=== PATIENT | male | born 1955 | race Caucasian/White ===

== ENCOUNTER → 2016-04-25 | Outpatient (CLI) | payer OTHER ==
--- NOTE | 2016-04-25 17:19 | DX ---
Right Knee, Seven Views Total, at 4 p.m. Clinical History: 61-year-old male who has had prior knee arthroplasty revisions, and his knee "buckl ed" earlier today and he has persistent pain. The patient is on chronic pain medication and chronic s uppressive antibiotics (with a history of cellulitis). Rule out acute abnormality. ICD-10 Diagnostic Codes: L03.119 and M25.569. Comparison Study: Right knee, dated August 27, 2015. Findings: There is stable positioning of the distal femoral and the proximal tibial arthroplasty comp onents, and there is no new periprosthetic lucency. There is a stable appearance to the remodeled pat angel, and numerous well-corticated ossific densities along the posterior, medial, and lateral aspects of the knee are similar in distribution to the 2016 exam. There is soft tissue swelling, and fluid i n the suprapatellar bursa cannot be excluded. There is no patellofemoral joint malalignment. There ar e vascular clips projected over the posteromedial upper calf. Ancillary imaging of the knee with MR evaluation will be limited because of magnetic susceptibility a rtifact associated with the arthroplasty, and a bone scan (even if radiotracer-avid) may not differen tiate between an acute versus chronic inflammatory process. Alternatively, conservative management an d short-term repeat radiographic follow-up in 7-14 days could be considered. Findings were discussed with Dr. Jacky Aguirre at 5:00 p.m. on April 25, 2016. Impression: 1. Status post right knee arthroplasty, with stable positioning of the components, compared to August. 2. Diffuse soft tissue swelling. 3. No convincing intervening evidence of hardware loosening, or acute osseous abnormality. 4. Osseous debris versus heterotopic ossification(s), very similar in distribution to the previous ex am. If there is progression of the patient's symptoms, supplementary imaging with MRI or s bone scan will be technically limited. Short-term repeat radiographic follow up is an alternative.
== END ==
LOC: FIMAGING 15:56
PROVIDERS: ATTEND Internal Medicine Infectious Disease
DX: M25.561 Pain in right knee (principal); Z96.651 Presence of right artificial knee joint; L03.119 Cellulitis of unspecified part of limb

== ENCOUNTER 2016-11-09 20:19 | Inpatient (IN) | payer OTHER ==
[2016-11-09] MEDS ORDERED: ACETAMINOPHEN 500 MG TAB PO ONE (21:11)
[2016-11-09] MEDS ORDERED: NS 500 ML IV ONE (21:18)
[2016-11-09 21:29] LABS: % IMMATURE GRANULYOCYTES 0.6 % (0.0-1.1); ABSOLUTE IMMATURE GRANULOCYTES 0.09 10^3/uL (0.00-0.10); ABSOLUTE NRBC COUNT 0.02 10^3/uL (0-0.01); ADD DIFF? NO; ADD MORPH? YES; ADD SCAN? NO; ANION GAP 11 mEq/L (8-16); ATYPICAL LYMPHOCYTE FLAG 0 (0-99); CALCIUM 9.8 mg/dL (8.5-10.4); CARBON DIOXIDE 28 mEq/l (22-31); CHLORIDE 94 mEq/L (97-110); CREATININE 1.3 mg/dL (0.7-1.3); FRAGMENT RBC FLAG 60 (0-99); GLOMERULAR FILTRATION RATE 56; GLUCOSE 84 mg/dL (70-100); HEMATOCRIT 46.6 % (40.0-51.0); HEMOGLOBIN 13.4 g/dL (13.7-17.5); LEFT SHIFT FLG 0 (0-99); LIPEMIA HEMOLYSIS FLAG 70 (0-99); NRBC-AUTO% 0.1 % (0.0-0.2); PLATELET CLUMPS FLAG 10 (0-99); PLATELET COUNT 275 10^3/uL (150-400); POTASSIUM 3.9 mEq/L (3.5-5.2); SODIUM 133 mEq/L (134-144)
[2016-11-09 21:30] LABS: MEAN CELL HEMOGLOBIN CONCENTR. 28.8 g/dL (32.4-36.7); MEAN CELL VOLUME 69.6 fL (81.5-99.8); RED CELL DISTRIBUTION WIDTH 22.5 % (11.5-15.2)
--- NOTE | 2016-11-09 21:38 | EDPHY ---
H & P Time Seen by Provider: 11/09/16 21:27 HPI/ROS: Chief complaint. Fever, fall HPI. 61-year-old male presents emergency department with fever. He had a cortisone shot in his back yesterday and then was weak and then fell landing on his bottom. Complains of tailbone pain. Did not strike his head or lose consciousness. No neck pain. He has had abdominal pain in the mid abdomen since 3:00 p.m. no vomiting or diarrhea. He has no symptoms for his fever including sore throat or runny nose or congestion. Denies cough, chest pain, shortness of breath, denies urinary symptoms. However he does have a history of cellulitis. ROS Constitutional. Fever and chills with weakness Eyes. no problems with vision ENT. no sore throat, no nasal drainage Cardiovascular. no chest pain Respiratory. no shortness of breath, no cough Abdominal. Mid abdominal pain without vomiting or diarrhea . no problems urinating MS. no calf pain/swelling, no neck/back pain, no joint pain Skin. Redness to both lower extremities Lymph. no swollen glands Neuro. Difficulty walking secondary to weakness Past Medical/Surgical History: Past medical history significant for bilateral knee problems, back surgery, cellulitis both legs, hypertension Smoking Status: Never smoked Physical Exam: General Appearance: Alert well-developed male moderate distress vital signs show temp 38.0degrees. Heart rate 112. Initial blood pressure 96/86 Eyes: Pupils equal and round no pallor or injection. ENT, Mouth: Mucous membranes are moist. Respiratory: There are no retractions, lungs are clear to auscultation. Cardiovascular: Regular rate and rhythm. Gastrointestinal: Abdomen is soft with mid abdominal tenderness. No masses. Normal bowel sounds Neurological: Awake and alert, sensory and motor exams grossly normal. Skin: Bilateral lower leg erythema suggestive of cellulitis Musculoskeletal: Neck is supple nontender. Extremities symmetrical, full range of motion. Psychiatric: Patient is oriented X 3, there is no agitation. Constitutional: Initial Vital Signs Temperature (C) 38.0 C 11/09/16 20:29 Heart Rate 112 H 11/09/16 20:29 Respiratory Rate 20 11/09/16 20:29 Blood Pressure 96/86 H 11/09/16 20:29 O2 Sat (%) 92 11/09/16 20:29 O2 Delivery Mode Nasal Cannula O2 (L/minute) 2 Allergies/Adverse Reactions: amoxicillin [Amoxicillin] Allergy (Mild, Verified 11/09/16 20:32) NAUSEA codeine [Codeine] Allergy (Mild, Verified 11/09/16 20:32) NAUSEA hydromorphone HCl [From Dilaudid] Allergy (Mild, Verified 11/09/16 20:32) NAUSEA/DOESN'T WORK clavulanic acid [Clavulanic Acid] Allergy (Unknown, Verified 11/09/16 20:32) Home Medications: Medication Instructions Recorded Gabapentin [Gabapentin 800 mg] 800 mg PO QID 01/27/14 Lisinopril [Zestril 20 mg (*)] 20 mg PO HS 01/27/14 Pantoprazole Sodium 40 mg PO DAILY 01/27/14 Sennosides/Docusate Sodium 1 tab PO DAILY PRN 01/27/14 [Senokot-S] Simethicone [Gas Relief] 125 mg PO DAILY PRN 01/27/14 Tadalafil [Cialis] 5 mg PO DAILY 01/27/14 Tamsulosin HCl [Flomax 0.4 MG (*)] 0.4 mg PO DAILY 01/27/14 Testosterone Cypionate 200 mg IM Q7D 01/27/14 oxyCODONE CR [Oxycontin] 80 mg PO TID 01/27/14 Lisinopril [Zestril 40 mg (*)] 40 mg PO DAILY 08/26/15 oxyCODONE IR [Oxycodone Ir (*)] 30 - 60 mg PO Q4 PRN #60 tab 09/05/15 Levothyroxine Sodium 100 mcg PO DAILY 11/09/16 [Levothyroxine Sodium] PARoxetine HCL [Paxil 20mg (*)] 20 mg PO BID 11/09/16 buPROPion XL [Wellbutrin Xl] 150 mg PO HS 11/09/16 buPROPion XL [Wellbutrin Xl] 300 mg PO DAILY 11/09/16 Medical Decision Making - Diagnostics EKG Interpretation: EKG interpreted by me shows sinus tachycardia. Normal interval and axis. QRS is normal there is no significant ST elevation or depression. No arrhythmia. The rate is 111 Imaging Results: Imaging Impressions Chest X-Ray 11/09/16 21:39 Impression: Mild hypoventilatory features. Abdomen CT 11/09/16 22:14 Impression: There is no identified source for an intra-abdominal infection, nor is there an acute pelvic osseous abnormality. Please see the above discussion. Findings were discussed with JAROD JADE MD at 23:32, on 11/09/2016. He indicated that the patient may have a left leg cellulitis, and there is some mild subcutaneous edema associated with the left groin and proximal left thigh and left buttock with a 2.6 cm left groin lymph node. Chest x-ray interpreted by me shows no evidence for pneumonia CT abdomen with IV contrast shows no obvious intra-abdominal infection Procedures: IV normal saline. Sepsis workup. Initial lactate is elevated. Patient is getting IV fluids at 30 male per kg. Repeat lactate is ordered ED Course/Re-evaluation: Patient has elevated lactate. He remains hypotensive after his 30 milliliter/ kilogram fluid bolus. He is begun on vancomycin. Central line is it is placed in the internal jugular. Levophed is begun for hypotension. I consulted and discussed the case with Dr. Oleary, hospitalist, who agrees to the admission. We will place the patient in the ICU Differential Diagnosis: Sepsis as I considered urinary tract infection, pneumonia. As the patient had abdominal pain I considered intra-abdominal infection. Likely this is cellulitis. Critical Care Time: Critical care time exclusive procedures 45 minutes - Data Points Laboratory Results: Laboratory Results 11/09/16 20:42 11/09/16 20:42 11/09/16 11/09/16 11/09/16 23:40 20:43 20:42 WBC RBC Hgb Hct MCV MCH MCHC RDW Plt Count MPV Neut % (Auto) Lymph % (Auto) Carroll % (Auto) Eos % (Auto) Baso % (Auto) Nucleat RBC Rel Count Absolute Neuts (auto) Absolute Lymphs (auto) Absolute Monos (auto) Absolute Eos (auto) Absolute Basos (auto) Absolute Nucleated RBC Immature Gran % Immature Gran # Platelet Estimate Microcytic Cells Oval Macrocytes Smear Review By [facility] Lactic Acid 1.7 mmol/L D mmol/L 2.2 mmol/L H mmol/L (0.7-2.1) (0.7-2.1) Sodium 133 mEq/L L mEq/L (134-144) Potassium 3.9 mEq/L mEq/L (3.5-5.2) Chloride 94 mEq/L L mEq/L (97-110) Carbon Dioxide 28 mEq/l mEq/l (22-31) Anion Gap 11 mEq/L mEq/L (8-16) BUN 23 mg/dL mg/dL (7-23) Creatinine 1.3 mg/dL mg/dL (0.7-1.3) Estimated GFR 56 Glucose 84 mg/dL mg/dL (70-100) Calcium 9.8 mg/dL mg/dL (8.5-10.4) 11/09/16 20:42 WBC 16.10 10^3/uL H 10^3/uL (3.80-9.50) RBC 6.70 10^6/uL H 10^6/uL (4.40-6.38) Hgb 13.4 g/dL L g/dL (13.7-17.5) Hct 46.6 % % (40.0-51.0) MCV 69.6 fL L fL (81.5-99.8) MCH 20.0 pg L pg (27.9-34.1) MCHC 28.8 g/dL L g/dL (32.4-36.7) RDW 22.5 % H % (11.5-15.2) Plt Count 275 10^3/uL 10^3/uL (150-400) MPV Not Reported Neut % (Auto) 85.3 % H % (39.3-74.2) Lymph % (Auto) 3.5 % L % (15.0-45.0) Carroll % (Auto) 10.3 % % (4.5-13.0) Eos % (Auto) 0.1 % L % (0.6-7.6) Baso % (Auto) 0.2 % L % (0.3-1.7) Nucleat RBC Rel Count 0.1 % % (0.0-0.2) Absolute Neuts (auto) 13.74 10^3/uL H 10^3/uL (1.70-6.50) Absolute Lymphs (auto) 0.56 10^3/uL L 10^3/uL (1.00-3.00) Absolute Monos (auto) 1.66 10^3/uL H 10^3/uL (0.30-0.80) Absolute Eos (auto) 0.01 10^3/uL L 10^3/uL (0.03-0.40) Absolute Basos (auto) 0.04 10^3/uL 10^3/uL (0.02-0.10) Absolute Nucleated RBC 0.02 10^3/uL H 10^3/uL (0-0.01) Immature Gran % 0.6 % % (0.0-1.1) Immature Gran # 0.09 10^3/uL 10^3/uL (0.00-0.10) Platelet Estimate ADEQUATE (ADEQ) Microcytic Cells 2+ H Oval Macrocytes 1+ H Smear Review By Pending [facility] Lactic Acid Sodium Potassium Chloride Carbon Dioxide Anion Gap BUN Creatinine Estimated GFR Glucose Calcium Medications Given: Discontinued Medications Acetaminophen (Tylenol) 1,000 mg PO EDNOW ONE Stop: 11/09/16 21:12 Last Admin: 11/09/16 21:16 Dose: 1,000 mg Sodium Chloride (Ns) 500 mls @ 1,000 mls/hr IV ONCE ONE PRN Reason: Protocol Stop: 11/09/16 21:47 Last Admin: 11/09/16 21:20 Dose: 500 mls Sodium Chloride (Ns) 2,700 mls @ 5,400 mls/hr 30 ml/kg infuse over 30 min ( 2700 ml) IV EDNOW ONE PRN Reason: Protocol Stop: 11/09/16 23:08 Last Admin: 11/09/16 22:47 Dose: 2,700 mls Departure - Departure Disposition: [facility] Inpatient Acute Clinical Impression: Severe sepsis Cellulitis of leg Qualifiers: Laterality: unspecified laterality Qualified Code(s): L03.119 - Cellulitis of unspecified part of limb Condition: Fair Referrals: Johnathan Amanda MD [Primary Care Provider] - As per Instructions
[2016-11-09 21:48] LABS: MACROCYTES 1+; MICROCYTES 2+; PLATELET ESTIMATE ADEQUATE (ADEQ)
--- NOTE | 2016-11-09 22:12 | CPEKG ---
Heart Rate: 111 RR Interval: 541 P-R Interval: 140 QRSD Interval: 92 QT Interval: 328 QTC Interval: 446 P [place]: 52 QRS [place]: 23 T Wave [place]: 4 EKG Severity - OTHERWISE NORMAL ECG - EKG Impression: SINUS TACHYCARDIA Electronically Signed By: Travon Palafox 09-Nov-2016 23:37:53
[2016-11-09] MEDS ORDERED: IOPAMIDOL (ISOVUE-300) 100 ML BTL ONE (22:18)
[2016-11-09] MEDS ORDERED: NS 2,700 ML IV ONE (22:39)
[2016-11-09] MEDS ORDERED: VANCOMYCIN HCL/NORMAL SALINE 250 ML IV ONE (23:33)
[2016-11-09] MEDS ORDERED: NOREPINEPHRINE/NS 500 ML IV ONE (23:50)
[2016-11-10 00:43] LABS: COLOR YELLOW; LEUKOCYTE ESTERASE,URINE NEGATIVE (NEGATIVE); NITRITE,URINE NEGATIVE (NEGATIVE)
[2016-11-10] MEDS ORDERED: NOREPINEPHRINE/NS 500 ML IV SCH (01:30)
[2016-11-10] MEDS ORDERED: D50W 25 GM/50 ML SYR IVP PRN (01:32)
[2016-11-10] MEDS ORDERED: ACETAMINOPHEN 325 MG TAB PO PRN (01:33)
[2016-11-10] MEDS ORDERED: ONDANSETRON 4 MG/2 ML VIAL IVP PRN (01:33)
[2016-11-10] MEDS: NS 1,000 ML IV SCH ×2 (01:51→19:48)
--- NOTE | 2016-11-10 03:00 | GHP ---
[f rep st] HISTORY AND PHYSICAL DATE OF ADMISSION: 11/09/2016 CHIEF COMPLAINT: Fever. HISTORY: The patient is a 61-year-old male, who developed a very high fever tonight. His just noticed he was very warm, but did not take his temperature and just brought him to the emergency room. He did have a cortisone shot to his lumbar spine yesterday and after the lumbar injection, he became weak and fell onto his tailbone. He did not hit his head. He does complain of severe back pain, he says all the way from his neck to his tailbone , but he says that is chronic and did not get better or worse with the injection. He also complains of chronic lower extremity weakness that has also not recently worsened. His did notice new urine incontinence x2 just prior to arrival. He also complained of a stomachache. He was briefly confused , but that has resolved. The patient complains of worsening pain in his left leg and worsening erythema x1 day. His did notice his legs have changed. They are now hot. The patient is adamant that his legs are infected and they are the source of the infection. PAST MEDICAL HISTORY: 1. 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 2. Chronic back pain with continuous narcotic dependency. 3. Obstructive sleep apnea, CPAP intolerant. 4. Obesity, BMI 36. 5. Hypertension. 6. Diabetes. PAST SURGICAL HISTORY: 1. Total knee arthroplasty x4 on the left, x2 on the right. 2. Hernia repair. MEDICATIONS: Please see computer record for full detailed list. ALLERGIES: To amoxicillin and Dilaudid. SOCIAL HISTORY: No smoking. No alcohol. He lives with his . He is a [employer] and does not accept blood products. REVIEW OF SYSTEMS: Complete review of systems obtained. Review of systems is negative for any constitutional, HEENT, GI, pulmonary, vascular, , hematology , skin, muscular, endocrine, psychiatric, except for positives as in HPI. FAMILY HISTORY: Both his mother and father lived into their 90s. PHYSICAL EXAMINATION: GENERAL: Well-developed, well-nourished male, in no acute distress. Temperature is 38, blood pressure 72/42, saturating 92% on room air, pulse is 110, respirations 22. EYES: Normal conjunctivae. Pupils react to light. ENT: Normal ears and nose. Hearing intact. Normal lips and teeth. Oropharynx is dry. NECK: Trachea midline. No thyromegaly. CHEST: Normal effort. Lungs are clear to auscultation bilaterally. CARDIOVASCULAR: Regular rhythm. No murmur. Lower extremity edema, right greater than left with some chronic venous stasis changes. Some slight erythema superimposed on these chronic venous stasis changes without involvement of the knee joints. ABDOMEN: Soft, nontender. No hepatosplenomegaly. Skin exam as above. MUSCULOSKELETAL: No cyanosis or clubbing. Strength is 5/5 upper and lower extremities, specifically lower extremity. Neuro examination is intact. Normal strength to bilateral lower extremities with normal sensation including ruling out of saddle anesthesia. NEUROLOGIC: Cranial nerves intact. Otherwise , as above. PSYCHIATRIC: Alert and oriented x3. Normal mood and affect. Normal judgment and insight. Normal memory. LABORATORY DATA: White count 16.1, hematocrit 46.6, platelets 275. Sodium 133 , potassium 3.9, chloride 94, bicarb 28, BUN 23, creatinine 1.3, glucose 84. Lactate initially 2.2, now down to 1.7. MCV is 69. EKG reviewed by me. My personal interpretation is sinus tachycardia. No ST or T-wave changes. Chest x-ray is negative. CT scan of the abdomen and pelvis is negative. Urinalysis is negative. ASSESSMENT AND PLAN: 1. Septic shock. He is on a norepinephrine drip. A central line placed by Dr. Palafox in the emergency room. We will order NICOM and monitor CVP to get a good sense of his volume status. He did receive appropriate sepsis bolus in the ER. We will now run his normal saline at 150 cc an hour. Source of sepsis is unclear. Potentially, a lower extremity cellulitis, and we will place him on IV vancomycin. Overall; however, his legs do not look that bad and he does complain of severe back pain, and with his epidural steroid injection yesterday new urine incontinence, I do think we need to do an MRI of his lumbar spine to rule out epidural abscess. He is neurologically fully intact, which is reassuring, and I will order neuro checks. I recommended that we do the MRI stat tonight; however, the patient adamantly refuses because he states his pain is too uncontrolled and he needs IV morphine prior to MRI. He is agreeable to doing it first thing in the morning. He is adamant that he thinks his legs are infected and his legs are the source of the sepsis, and it is not his back, and I could not convince him that this MRI need was more urgent this evening. 2. Chronic back pain with continuous narcotic dependency. He is on very high doses of OxyContin and oxycodone which will be continued. 3. Obesity. BMI 36 with untreated obstructive sleep apnea. Respiratory status is stable at this time. CODE STATUS: Full. ADMISSION STATUS: We will admit to inpatient. He is medically complex. Anticipate greater than 2 midnights. Critical care time spent is 1 hour. DVT PROPHYLAXIS: He should be on subcu Lovenox, but we will make sure epidural abscess is ruled out prior to initiating. /[id number]/MODL MTDD
[2016-11-10 03:23] LABS: ADD DIFF? YES; ADD SCAN? NO; ATYPICAL LYMPHOCYTE FLAG 0 (0-99); FRAGMENT RBC FLAG 40 (0-99); HEMATOCRIT 42.9 % (40.0-51.0); LEFT SHIFT FLG 20 (0-99); LIPEMIA HEMOLYSIS FLAG 70 (0-99); MEAN CELL HEMOGLOBIN 19.7 pg (27.9-34.1); MEAN CELL VOLUME 70.6 fL (81.5-99.8); MEAN PLATELET VOLUME 9.6 fL (8.7-11.7); PLATELET CLUMPS FLAG 30 (0-99); PLATELET COUNT 251 10^3/uL (150-400); RED BLOOD CELL COUNT 6.08 10^6/uL (4.40-6.38)
[2016-11-10 03:30] LABS: ADD MORPH? NO; INR 1.29 (0.83-1.16); PROTIME(PATIENT) 16.1 SEC (12.0-15.0); RED CELL DISTRIBUTION WIDTH 22.3 % (11.5-15.2)
[2016-11-10 03:31] LABS: APTT 32.1 SEC (23.0-38.0)
[2016-11-10 03:32] LABS: ALANINE AMINOTRANSFERASE 37 IU/L (21-72); ALBUMIN 2.9 g/dL (3.5-5.0); ALKALINE PHOSPHATASE 50 IU/L (38-126); ANION GAP 8 mEq/L (8-16); ASPARTATE AMINOTRANSFERASE 28 IU/L (17-59); BILIRUBIN,TOTAL 0.8 mg/dL (0.1-1.4); BILIRUBIN-CONJUGATED 0.2 mg/dL (0.0-0.5); BILIRUBIN-UNCONJUGATED 0.6 mg/dL (0.0-1.1); CALCIUM 8.4 mg/dL (8.5-10.4); CARBON DIOXIDE 27 mEq/l (22-31); CHLORIDE 99 mEq/L (97-110); CREATININE 1.3 mg/dL (0.7-1.3); GLOMERULAR FILTRATION RATE 56; GLUCOSE 93 mg/dL (70-100); POTASSIUM 4.6 mEq/L (3.5-5.2); SODIUM 134 mEq/L (134-144); TOTAL PROTEIN 5.3 g/dL (6.3-8.2)
[2016-11-10 03:41] LABS: % SATURATION 4 % (20-55); TOTAL IRON BINDING CAPACITY 318 ug/dL (260-490)
[2016-11-10 03:49] LABS: ANION GAP 7 mEq/L (8-16); BILIRUBIN,TOTAL 0.7 mg/dL (0.1-1.4); CALCIUM 8.3 mg/dL (8.5-10.4); CARBON DIOXIDE 28 mEq/l (22-31); CHLORIDE 100 mEq/L (97-110); CREATININE 1.3 mg/dL (0.7-1.3); GLOMERULAR FILTRATION RATE 56; GLUCOSE 91 mg/dL (70-100); POTASSIUM 4.4 mEq/L (3.5-5.2); SODIUM 135 mEq/L (134-144)
[2016-11-10 04:01] LABS: TROPONIN I 0.076 ng/mL (0.000-0.034)
[2016-11-10 04:04] LABS: MICROCYTES 2+
[2016-11-10 04:05] LABS: HYPOCHROMIA 2+; MACROCYTES 1+; POLYCHROMASIA 1+
[2016-11-10 04:06] LABS: PLATELET ESTIMATE ADEQUATE (ADEQ)
[2016-11-10 04:07] LABS: FERRITIN - BCH 21.5 ng/mL (17.9-464.0); LARGE PLATELETS PRESENT
[2016-11-10] MEDS: GABAPENTIN 400 MG CAP PO SCH ×4 (05:26→21:49)
[2016-11-10] MEDS ORDERED: NON-FORMULARY NEW DRUG (Gabapentin [Gabapentin 800 Mg] 800 MG) PO SCH (06:00)
[2016-11-10] MEDS: cefTRIAXone 2 GM in D5W 50 ML IV SCH ×2 (08:10→21:37)
[2016-11-10] MEDS: INSULIN REGULAR HUMAN 100 UNIT/ML SC SCH ×4 (08:27→21:47)
[2016-11-10] MEDS ORDERED: ENOXAPARIN 40 MG/0.4 ML SYR SC SCH ×2 (09:00→17:00)
[2016-11-10] MEDS: TAMSULOSIN HCL 0.4 MG CAP PO SCH (09:03)
[2016-11-10] MEDS: PANTOPRAZOLE SODIUM 40 MG TAB PO SCH (09:03)
[2016-11-10] MEDS: LEVOTHYROXINE 100 MCG TAB PO SCH (09:03)
[2016-11-10] MEDS: PARoxetine HCL 20 MG TAB PO SCH ×2 (09:03→21:38)
[2016-11-10] MEDS: oxyCODONE CR 80 MG TAB PO SCH ×3 (09:03→21:38)
[2016-11-10] MEDS: buPROPion XL 150 MG TAB PO SCH ×2 (09:04→21:38)
[2016-11-10] MEDS ORDERED: VANCOMYCIN HCL/NORMAL SALINE 250 ML IV SCH (12:00)
--- NOTE | 2016-11-10 12:07 | GCON ---
[f rep st] CONSULTATION CRITICAL CARE CONSULTATION DATE OF CONSULTATION: 11/10/2016 HISTORY OF PRESENT ILLNESS: This patient is a 61-year-old male with a longstanding history of chron ic back pain and multiple back surgeries, who developed a high fever and tripped or developed weakne ss (it is not very clear) and landed on his tail bone. Because of his ongoing fever, he was brought to the emergency department and, according to his , was incontinent of urine. According to the patient, he has had difficulty with urge incontinence before and felt this was a manifestation of t he same problem. He also reported a mechanical fall and not weakness. In any case, he was found to be hypotensive in the emergency department and febrile at 38 and did not respond to IV fluids in th e emergency department. Was started on the sepsis protocol. He required Levophed overnight, but th at was off by morning, and was complaining primarily of severe back pain, was mostly interested in h aving breakfast. In any case, his blood cultures did grow, eventually, gram-positive cocci in chain s, REVIEW OF SYSTEMS: He did have a steroid injection the day before his symptoms developed but has mclaughlin d chronic ongoing pain. He has had a history of chronic cellulitis as well and is followed by Dr. Pablo forrest in the infectious disease clinic but has not required antibiotics for that in at least a year. He has had issues of hypotension in the past, but it sounds like this was related to anemia. PAST MEDICAL HISTORY: Includes: 1. Cellulitis, as described above, at least related to a total knee arthroplasty in the past. 2. Chronic back pain with ongoing narcotic dependency. 3. Obstructive sleep apnea, which is currently untreated. 4. Obesity with a BMI of 36. 5. Hypertension. 6. Diabetes. 7. Depression. 8. Hypothyroidism. PAST SURGICAL HISTORY: Includes: 1. Total knee arthroplasty x4 on the left, two on the right. 2. Hernia repair. 3. Multiple back surgeries in the past. ALLERGIES: Include amoxicillin and Dilaudid with mild reactions. SOCIAL HISTORY: He is a nonsmoker. No alcohol or IV drug use. He is a Mu-[employer] and does not take blood products. FAMILY HISTORY: Unremarkable at this time. MEDICATIONS: Include Tylenol, Wellbutrin, Neurontin, insulin, Synthroid, morphine, Zofran, Protonix , Paxil, Flomax, vancomycin. PHYSICAL EXAMINATION: VITAL SIGNS: He had a T-max of 38. He is currently afebrile. Blood pressur e now 148/92, off pressors. Heart rate of 95, respirations 19, oxygen saturation 93% on room air. GENERAL: He is an obese male who has very pressured speech and is easily distracted but appears to be alert and oriented x3 and in no respiratory distress. HEENT: Pupils equally round, reactive to light. Nonicteric and noninjected. Mucous membranes are moist without erythema or exudate. NECK: Supple, without adenopathy or jugular vein distention. Breath sounds are clear to auscultation perla aterally without wheezes, rubs, or rales. HEART: Regular rate and rhythm without murmurs, rubs, or gallops. ABDOMEN: Soft, nontender, nondistended without hepatosplenomegaly. EXTREMITIES: Venous stasis changes bilaterally, a little bit worse on the right than the left. There is probably 1+ ed lianna as well. There is erythema on the left leg, which is notably warmer than the right leg. NEUROL OGICAL: Nonfocal, including cranial nerves, deep tendon reflexes. His strength is 5/5 in both his lower extremities as well as his upper extremities. There are no paresthesias noted. OBJECTIVE DATA: Includes blood cultures, as reported above. His white count was 16 on arrival. It is 28 this morning. Hematocrit was 46. It is 43. Platelets 251. Basic metabolic panel was unrem arkable. His iron level was very low at 12 and his iron saturation 4 with a ferritin of only 21. L FTs were normal, save for an albumin of 2.9 but lipase 27. Urinalysis was negative. Chest x-ray was negative. ASSESSMENT AND PLAN: 1. Septic shock due to bacteremia. The source is not exactly clear at this time. It may be the ce llulitis, although this seems a bit of an extreme response for the cellulitis that we see. There co uld easily be an epidural abscess, and an MRI is pending. We added ceftriaxone today and are holdin g his Lovenox in case there is a surgical intervention that is required. In the meantime, we will c ny to follow the protocol, use pressors to keep his MAP above 65, which has already been achiev ed, and follow his cultures expectantly. 2. Chronic back pain. The narcotics could cloud the blood pressure picture, but I certainly do not want him to be having significant pain, so we will try to find a balance on that piece of it. 3. Sleep apnea. This is probably contributing to his lower extremity venous stasis changes and pot ential recurring cellulitis, if, in fact, that is the case today. He is not interested in pursuing this at this time. We can proceed with oxygen alone. 4. Diabetes. We will try to keep his blood sugar under control, targeting somewhere between 120 an d 180. A total of 35 minutes of critical care time was required for this patient. /[id number]/MODL
--- NOTE | 2016-11-10 13:11 | PCMIDPN ---
Assessment/Plan: Assessment: Sepsis-patient with underlying multiple chronic diseases and a chronic infection of his right prosthetic knee. That knee is now fused with a samantha. He had multiple infections with Staphylococcus epidermidis and lactobacillus in that region. He was on Keflex chronic suppression but then switched to minocycline. He stop taking minocycline the in March but restarted again in May together with Keflex. Unclear if he was still taking chronic antibiotic suppression at this point. Blood cultures are showing Streptococcus. Ceftriaxone should cover well. Plan: 1. Continue empiric ceftriaxone. 2. Follow clinical course. 3. Follow identification of blood stream isolate. Plan to recheck blood cultures in 2 days. 11/10/16 13:03 11/10/16 13:15 Subjective: Patient is resting in his hospital bed. is at bedside. Patient's said that he became more lethargic and confused the day prior to admission. He is better currently. Objective: Ceftriaxone # 1 Vancomycin # 1 Vital Signs Temp Pulse Resp BP Pulse Ox 37.3 C 95 28 H 136/83 H 90 L 11/10/16 08:00 11/10/16 11:00 11/10/16 11:00 11/10/16 11:00 11/10/16 11:00 Laboratory Results 11/10/16 03:15 11/10/16 03:15 11/09/16 11/10/16 11/11/16 05:59 05:59 05:59 Intake Total 3657 Output Total 1350 Balance 2307 - Physical Exam General Appearance: WD/WN, alert, no apparent distress, toxic (Mildly appearing) Respiratory: lungs clear, normal breath sounds, No respiratory distress, No crackles Cardiac/Chest: regular rate, rhythm, No tachycardia Extremities: non-tender, normal inspection Skin: normal color, warm/dry, No rash Neuro/Psych: alert, normal mood/affect, oriented x 3 ICD10 Worksheet Patient Problems: Problems Problem Status Onset Cellulitis of leg Acute Severe sepsis Acute Acute renal failure Acute Umbilical hernia, incarcerated Acute
--- NOTE | 2016-11-10 13:37 | HOSPPROG ---
Hospitalist Progress Note Assessment/Plan: # acute septic shock- 2/2 Strep bacteremia -status post fluid resuscitation patient weaned off pressor support this morning Chest x-ray (personally reviewed and interpreted) no acute infiltrates- oxygen saturations 93% on room air - continue maintenance IVF while p.o. diminished - continue empiric ceftriaxone - follow sensitivities on blood cultures - repeat surveillance cultures in 24 hours # acute Streptococcus bacteremia- source unclear - and DC vancomycin - continue IV ceftriaxone - MRI lumbar spine ordered # chronic pain with continuous opioid dependency- patient on high doses OxyContin/oxycodone at home - continue home dosing - monitor closely # iron deficiency anemia- MCV has been in the 70s or below for many years - start IV iron supplementation once safe from infection standpoint - patient needs colonoscopy # hypovolemic hyponatremia- resolved with IV fluids overnight - follow BMP daily # prophylaxis Lovenox # diet regular # disposition greater than 2 midnights patient is presenting with septic shock requiring diagnostic workup and close monitoring I have discussed the case with Dr. Greenberg we will continue IV ceftriaxone in the setting of strep bacteremia Subjective: Pain is terrible Objective: Vital Signs Temp Pulse Resp BP Pulse Ox 37.3 C 95 28 H 136/83 H 90 L 11/10/16 08:00 11/10/16 11:00 11/10/16 11:00 11/10/16 11:00 11/10/16 11:00 Laboratory Results 11/10/16 03:15 11/10/16 03:15 11/09/16 11/10/16 11/11/16 05:59 05:59 05:59 Intake Total 3657 Output Total 1350 Balance 2307 PT 16.1 SEC (12.0-15.0) H 11/10/16 03:15 INR 1.29 (0.83-1.16) H 11/10/16 03:15 - Physical Exam Constitutional: obese Eyes: anicteric sclera Ears, Nose, Mouth, Throat: dry mucous membranes Cardiovascular: regular rate and rhythym Respiratory: no respiratory distress, no rales or rhonchi Gastrointestinal: normoactive bowel sounds, soft, non-tender abdomen Genitourinary: no bladder fullness Skin: warm, normal color Musculoskeletal: No asymmetric calves Neurologic: AAOx3 Psychiatric: interacting appropriately, not anxious Lymph, Heme, Immunologic: no cervical LAD ICD10 Worksheet Patient Problems: Problems Problem Status Onset Cellulitis of leg Acute Severe sepsis Acute Acute renal failure Acute Umbilical hernia, incarcerated Acute
[2016-11-10] MEDS ORDERED: GADOBUTROL 10 ML VIAL IVP ONE (14:55)
[2016-11-11 05:28] LABS: HEMATOCRIT 42.6 % (40.0-51.0); HEMOGLOBIN 11.8 g/dL (13.7-17.5); MEAN CELL HEMOGLOBIN 19.6 pg (27.9-34.1); MEAN CELL VOLUME 70.8 fL (81.5-99.8); RED BLOOD CELL COUNT 6.02 10^6/uL (4.40-6.38)
[2016-11-11 05:29] LABS: MEAN CELL HEMOGLOBIN CONCENTR. 27.7 g/dL (32.4-36.7); RED CELL DISTRIBUTION WIDTH 22.4 % (11.5-15.2)
[2016-11-11 05:52] LABS: ANION GAP 5 mEq/L (8-16); CALCIUM 8.6 mg/dL (8.5-10.4); CARBON DIOXIDE 29 mEq/l (22-31); CHLORIDE 97 mEq/L (97-110); GLOMERULAR FILTRATION RATE > 60; GLUCOSE 87 mg/dL (70-100); SODIUM 131 mEq/L (134-144)
[2016-11-11] MEDS: oxyCODONE CR 80 MG TAB PO SCH ×3 (07:15→20:35)
[2016-11-11] MEDS: GABAPENTIN 400 MG CAP PO SCH ×4 (07:15→20:28)
[2016-11-11] MEDS: INSULIN REGULAR HUMAN 100 UNIT/ML SC SCH ×4 (07:43→23:31)
[2016-11-11] MEDS: PARoxetine HCL 20 MG TAB PO SCH ×2 (08:13→20:27)
[2016-11-11] MEDS: buPROPion XL 150 MG TAB PO SCH ×2 (08:13→20:27)
[2016-11-11] MEDS: PANTOPRAZOLE SODIUM 40 MG TAB PO SCH (08:13)
[2016-11-11] MEDS: TAMSULOSIN HCL 0.4 MG CAP PO SCH (08:13)
[2016-11-11] MEDS: LEVOTHYROXINE 100 MCG TAB PO SCH (08:14)
[2016-11-11] MEDS: cefTRIAXone 2 GM in D5W 50 ML IV SCH ×3 (09:36→20:27)
--- NOTE | 2016-11-11 11:15 | PCMIDPN ---
Assessment/Plan: Assessment/Plan: * Streptococcal bacteremia: Organism identification pending with PCR identification noting that organism is not group A/B/pneumococcus. Reviewed with microbiology and appears isolate is alpha hemolytic. Has erythema over left lower extremity suggestive of cellulitis although alpha hemolytic streptococci would be less common cause of skin and soft tissue infection. Will obtain transthoracic echocardiogram to assess for endocarditis. Continue ceftriaxone. Repeat blood cultures to document clearing of bacteremia. 11/11/16 11:12 Subjective: Patient complains of left lower extremity redness and tenderness. Patient concerned infection related to recent steroid injection. Objective: Vital Signs Temp Pulse Resp BP Pulse Ox 37.3 C 103 H 12 122/68 H 100 11/11/16 08:00 11/11/16 10:00 11/11/16 10:00 11/11/16 10:00 11/11/16 10:00 Laboratory Results 11/11/16 05:15 11/11/16 05:15 11/10/16 11/11/16 11/12/16 05:59 05:59 05:59 Intake Total 3657 3626 600 Output Total 1350 3850 980 Balance 8273 -224 -149 Ceftriaxone # 2 Blood cultures 2/2 sets with Streptococcus, not group A/B/pneumococcus MRI of spine without evidence of diskitis or osteomyelitis CT abdomen pelvis without focal abnormality - Physical Exam General Appearance: alert, no apparent distress EENT: other (edentulous), No conjunctival petechiae Respiratory: lungs clear, No respiratory distress Cardiac/Chest: regular rate, rhythm, No systolic murmur Extremities: inflammation (Left lower extremity with erythema, warmth and tenderness over [place]), other (Right knee nontender without warmth or erythema) Abdomen: non-tender, No distended Skin: No embolic lesions ICD10 Worksheet Patient Problems: Problems Problem Status Onset Cellulitis of leg Acute Severe sepsis Acute Acute renal failure Acute Umbilical hernia, incarcerated Acute
--- NOTE | 2016-11-11 13:47 | ECHO ---
[id number] + + [address] : : [place] [address] : : [phone] + + Adult Echocardiographic Report + ----+ :Name: ALEXIS JIM MStudy Date: 11/11/2016 12:15 PM : : Hospital Admission Number: [id number] Location: 253: :: 1955 Gender: Male Height: 62 in : :Age: 61 yrs Race: WH Weight: 214 lb : :Reason For Study: Strep bacteremia/eval for vegetations : : BSA: 2.0 meters2 : + ----+ MMode/2D Measurements \T\ Calculations IVSd: 1.0 cm LVIDd: 5.0 cm FS: 29.1 % Ao root diam: LVPWd: 1.0 cm LVIDs: 3.5 cm EDV(Teich): 3.0 cm 116.9 ml LA dimension: ESV(Teich): 4.8 cm 51.8 ml EF(Teich): 55.7 % LVLd ap4: 9.3 cm SV(MOD-sp4): EDV(MOD-sp4): 45.0 ml 79.0 ml LVLs ap4: 7.6 cm ESV(MOD-sp4): 34.0 ml EF(MOD-sp4): 57.0 % Normal Measurement Values: + + :LVIDd (3.5-5.7cm) IVSd (0.6-1.1cm) LVPWd (0.6-1.1cm) Aortic Root (2.0-3.7cm)Left Atrium (1.5-4.0cm): :LV Vol(d) (76-115ml) LV Vol(s) (29-48ml) Ejec Fraction (50-65%)PV Dilip (0.6- 1.2m/s) TV Dilip (0.4-1.0m/s) : :MV E Dilip (0.8-1.0m/s)MV A Dilip (0.3-1.0m/s)LVOT Dilip (0.7-1.2m/s) Asc Ao Dilip ( 0.9-1.8m/s) : + + Doppler Measurements \T\ Calculations MV E max dilip: 70.1 cm/sec Ao mean P.6 mmHg MV A max dilip: 67.6 cm/sec Ao V2 mean: 76.2 cm/sec MV E/A: 1.0 Ao V2 VTI: 18.5 cm Left Ventricle The left ventricle is normal in size. There is normal left ventricular wall thickness. Left ventricular systolic function is normal. Ejection Fraction = 50-55%. Septal motion is consistent with conduction abnormality. Right Ventricle The right ventricle is normal in size and function. Atria The left atrium is mildly dilated. Right atrial size is normal. Mitral Valve The mitral valve is normal in structure and function. There is no evidence of mitral valve prolapse. There is no mitral valve stenosis. There is mild mitral regurgitation. Tricuspid Valve Normal tricuspid valve. There is trace tricuspid regurgitation. Aortic Valve The aortic valve is not well seen but appears trileaflet. There is no aortic stenosis. There is no aortic insufficiency. Pulmonic Valve The pulmonic valve is not well visualized. There is no pulmonic valvular regurgitation. Great Vessels The aortic root is normal size. Pericardium/Pleural There is no pericardial effusion. Conclusion A complete two-dimensional transthoracic echocardiogram was performed (2D, M-mode, Doppler and color flow Doppler). There is no evidence of a mass or vegetation. This does not rule out endocarditis. 1. The left ventricle is normal in size. Septal motion is consistent with conduction abnormality. The Ejection Fraction = 50-55%. 2. The left atrium is mildly dilated. 3. The mitral valve is normal in structure and function. There is mild mitral regurgitation. 4. The aortic valve is not well seen but appears trileaflet. There is no aortic stenosis. There is no aortic insufficiency. 5. No vegetations identified with in the confines of transthoracic echocardiography. Consider PATRICK if clinically indicated. 6. No old studies for comparison. Final Reading Physician: Joseph Huffman MD electronically signed on 11/11/2016 01:45 PM Ordering Physician: Sonia Patel Performed By: Dominga Maurer, [facility]
--- NOTE | 2016-11-11 14:06 | HOSPPROG ---
Hospitalist Progress Note Assessment/Plan: # acute septic shock- 2/2 Strep bacteremia -status post fluid resuscitation patient weaned off pressor support this morning Lumbar MRI (personally reviewed and interpreted) no epidural abscess- oxygen saturations 96% on 1L - can dc IVF PO adequate - continue empiric ceftriaxone - follow sensitivities on blood cultures - repeat surveillance cultures in 24 hours - dc pressors # acute Streptococcus bacteremia- source unclear- strep speciation pending - TTE today - continue IV ceftriaxone # chronic pain with continuous opioid dependency- patient on high doses OxyContin/oxycodone at home - continue home dosing - monitor closely # iron deficiency anemia- MCV has been in the 70s or below for many years - start IV iron supplementation once safe from infection standpoint - patient needs colonoscopy # hypovolemic hyponatremia- resolved with IV fluids overnight - follow BMP daily # TYRONE - CPAP # Diabetes - BS 80-130 - cont SSI # prophylaxis Lovenox # diet regular # disposition greater than 2 midnights patient is presenting with septic shock requiring diagnostic workup and close monitoring I have discussed the case with Dr. Guzman - patient stable enough for med/surg transfer Subjective: pain better controlled back on home meds Objective: Vital Signs Temp Pulse Resp BP Pulse Ox 36.4 C 87 12 139/88 H 96 11/11/16 11:56 11/11/16 11:56 11/11/16 11:56 11/11/16 11:56 11/11/16 11:56 Laboratory Results 11/11/16 05:15 11/11/16 05:15 11/10/16 11/11/16 11/12/16 05:59 05:59 05:59 Intake Total 3657 3626 600 Output Total 1350 3850 980 Balance 2307 -224 -380 PT 16.1 SEC (12.0-15.0) H 11/10/16 03:15 INR 1.29 (0.83-1.16) H 11/10/16 03:15 - Physical Exam Constitutional: obese Eyes: anicteric sclera Ears, Nose, Mouth, Throat: moist mucous membranes Cardiovascular: regular rate and rhythym Respiratory: no respiratory distress Gastrointestinal: normoactive bowel sounds Genitourinary: no bladder fullness Skin: warm, normal color Musculoskeletal: No asymmetric calves Neurologic: AAOx3 Psychiatric: interacting appropriately, No agitated Lymph, Heme, Immunologic: no cervical LAD ICD10 Worksheet Patient Problems: Problems Problem Status Onset Cellulitis of leg Acute Severe sepsis Acute Acute renal failure Acute Umbilical hernia, incarcerated Acute
[2016-11-11] MEDS: ENOXAPARIN 40 MG/0.4 ML SYR SC SCH (15:24)
[2016-11-11] MEDS ORDERED: ALBUTEROL 3 ML DEYVIAL IH PRN (16:08)
[2016-11-12 04:51] LABS: HEMATOCRIT 44.6 % (40.0-51.0); HEMOGLOBIN 12.4 g/dL (13.7-17.5); MEAN CELL HEMOGLOBIN 19.8 pg (27.9-34.1); MEAN CELL VOLUME 71.1 fL (81.5-99.8); RED BLOOD CELL COUNT 6.27 10^6/uL (4.40-6.38)
[2016-11-12 04:53] LABS: MEAN CELL HEMOGLOBIN CONCENTR. 27.8 g/dL (32.4-36.7); RED CELL DISTRIBUTION WIDTH 22.2 % (11.5-15.2)
[2016-11-12 05:10] LABS: ANION GAP 8 mEq/L (8-16); CALCIUM 9.1 mg/dL (8.5-10.4); CARBON DIOXIDE 30 mEq/l (22-31); CHLORIDE 94 mEq/L (97-110); CREATININE 1.1 mg/dL (0.7-1.3); GLOMERULAR FILTRATION RATE > 60; GLUCOSE 79 mg/dL (70-100); POTASSIUM 4.3 mEq/L (3.5-5.2); SODIUM 132 mEq/L (134-144)
[2016-11-12] MEDS: GABAPENTIN 400 MG CAP PO SCH ×4 (05:57→20:58)
[2016-11-12] MEDS: oxyCODONE CR 80 MG TAB PO SCH ×3 (05:58→21:31)
[2016-11-12] MEDS: TAMSULOSIN HCL 0.4 MG CAP PO SCH (08:47)
[2016-11-12] MEDS: PANTOPRAZOLE SODIUM 40 MG TAB PO SCH (08:47)
[2016-11-12] MEDS: LEVOTHYROXINE 100 MCG TAB PO SCH (08:48)
[2016-11-12] MEDS: ENOXAPARIN 40 MG/0.4 ML SYR SC SCH (08:48)
[2016-11-12] MEDS: PARoxetine HCL 20 MG TAB PO SCH ×2 (08:48→20:58)
[2016-11-12] MEDS: buPROPion XL 150 MG TAB PO SCH ×2 (08:48→20:58)
[2016-11-12] MEDS: INSULIN REGULAR HUMAN 100 UNIT/ML SC SCH ×4 (09:11→20:59)
--- NOTE | 2016-11-12 14:11 | HOSPPROG ---
Hospitalist Progress Note Assessment/Plan: # acute septic shock- 2/2 Strep bacteremia -status post fluid resuscitation patient weaned off pressors - VS now stable Lumbar MRI - no epidural abscess- CXR (personally reviewed and interpreted) oxygen saturations 96% on 1L - continue ceftriaxone - surveillance cultures pending # acute Streptococcus bacteremia- source unclear- strep speciation pending TTE (reviewed) no vegetations noted - continue IV ceftriaxone - will discuss PICC line and length of tx with ID # chronic pain with continuous opioid dependency- patient on high doses OxyContin/oxycodone at home- appears somnolent on my exam today - continue home dosing- unless if oversedated will hold doses - monitor closely # iron deficiency anemia- MCV has been in the 70s or below for many years - start IV iron supplementation once safe from infection standpoint - patient needs colonoscopy # hypovolemic hyponatremia- resolved with IV fluids overnight - follow BMP daily # TYRONE - CPAP # Diabetes - BS [id number] - cont SSI # prophylaxis Lovenox # diet regular # disposition greater than 2 midnights patient is presenting with septic shock requiring diagnostic workup and close monitoring I have discussed the case with RN - whe is concerned regarding his lethargy - agreed to hold ongoing narcotics if remains somnolent or confused Subjective: leg discomfort Objective: Vital Signs Temp Pulse Resp BP Pulse Ox 36.9 C 97 20 148/88 H 92 11/12/16 11:33 11/12/16 11:33 11/12/16 11:33 11/12/16 11:33 11/12/16 11:33 Laboratory Results 11/12/16 04:30 11/12/16 04:30 11/11/16 11/12/16 11/13/16 05:59 05:59 05:59 Intake Total 3626 1720 Output Total 3850 1480 525 Balance -224 240 -525 PT 16.1 SEC (12.0-15.0) H 11/10/16 03:15 INR 1.29 (0.83-1.16) H 11/10/16 03:15 - Physical Exam Constitutional: obese Eyes: anicteric sclera Ears, Nose, Mouth, Throat: moist mucous membranes Cardiovascular: regular rate and rhythym, edema Respiratory: no respiratory distress, no rales or rhonchi Gastrointestinal: normoactive bowel sounds Genitourinary: no bladder fullness Skin: warm Musculoskeletal: No asymmetric calves Neurologic: AAOx3 Psychiatric: other (somnolent) Lymph, Heme, Immunologic: no cervical LAD ICD10 Worksheet Patient Problems: Problems Problem Status Onset Cellulitis of leg Acute Severe sepsis Acute Acute renal failure Acute Umbilical hernia, incarcerated Acute
--- NOTE | 2016-11-12 16:32 | PCMIDPN ---
Assessment/Plan: Assessment/Plan: * Streptococcus salivarius bacteremia: Clinically improved with antibiotic therapy. No clear source for bacteremia although steroid injections have been associated with bacteremia from oropharyngeal streptococcal species including salivarius. Transthoracic echocardiogram without findings of endocarditis and no specific exam findings to suggest this is present. Favor waiting repeat blood cultures prior to proceeding with PATRICK. If cultures are positive, then will need PATRICK to further assess for endocarditis. Given complaint of left lower extremity weakness, will consider repeat MRI if this does not improve to ensure no development of epidural abscess (initial MRI did not show this entity) . Continue ceftriaxone to which isolate is susceptible. Follow up repeat blood cultures as available. PICC line feasible tomorrow if blood cultures remain negative. * Lower extremity erythema, left greater than right: Suspect more likely related to venous insufficiency than cellulitis. Streptococcus salivarius bacteremia would be atypical to arise from skin and soft tissue infection. Time spent, greater than 35 minutes, of which greater than half was spent in education/counseling/coordination of care related to clinical findings, Streptococcus bacteremia, antibiotic therapy, and discussion of ongoing plan of care. 11/12/16 16:31 11/12/16 16:38 11/12/16 16:50 11/12/16 16:50 Subjective: Patient complains of feeling weak in his lower extremities. Describes this as being present previously when he had bacteremia. He is concerned current antibiotics are not working. No urinary retention. Objective: Vital Signs Temp Pulse Resp BP Pulse Ox 36.8 C 89 18 122/87 H 93 11/12/16 15:49 11/12/16 15:49 11/12/16 15:49 11/12/16 15:49 11/12/16 15:49 Laboratory Results 11/12/16 04:30 11/12/16 04:30 11/11/16 11/12/16 11/13/16 05:59 05:59 05:59 Intake Total 3626 1720 Output Total 3850 1480 525 Balance -224 240 -525 Ceftriaxone # 3 Blood cultures 11/11/2016 pending Blood cultures 11/09/2016 2/2 sets Streptococcus salivarius - Physical Exam General Appearance: alert, no apparent distress EENT: No conjunctival petechiae Respiratory: lungs clear, No respiratory distress Cardiac/Chest: regular rate, rhythm, No systolic murmur Extremities: inflammation (Bilateral lower extremities with erythema below knee , left greater than right; mild warmth and tenderness present) Abdomen: non-tender, No distended Back: spine tenderness (Mild at base of lumbar region) Skin: No embolic lesions ICD10 Worksheet Patient Problems: Problems Problem Status Onset Cellulitis of leg Acute Severe sepsis Acute Acute renal failure Acute Umbilical hernia, incarcerated Acute
[2016-11-12] MEDS: cefTRIAXone 2 GM in D5W 50 ML IV SCH (20:57)
[2016-11-13] MEDS: oxyCODONE CR 80 MG TAB PO SCH ×3 (05:22→21:52)
[2016-11-13] MEDS: GABAPENTIN 400 MG CAP PO SCH ×4 (05:22→20:17)
[2016-11-13 05:54] LABS: HEMATOCRIT 42.9 % (40.0-51.0); MEAN CELL HEMOGLOBIN 19.7 pg (27.9-34.1); MEAN CELL VOLUME 70.3 fL (81.5-99.8); RED BLOOD CELL COUNT 6.1 10^6/uL (4.40-6.38)
[2016-11-13 05:58] LABS: RED CELL DISTRIBUTION WIDTH 22.1 % (11.5-15.2)
[2016-11-13 06:11] LABS: ANION GAP 9 mEq/L (8-16); CALCIUM 8.9 mg/dL (8.5-10.4); CARBON DIOXIDE 31 mEq/l (22-31); CHLORIDE 96 mEq/L (97-110); GLOMERULAR FILTRATION RATE > 60; GLUCOSE 72 mg/dL (70-100); POTASSIUM 4.2 mEq/L (3.5-5.2); SODIUM 136 mEq/L (134-144)
[2016-11-13] MEDS: INSULIN REGULAR HUMAN 100 UNIT/ML SC SCH ×4 (08:06→20:23)
[2016-11-13] MEDS: buPROPion XL 150 MG TAB PO SCH ×2 (09:46→20:17)
[2016-11-13] MEDS: PANTOPRAZOLE SODIUM 40 MG TAB PO SCH (09:46)
[2016-11-13] MEDS: PARoxetine HCL 20 MG TAB PO SCH ×2 (09:46→20:17)
[2016-11-13] MEDS: TAMSULOSIN HCL 0.4 MG CAP PO SCH (09:47)
[2016-11-13] MEDS: ENOXAPARIN 40 MG/0.4 ML SYR SC SCH (09:47)
[2016-11-13] MEDS: LEVOTHYROXINE 100 MCG TAB PO SCH (09:47)
--- NOTE | 2016-11-13 10:32 | HOSPPROG ---
Hospitalist Progress Note Assessment/Plan: # acute septic shock- 2/2 Strep bacteremia -status post fluid resuscitation patient weaned off pressors - VS now stable Lumbar MRI - no epidural abscess- - continue ceftriaxone - surveillance cultures pending # acute Streptococcus saliverus bacteremia- probably due to injection TTE (reviewed) no vegetations noted - continue IV ceftriaxone - PICC line today # lower extremity weakness * Legs do not look particularly cellulitic. White blood cell count and fever of improved. * I'm wondering if it is actually more swelling than average that may be hampering immobility * Will add Lasix * Additional antibiotics decision per ID # chronic pain with continuous opioid dependency- patient on high doses OxyContin/oxycodone at home- appears somnolent on my exam today - continue home dosing- unless if oversedated will hold doses - monitor closely # iron deficiency anemia- MCV has been in the 70s or below for many years - start IV iron supplementation once safe from infection standpoint - patient needs colonoscopy # hypovolemic hyponatremia- resolved with IV fluids overnight - follow BMP daily # TYRONE - CPAP # Diabetes - BS [phone] - cont SSI # prophylaxis Lovenox # diet regular # disposition greater than 2 midnights patient is presenting with septic shock requiring diagnostic workup and close monitoring Subjective: Feels like he may have cellulitis in his legs. They feel weak and pressure-like. however he says that swelling is about the same as it has been in the past. Objective: Vital Signs Temp Pulse Resp BP Pulse Ox 37.0 C 96 18 145/95 H 92 11/13/16 07:21 11/13/16 07:21 11/13/16 07:21 11/13/16 07:21 11/13/16 07:21 Microbiology 11/11/16 16:20 Blood Panel (PCR) - Final Blood Staph Coagulase Negative Laboratory Results 11/13/16 05:30 11/13/16 05:30 11/12/16 11/13/16 11/14/16 05:59 05:59 05:59 Intake Total 1720 650 Output Total 1480 1400 Balance 240 -750 PT 16.1 SEC (12.0-15.0) H 11/10/16 03:15 INR 1.29 (0.83-1.16) H 11/10/16 03:[address] Stone - Physical Exam Constitutional: no apparent distress, appears nourished, not in pain Eyes: anicteric sclera, EOMI Ears, Nose, Mouth, Throat: moist mucous membranes, hearing normal Cardiovascular: regular rate and rhythym Respiratory: no respiratory distress, no rales or rhonchi, clear to auscultation Gastrointestinal: normoactive bowel sounds, soft, non-tender abdomen, no palpable masses Musculoskeletal: other (Left greater than right edema with chronic venous stasis changes. Edema especially in the left looks significant and could be hampering mobility of knee) Neurologic: AAOx3 Psychiatric: interacting appropriately, not anxious, not encephalopathic, thought process linear ICD10 Worksheet Patient Problems: Problems Problem Status Onset Cellulitis of leg Acute Severe sepsis Acute Acute renal failure Acute Umbilical hernia, incarcerated Acute
[2016-11-13] MEDS: FUROSEMIDE 40 MG/4 ML VIAL IVP SCH ×3 (12:44→16:00)
[2016-11-13] MEDS ORDERED: ALTEPLASE 2 MG VIAL IVP PRN (13:39)
--- NOTE | 2016-11-13 16:41 | PCMIDPN ---
Assessment/Plan: Assessment/Plan: * Streptococcus salivarius bacteremia: Continued clinical improvement with antibiotic therapy. Repeat blood cultures show clearing of bacteremia. No define source for bacteremia although steroid injections have been associated with bacteremia from oropharyngeal streptococcal species including salivarius. Given clearance of bacteremia, suspect endocarditis will be of low likelihood. Plan 2 weeks of ceftriaxone post blood culture clearance. Will place PICC line today. * Positive blood culture for coagulase-negative Staphylococcus: 1/4 bottles of repeat blood cultures positive for coagulase-negative Staphylococcus which represents skin contamination. No specific therapy targeting this organism necessary. * Lower extremity erythema/edema: Likely related to venous insufficiency. Clinically improved with decreased erythema today. Discussed with patient consideration for ultrasound after hospital discharge to assess for venous reflux. Time spent, greater than 35 minutes, of which greater than half was spent in education/counseling/coordination of care related to clinical findings, Streptococcus bacteremia, antibiotic therapy, venous insufficiency and discussion of ongoing plan of care. 11/13/16 16:31 Subjective: Patient complains of lower extremities feeling stiff and difficult to move at knee. Worse when sitting up. Objective: Vital Signs Temp Pulse Resp BP Pulse Ox 37.2 C 96 18 129/94 H 92 11/13/16 15:47 11/13/16 15:47 11/13/16 15:47 11/13/16 15:47 11/13/16 15:47 Microbiology 11/11/16 16:20 Blood Panel (PCR) - Final Blood Staph Coagulase Negative Laboratory Results 11/13/16 05:30 11/13/16 05:30 11/12/16 11/13/16 11/14/16 05:59 05:59 05:59 Intake Total 1720 650 Output Total 1480 1400 Balance 240 -750 Ceftriaxone # 4 Blood cultures 11/11/2016 1/4 bottles with coagulase-negative Staphylococcus Blood cultures 11/09/2016 2/2 sets Streptococcus salivarius - Physical Exam General Appearance: alert, no apparent distress EENT: No scleral icterus, No conjunctival petechiae Respiratory: lungs clear, No respiratory distress Cardiac/Chest: regular rate, rhythm, No systolic murmur Extremities: inflammation (Venous insufficiency changes over both lower extremities) Abdomen: non-tender, No distended Back: other (Nontender over lower spine) Skin: No embolic lesions ICD10 Worksheet Patient Problems: Problems Problem Status Onset Cellulitis of leg Acute Severe sepsis Acute Acute renal failure Acute Umbilical hernia, incarcerated Acute
[2016-11-13] MEDS: LISINOPRIL 40 MG TAB PO SCH (17:20)
[2016-11-13] MEDS: cefTRIAXone 2 GM in D5W 50 ML IV SCH (20:16)
[2016-11-14] MEDS: oxyCODONE CR 80 MG TAB PO SCH ×3 (05:57→21:33)
[2016-11-14] MEDS: GABAPENTIN 400 MG CAP PO SCH ×4 (05:57→20:40)
[2016-11-14] MEDS: ENOXAPARIN 40 MG/0.4 ML SYR SC SCH (08:14)
[2016-11-14] MEDS: PARoxetine HCL 20 MG TAB PO SCH ×2 (08:14→20:41)
[2016-11-14] MEDS: TAMSULOSIN HCL 0.4 MG CAP PO SCH (08:14)
[2016-11-14] MEDS: buPROPion XL 150 MG TAB PO SCH ×2 (08:14→20:39)
[2016-11-14] MEDS: LISINOPRIL 40 MG TAB PO SCH (08:14)
[2016-11-14] MEDS: LEVOTHYROXINE 100 MCG TAB PO SCH (08:14)
[2016-11-14] MEDS: PANTOPRAZOLE SODIUM 40 MG TAB PO SCH (08:14)
[2016-11-14] MEDS: INSULIN REGULAR HUMAN 100 UNIT/ML SC SCH ×2 (08:15→10:39)
[2016-11-14] MEDS: FUROSEMIDE 40 MG/4 ML VIAL IVP SCH ×2 (10:39→15:25)
[2016-11-14 10:53] LABS: % IMMATURE GRANULYOCYTES 0.8 % (0.0-1.1); ABSOLUTE IMMATURE GRANULOCYTES 0.07 10^3/uL (0.00-0.10); ADD DIFF? NO; ADD MORPH? YES; ADD SCAN? NO; ATYPICAL LYMPHOCYTE FLAG 10 (0-99); FRAGMENT RBC FLAG 60 (0-99); HEMATOCRIT 46.4 % (40.0-51.0); HEMOGLOBIN 13.1 g/dL (13.7-17.5); LEFT SHIFT FLG 0 (0-99); LIPEMIA HEMOLYSIS FLAG 70 (0-99); MEAN CELL HEMOGLOBIN 19.7 pg (27.9-34.1); PLATELET CLUMPS FLAG 50 (0-99); PLATELET COUNT 252 10^3/uL (150-400)
[2016-11-14 10:55] LABS: MEAN CELL HEMOGLOBIN CONCENTR. 28.2 g/dL (32.4-36.7); MEAN CELL VOLUME 69.8 fL (81.5-99.8); RED CELL DISTRIBUTION WIDTH 22.4 % (11.5-15.2)
[2016-11-14 10:56] LABS: RED BLOOD CELL COUNT 8.53 10^6/uL (4.40-6.38)
[2016-11-14 11:21] LABS: ANION GAP 12 mEq/L (8-16); CALCIUM 9.4 mg/dL (8.5-10.4); CARBON DIOXIDE 30 mEq/l (22-31); CHLORIDE 91 mEq/L (97-110); GLOMERULAR FILTRATION RATE > 60; GLUCOSE 116 mg/dL (70-100); POTASSIUM 4.2 mEq/L (3.5-5.2); SODIUM 133 mEq/L (134-144)
[2016-11-14 11:31] LABS: LARGE PLATELETS PRESENT; PLATELET ESTIMATE ADEQUATE (ADEQ)
--- NOTE | 2016-11-14 11:31 | HOSPPROG ---
Hospitalist Progress Note Assessment/Plan: # acute septic shock- 2/2 Strep bacteremia -status post fluid resuscitation patient weaned off pressors - VS now stable Lumbar MRI - no epidural abscess- - continue ceftriaxone - surveillance cultures pending # acute Streptococcus saliverus bacteremia- probably due to injection TTE (reviewed) no vegetations noted - continue IV ceftriaxone # lower extremity weakness * Legs do not look particularly cellulitic. White blood cell count and fever of improved. * improving with Lasix. will cont diuresis if he allows # chronic pain with continuous opioid dependency- patient on high doses OxyContin/oxycodone at home- appears somnolent on my exam today - continue home dosing- unless if oversedated will hold doses - monitor closely # iron deficiency anemia- MCV has been in the 70s or below for many years - start IV iron supplementation once safe from infection standpoint - patient needs colonoscopy # hypovolemic hyponatremia- resolved with IV fluids overnight - follow BMP daily # TYRONE - CPAP # Diabetes - BS [phone] - cont SSI # prophylaxis Lovenox # diet regular # disposition greater than 2 midnights patient is presenting with septic shock requiring diagnostic workup and close monitoring Subjective: legs feel better Objective: Vital Signs Temp Pulse Resp BP Pulse Ox 36.8 C 87 16 110/76 85 L 11/14/16 07:35 11/14/16 07:35 11/14/16 07:35 11/14/16 07:35 11/14/16 07:35 Microbiology 11/11/16 16:20 Blood Panel (PCR) - Final Blood Staph Coagulase Negative Laboratory Results 11/14/16 10:30 11/14/16 10:30 11/13/16 11/14/16 11/15/16 05:59 05:59 05:59 Intake Total 650 375 250 Output Total 1400 1000 Balance -750 -625 250 PT 16.1 SEC (12.0-15.0) H 11/10/16 03:15 INR 1.29 (0.83-1.16) H 11/10/16 03:15 d/w ID - Physical Exam Constitutional: no apparent distress, appears nourished, not in pain Eyes: anicteric sclera, EOMI Ears, Nose, Mouth, Throat: moist mucous membranes, hearing normal Cardiovascular: regular rate and rhythym, edema (less tight edema) Respiratory: no respiratory distress Gastrointestinal: normoactive bowel sounds, soft, non-tender abdomen, no palpable masses Skin: warm Neurologic: AAOx3 Psychiatric: interacting appropriately, not anxious, not encephalopathic, thought process linear ICD10 Worksheet Patient Problems: Problems Problem Status Onset Cellulitis of leg Acute Severe sepsis Acute Acute renal failure Acute Umbilical hernia, incarcerated Acute
[2016-11-14 11:32] LABS: POLYCHROMASIA 1+
[2016-11-14 11:33] LABS: MICROCYTES 2+
[2016-11-14 11:34] LABS: ELLIPTOCYTES 1+; HYPOCHROMIA 2+
--- NOTE | 2016-11-14 15:37 | PCMIDPN ---
Assessment/Plan: Assessment: Sepsis-secondary to Streptococcus salivarius. Unknown source but may be related to steroid injections. Patient is complaining of left leg pain. Venous studies earlier in the stay reveal no clot bilaterally. I suspect the pain is due to soft tissue distension from septic affects. I think that is why he relates that he gets improvement from Lasix. Plan: 1. Continue empiric ceftriaxone. Suspected 2 week course from blood culture clearance. 2. Follow clinical course. Subjective: Patient is resting in his hospital bed. He complains of pain in his left leg. This is always been present but it has been worse over the last 4-5 days. He has no ongoing fevers or chills. Overall he feels more alert and improved. Objective: Ceftriaxone #5 Vital Signs Temp Pulse Resp BP Pulse Ox 37.4 C 92 20 126/80 H 92 11/14/16 12:00 11/14/16 12:00 11/14/16 12:00 11/14/16 12:00 11/14/16 12:00 Microbiology 11/11/16 16:20 Blood Panel (PCR) - Final Blood Staph Coagulase Negative Laboratory Results 11/14/16 10:30 11/14/16 10:30 11/13/16 11/14/16 11/15/16 05:59 05:59 05:59 Intake Total 650 375 250 Output Total 1400 1000 450 Balance -750 625 -200 - Physical Exam General Appearance: WD/WN, alert, no apparent distress, obese, non-toxic Respiratory: lungs clear, normal breath sounds, No respiratory distress Cardiac/Chest: regular rate, rhythm, No tachycardia Extremities: erythema, other (No warmth bilaterally), No non-tender, No normal inspection, No inflammation Skin: normal color, warm/dry, No rash Neuro/Psych: alert, normal mood/affect, oriented x 3 ICD10 Worksheet Patient Problems: Problems Problem Status Onset Cellulitis of leg Acute Severe sepsis Acute Acute renal failure Acute Umbilical hernia, incarcerated Acute
[2016-11-14] MEDS: cefTRIAXone 2 GM in D5W 50 ML IV SCH (20:38)
[2016-11-15] MEDS: GABAPENTIN 400 MG CAP PO SCH ×4 (05:32→20:23)
[2016-11-15] MEDS: oxyCODONE CR 80 MG TAB PO SCH ×3 (05:32→21:30)
[2016-11-15] MEDS: FUROSEMIDE 40 MG/4 ML VIAL IVP SCH ×2 (08:59→15:29)
[2016-11-15] MEDS: ENOXAPARIN 40 MG/0.4 ML SYR SC SCH (09:16)
[2016-11-15] MEDS: buPROPion XL 150 MG TAB PO SCH ×2 (09:18→20:24)
[2016-11-15] MEDS: PARoxetine HCL 20 MG TAB PO SCH ×2 (09:18→20:24)
[2016-11-15] MEDS: TAMSULOSIN HCL 0.4 MG CAP PO SCH (09:18)
[2016-11-15] MEDS: LEVOTHYROXINE 100 MCG TAB PO SCH (09:18)
[2016-11-15] MEDS: LISINOPRIL 40 MG TAB PO SCH (09:18)
[2016-11-15] MEDS: PANTOPRAZOLE SODIUM 40 MG TAB PO SCH (09:18)
[2016-11-15] MEDS ORDERED: MAGNESIUM HYDROXIDE 30 ML UDCUP PO PRN (09:24)
[2016-11-15] MEDS ORDERED: POLYETHYLENE GLYCOL 3350 17 GM PKT PO PRN (09:24)
[2016-11-15] MEDS ORDERED: BISACODYL 10 MG SUPP PR PRN (09:24)
[2016-11-15] MEDS ORDERED: LACTULOSE 20 GM/30 ML UDCUP PO PRN (09:24)
--- NOTE | 2016-11-15 10:37 | HOSPPROG ---
Hospitalist Progress Note Assessment/Plan: # acute septic shock- 2/2 Strep bacteremia -status post fluid resuscitation patient weaned off pressors - VS now stable Lumbar MRI - no epidural abscess- - continue ceftriaxone for 2 weeks will come to infusion center # acute Streptococcus saliverus bacteremia- probably due to injection TTE (reviewed) no vegetations noted - continue IV ceftriaxone # lower extremity weakness * Legs do not look particularly cellulitic. White blood cell count and fever of improved. * improving with Lasix. will cont diuresis if he allows # left knee pain * s/p TKA x 2 * will get US and xray to evaluate * ortho is Olena Tang # chronic pain with continuous opioid dependency- patient on high doses OxyContin/oxycodone at home- appears somnolent on my exam today - continue home dosing- unless if oversedated will hold doses - monitor closely # iron deficiency anemia- MCV has been in the 70s or below for many years - start IV iron supplementation once safe from infection standpoint - patient needs colonoscopy # hypovolemic hyponatremia- resolved with IV fluids overnight - follow BMP daily # TYRONE - CPAP # Diabetes - BS [phone] - cont SSI # prophylaxis Lovenox # diet regular # disposition greater than 2 midnights patient is presenting with septic shock requiring diagnostic workup and close monitoring Subjective: left knee still hurts, feels something is wrong with replacement Objective: Vital Signs Temp Pulse Resp BP Pulse Ox 36.7 C 85 20 120/65 96 11/15/16 07:12 11/15/16 07:12 11/15/16 07:12 11/15/16 09:18 11/15/16 07:12 Microbiology 11/11/16 16:20 Blood Panel (PCR) - Final Blood Staph Coagulase Negative Laboratory Results 11/14/16 10:30 11/14/16 10:30 11/14/16 11/15/16 11/16/16 05:59 05:59 05:59 Intake Total 375 750 Output Total 1000 1100 Balance -625 -350 PT 16.1 SEC (12.0-15.0) H 11/10/16 03:15 INR 1.29 (0.83-1.16) H 11/10/16 03:15 - Physical Exam Constitutional: no apparent distress, appears nourished, not in pain Eyes: anicteric sclera, EOMI Ears, Nose, Mouth, Throat: moist mucous membranes Cardiovascular: regular rate and rhythym Respiratory: no respiratory distress Musculoskeletal: other (improved swelling bilaterally, left knee reduced ROM) Neurologic: AAOx3 Psychiatric: interacting appropriately, not anxious, not encephalopathic, thought process linear ICD10 Worksheet Patient Problems: Problems Problem Status Onset Cellulitis of leg Acute Severe sepsis Acute Acute renal failure Acute Umbilical hernia, incarcerated Acute
[2016-11-15] MEDS: SENNOSIDES/DOCUSATE SODIUM TAB PO SCH ×3 (13:27→20:27)
--- NOTE | 2016-11-15 16:53 | PCMIDPN ---
Assessment/Plan: Assessment: Sepsis-secondary to Streptococcus salivarius. Unknown source but may be related to steroid injections. Patient is complaining of left leg pain. Venous studies earlier in the stay reveal no clot bilaterally. I suspect the pain is due to soft tissue distension from septic affects. I think that is why he relates that he gets improvement from Lasix. Repeat ultrasound showed some complex seroma tests appearing fluid collections around the left knee prosthesis. These did not appear to be infected. Plan: 1. Continue empiric ceftriaxone. Suspected 2 week course from blood culture clearance. 2. Follow clinical course. 3. Consider tapping the fluid if symptoms in his left leg do not improve. 11/15/16 16:53 Subjective: Patient is resting in his hospital room. He still states that his left leg is painful. He denies any fevers or chills. Appears to be tolerating the ceftriaxone without issue. Objective: Ceftriaxone # 6 Vital Signs Temp Pulse Resp BP Pulse Ox 36.9 C 96 20 121/76 H 87 L 11/15/16 15:17 11/15/16 15:17 11/15/16 15:17 11/15/16 15:17 11/15/16 15:17 Microbiology 11/11/16 16:20 Blood Panel (PCR) - Final Blood Staph Coagulase Negative Laboratory Results 11/14/16 10:30 11/14/16 10:30 11/14/16 11/15/16 11/16/16 05:59 05:59 05:59 Intake Total 375 750 Output Total 1000 1100 Balance -625 -350 - Physical Exam General Appearance: WD/WN, alert, no apparent distress, non-toxic Respiratory: lungs clear, normal breath sounds, No respiratory distress Cardiac/Chest: regular rate, rhythm, No tachycardia Skin: normal color, warm/dry, No rash Neuro/Psych: alert, normal mood/affect, oriented x 3 ICD10 Worksheet Patient Problems: Problems Problem Status Onset Cellulitis of leg Acute Severe sepsis Acute Acute renal failure Acute Umbilical hernia, incarcerated Acute
[2016-11-15] MEDS: cefTRIAXone 2 GM in D5W 50 ML IV SCH (20:25)
[2016-11-16] MEDS: GABAPENTIN 400 MG CAP PO SCH ×4 (06:27→20:36)
[2016-11-16] MEDS: oxyCODONE CR 80 MG TAB PO SCH ×3 (06:28→20:37)
[2016-11-16] MEDS: LEVOTHYROXINE 100 MCG TAB PO SCH (06:28)
--- NOTE | 2016-11-16 08:54 | PCMIDPN ---
Assessment/Plan: 1. Strep salivarius bacteremia: ? associated with steroid injection. Continue ceftriaxone, stop date November 24. Patient cleared his bacteremia expeditiously, obviating the need for transesophageal echocardiogram. TTE was normal. 2. Left knee pain: Ultrasound shows fluid collections, but the patient reports that the pain is improving, and his knee is not particularly warm, and not red, arguing against a septic prosthetic joint. Suspect the fluid is more inflammatory in nature. The patient does not recall recent trauma, per se. Further imaging with an MRI or CT would not be helpful in the setting of significant artifact associated with the prosthesis. The patient would like to see Orthopedic surgery to get their opinion. At this point in time I do not feel that we need to aspirate these collections presently given clinical improvement. Would prefer to "watch and wait" , use anti-inflammatories, etc 1st. I have placed a call to Orthopedics. 3. Severe intertriginous candidiasis, inguinal area, scrotum and phallus: Will start fluconazole, 200 mg p.o. today, and then 100 mg daily thereafter. 4. Disposition: The pain is better. Will continue to have physical therapy work with him. The patient needs to be more mobile before he is able to go home. 5. Bilateral lower extremity venous insufficiency: Agree this is not cellulitis. No improvement on antibiotics. Over 45 minutes was spent with this patient today, over half in counseling and education, reviewing films, etc. Subjective: Patient continues to have left knee discomfort. Denies shaking chills. After talking with the patient extensively, he states that this knee pain started in the hospital. He does feel that it is slowly improving. Denies diarrhea. Concerned about the rash on his face. Objective: Vital Signs Ceftriaxone 2 g IV daily day 7., stop date November 24 T-max 37.3degrees Temp Pulse Resp BP Pulse Ox 36.7 C 77 20 99/60 L 92 11/16/16 03:50 11/16/16 03:50 11/16/16 03:50 11/16/16 03:50 11/16/16 03:50 Microbiology 11/11/16 16:20 Blood Panel (PCR) - Final Blood Staph Coagulase Negative Laboratory Results 11/14/16 10:30 11/14/16 10:30 08/25/17 08/26/17 08/27/17 05:59 05:59 05:59 Intake Total 750 480 Output Total 1100 400 Balance -350 80 Blood cultures 1/4 bottles coagulase-negative Staph Previous blood cultures with strep salivarius - Physical Exam General Appearance: alert, no apparent distress EENT: pharynx normal, No thrush Respiratory: lungs clear Cardiac/Chest: regular rate, rhythm, No systolic murmur Extremities: other (Left knee the same size as the right knee. Palpable discomfort along the medial side of the knee, where he has a fluid collection. No significant warmth or erythema. Scar is intact. Patient has erythema of the lower extremities on both sides, likely secondary to venous insufficiency.) Skin: other (Significant intertriginous candidiasis of the scrotum and inguinal area and phallus. Patient also has what appears to be seborrheic dermatitis on his bilateral cheeks and nasal bridge.) ICD10 Worksheet Patient Problems: Problems Problem Status Onset Cellulitis of leg Acute Severe sepsis Acute Acute renal failure Acute Umbilical hernia, incarcerated Acute
[2016-11-16] MEDS ORDERED: FLUCONAZOLE 100 MG TAB PO ONE (09:00)
[2016-11-16] MEDS: PARoxetine HCL 20 MG TAB PO SCH ×2 (10:10→20:37)
[2016-11-16] MEDS: TAMSULOSIN HCL 0.4 MG CAP PO SCH (10:10)
[2016-11-16] MEDS: SENNOSIDES/DOCUSATE SODIUM TAB PO SCH ×2 (10:11→20:37)
[2016-11-16] MEDS: LISINOPRIL 40 MG TAB PO SCH ×2 (10:11→12:42)
[2016-11-16] MEDS: buPROPion XL 150 MG TAB PO SCH ×2 (10:11→20:35)
[2016-11-16] MEDS: FUROSEMIDE 40 MG/4 ML VIAL IVP SCH ×2 (10:12→15:30)
[2016-11-16] MEDS: PANTOPRAZOLE SODIUM 40 MG TAB PO SCH (10:12)
[2016-11-16] MEDS: ENOXAPARIN 40 MG/0.4 ML SYR SC SCH (10:12)
--- NOTE | 2016-11-16 10:19 | HOSPPROG ---
Hospitalist Progress Note Assessment/Plan: DIAGNOSES: # acute septic shock- 2/2 Strep salliveras bacteremia -status post fluid resuscitation patient weaned off pressors - VS now stable -nothing on Echo -continue ceftriaxone for 2 weeks # left leg pain -his knee continues to look good with no effusion, redness or heat or knee tenderness -the pain is medial and is distal to the knee area, nothing visible or palpable, ? cause # Chronic bilateral leg edema and stasis dermatitis # chronic pain with continuous opioid dependency- patient on high doses OxyContin/oxycodone at home -currently doing well on his chronic medications # iron deficiency anemia- MCV has been in the 70s or below for many years, and iron levels typically low however RBC count varies between low and high - ? If there might also be a hemoglobinopathy or an iron malabsorption issue with other absorption issues - start IV iron supplementation - will review with hematology; patient needs colonoscopy if not done in recent years, and we should consider possible malabsorption evaluation # TYRONE - CPAP # Diabetes -blood sugars in good range on no medication at this time # prophylaxis Lovenox # diet regular # disposition: At this point his left leg pain is preventing him from being able to toe ambulate adequately for discharge to home. Dr. Tang will be seeing the patient today and await his evaluation of the leg pain to determine plans regarding discharge for continued treatment here I reviewed the patient's case in detail today with Dr. Elza Devries SUBJECTIVE: Continues complain of ongoing severe medial left leg pain, today he points for me to an area distal to the knee and the proximal calf approaching the upper tibia OBJECTIVE Vitals reviewed: Stable without fever Exam: alert oriented skin warm dry color ok resps not labored lungs clear BSs heart regular abd soft nondistended nontender, bowel sounds present limbs still with remarkable pitting edema from the upper calf down to the feet bilaterally with some marked stasis dermatitis but no cellulitis or skin ulcers ; I can find no visible or palpable abnormality at the area of the medial left leg where he points to indicate the location of his pain iv site ok Objective: Vital Signs Temp Pulse Resp BP Pulse Ox 36.5 C 74 16 108/71 98 11/16/16 08:00 11/16/16 08:00 11/16/16 08:00 11/16/16 08:00 11/16/16 08:00 Microbiology 11/11/16 16:20 Blood Panel (PCR) - Final Blood Staph Coagulase Negative Laboratory Results 11/14/16 10:30 11/14/16 10:30 11/15/16 11/16/16 11/17/16 06:59 06:59 06:59 Intake Total 750 480 Output Total 1100 400 Balance -350 80 PT 16.1 SEC (12.0-15.0) H 11/10/16 03:15 INR 1.29 (0.83-1.16) H 11/10/16 03:15 - Time Spent With Patient Time Spent with Patient: greater than 35 minutes Time Spent with Patient: Greater than 35 minutes spent on this patients care, greater than 50% of time spent counseling, educating, and coordinating care regarding the above mentioned plan. ICD10 Worksheet Patient Problems: Problems Problem Status Onset Umbilical hernia, incarcerated Acute Cellulitis of leg Acute Acute renal failure Acute Severe sepsis Acute
--- NOTE | 2016-11-16 15:06 | GDS ---
[f rep st] DISCHARGE SUMMARY CURRENT COMPLAINT: Left knee pain. 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 He has been admitted to the hosp [facility] for approximately a week after having an adverse reaction to an epidural shot, giving him some sepsis. He has been unable to effectively bear weight on the left lower extremity secondary to some pain he has felt in the medial portion of his knee. He has been noted to have some swelling in luci t area, which appears to be just below the level of the joint line. I was asked see the patient for further evaluation. PHYSICAL EXAMINATION: The patient has well-healed incision on the anterior portion of his knee. He has limited range of motion, with 0-85 degrees of flexion across the knee. He does have prominence of the area just superior to the pes anserinus attachment at the proximal medial tibia, and he is t ramona directly over this area. There is no fluctuance noted, and no loculations noted. It is not w arm, and there is no redness or erythema in the area. Of note, he is tender to the opposite pes ans erinus, but to a lesser extent, and the hamstring tendons in this area are much more supple than the y are on the left side. He does have pain to resisted knee flexion, which is better when the excurs ion is shortened to the pes anserinus, compared to the lateral side, and he has pain to passive stre tch through the pes anserinus with external rotation of the tibia when doing so. IMAGING: X-ray exam reveals well placed hardware with some possibly minor lysis noted around the ar ea, but otherwise good position. ASSESSMENT AND PLAN: Patient is status post left-sided pes anserinus tendinopathy, due to the amoun t of swelling in his legs. Prescribed foot pumps in order to try and decrease the amount of venosta sis in the legs, and thereby allow more blood flow into the legs, and hopefully be able to decrease irritation and inflammation. Secondary to his long use of anti-inflammatories, he has had issues wi th kidney function, and therefore anti-inflammatories would be contraindicated at this time. Delano vasquez, I might do a steroid injection, but since he has had a bad reaction to the steroid injection a week ago, that may not be the best idea at this time. We will continue to follow him while he is h ere in the hospital. /[id number]/MODL
[2016-11-16] MEDS: cefTRIAXone 2 GM in D5W 50 ML IV SCH (20:34)
[2016-11-17] MEDS: GABAPENTIN 400 MG CAP PO SCH ×4 (06:21→22:18)
[2016-11-17] MEDS: LEVOTHYROXINE 100 MCG TAB PO SCH (06:21)
[2016-11-17] MEDS: oxyCODONE CR 80 MG TAB PO SCH ×3 (06:21→22:17)
--- NOTE | 2016-11-17 09:27 | PCMIDPN ---
Assessment/Plan: 1. Strep salivarius bacteremia: ? associated with steroid injection. Continue ceftriaxone, stop date November 24. Patient cleared his bacteremia expeditiously, obviating the need for transesophageal echocardiogram. TTE was normal. 2. Left knee pain: Dr. Tang assistance greatly appreciated! Knee pain felt 2/2 pes anserinus tendinopathy. Pt feels he is getting stronger every day. PT to work with him today. Patient feels that he will likely be able to go home on Friday if he continues to work with physical therapy and get stronger with increased mobility. 3. Severe intertriginous candidiasis, inguinal area, scrotum and phallus: Continue fluconazole 100 mg daily. Will also start topical Lotrimin. He states he has an allergy to nystatin. 4. Disposition: The pain is better. Will continue to have physical therapy work with him. The patient needs to be more mobile before he is able to go home. 5. Bilateral lower extremity venous insufficiency: Agree this is not cellulitis. No improvement on antibiotics. 6. Seborrheic dermatitis face and scalp: Will try Selsun Blue. The patient states he has an allergy to Nizoral. 11/17/16 09:23 Subjective: Very loquacious this morning. Eating his breakfast. Feels that he is getting stronger. Continues to have point tenderness at pes insertion site. No fevers or shaking chills. No nausea vomiting or diarrhea. Objective: Ceftriaxone 2 g IV daily stop date November 24 Fluconazole 100 mg daily T-max 37.6degrees Vital Signs Temp Pulse Resp BP Pulse Ox 36.6 C 73 16 123/77 H 96 11/17/16 07:14 11/17/16 07:14 11/17/16 07:14 11/17/16 07:14 11/17/16 07:14 Microbiology 11/11/16 17:00 Blood Culture - Final Blood 11/11/16 16:20 Blood Culture - Final Blood Staphylococcus Epidermidis Staphylococcus Epidermidis#2 Blood Panel (PCR) - Final Staph Coagulase Negative Laboratory Results 11/14/16 10:30 11/14/16 10:30 11/16/16 11/17/16 11/18/16 05:59 05:59 05:59 Intake Total 480 1280 Output Total 400 650 350 Balance 80 630 -350 No new microbiology - Physical Exam General Appearance: alert, no apparent distress EENT: pharynx normal Respiratory: lungs clear Extremities: other (Venous stasis changes bilateral lower extremities. Both knees with chronic arthritis. Neither of his knees are warm, red or tender with the exception of his left knee point tenderness along the pes anserinus insertion site) Skin: other (Severe intertriginous candidiasis phallus and inguinal region. Severe seborrheic dermatitis of scalp and face.) ICD10 Worksheet Patient Problems: Problems Problem Status Onset Cellulitis of leg Acute Severe sepsis Acute Acute renal failure Acute Umbilical hernia, incarcerated Acute
[2016-11-17] MEDS: PARoxetine HCL 20 MG TAB PO SCH ×2 (10:49→22:18)
[2016-11-17] MEDS: TAMSULOSIN HCL 0.4 MG CAP PO SCH (10:49)
[2016-11-17] MEDS: LISINOPRIL 40 MG TAB PO SCH (10:49)
[2016-11-17] MEDS: FLUCONAZOLE 100 MG TAB PO SCH (10:51)
[2016-11-17] MEDS: PANTOPRAZOLE SODIUM 40 MG TAB PO SCH (10:52)
[2016-11-17] MEDS: buPROPion XL 150 MG TAB PO SCH ×2 (10:52→22:18)
[2016-11-17] MEDS: SENNOSIDES/DOCUSATE SODIUM TAB PO SCH ×2 (10:52→22:17)
[2016-11-17] MEDS: ENOXAPARIN 40 MG/0.4 ML SYR SC SCH (10:53)
[2016-11-17] MEDS: CLOTRIMAZOLE 1% 15 GM CRTUBE TP SCH (10:58)
[2016-11-17] MEDS: FUROSEMIDE 40 MG/4 ML VIAL IVP SCH ×2 (10:59→18:00)
--- NOTE | 2016-11-17 11:08 | HOSPPROG ---
Hospitalist Progress Note Assessment/Plan: DIAGNOSES: # acute septic shock- 2/2 Strep salliveras bacteremia -status post fluid resuscitation patient weaned off pressors - VS now stable -nothing on Echo -continue ceftriaxone for 2 weeks # left leg pain, pes anserinus tendinopathy -his knee continues to look good with no effusion, redness or heat or knee tenderness -PT, heat # iron deficiency anemia- MCV has been in the 70s or below for many years, and iron levels typically low however RBC count varies between low and high - ? If there might also be a hemoglobinopathy or an iron malabsorption issue with other absorption issues - start IV iron supplementation - will review with Gastroenterology; patient needs colonoscopy if not done in recent years, and we should consider possible malabsorption evaluation if this has not been done # intertriginous fungal dermatitis of the genitalia, and seborrheic dermatitis of the scalp and face - on Diflucan for the former, coal tar shampoo for the latter # Chronic bilateral leg edema and stasis dermatitis - per patient is at his baseline; he is emphatic that compression stockings, Trav wraps, and diuretics have not in the past ever resulted in improvement in the edema beyond its present state # chronic pain with continuous opioid dependency- patient on high doses OxyContin/oxycodone at home -currently doing well on his chronic medications # TYRONE - CPAP # Diabetes -blood sugars in good range on no medication at this time # DVT prophylaxis Lovenox # disposition: At this point his left leg pain is preventing him from being able to toe ambulate adequately for discharge to home, but hopefully can discharge in the next 1-2 days I reviewed the patient's case in detail today with Dr. Elza Devries SUBJECTIVE: Continues complain of ongoing severe medial left leg painStill making ambulation quite difficult for him Otherwise feels well No fever symptoms OBJECTIVE Vitals reviewed: Stable without fever Exam: alert oriented skin warm dry color ok; Little change so far in his intertriginous fungal dermatitis or his seborrhea resps not labored lungs clear BSs heart regular abd soft nondistended nontender, bowel sounds present limbs still with remarkable pitting edema from the upper calf down to the feet bilaterally with some marked stasis dermatitis but no cellulitis or skin ulcers ; I can find no visible or palpable abnormality at the area of the medial left leg where he points to indicate the location of his pain iv site ok Objective: Vital Signs Temp Pulse Resp BP Pulse Ox 36.6 C 73 16 118/70 96 11/17/16 07:14 11/17/16 07:14 11/17/16 07:14 11/17/16 10:49 11/17/16 07:14 Microbiology 11/11/16 17:00 Blood Culture - Final Blood 11/11/16 16:20 Blood Culture - Final Blood Staphylococcus Epidermidis Staphylococcus Epidermidis#2 Blood Panel (PCR) - Final Staph Coagulase Negative Laboratory Results 11/14/16 10:30 11/14/16 10:30 11/16/16 11/17/16 11/18/16 06:59 06:59 06:59 Intake Total 480 1280 Output Total 400 1000 Balance 80 280 PT 16.1 SEC (12.0-15.0) H 11/10/16 03:15 INR 1.29 (0.83-1.16) H 11/10/16 03:15 ICD10 Worksheet Patient Problems: Problems Problem Status Onset Cellulitis of leg Acute Severe sepsis Acute Acute renal failure Acute Umbilical hernia, incarcerated Acute
[2016-11-17 11:47] LABS: % IMMATURE GRANULYOCYTES 0.8 % (0.0-1.1); ABSOLUTE IMMATURE GRANULOCYTES 0.06 10^3/uL (0.00-0.10); ADD DIFF? NO; ADD MORPH? YES; ADD SCAN? NO; ATYPICAL LYMPHOCYTE FLAG 10 (0-99); FRAGMENT RBC FLAG 60 (0-99); HEMATOCRIT 46.2 % (40.0-51.0); HEMOGLOBIN 12.9 g/dL (13.7-17.5); LEFT SHIFT FLG 0 (0-99); LIPEMIA HEMOLYSIS FLAG 70 (0-99); MEAN CELL HEMOGLOBIN 19.7 pg (27.9-34.1); MEAN CELL VOLUME 70.5 fL (81.5-99.8); PLATELET CLUMPS FLAG 30 (0-99); PLATELET COUNT 267 10^3/uL (150-400); RED BLOOD CELL COUNT 6.55 10^6/uL (4.40-6.38)
[2016-11-17 11:57] LABS: MEAN CELL HEMOGLOBIN CONCENTR. 27.9 g/dL (32.4-36.7); RED CELL DISTRIBUTION WIDTH 22.2 % (11.5-15.2)
[2016-11-17 12:10] LABS: ALANINE AMINOTRANSFERASE 72 IU/L (21-72); ALBUMIN 3.9 g/dL (3.5-5.0); ALKALINE PHOSPHATASE 83 IU/L (38-126); ANION GAP 12 mEq/L (8-16); ASPARTATE AMINOTRANSFERASE 65 IU/L (17-59); BILIRUBIN,TOTAL 0.6 mg/dL (0.1-1.4); CALCIUM 9.1 mg/dL (8.5-10.4); CARBON DIOXIDE 31 mEq/l (22-31); CHLORIDE 89 mEq/L (97-110); CREATININE 1.4 mg/dL (0.7-1.3); GLOMERULAR FILTRATION RATE 52; GLUCOSE 102 mg/dL (70-100); POTASSIUM 5.5 mEq/L (3.5-5.2); SODIUM 132 mEq/L (134-144); TOTAL PROTEIN 6.7 g/dL (6.3-8.2)
[2016-11-17 13:03] LABS: HYPOCHROMIA 1+; MACROCYTES 1+; MICROCYTES 2+; PLATELET ESTIMATE ADEQUATE (ADEQ); POLYCHROMASIA 1+
[2016-11-17 13:04] LABS: LARGE PLATELETS PRESENT
[2016-11-17] MEDS: COAL TAR TP SCH (14:22)
[2016-11-17] MEDS: cefTRIAXone 2 GM in D5W 50 ML IV SCH (19:44)
[2016-11-18] MEDS: CLOTRIMAZOLE 1% 15 GM CRTUBE TP SCH ×3 (00:16→19:56)
[2016-11-18] MEDS: GABAPENTIN 400 MG CAP PO SCH ×4 (05:09→21:06)
[2016-11-18] MEDS: oxyCODONE CR 80 MG TAB PO SCH ×3 (05:10→21:07)
[2016-11-18] MEDS: LEVOTHYROXINE 100 MCG TAB PO SCH (05:10)
[2016-11-18] MEDS: PANTOPRAZOLE SODIUM 40 MG TAB PO SCH (09:26)
[2016-11-18] MEDS: TAMSULOSIN HCL 0.4 MG CAP PO SCH (09:26)
[2016-11-18] MEDS: buPROPion XL 150 MG TAB PO SCH ×2 (09:27→21:08)
[2016-11-18] MEDS: PARoxetine HCL 20 MG TAB PO SCH ×2 (09:27→21:08)
[2016-11-18] MEDS: FLUCONAZOLE 100 MG TAB PO SCH (09:28)
[2016-11-18] MEDS: LISINOPRIL 40 MG TAB PO SCH (09:29)
[2016-11-18] MEDS: SENNOSIDES/DOCUSATE SODIUM TAB PO SCH ×2 (09:32→21:07)
[2016-11-18] MEDS: ENOXAPARIN 40 MG/0.4 ML SYR SC SCH (09:36)
[2016-11-18] MEDS: FUROSEMIDE 40 MG/4 ML VIAL IVP SCH ×2 (09:53→17:51)
[2016-11-18] MEDS: COAL TAR TP SCH (12:35)
--- NOTE | 2016-11-18 13:29 | SOAPPROG ---
JONI Progress Note Assessment/Plan: Assessment: Plan: Pes bursitis - will monitor, no tx necessary, if continues can follow up in office 11/18/16 13:28 Subjective: Reports small improvement in the knee pain since yesterday Objective: Vital Signs Temp Pulse Resp BP Pulse Ox 37.1 C 97 22 H 92/74 L 92 11/18/16 11:11 11/18/16 11:11 11/18/16 11:11 11/18/16 11:11 11/18/16 11:11 Laboratory Results 11/17/16 11:30 11/17/16 11:30 11/17/16 11/18/16 11/19/16 05:59 05:59 05:59 Intake Total 1280 1150 Output Total 650 1150 Balance 630 0 PT 16.1 SEC (12.0-15.0) H 11/10/16 03:15 INR 1.29 (0.83-1.16) H 11/10/16 03:15 Skin intact, mild swelling around the pes bursa, moderately tender, knee ROM full, no effusion, calf NT - Time Spent With Patient Time Spent With Patient: 15 - Pending Discharge Pending Discharge Within 24 Hours: No Pending Discharge Within 48 Hours: No ICD10 Worksheet Patient Problems: Problems Problem Status Onset Cellulitis of leg Acute Severe sepsis Acute Acute renal failure Acute Umbilical hernia, incarcerated Acute
--- NOTE | 2016-11-18 14:45 | PCMIDPN ---
Assessment/Plan: Assessment: Sepsis-secondary to Streptococcus salivarius. Unknown source but may be related to steroid injections. Patient is complaining of left leg pain but it is much reduced. [place] to be tendonitis by Orthopedics. Plan: 1. Continue empiric ceftriaxone. Suspected 2 week course from blood culture clearance. 2. Follow clinical course. 11/15/16 16:53 11/18/16 18:19 Subjective: Patient is sitting up in his hospital room. No new issues or complaints. States that the left knee and lower leg pain is improving. Tolerating IV ceftriaxone. No rash. No itching. Objective: Ceftriaxone # 9 Vital Signs Temp Pulse Resp BP Pulse Ox 37.1 C 97 22 H 92/74 L 92 11/18/16 11:11 11/18/16 11:11 11/18/16 11:11 11/18/16 11:11 11/18/16 11:11 Laboratory Results 11/17/16 11:30 11/17/16 11:30 11/17/16 11/18/16 11/19/16 05:59 05:59 05:59 Intake Total 1280 1150 Output Total 650 1150 Balance 630 0 - Physical Exam General Appearance: WD/WN, alert, no apparent distress, non-toxic Respiratory: lungs clear, normal breath sounds, wheezing, No respiratory distress Cardiac/Chest: regular rate, rhythm, No tachycardia Extremities: non-tender, No normal inspection, No inflammation, No erythema Skin: normal color, warm/dry, No rash Neuro/Psych: alert, normal mood/affect, oriented x 3 ICD10 Worksheet Patient Problems: Problems Problem Status Onset Cellulitis of leg Acute Severe sepsis Acute Acute renal failure Acute Umbilical hernia, incarcerated Acute
--- NOTE | 2016-11-18 17:49 | HOSPPROG ---
Hospitalist Progress Note Assessment/Plan: DIAGNOSES: # acute septic shock (resolved)- 2/2 Strep salliveras bacteremia - -likely due to steroid injection (epidural) -nothing on Echo -continue ceftriaxone for 2 weeks # left leg pain, pes anserinus tendinopathy (is getting better but still interfering with walking) -his knee continues to look good with no effusion, redness or heat or knee tenderness -PT, heat # iron deficiency anemia- MCV has been in the 70s or below for many years, and iron levels typically low however RBC count varies between low and high ( currently high despite low iron) - ? 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 due to anticoagulation -recheck in am # intertriginous fungal dermatitis of the genitalia, and seborrheic dermatitis of the scalp and face - on Diflucan for the former, coal tar shampoo for the latter, both improving here so far # Chronic bilateral leg edema and stasis dermatitis - per patient is at his baseline; he is emphatic that compression stockings, Trav wraps, and diuretics have not in the past ever resulted in improvement in the edema beyond its present state # chronic pain with continuous opioid dependency- patient on high doses OxyContin/oxycodone at home -currently doing well on his chronic medications # TYRONE - CPAP # Diabetes -blood sugars in good range on no medication at this time # DVT prophylaxis Lovenox # disposition: At this point his left leg pain is preventing him from being able to toe ambulate adequately for discharge to home, but hopefully can discharge in the next 1-2 days I reviewed the patient's case in detail today with Dr. Elza Devries SUBJECTIVE: Continues complain of ongoing severe medial left leg painStill making ambulation quite difficult for him Otherwise feels well No fever symptoms OBJECTIVE Vitals reviewed: Stable without fever Exam: alert oriented skin warm dry color ok; Little change so far in his intertriginous fungal dermatitis or his seborrhea resps not labored lungs clear BSs heart regular abd soft nondistended nontender, bowel sounds present limbs still with remarkable pitting edema from the upper calf down to the feet bilaterally with some marked stasis dermatitis but no cellulitis or skin ulcers ; I can find no visible or palpable abnormality at the area of the medial left leg where he points to indicate the location of his pain iv site ok Objective: Vital Signs Temp Pulse Resp BP Pulse Ox 37.7 C 101 H 22 H 92/74 L 99 11/18/16 16:00 11/18/16 16:00 11/18/16 16:00 11/18/16 11:11 11/18/16 16:00 Laboratory Results 11/17/16 11:30 11/17/16 11:30 11/17/16 11/18/16 11/19/16 06:59 06:59 06:59 Intake Total 1280 1150 Output Total 1000 800 Balance 280 350 PT 16.1 SEC (12.0-15.0) H 11/10/16 03:15 INR 1.29 (0.83-1.16) H 11/10/16 03:15 ICD10 Worksheet Patient Problems: Problems Problem Status Onset Cellulitis of leg Acute Severe sepsis Acute Acute renal failure Acute Umbilical hernia, incarcerated Acute
[2016-11-18] MEDS: cefTRIAXone 2 GM in D5W 50 ML IV SCH (19:47)
[2016-11-19] MEDS: GABAPENTIN 400 MG CAP PO SCH ×4 (05:25→20:39)
[2016-11-19] MEDS: oxyCODONE CR 80 MG TAB PO SCH ×3 (05:26→22:01)
[2016-11-19] MEDS: LEVOTHYROXINE 100 MCG TAB PO SCH (05:29)
[2016-11-19] MEDS: LISINOPRIL 40 MG TAB PO SCH (08:58)
[2016-11-19] MEDS: buPROPion XL 150 MG TAB PO SCH ×2 (08:58→20:39)
[2016-11-19] MEDS: SENNOSIDES/DOCUSATE SODIUM TAB PO SCH ×2 (08:59→20:39)
[2016-11-19] MEDS: PANTOPRAZOLE SODIUM 40 MG TAB PO SCH (09:00)
[2016-11-19] MEDS: PARoxetine HCL 20 MG TAB PO SCH ×2 (09:00→20:39)
[2016-11-19] MEDS: TAMSULOSIN HCL 0.4 MG CAP PO SCH (09:00)
[2016-11-19] MEDS: FLUCONAZOLE 100 MG TAB PO SCH (09:00)
[2016-11-19] MEDS: ENOXAPARIN 40 MG/0.4 ML SYR SC SCH (11:20)
[2016-11-19] MEDS: FUROSEMIDE 40 MG/4 ML VIAL IVP SCH ×2 (11:20→16:14)
[2016-11-19] MEDS: CLOTRIMAZOLE 1% 15 GM CRTUBE TP SCH ×2 (11:21→22:01)
[2016-11-19] MEDS: COAL TAR TP SCH (11:21)
--- NOTE | 2016-11-19 14:41 | HOSPPROG ---
Hospitalist Progress Note Assessment/Plan: 61-year-old male admitted on 11/10 with acute sepsis likely secondary to a strep bacteremia. Patient is undergoing IV antibiotic therapy for the bacteremia and is progressively improving. Patient is new to me today -acute septic shock now resolved secondary to strep salivarius bacteremia. Cardiac echo has been negative. Patient will continue on Rocephin for 2 weeks. The bacteremia is likely secondary to an epidural injection steroid injection -left leg pain secondary to a tendinopathy. This has been improving since admission. It still interfering with his walking. -iron deficiency anemia: Patient is currently undergoing IV iron therapy. Reviewing his laboratory shows that his RBC counts very between low and high. This may be secondary to a hemoglobinopathy with iron absorption issues. As an outpatient patient should see Gastroenterology for full evaluation of upper and lower endoscopy. Referral should be to Dr. Tapia. -acute renal insufficiency: Will continue to follow. -the fungal dermatitis of the genitalia and seborrheic dermatitis of the scalp and face. On Diflucan for the fungal infection and receiving coal tar shampoo for the latter. Will begin a course of ketoconazole shampoo for his seborrheic dermatitis. -chronic bilateral leg edema and stasis dermatitis. From the prior notes it indicates the compressive stockings Trav wraps and diuretics have not in the past ever resulted in improvement. I have explained that a slow diuresis may be necessary here in the patient is willing. Plan: Begin a slow diuresis with low doses of Lasix and watch his renal function -chronic pain and opioid dependent: He is currently at his baseline on his chronic medications and he is doing well. -obstructive sleep LEEP apnea; CPAP: The mask does not fit well on this should be addressed as an outpatient. We are going to address his chronic hypoxemia and he will likely need O2 at night and possibly continuously. -diabetes mellitus: Blood sugars in a good range on no medications are necessary. -DVT prophylaxis is on Lovenox. -code: Full code Disposition: Patient has been improving the last 1-2 days but is still requiring significant support. I discussed the matter with his and the patient and they feel breath 1 more day of will be sufficient for him to recover well enough to be cared for at home. The cares for not only him but her mother and has 2 children living at home. She she has been and is willing to continue assisting in his care. Discharge could occur in the next 1- 2 days. Subjective: Reports he is feeling improved. Had a long discussion about his peripheral edema the rash in his face trouble with his feet and his ongoing need of antibiotics. He denies having chest pain shortness of breath abdominal pain or diarrhea. Objective: Vital Signs Temp Pulse Resp BP Pulse Ox 36.9 C 76 20 101/75 100 11/19/16 11:37 11/19/16 07:52 11/19/16 11:37 11/19/16 11:37 11/19/16 07:52 Laboratory Results 11/17/16 11:30 11/17/16 11:30 11/18/16 11/19/16 11/20/16 05:59 05:59 05:59 Intake Total 1150 Output Total 1150 2650 Balance 0 -2650 PT 16.1 SEC (12.0-15.0) H 11/10/16 03:15 INR 1.29 (0.83-1.16) H 11/10/16 03:15 - Time Spent With Patient Time Spent with Patient: greater than 35 minutes Time Spent with Patient: Greater than 35 minutes spent on this patients care, greater than 50% of time spent counseling, educating, and coordinating care regarding the above mentioned plan. - Pending Discharge Pending Discharge Within 24 Hours: No Pending Discharge Within 48 Hours: Yes Pending Discharge Date: 11/21/16 Pending Discharge Time: 11:00 - Physical Exam Constitutional: no apparent distress Eyes: PERRL, anicteric sclera, other (Significant fatigue and facial plaque in station formation with flaking rash consistent with seborrhea.) Ears, Nose, Mouth, Throat: moist mucous membranes, hearing normal Cardiovascular: regular rate and rhythym, systolic murmur, JVD (JVD is not appear to be elevated.), edema (2+ edema is present bilaterally with chronic venous stasis changes.) Respiratory: no respiratory distress, clear to auscultation Gastrointestinal: normoactive bowel sounds, soft, non-tender abdomen, no palpable masses Genitourinary: no bladder fullness Skin: warm Musculoskeletal: generalized weakness, other (Significant ambulation difficulties with low back pain and bent forward at the waist requiring 1 and perhaps 2 person assist. 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
--- NOTE | 2016-11-19 16:36 | ASMTCMCOM ---
CM Note CM Note Notes: Denice from [facility] here to speak w/pt and . Want to do IV antibiotics at home, CM to notifiy A hardy when pt discharges. Date Signed: 11/19/2016 04:35 PM Electronically Signed By:Ashleigh Javier
[2016-11-19] MEDS: cefTRIAXone 2 GM in D5W 50 ML IV SCH (20:39)
[2016-11-20 02:24] VITALS: PULSE 81
[2016-11-20] MEDS: oxyCODONE CR 80 MG TAB PO SCH ×2 (06:00→14:32)
[2016-11-20] MEDS: LEVOTHYROXINE 100 MCG TAB PO SCH (06:00)
[2016-11-20] MEDS: GABAPENTIN 400 MG CAP PO SCH ×2 (06:00→14:32)
[2016-11-20] MEDS ORDERED: KETOCONAZOLE 2% 15 GM CREAM TP SCH (09:00)
[2016-11-20 09:08] VITALS: BP 123/80; RESP 14; TEMP 98.6; O2SAT 87
[2016-11-20] MEDS: SENNOSIDES/DOCUSATE SODIUM TAB PO SCH ×2 (09:11→11:41)
[2016-11-20] MEDS: FLUCONAZOLE 100 MG TAB PO SCH (09:12)
[2016-11-20] MEDS: TAMSULOSIN HCL 0.4 MG CAP PO SCH (09:12)
[2016-11-20] MEDS: PARoxetine HCL 20 MG TAB PO SCH (09:12)
[2016-11-20] MEDS: PANTOPRAZOLE SODIUM 40 MG TAB PO SCH (09:12)
[2016-11-20] MEDS: buPROPion XL 150 MG TAB PO SCH (09:12)
[2016-11-20] MEDS: LISINOPRIL 40 MG TAB PO SCH (09:13)
[2016-11-20] MEDS: ENOXAPARIN 40 MG/0.4 ML SYR SC SCH (09:14)
[2016-11-20] MEDS: CLOTRIMAZOLE 1% 15 GM CRTUBE TP SCH (09:15)
[2016-11-20] MEDS: COAL TAR TP SCH ×2 (09:15→11:41)
--- NOTE | 2016-11-20 10:04 | PDIAF ---
- Diagnosis Diagnosis: Streptococcus bacteremia Code Status: Full Code - Medication Management Discharge Medications: Medications to Continue on Transfer Gabapentin [Gabapentin 800 mg] 800 mg PO QID 01/27/14 [Last Taken 11/09/16 16:00 ] Lisinopril [Zestril 20 mg (*)] 20 mg PO HS 01/27/14 [Last Taken 11/08/16] Pantoprazole Sodium 40 mg PO DAILY 01/27/14 [Last Taken 11/09/16] Sennosides/Docusate Sodium [Senokot-S] 1 tab PO DAILY PRN 01/27/14 [Last Taken Unknown] Simethicone [Gas Relief] 125 mg PO DAILY PRN 01/27/14 [Last Taken Unknown] Tadalafil [Cialis] 5 mg PO DAILY 01/27/14 [Last Taken 11/09/16] Tamsulosin HCl [Flomax 0.4 MG (*)] 0.4 mg PO DAILY 01/27/14 [Last Taken 11/09/16 ] Testosterone Cypionate 200 mg IM Q7D 01/27/14 [Last Taken 09/01/15] oxyCODONE CR [Oxycontin] 80 mg PO TID 01/27/14 [Last Taken 11/09/16 21:15] Lisinopril [Zestril 40 mg (*)] 40 mg PO DAILY 08/26/15 [Last Taken 11/09/16] oxyCODONE IR [Oxycodone Ir (*)] 30 - 60 mg PO Q4 PRN #60 tab 09/05/15 [Last Taken 11/09/16 21:15] Levothyroxine Sodium [Levothyroxine Sodium] 100 mcg PO DAILY 11/09/16 [Last Taken 11/09/16] PARoxetine HCL [Paxil 20mg (*)] 20 mg PO BID 11/09/16 [Last Taken 11/09/16 09:00 ] buPROPion XL [Wellbutrin Xl] 150 mg PO HS 11/09/16 [Last Taken 11/08/16] buPROPion XL [Wellbutrin Xl] 300 mg PO DAILY 11/09/16 [Last Taken 11/09/16] Albuterol Hfa Anes Only [Proair Hfa Icu (*)] 2 puffs IH QID 11/11/16 [Last Taken Unknown] Mometasone/Formoterol [Dulera 200 Mcg/5 Mcg Inhaler] 1 - 2 puffs IH BID [Last Taken 11/07/16] [facility] Antibiotics: ceftriaxone 2 g IV daily [facility] Antibiotic Stop Date: 10/24/16 (Okay to dc picc 8/3 after antibiotic dose and blood draw) Discharge Medications: Refer to the Discharge Home Medication list for PRN reason. PICC Care - Routine: Yes - Orders Services needed: Home Snf Care Face to Face: I certify that this patient was under my care and that I had the required [id number] encounter meeting the encounter requirements on the discharge day. My findings support the fact that the patient is homebound as defined in CMS Chapter 7 Medicare Benefits Manual 30.1.1, The condition of the patient is such that there exists a normal inability to leave home and consequently, leaving home would require a considerable and taxing effort. - Labs/Radiology CBC Date: 11/24/16 (collect prior to picc line removal) CMP Date: 11/24/16 (collect prior to picc line removal) Call or Fax Lab and Imaging Results to: Jacky Aguirre MD [facility] for Infectious Diseases at fax [phone] - Follow Up Care Current Providers and Referrals: Johnathan Amanda MD [Primary Care Provider] - As per Instructions Jacky Aguirre MD [Medical Doctor] - 11/27/16 11:00 am
--- NOTE | 2016-11-20 10:08 | PCMIDPN ---
Assessment/Plan: # Streptococcus salivarius bacteremia: dc today on home IV antibiotics. rapid clearance of bacteremia and demonstrated by blood cultures 11/11/2016 not showing Streptococcus. Planned 14 days of antibiotic therapy. Interagency completed, follow-up established with Dr. Jacky Aguirre # blood cultures 1 of 2 positive for coagulase-negative Staph: Consistent with contaminant # amoxicillin allergy: Tolerating cephalosporin # Severe intertriginous candidiasis, inguinal area, scrotum and phallus, seborrhea dermatitis: plan total 14 days Fluconazole 100mg daily meds ceftriaxone 2gm IV daily through 10/24 coordination of care with hospitalists and case management Subjective: patient feeling improved pain. Ready to go home. Objective: Vital Signs Temp Pulse Resp BP Pulse Ox 37.0 C 81 14 123/80 H 87 L 11/20/16 08:00 11/20/16 02:23 11/20/16 08:00 11/20/16 08:00 11/20/16 08:00 Laboratory Results 11/17/16 11:30 11/17/16 11:30 11/19/16 11/20/16 11/21/16 05:59 05:59 05:59 Intake Total 300 Output Total 2650 1450 Balance -2650 -1150 - Physical Exam General Appearance: alert EENT: other ( Severe seborrheic dermatitis of the face and scalp) Respiratory: lungs clear, No respiratory distress, No accessory muscle use, No crackles Neck: supple Cardiac/Chest: regular rate, rhythm Neuro/Psych: alert, normal mood/affect, oriented x 3 - Line/s RUE PICC Lines: other ( some surrounding ecchymosis), No drainage, No erythema - Time Spent With Patient Time Spent with Patient: greater than 25 minutes Time Spent with Patient: Greater than 25 minutes spent on this patients care, greater than 50% of time spent counseling, educating, and coordinating care regarding the above mentioned plan. ICD10 Worksheet Patient Problems: Problems Problem Status Onset Cellulitis of leg Acute Severe sepsis Acute Acute renal failure Acute Umbilical hernia, incarcerated Acute
--- NOTE | 2016-11-20 10:14 | PDIAF ---
- Diagnosis Diagnosis: Streptococcus bacteremia Code Status: Full Code - Medication Management Discharge Medications: Medications to Continue on Transfer Gabapentin [Gabapentin 800 mg] 800 mg PO QID 01/27/14 [Last Taken 11/09/16 16:00 ] Lisinopril [Zestril 20 mg (*)] 20 mg PO HS 01/27/14 [Last Taken 11/08/16] Pantoprazole Sodium 40 mg PO DAILY 01/27/14 [Last Taken 11/09/16] Sennosides/Docusate Sodium [Senokot-S] 1 tab PO DAILY PRN 01/27/14 [Last Taken Unknown] Simethicone [Gas Relief] 125 mg PO DAILY PRN 01/27/14 [Last Taken Unknown] Tadalafil [Cialis] 5 mg PO DAILY 01/27/14 [Last Taken 11/09/16] Tamsulosin HCl [Flomax 0.4 MG (*)] 0.4 mg PO DAILY 01/27/14 [Last Taken 11/09/16 ] Testosterone Cypionate 200 mg IM Q7D 01/27/14 [Last Taken 09/01/15] oxyCODONE CR [Oxycontin] 80 mg PO TID 01/27/14 [Last Taken 11/09/16 21:15] Lisinopril [Zestril 40 mg (*)] 40 mg PO DAILY 08/26/15 [Last Taken 11/09/16] oxyCODONE IR [Oxycodone Ir (*)] 30 - 60 mg PO Q4 PRN #60 tab 09/05/15 [Last Taken 11/09/16 21:15] Levothyroxine Sodium [Levothyroxine Sodium] 100 mcg PO DAILY 11/09/16 [Last Taken 11/09/16] PARoxetine HCL [Paxil 20mg (*)] 20 mg PO BID 11/09/16 [Last Taken 11/09/16 09:00 ] buPROPion XL [Wellbutrin Xl] 150 mg PO HS 11/09/16 [Last Taken 11/08/16] buPROPion XL [Wellbutrin Xl] 300 mg PO DAILY 11/09/16 [Last Taken 11/09/16] Albuterol Hfa Anes Only [Proair Hfa Icu (*)] 2 puffs IH QID 11/11/16 [Last Taken Unknown] Mometasone/Formoterol [Dulera 200 Mcg/5 Mcg Inhaler] 1 - 2 puffs IH BID [Last Taken 11/07/16] Half-Way Antibiotics: ceftriaxone 2 g IV daily Half-Way Antibiotic Stop Date: 11/24/16 (Okay to dc picc 8/3 after antibiotic dose and blood draw) Discharge Medications: Refer to the Discharge Home Medication list for PRN reason. PICC Care - Routine: Yes - Orders Services needed: Home Group Home Care Face to Face: I certify that this patient was under my care and that I had the required [id number] encounter meeting the encounter requirements on the discharge day. My findings support the fact that the patient is homebound as defined in CMS Chapter 7 Medicare Benefits Manual 30.1.1, The condition of the patient is such that there exists a normal inability to leave home and consequently, leaving home would require a considerable and taxing effort. - Labs/Radiology CBC Date: 11/24/16 (collect prior to picc line removal) CMP Date: 11/24/16 (collect prior to picc line removal) Call or Fax Lab and Imaging Results to: Jacky Aguirre MD [facility] for Infectious Diseases at fax [phone] - Follow Up Care Current Providers and Referrals: Johnathan Amanda MD [Primary Care Provider] - As per Instructions Jacky Aguirre MD [Medical Doctor] - 11/27/16 11:00 am
[2016-11-20] MEDS ORDERED: cefTRIAXone 2 GM in D5W 50 ML IV SCH (10:30)
--- NOTE | 2016-11-20 10:31 | PDIAF ---
- Diagnosis Diagnosis: Streptococcus bacteremia Code Status: Full Code - Medication Management Discharge Medications: Medications to Continue on Transfer Gabapentin [Gabapentin 800 mg] 800 mg PO QID 01/27/14 [Last Taken 11/09/16 16:00 ] Lisinopril [Zestril 20 mg (*)] 20 mg PO HS 01/27/14 [Last Taken 11/08/16] Pantoprazole Sodium 40 mg PO DAILY 01/27/14 [Last Taken 11/09/16] Sennosides/Docusate Sodium [Senokot-S] 1 tab PO DAILY PRN 01/27/14 [Last Taken Unknown] Simethicone [Gas Relief] 125 mg PO DAILY PRN 01/27/14 [Last Taken Unknown] Tadalafil [Cialis] 5 mg PO DAILY 01/27/14 [Last Taken 11/09/16] Tamsulosin HCl [Flomax 0.4 MG (*)] 0.4 mg PO DAILY 01/27/14 [Last Taken 11/09/16 ] Testosterone Cypionate 200 mg IM Q7D 01/27/14 [Last Taken 09/01/15] oxyCODONE CR [Oxycontin] 80 mg PO TID 01/27/14 [Last Taken 11/09/16 21:15] Lisinopril [Zestril 40 mg (*)] 40 mg PO DAILY 08/26/15 [Last Taken 11/09/16] oxyCODONE IR [Oxycodone Ir (*)] 30 - 60 mg PO Q4 PRN #60 tab 09/05/15 [Last Taken 11/09/16 21:15] Levothyroxine Sodium [Levothyroxine Sodium] 100 mcg PO DAILY 11/09/16 [Last Taken 11/09/16] PARoxetine HCL [Paxil 20mg (*)] 20 mg PO BID 11/09/16 [Last Taken 11/09/16 09:00 ] buPROPion XL [Wellbutrin Xl] 150 mg PO HS 11/09/16 [Last Taken 11/08/16] buPROPion XL [Wellbutrin Xl] 300 mg PO DAILY 11/09/16 [Last Taken 11/09/16] Albuterol Hfa Anes Only [Proair Hfa Icu (*)] 2 puffs IH QID 11/11/16 [Last Taken Unknown] Mometasone/Formoterol [Dulera 200 Mcg/5 Mcg Inhaler] 1 - 2 puffs IH BID [Last Taken 11/07/16] [facility] Antibiotics: ceftriaxone 2 g IV daily [facility] Antibiotic Stop Date: 11/24/16 (Okay to dc picc 8/3 after antibiotic dose and blood draw) Discharge Medications: Refer to the Discharge Home Medication list for PRN reason. PICC Care - Routine: Yes - Orders Services needed: Home Assisted Care Face to Face: I certify that this patient was under my care and that I had the required [id number] encounter meeting the encounter requirements on the discharge day. My findings support the fact that the patient is homebound as defined in CMS Chapter 7 Medicare Benefits Manual 30.1.1, The condition of the patient is such that there exists a normal inability to leave home and consequently, leaving home would require a considerable and taxing effort. - Labs/Radiology CBC Date: 11/24/16 (collect prior to picc line removal) CMP Date: 11/24/16 (collect prior to picc line removal) Call or Fax Lab and Imaging Results to: Jacky Aguirre MD [facility] for Infectious Diseases at fax [phone] - Follow Up Care Current Providers and Referrals: Johnathan Amanda MD [Primary Care Provider] - As per Instructions Jacky Aguirre MD [Medical Doctor] - 11/27/16 11:00 am
--- NOTE | 2016-11-20 10:32 | PDIAF ---
- Diagnosis Diagnosis: Streptococcus bacteremia Code Status: Full Code - Medication Management Discharge Medications: Medications to Continue on Transfer Gabapentin [Gabapentin 800 mg] 800 mg PO QID 01/27/14 [Last Taken 11/09/16 16:00 ] Lisinopril [Zestril 20 mg (*)] 20 mg PO HS 01/27/14 [Last Taken 11/08/16] Pantoprazole Sodium 40 mg PO DAILY 01/27/14 [Last Taken 11/09/16] Sennosides/Docusate Sodium [Senokot-S] 1 tab PO DAILY PRN 01/27/14 [Last Taken Unknown] Simethicone [Gas Relief] 125 mg PO DAILY PRN 01/27/14 [Last Taken Unknown] Tadalafil [Cialis] 5 mg PO DAILY 01/27/14 [Last Taken 11/09/16] Tamsulosin HCl [Flomax 0.4 MG (*)] 0.4 mg PO DAILY 01/27/14 [Last Taken 11/09/16 ] Testosterone Cypionate 200 mg IM Q7D 01/27/14 [Last Taken 09/01/15] oxyCODONE CR [Oxycontin] 80 mg PO TID 01/27/14 [Last Taken 11/09/16 21:15] Lisinopril [Zestril 40 mg (*)] 40 mg PO DAILY 08/26/15 [Last Taken 11/09/16] oxyCODONE IR [Oxycodone Ir (*)] 30 - 60 mg PO Q4 PRN #60 tab 09/05/15 [Last Taken 11/09/16 21:15] Levothyroxine Sodium [Levothyroxine Sodium] 100 mcg PO DAILY 11/09/16 [Last Taken 11/09/16] PARoxetine HCL [Paxil 20mg (*)] 20 mg PO BID 11/09/16 [Last Taken 11/09/16 09:00 ] buPROPion XL [Wellbutrin Xl] 150 mg PO HS 11/09/16 [Last Taken 11/08/16] buPROPion XL [Wellbutrin Xl] 300 mg PO DAILY 11/09/16 [Last Taken 11/09/16] Albuterol Hfa Anes Only [Proair Hfa Icu (*)] 2 puffs IH QID 11/11/16 [Last Taken Unknown] Mometasone/Formoterol [Dulera 200 Mcg/5 Mcg Inhaler] 1 - 2 puffs IH BID [Last Taken 11/07/16] [facility] Antibiotics: ceftriaxone 2 g IV daily [facility] Antibiotic Stop Date: 11/24/16 (Okay to dc picc 9/3 after antibiotic dose and blood draw) Discharge Medications: Refer to the Discharge Home Medication list for PRN reason. PICC Care - Routine: Yes - Orders Services needed: Home Nursing Home Care Face to Face: I certify that this patient was under my care and that I had the required [id number] encounter meeting the encounter requirements on the discharge day. My findings support the fact that the patient is homebound as defined in CMS Chapter 7 Medicare Benefits Manual 30.1.1, The condition of the patient is such that there exists a normal inability to leave home and consequently, leaving home would require a considerable and taxing effort. - Labs/Radiology CBC Date: 11/24/16 (collect prior to picc line removal) CMP Date: 11/24/16 (collect prior to picc line removal) Call or Fax Lab and Imaging Results to: Jacky Aguirre MD [facility] for [facility] at fax [phone] - Follow Up Care Current Providers and Referrals: Johnathan Amanda MD [Primary Care Provider] - As per Instructions Jacky Aguirre MD [Medical Doctor] - 11/27/16 11:00 am
[2016-11-20] MEDS: KETOCONAZOLE 2% 120 ML SHAMPOO TP SCH ×2 (11:03→11:40)
--- NOTE | 2016-11-20 11:38 | ASMTCMCOM ---
CM Note CM Note Notes: Pt is being discharged home today. Met w/ pt to discuss dispo plans. Pts had questions regardi ng cost of home infusion. CM called Denice at [facility] and inform her of 's questions. [facility] calling directly. Pt and are aware of cost and will be going forward w/ services. CM informed [facility] Provided RN with phone number to [facility] to provide repor t. Faxed over orders to [facility]. Date Signed: 11/20/2016 11:37 AM Electronically Signed By:Ale Escoto
--- NOTE | 2016-11-20 12:09 | PDHOMEO2F ---
Home Oxygen Face to Face Home Orders: I certify that a physician or a nurse practitioner or physician's psychiatric technician assistant has had a [id number] encounter with this patient on the date of this order due to the diagnosis listed, which relates to the primary reason the patient requires home oxygen. Alternative treatments have been tried, or considered, and deemed ineffective. It is anticipated that supplemental oxygen will result in improvement with treatment. Home oxygen qualifying diagnosis: nocturnal hypoxemia Home oxygen secondary diagnosis: OSAS SpO2 on room air (%): 85 Frequency of home oxygen needed: continuous Home oxygen liters per minute: 2 Home oxygen delivery device: nasal cannula Concentrator: Yes E-tanks for mobility and back up: Yes If ordering portable O2, is the patient mobile in the home?: Yes I certify that, based on these findings, the home oxygen is medically necessary for this patient for the following length of time. Length of time home oxygen needed: 3 months
--- NOTE | 2016-11-20 13:46 | GDS ---
[f rep st] DISCHARGE SUMMARY Known acute diagnoses on this admission: 1. Septic shock secondary to bacteremia with Strep salivarius. 2. Left leg pain secondary to tendinopathy. 3. Iron-deficiency anemia. 4. Acute renal insufficiency. 5. Fungal dermatitis of the genitalia and seborrheic dermatitis of the scalp and face. 6. Chronic leg edema and stasis dermatitis. 7. Chronic pain, chronic back pain, and opioid dependence. 8. Obstructive sleep apnea with nocturnal hypoxemia. 9. Diabetes mellitus type 2. CHRONIC DIAGNOSES: 1. 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 2. Obesity with a body mass index of 36. 3. Hypertension. CONSULTATIONS: Infectious Disease, Intensive Care Medicine, Orthopedic Surgery. PROCEDURES: Lumbar spine MRI with findings of severe central canal stenosis secondary to degenerati ve disk disease at L3-L4, L2-L3, and moderate central canal stenosis at L1-L2 and a T11-T12 right pa ramedian disk herniation. PROCEDURES: Echocardiogram, showing any EF of 50% to 55%, mild dilation of the LA. No aortic steno sis and no vegetations were seen. HOSPITAL COURSE: A 61-year-old male who had undergone a steroid injection in the lumbar region for chronic back pain and developed fever and chills. On presentation, the gentleman was tachycardic at 112, febrile at 38, and had a low blood pressure of 72/42, and an elevated lactate at 2.2. He was treated with IV fluids. Antibiotics and blood cultures grew Strep salivarius on 4 blood cultures. He defervesced nicely under this treatment. He showed signs early on of acute kidney injury with a creatinine of 1.3, which improved to 1.0. There was some evidence of peripheral edema, and he was g iven Lasix, which resulted in a prerenal azotemia, and the Lasix was stopped before discharge. He h ad a mild anemia with a hemoglobin at discharge of 12.9, but no signs of acute bleeding. Hyponatremi a developed secondary to diuresis, with a sodium of 132. The diuretic was stopped before discharge, and it is presumed that his sodium and potassium will imp rove. There were no signs of GI bleeding. The gentleman was afebrile and completed a nearly 2-week course of antibiotics for his bacteremia. There were no signs of cardiac vegetation, and the presu med source of the infection was an epidural injection before hospitalization. It is also noted the gentleman had significant Lori infection with seborrhea about the face and s calp, and a fungal infection in the gluteal regions. These were treated in the usual fashion with a ntifungal medication topically, and he was given Diflucan orally. The seborrhea had significantly i mproved, and the inguinal groin dermatitis had also improved. DISCHARGE MEDICATIONS: New medications are ketoconazole 2% cream, to apply twice a day to the affec sonia areas of his face, neck, and ears; ketoconazole 2% shampoo, to shampoo 2-3 times a week; and Dif lucan 100 mg p.o. daily, #30. His continued medications are Cialis 5 mg daily; testosterone cypiona te 200 mg IM every 7 days; Senokot-S 1 tablet daily, simethicone 125 mg daily, pantoprazole 40 mg da mahesh, Flomax 0.4 mg daily, gabapentin 800 mg q.i.d., oxycodone 80 mg p.o. t.i.d., lisinopril 40 mg p. o. daily and lisinopril 20 mg p.o. q.h.s., oxycodone IR 30-60 mg p.o. q.4 hours p.r.n. pain, levothy roxine 100 mcg daily, bupropion XL 300 mg daily and bupropion XL 150 mg h.s., Paxil 20 mg b.i.d., al buterol, ProAir 2 puffs q.i.d., Dulera 200/5 mcg, take 1-2 puffs b.i.d. PLAN: The gentleman will be returning home. His will be assisting in his care. He has been i nstructed in the use of the ketoconazole shampoo and cream. It has also been noted and explained to him that we have stopped his diuretic, and a consideration of a diuretic should be given at his nex t followup. Followup will be with Dr. Jacky Aguirre on 11/27 at 11 a.m. He will follow up with Dr. Mitch Amanda, his PCP, in approximately 1 week. Arrangements are being made for the gentleman to complete his course of IV antibiotics as an outpati ent. There are 3 more doses that are required due to the bacteremia. This has been arranged throug h the infectious disease department. LABORATORY DATA: Noted at the time of discharge, WBC 8500, hemoglobin 13.3, INR 1.29, sodium 132, p otassium 5.5, BUN 28, creatinine 1.4. Urinalysis was negative. By weight, the patient did not lose any weight in the hospital, though weights were not followed. Note that his laboratories do reveal prerenal azotemia, which is secondary to diuresis and hyperkalemia, yet he was asymptomatic of the latter. No diuretic is ordered on discharge. At his next followup, a consideration of restarting a low-dose diuretic, perhaps an [id number] diuretic for his slight peripheral edema might be hel pful. A recheck of his BNP and CBC would be useful also. TIME: This discharge required 55 minutes, greater than 50% to auto travel counselor and coordinate the gentleman' s care. All questions were answered of his and the patient. This was also discussed with Infe ctious Disease and Dr. Ingrid Cueva. /[id number]/MODL
--- NOTE | 2016-11-20 17:23 | ASDISCHSUM ---
Discharge Information Plan Status:IV ABX/Infusion Medically Cleared to Leave:11/20/2016 Discharge Date:11/20/2016 04:00 PM D/C Disposition:Home Health Service ADT D/C Disposition:Home, Routine, Self-Care Projected Discharge Date:11/20/2016 12:00 AM Transportation at D/C:Family Discharge Delay Reason: Follow-Up Date:11/21/2016 Discharge Slot: Final Diagnosis: Placement Information Referral Type:Home Infusion Referral ID:[id number] Provider Name:[facility] ([facility]) Address 1:[address] Address 2: City:[place] Selection Factors: State:[place] Patient Contact Information Contact Name:ANUJ Relationship: Address:[address] City:[place] Alternate Phone: State/Zip Code:[place] [address] Email: Financial Information Financial Class: Primary Plan Desc:MEDICARE INPATIENT Primary Plan Number:[id number] Secondary Plan Desc:[facility] Secondary Plan Number:[id number] Assessment Information [facility] CM Progress Note CM Note CM Note Notes: Denice from [facility] here to speak w/pt and . Want to do IV antibiotics at home, CM to notifiy [facility] when pt discharges. Date Signed: 11/19/2016 04:35 PM Electronically Signed By:Ashleigh Javier [facility] CM Progress Note CM Note CM Note Notes: Pt is being discharged home today. Met w/ pt to discuss dispo plans. Pts had questions regarding cost of home infusion. CM called Denice at [facility] and inform her of 's questions. [facility] calling directly. Pt and are aware of cost and will be going forward w/ services. CM informed [facility] and [facility] of pt's discharge. Provided RN with phone number to [facility] to provide report. Faxed over orders to [facility]. Date Signed: 11/20/2016 11:37 AM Electronically Signed By:Ale Escoto Intervention Information Intervention Type:*IM-Signed Date of Service:11/19/2016 03:25 PM Patient Type:Inpatient Staff Member:Mallory Joe Hours: Discipline: Severity: Comment:
== END 2016-11-20 16:00 | disposition home or self-care (01) | DRG 867 ==
LOC: UNDOADMIN 23:49 → F2N 11-10 01:14 → F3E 11-11 11:17
PROVIDERS: ADMIT Internal Medicine; ATTEND Internal Medicine
PROC: 02HV33Z Insertion of Infusion Device into Superior Vena Cava, Percutaneous Approach (ICD-10-PCS; principal; 2016-11-13)
DX: T80.29XA Infection following other infusion, transfusion and therapeutic injection, initial encounter (principal); A41.1 Sepsis due to other specified staphylococcus; R65.21 Severe sepsis with septic shock; F11.20 Opioid dependence, uncomplicated; N17.9 Acute kidney failure, unspecified; D50.9 Iron deficiency anemia, unspecified; M76.9 Unspecified enthesopathy, lower limb, excluding foot; B36.9 Superficial mycosis, unspecified; L21.8 Other seborrheic dermatitis; I87.2 Venous insufficiency (chronic) (peripheral); G89.29 Other chronic pain; G47.33 Obstructive sleep apnea (adult) (pediatric); E11.9 Type 2 diabetes mellitus without complications; E66.01 Morbid (severe) obesity due to excess calories; I10 Essential (primary) hypertension; W18.39XA Other fall on same level, initial encounter; Z68.36 Body mass index [BMI] 36.0-36.9, adult; Z96.653 Presence of artificial knee joint, bilateral; Z79.1 Long term (current) use of non-steroidal anti-inflammatories (NSAID)
CPT/HCPCS: 96365; 97116-GP; 97161-GP; 97166-GO; 97530-GO; 97530-GP; 97535-GO; A9585; C1751; G8978-GP-CK; G8979-GP-CI; G8980-GP-CJ; G8987-GO-CM; G8988-GO-CJ; J0696; J1650; J1940; J2997; J3370; Q9967

== ENCOUNTER → 2017-01-07 | Outpatient (CLI) | payer OTHER | LOC: FIMAGING 16:20 | PROVIDERS: ATTEND Family Medicine | DX: M25.561 Pain in right knee (principal); Z96.651 Presence of right artificial knee joint | CPT/HCPCS: 84166-90 ==

== ENCOUNTER 2017-02-19 16:45 | Inpatient (IN) | payer OTHER ==
--- NOTE | 2017-02-19 18:26 | EDPHY ---
H & P Time Seen by Provider: 02/19/17 18:13 HPI/ROS: CHIEF COMPLAINT: Knee pain and redness in the calf HISTORY OF PRESENT ILLNESS: The patient is a 61 y/o male with a history of recurrent right lower extremity cellulitis complaining of knee pain. He has twisted his knee several times over the past few days. He has severe knee pain and inability to bear weight on his right leg. He is using crutches to ambulate. Onset of right calf redness a few days ago, gradually increasing since then. He takes Keflex daily for prophylaxis. No associated fever or other symptoms. REVIEW OF SYSTEMS: Constitutional: No fever, no chills Eyes: No visual changes ENT: No sore throat Respiratory: No cough, no shortness of breath Cardiac: No chest pain Gastrointestinal: No nausea, no vomiting, no abdominal pain Neurological: No headache, no weakness Psychiatric: No depression Past Medical/Surgical History: Recurrent right lower extremity Cellulitis, multiple knee replacements of both knees Social History: at bedside, lives in [place], unemployed Smoking Status: Never smoked Physical Exam: General Appearance: Alert, nontoxic Eyes: Pupils equal and round, no conjunctival pallor ENT, Mouth: Mucous membranes moist Neck: Normal inspection Respiratory: Lungs are clear to auscultation Cardiovascular: Regular rate and rhythm Gastrointestinal: Abdomen is soft and non-tender Neurological: A&O, nonfocal, normal gait Skin: Diffuse erythema, tenderness, warmth, and swelling in the right calf Extremities: Tenderness in the right knee, medially and laterally without erythema Vascular: 1+ pedal pulses Psychiatric: Mood and affect normal Constitutional: Initial Vital Signs Temperature (C) 36.9 C 02/19/17 16:56 Heart Rate 95 02/19/17 16:56 Respiratory Rate 18 02/19/17 16:56 Blood Pressure 132/84 H 02/19/17 16:56 O2 Sat (%) 95 02/19/17 16:56 O2 Delivery Mode Room Air Allergies/Adverse Reactions: amoxicillin [Amoxicillin] Allergy (Mild, Verified 02/19/17 16:55) NAUSEA codeine [Codeine] Allergy (Mild, Verified 02/19/17 16:55) NAUSEA hydromorphone HCl [From Dilaudid] Allergy (Mild, Verified 02/19/17 16:55) NAUSEA/DOESN'T WORK clavulanic acid [Clavulanic Acid] Allergy (Unknown, Verified 02/19/17 16:55) hydromorphone HCl Allergy (Unknown, Uncoded 11/20/16 11:24) NAUSEA/DOESN'T WORK Home Medications: Medication Instructions Recorded Gabapentin [Gabapentin 800 mg] 800 mg PO QID 01/27/14 Lisinopril [Zestril 20 mg (*)] 20 mg PO DAILY 01/27/14 Pantoprazole Sodium 40 mg PO DAILY 01/27/14 Simethicone [Gas Relief] 125 mg PO DAILY PRN 01/27/14 Tadalafil [Cialis] 5 mg PO DAILY 01/27/14 Tamsulosin HCl [Flomax 0.4 MG (*)] 0.4 mg PO DAILY 01/27/14 Testosterone Cypionate 200 mg IM Q7D 01/27/14 oxyCODONE CR [Oxycontin] 80 mg PO TID@04,12,20 01/27/14 oxyCODONE IR [Oxycodone Ir (*)] 30 - 60 mg PO Q4 PRN #60 tab 09/05/15 Levothyroxine Sodium 100 mcg PO DAILY 11/09/16 PARoxetine HCL [Paxil 20mg (*)] 20 mg PO BID 11/09/16 buPROPion XL [Wellbutrin 150mg XL] 150 mg PO HS 11/09/16 buPROPion XL [Wellbutrin 150mg XL] 300 mg PO DAILY 11/09/16 Albuterol Hfa Anes Only [Proair 2 puffs IH QID 11/11/16 Hfa Icu (*)] Mometasone/Formoterol [Dulera 200 1 - 2 puffs IH BID 11/11/16 Mcg/5 Mcg Inhaler] Cephalexin [Keflex (*)] 500 mg PO DAILY 02/19/17 Fluconazole [Diflucan (*)] 100 mg PO DAILY PRN 02/19/17 Ketoconazole 2% [Nizoral 2% Cream 1 denice TP DAILY PRN 02/19/17 (*)] Medical Decision Making - Diagnostics Imaging Results: Right knee x-ray independently reviewed by me reveals no acute change. ED Course/Re-evaluation: The patient is a 61 y/o male presents with recurrent right lower extremity cellulitis. He does not meet SIRS criteria. Blood cultures drawn. Old medical record reviewed. He was admitted in October 2016 for right lower extremity cellulitis and blood cultures grew strep salivarius, sensitive to Rocephin. 1838: I consulted Dr. Aguirre with infectious disease who advised IV Rocephin. Rocephin 1 g IV given. 1901: I spoke with hospitalist service regarding admission for this patient. Dr. Patel will be admitting doctor. Differential Diagnosis: The differential diagnosis for this patient's symptoms include but is not limited to cellulitis, DVT, abscess, osteomyelitis, neurovascular compromise and fracture. - Data Points Laboratory Results: Laboratory Results 02/19/17 18:30 02/19/17 18:30 02/19/17 18:30 Smear Review By Bala BAIG MD Medications Given: Albuterol (Ventolin Hfa Inhaler) 2 puffs IH QID [facility] Stop: 08/18/17 20:59 Last Admin: 02/20/17 12:06 Dose: Not Given Bupropion HCl (Wellbutrin Xl) 150 mg PO HS ERIK Stop: 08/18/17 20:59 Last Admin: 02/19/17 21:00 Dose: 150 mg Bupropion HCl (Wellbutrin Xl) 300 mg PO DAILY ERIK Stop: 08/19/17 08:59 Last Admin: 02/20/17 09:04 Dose: 300 mg Enoxaparin Sodium (Lovenox) 40 mg SC DAILY ERIK Stop: 08/19/17 08:59 Last Admin: 02/20/17 09:00 Dose: 40 mg Gabapentin (Neurontin) 800 mg PO QID [facility] Stop: 08/18/17 20:59 Last Admin: 02/20/17 12:55 Dose: 800 mg Ceftriaxone Sodium/Dextrose (Rocephin 1 Gm (Premix)) 50 mls @ 100 mls/hr IV DAILY [facility] PRN Reason: Protocol Stop: 03/22/17 08:59 Last Admin: 02/20/17 09:02 Dose: 50 mls Levothyroxine Sodium (Synthroid) 100 mcg PO DAILY ERIK Stop: 08/19/17 08:59 Last Admin: 02/20/17 09:02 Dose: 100 mcg Lisinopril (Zestril) 20 mg PO DAILY ERIK Stop: 08/19/17 08:59 Last Admin: 02/20/17 09:02 Dose: 20 mg Miscellaneous Medication (Tadalafil [Cialis]) 5 mg PO DAILY ERIK Stop: 08/19/17 08:59 Last Admin: 02/20/17 09:12 Dose: Not Given Miscellaneous Medication (Mometasone/Formoterol [Dulera 200 Mcg/5 Mcg Inhaler]) 1 - 2 puffs IH BID ERIK Stop: 08/19/17 11:59 Last Admin: 02/20/17 12:06 Dose: Not Given Oxycodone HCl (Oxycontin) 80 mg PO TID@04,12,20 ERIK Stop: 03/01/17 20:47 Last Admin: 02/20/17 12:55 Dose: 80 mg Oxycodone HCl (Oxycodone Ir) 30 - 60 mg PO Q4 PRN; Protocol PRN Reason: BT PAIN Stop: 03/01/17 20:45 Last Admin: 02/20/17 15:00 Dose: 60 mg Pantoprazole Sodium (Protonix) 40 mg PO DAILY ERIK Stop: 08/19/17 08:59 Last Admin: 02/20/17 09:02 Dose: 40 mg Paroxetine HCl (Paxil) 20 mg PO BID ERIK Stop: 08/18/17 20:59 Last Admin: 02/20/17 09:10 Dose: 20 mg Tamsulosin HCl (Flomax) 0.4 mg PO DAILY ERIK Stop: 08/19/17 08:59 Last Admin: 02/20/17 09:10 Dose: 0.4 mg Discontinued Medications Ceftriaxone Sodium/Dextrose (Rocephin 1 Gm (Premix)) 50 mls @ 100 mls/hr IV EDNOW ONE PRN Reason: Protocol Stop: 02/19/17 19:06 Last Admin: 02/19/17 18:58 Dose: 50 mls Departure - Departure Disposition: [facility] Inpatient Acute Clinical Impression: Cellulitis Qualifiers: Site of cellulitis: extremity Site of cellulitis of extremity: lower extremity Laterality: right Qualified Code(s): L03.115 - Cellulitis of right lower limb Condition: Good Report Scribed for: Lurdes Salinas Report Scribed by: Yoko Fitzpatrick Date of Report: 02/19/17 Time of Report: 18:19 Physician Review and Approval Statement: 02/19/17 18:19 Portions of this note were transcribed by a biomedical electronics technician. I personally performed a history, physical exam, medical decision making, and confirmed accuracy of information the transcribed note.
[2017-02-19 18:51] LABS: % IMMATURE GRANULYOCYTES 0.5 % (0.0-1.1); ABSOLUTE IMMATURE GRANULOCYTES 0.04 10^3/uL (0.00-0.10); ADD DIFF? NO; ADD MORPH? YES; ADD SCAN? NO; ATYPICAL LYMPHOCYTE FLAG 0 (0-99); FRAGMENT RBC FLAG 60 (0-99); HEMATOCRIT 47.1 % (40.0-51.0); HEMOGLOBIN 13.4 g/dL (13.7-17.5); LEFT SHIFT FLG 0 (0-99); LIPEMIA HEMOLYSIS FLAG 70 (0-99); MEAN CELL HEMOGLOBIN 19.6 pg (27.9-34.1); MEAN PLATELET VOLUME 9.6 fL (8.7-11.7); PLATELET CLUMPS FLAG 0 (0-99); PLATELET COUNT 321 10^3/uL (150-400); RED BLOOD CELL COUNT 6.82 10^6/uL (4.40-6.38)
[2017-02-19 18:52] LABS: MEAN CELL HEMOGLOBIN CONCENTR. 28.5 g/dL (32.4-36.7); MEAN CELL VOLUME 69.1 fL (81.5-99.8); RED CELL DISTRIBUTION WIDTH 23.5 % (11.5-15.2)
[2017-02-19 19:02] LABS: ANION GAP 14 mEq/L (8-16); CALCIUM 9.4 mg/dL (8.5-10.4); CARBON DIOXIDE 27 mEq/l (22-31); CHLORIDE 96 mEq/L (97-110); CREATININE 1.3 mg/dL (0.7-1.3); GLOMERULAR FILTRATION RATE 56; GLUCOSE 95 mg/dL (70-100); POTASSIUM 4.3 mEq/L (3.5-5.2); SODIUM 137 mEq/L (134-144)
[2017-02-19 19:23] LABS: HYPOCHROMIA 1+; PLATELET ESTIMATE ADEQUATE (ADEQ); POLYCHROMASIA 1+
[2017-02-19] MEDS ORDERED: KETOCONAZOLE 2% 15 GM CREAM TP PRN (20:46)
[2017-02-19] MEDS ORDERED: SIMETHICONE 80 MG TAB CHEW PO PRN (20:46)
[2017-02-19] MEDS: PARoxetine HCL 20 MG TAB PO SCH (21:00)
[2017-02-19] MEDS: buPROPion XL 150 MG TAB PO SCH (21:00)
[2017-02-19] MEDS: ALBUTEROL 200 PUFFS/18 GM MDI IH SCH (21:03)
[2017-02-19] MEDS: GABAPENTIN 400 MG CAP PO SCH (21:04)
[2017-02-19] MEDS ORDERED: ACETAMINOPHEN 325 MG TAB PO PRN (22:00)
[2017-02-19] MEDS ORDERED: ONDANSETRON 4 MG/2 ML VIAL IVP PRN (22:00)
[2017-02-19] MEDS ORDERED: ONDANSETRON DISINTEGRATING 4 MG TAB PO PRN (22:00)
--- NOTE | 2017-02-19 23:17 | GHP ---
[f rep st] HISTORY AND PHYSICAL DATE OF ADMISSION: 02/19/2017 CHIEF COMPLAINT: Right leg pain, swelling, and redness. HISTORY OF PRESENT ILLNESS: Mr. Chamorro is a 61-year-old male, with a history of chronic back pain and chronic, continuous opioid dependence, as well as previous cellulitis episodes, presents to the hospital with right leg pain and swelling. He states he noticed his leg becoming more red and swollen over the past few days. Today, the pain increased and he presented to the emergency department. He denies fevers or chills. He has increased pain with ambulation. He has had previous knee replacement surgeries, and also notes a prior ultrasound of his leg 4 to 6 weeks ago that was negative for DVT. In addition, he was admitted to the hospital in October 2016, with septic shock due to bacteremia from Streptococcus salivarius after an epidural spinal injection for chronic back pain. At this time, he denies chest pain, shortness of breath , abdominal pain, nausea, vomiting, diarrhea, or changes in his bowel or bladder habits. In the emergency department cellulitis was diagnosed. The case was discussed with Infectious Diseases, who recommended IV ceftriaxone. Blood cultures were drawn. He was given 1 g of IV ceftriaxone and was admitted to the hospital for further management. PAST MEDICAL HISTORY: 1. 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 2. Chronic back pain. 3. Chronic, continuous opioid dependence. 4. Obstructive sleep apnea, CPAP intolerant. 5. Severe obesity. 6. Hypertension. 7. History of diabetes, though his last A1c was 6.2, and he is not on any oral hypoglycemics. PAST SURGICAL HISTORY: 1. Total knee arthroplasty x4 on the left and x2 on the right. 2. Hernia repair. MEDICATIONS: Please see [email or web address] for completed outpatient medication list. ALLERGIES: Amoxicillin, Dilaudid. SOCIAL HISTORY: The patient lives independently with his . He is Jehov[employer]' [employer] and does not accept blood products. He denies tobacco or alcohol use. FAMILY HISTORY: Reviewed and noncontributory. REVIEW OF SYSTEMS: A 10-point review of systems was performed and is negative as per HPI. PHYSICAL EXAMINATION: VITAL SIGNS: Temperature is 36.9, blood pressure 126/96 , heart rate 87, respiratory rate 20. He is 92% on room air. GENERAL: The patient is awake, alert, and oriented, in no acute distress. HEENT: Head is atraumatic, normocephalic. Pupils equal, round, and reactive to light. Extraocular muscles intact. Oropharynx is clear. Mucous membranes are moist. NECK: Supple. There is no JVD. HEART: Regular rate and rhythm, without murmur. LUNGS: Clear to auscultation bilaterally. ABDOMEN: Soft, obese, nondistended, nontender with normoactive bowel sounds. EXTREMITIES: He has erythema circumferentially in the right lower extremity from the mid calf distal down to the ankle. It is only slightly warm to touch. There is no purulence or evidence of abscess. His extremities are otherwise well perfused. NEUROLOGIC: Grossly nonfocal. LABORATORY DATA: CBC reveals a white blood cell count of 8.1. Basic metabolic panel is normal, except for a chloride of 96. Lactic acid is 1.3. IMAGING STUDIES: A knee x-ray performed in the emergency department shows no evidence of malalignment or loosening of his prior knee replacement, and is overall unchanged from prior. Right lower extremity ultrasound is ordered and pending. ASSESSMENT AND PLAN: Mr. Chamorro is a 61-year-old male, with history of multiple knee arthroplasties and recurrent cellulitis, who presents to the emergency department with right lower extremity cellulitis. 1. Right lower extremity cellulitis. This is nonpurulent. His white count is normal. He has no evidence of sepsis. He is afebrile. Per Infectious Diseases recommendations, he is started on IV ceftriaxone 1 g daily based on prior culture data, having grown Streptococcus salivarius. We will continue this and follow his clinical course. Infectious Diseases consult was requested. 2. Chronic back pain, with chronic, continuous opioid dependence. He will be continued on his outpatient medications, including OxyContin 80 mg 3 times daily and oxycodone 30 to 60 mg q.4 hours. We will avoid further opioids, noting his high-risk dosing at baseline. 3. Depression and anxiety. Continue Paxil. 4. Gastroesophageal reflux disease. Continue PPI. 5. Hypertension. Blood pressure is adequately controlled. Continue his home regimen. 6. DVT prophylaxis: The patient is moderate risk, and we will start Lovenox. 7. Code status: The patient is Full Code. DISPOSITION: The patient is admitted to inpatient status, as I suspect he will require greater than 48 hours hospitalization for ongoing management of his acute left lower extremity cellulitis. /[id number]/MODL MTDD
[2017-02-20] MEDS: GABAPENTIN 400 MG CAP PO SCH ×4 (03:00→20:06)
[2017-02-20] MEDS: ALBUTEROL 200 PUFFS/18 GM MDI IH SCH ×4 (03:47→20:01)
[2017-02-20 05:37] LABS: % IMMATURE GRANULYOCYTES 0.7 % (0.0-1.1); ABSOLUTE IMMATURE GRANULOCYTES 0.05 10^3/uL (0.00-0.10); ADD DIFF? NO; ADD MORPH? YES; ADD SCAN? NO; ATYPICAL LYMPHOCYTE FLAG 0 (0-99); FRAGMENT RBC FLAG 40 (0-99); HEMOGLOBIN 12.7 g/dL (13.7-17.5); LEFT SHIFT FLG 0 (0-99); LIPEMIA HEMOLYSIS FLAG 70 (0-99); MEAN CELL HEMOGLOBIN 19.2 pg (27.9-34.1); MEAN PLATELET VOLUME 9.9 fL (8.7-11.7); PLATELET CLUMPS FLAG 10 (0-99); PLATELET COUNT 296 10^3/uL (150-400)
[2017-02-20 05:44] LABS: MEAN CELL HEMOGLOBIN CONCENTR. 27.6 g/dL (32.4-36.7); MEAN CELL VOLUME 69.7 fL (81.5-99.8); RED CELL DISTRIBUTION WIDTH 23.2 % (11.5-15.2)
[2017-02-20 06:14] LABS: ELLIPTOCYTES 1+; HYPOCHROMIA 1+; PLATELET ESTIMATE ADEQUATE (ADEQ); POLYCHROMASIA 1+
[2017-02-20] MEDS: ENOXAPARIN 40 MG/0.4 ML SYR SC SCH (09:00)
[2017-02-20] MEDS: LEVOTHYROXINE 100 MCG TAB PO SCH (09:02)
[2017-02-20] MEDS: LISINOPRIL 20 MG TAB PO SCH (09:02)
[2017-02-20] MEDS: PANTOPRAZOLE SODIUM 40 MG TAB PO SCH (09:02)
[2017-02-20] MEDS: buPROPion XL 150 MG TAB PO SCH ×2 (09:04→20:06)
[2017-02-20] MEDS: PARoxetine HCL 20 MG TAB PO SCH ×2 (09:10→20:07)
[2017-02-20] MEDS: TAMSULOSIN HCL 0.4 MG CAP PO SCH (09:10)
[2017-02-20] MEDS: Tadalafil [Cialis] 5 MG PO SCH (09:12)
--- NOTE | 2017-02-20 09:50 | PDMN ---
Medical Necessity Medical necessity: Pt meets IP criteria per MD; est los >2 mn for eval/tx of RLE cellulitis; admit for ID consult, IV abx & blood cxs; hx HTN, recurrent cellulitis, septic shock, TYRONE, diabetes; per H&P & order 02/19/17
[2017-02-20] MEDS ORDERED: MOMETASONE IH SCH (10:15)
[2017-02-20] MEDS ORDERED: FORMOTEROL IH SCH (10:15)
--- NOTE | 2017-02-20 11:27 | PCMIDPN ---
Assessment/Plan: # Mild RLE Cellulitis, R knee seems more swollen than baseline. WBC normal. Query if most of the changes are due to chronic venous insufficiency. Difficult to sort out knee swelling & limited ROM as in the past there has been significant reluctance to tap, but may be needed because due to swelling and decreased ROM. Reassuring that x ray does not show joint effusion. Small lebron- joint lucency stable. RLE DVT study also normal. --continue ceftriaxone --elevate leg --monitor knee --monitor blood cultures meds ceftriaxone 1gm IV daily #2 micro 02/19 blood cx (2) pending Subjective: 62 yo male known to ID service with underlying venous insufficiency R>L, chr infection R TKA on keflex and recent sepsis due to strep bacteremia 10/2016 presents with acute on chronic symptoms related to RLE. He reports over last couple days increased swelling of his knee and increased redness of his calf. Most concerning to him is more limited ROM and swelling of R knee. No F/C/NS Objective: Vital Signs Temp Pulse Resp BP Pulse Ox 36.8 C 94 20 130/89 H 94 02/20/17 07:08 02/20/17 11:11 02/20/17 11:11 02/20/17 11:11 02/20/17 11:11 Laboratory Results 02/20/17 05:19 02/19/17 02/20/17 02/21/17 05:59 05:59 05:59 Intake Total 275 Output Total 1500 Balance -1225 - Physical Exam General Appearance: no apparent distress, obese EENT: other (edentulous, MMM) Respiratory: lungs clear, No accessory muscle use Cardiac/Chest: regular rate, rhythm Extremities: pedal edema, swelling (R knee), erythema (dark red erythema, no warmth), other (healed scars from flap R knee) Peripheral Pulses: 2+: dorsalis-pedis (R), dorsalis-pedis (L) Abdomen: non-tender, soft Male Genitalia: No rasmussen Skin: No rash Neuro/Psych: alert, normal mood/affect, oriented x 3 - Time Spent With Patient Time Spent with Patient: greater than 25 minutes Time Spent with Patient: Greater than 25 minutes spent on this patients care, greater than 50% of time spent counseling, educating, and coordinating care regarding the above mentioned plan. ICD10 Worksheet Patient Problems: Problems Problem Status Onset Cellulitis Acute Acute renal failure Acute Cellulitis of leg Acute Severe sepsis Acute Umbilical hernia, incarcerated Acute
[2017-02-20] MEDS: Mometasone/Formoterol [Dulera 200 Mcg/5 Mcg Inhaler] IH SCH ×2 (12:06→21:41)
--- NOTE | 2017-02-20 12:36 | HOSPPROG ---
Hospitalist Progress Note Assessment/Plan: 61y male with multiple medical problems. First encounter, chart reviewed. D/W RT. #RLE cellulitis appreciate ID cont abx #chronic back pain cont home meds PT/OT #HTN stable #GERD stable #Dispo unclear cont abx per ID recs Subjective: Up in chair. C/O discomfort. Minimal movement of RLE. Objective: Vital Signs Temp Pulse Resp BP Pulse Ox 36.8 C 94 20 130/89 H 94 02/20/17 07:08 02/20/17 11:11 02/20/17 11:11 02/20/17 11:11 02/20/17 11:11 Laboratory Results 02/20/17 05:19 02/19/17 02/20/17 02/21/17 05:59 05:59 05:59 Intake Total 275 Output Total 1500 Balance -1225 - Physical Exam Constitutional: chronically ill appearing, obese, uncomfortable Eyes: PERRL, anicteric sclera, other (glasses) Ears, Nose, Mouth, Throat: moist mucous membranes, hearing normal, ears appear normal Cardiovascular: regular rate and rhythym, edema, No JVD Respiratory: no respiratory distress, no rales or rhonchi, reduced air movement Gastrointestinal: normoactive bowel sounds, No tenderness, No ascites Skin: warm, no rashes or abrasions, erythema Musculoskeletal: no joint effusions, pain with ROM, generalized weakness Neurologic: AAOx3 Psychiatric: interacting appropriately, not encephalopathic, thought process linear ICD10 Worksheet Patient Problems: Problems Problem Status Onset Umbilical hernia, incarcerated Acute Cellulitis of leg Acute Acute renal failure Acute Severe sepsis Acute Cellulitis Acute
--- NOTE | 2017-02-20 17:09 | ASMTCMCOM ---
CM Note CM Note Notes: Pt here for leg cellulitis, lives at home with . Per PT/OT pt would benefit from SNF, CM to discuss with pt in am. Date Signed: 02/20/2017 05:08 PM Electronically Signed By:Ashleigh Javier RN
[2017-02-21] MEDS: ALBUTEROL 200 PUFFS/18 GM MDI IH SCH ×4 (05:12→20:33)
[2017-02-21] MEDS: GABAPENTIN 400 MG CAP PO SCH ×4 (06:24→20:25)
[2017-02-21] MEDS: PARoxetine HCL 20 MG TAB PO SCH ×2 (09:27→20:25)
[2017-02-21] MEDS: buPROPion XL 150 MG TAB PO SCH ×2 (09:28→20:25)
[2017-02-21] MEDS: LISINOPRIL 20 MG TAB PO SCH (09:28)
[2017-02-21] MEDS: PANTOPRAZOLE SODIUM 40 MG TAB PO SCH (09:28)
[2017-02-21] MEDS: LEVOTHYROXINE 100 MCG TAB PO SCH (09:28)
[2017-02-21] MEDS: TAMSULOSIN HCL 0.4 MG CAP PO SCH (09:28)
[2017-02-21] MEDS: ENOXAPARIN 40 MG/0.4 ML SYR SC SCH (09:29)
[2017-02-21] MEDS: Tadalafil [Cialis] 5 MG PO SCH (09:30)
--- NOTE | 2017-02-21 12:08 | PCMIDPN ---
Assessment/Plan: 1. Subtle right lower extremity cellulitis: Patient is convinced he has a recurrent infection, based on discomfort when he ambulates, and slight increase in dusky discoloration compared to left. For now , will continue ceftriaxone as is. He and I made a deal that he will keep his right lower extremity elevated while he is in bed (he has not been doing this), with plans for discharge on Friday, probably to a fdc facility for ongoing rehabilitation. Patient feels that this would likely be best for him. Suspect he will need a course of intravenous therapy (7-10 days), as he is adamant that oral medication does not resolve his infections. PT will see him today. Subjective: Very talkative, as per usual. No diarrhea. Feels that his infection in the right lower extremity is slower to resolve than usual. Is convinced he has an infection in his right lower extremity, based on difficulty with ambulation which he says he always gets when he has an infection. Objective: Ceftriaxone 1 g IV daily day 3 Afebrile Vital Signs Temp Pulse Resp BP Pulse Ox 36.9 C 76 17 122/72 H 98 02/21/17 07:05 02/21/17 09:56 02/21/17 09:56 02/21/17 07:05 02/21/17 09:56 Laboratory Results 02/20/17 05:19 02/20/17 02/21/17 02/22/17 05:59 05:59 05:59 Intake Total 275 50 Output Total 1500 Balance -1225 50 Blood cultures February 19 negative - Physical Exam General Appearance: alert, no apparent distress EENT: other (No teeth) Respiratory: lungs clear Extremities: other (Right lower extremity larger than the left. Dusky erythema , without warmth or tenderness to palpation. Looks more consistent with venous stasis, but very difficult to tell if concomitant mild cellulitis also present.) ICD10 Worksheet Patient Problems: Problems Problem Status Onset Cellulitis Acute Acute renal failure Acute Cellulitis of leg Acute Severe sepsis Acute Umbilical hernia, incarcerated Acute
--- NOTE | 2017-02-21 13:48 | HOSPPROG ---
Hospitalist Progress Note Assessment/Plan: 61y male with multiple medical problems. #RLE cellulitis appreciate ID cont abx elevate #chronic back pain cont home meds PT/OT #HTN stable #GERD stable #Dispo unclear cont abx per ID recs consider SNF for rehab Subjective: Feeling better today. Less discomfort. Objective: Vital Signs Temp Pulse Resp BP Pulse Ox 37.6 C 94 18 115/83 H 92 02/21/17 12:00 02/21/17 12:00 02/21/17 12:00 02/21/17 12:00 02/21/17 12:00 Laboratory Results 02/20/17 05:19 02/20/17 02/21/17 02/22/17 05:59 05:59 05:59 Intake Total 275 50 Output Total 1500 Balance -1225 50 - Physical Exam Constitutional: chronically ill appearing, obese Eyes: PERRL, anicteric sclera Ears, Nose, Mouth, Throat: moist mucous membranes, hearing normal Cardiovascular: No JVD, No edema Respiratory: no respiratory distress, reduced air movement Gastrointestinal: No tenderness, No ascites Skin: warm, normal color Musculoskeletal: pain with ROM, generalized weakness Neurologic: AAOx3 Psychiatric: interacting appropriately, not anxious ICD10 Worksheet Patient Problems: Problems Problem Status Onset Umbilical hernia, incarcerated Acute Cellulitis of leg Acute Acute renal failure Acute Severe sepsis Acute Cellulitis Acute
--- NOTE | 2017-02-21 17:49 | ASMTCMCOM ---
CM Note CM Note Notes: Spoke w/, pt will be here through the weekend. PT/OT recommend SNT, CM to f/u with pt. Date Signed: 02/21/2017 05:48 PM Electronically Signed By:Ashleigh Javier RN
[2017-02-21] MEDS: Mometasone/Formoterol [Dulera 200 Mcg/5 Mcg Inhaler] IH SCH ×2 (20:31→20:33)
[2017-02-22] MEDS: GABAPENTIN 400 MG CAP PO SCH ×4 (05:00→20:39)
[2017-02-22] MEDS: ALBUTEROL 200 PUFFS/18 GM MDI IH SCH ×4 (06:17→20:45)
[2017-02-22] MEDS: Mometasone/Formoterol [Dulera 200 Mcg/5 Mcg Inhaler] IH SCH ×2 (08:22→20:46)
--- NOTE | 2017-02-22 08:44 | HOSPPROG ---
Hospitalist Progress Note Assessment/Plan: 61y male with multiple medical problems. Patient presented the emergency room with right leg pain and swelling. Today is my 1st encounter with the patient. Chart reviewed. Reviewed his care with Dr Stone. #RLE cellulitis -on ceftriaxone -will continue to need to elevate his right lower extremity #chronic back pain on continuous opioids cont home meds PT/OT #HTN stable #GERD stable # microcytic anemia -check iron studies #Dispo Patient wants to go home with home care on Friday. He has chronic bilateral knee problems with multiple knee replacements. Have left a message with Dr. Tang the patient is here. I think his main issue is overall generalized weakness with venous insufficiency affecting his mobility. Will check labs in the morning. As regards to low iron levels.. Subjective: Hesham is concerned about his right lower ext with redness. Says he is having a hard time walking. Objective: Vital Signs Temp Pulse Resp BP Pulse Ox 36.9 C 84 12 128/80 H 93 02/22/17 07:09 02/22/17 08:26 02/22/17 08:26 02/22/17 07:09 02/22/17 08:26 Laboratory Results 02/20/17 05:19 02/21/17 02/22/17 02/23/17 05:59 05:59 05:59 Intake Total 50 Balance 50 - Physical Exam Constitutional: chronically ill appearing, obese, uncomfortable Eyes: PERRL Ears, Nose, Mouth, Throat: hearing normal Cardiovascular: regular rate and rhythym Respiratory: no respiratory distress Gastrointestinal: normoactive bowel sounds Skin: warm, other (right lower ext w redness, swelling and warmth/ left ankle area looks similar) Neurologic: AAOx3 Psychiatric: interacting appropriately ICD10 Worksheet Patient Problems: Problems Problem Status Onset Cellulitis Acute Acute renal failure Acute Cellulitis of leg Acute Severe sepsis Acute Umbilical hernia, incarcerated Acute
[2017-02-22] MEDS: ENOXAPARIN 40 MG/0.4 ML SYR SC SCH (09:06)
[2017-02-22] MEDS: buPROPion XL 150 MG TAB PO SCH ×2 (09:06→18:43)
[2017-02-22] MEDS: PANTOPRAZOLE SODIUM 40 MG TAB PO SCH (09:06)
[2017-02-22] MEDS: LISINOPRIL 20 MG TAB PO SCH (09:07)
[2017-02-22] MEDS: Tadalafil [Cialis] 5 MG PO SCH (09:07)
[2017-02-22] MEDS: TAMSULOSIN HCL 0.4 MG CAP PO SCH (09:07)
[2017-02-22] MEDS: PARoxetine HCL 20 MG TAB PO SCH ×2 (09:07→18:43)
[2017-02-22] MEDS: LEVOTHYROXINE 100 MCG TAB PO SCH (09:07)
--- NOTE | 2017-02-22 13:54 | PCMIDPN ---
Assessment/Plan: Assessment/Plan: * Right lower extremity cellulitis superimposed on venous insufficiency: Clinically improving with ceftriaxone. Anticipate 7-10 total days of therapy. Patient now favors discharge home rather than to rehabilitation facility. Case management informed of his preference. Continued to emphasize importance of elevation. 02/22/17 13:51 Subjective: Patient feeling better with less right lower extremity erythema. No longer favors going to rehabilitation facility but prefers to go home at time of discharge. Objective: Vital Signs Temp Pulse Resp BP Pulse Ox 37.1 C 89 20 130/82 H 94 02/22/17 11:39 02/22/17 11:39 02/22/17 11:39 02/22/17 11:39 02/22/17 11:39 Laboratory Results 02/20/17 05:19 02/21/17 02/22/17 02/23/17 05:59 05:59 05:59 Intake Total 50 Balance 50 Ceftriaxone # 3 Blood cultures x2 no growth - Physical Exam General Appearance: alert, no apparent distress EENT: No scleral icterus, No thrush Extremities: inflammation (Right lower extremity with faint circumferential erythema below knee; mild associated warmth and tenderness; knee without effusion or inflammatory change; no irritability) Lymphatic: other (No right lower extremity lymphangitis) ICD10 Worksheet Patient Problems: Problems Problem Status Onset Cellulitis Acute Acute renal failure Acute Cellulitis of leg Acute Severe sepsis Acute Umbilical hernia, incarcerated Acute
--- NOTE | 2017-02-22 16:19 | ASMTCMCOM ---
CM Note CM Note Notes: PT and OT recommending SNF. Pt. does not want to go. Pt. wants homecare. ID informed CM today that Pt. will need ceftriaxone at d/c through a peripheral line, no picc. CM contacted [facility] to review case for cost. Sent referral through [facility] [employer] today. Pt. has Medicare. Might choose to come to infusion center if too expensive. Pt. will need homecare either arranged through [facility] or separate HC agency. Date Signed: 02/22/2017 04:18 PM Electronically Signed By:Reena Naranjo LCSW
[2017-02-23] MEDS: GABAPENTIN 400 MG CAP PO SCH ×4 (04:51→20:45)
[2017-02-23] MEDS: ALBUTEROL 200 PUFFS/18 GM MDI IH SCH ×4 (05:24→20:47)
[2017-02-23 05:48] LABS: % SATURATION 9 % (20-55); TOTAL IRON BINDING CAPACITY 342 ug/dL (260-490)
[2017-02-23] MEDS: TAMSULOSIN HCL 0.4 MG CAP PO SCH (08:35)
[2017-02-23] MEDS: PANTOPRAZOLE SODIUM 40 MG TAB PO SCH (08:35)
[2017-02-23] MEDS: LISINOPRIL 20 MG TAB PO SCH (08:35)
[2017-02-23] MEDS: PARoxetine HCL 20 MG TAB PO SCH ×2 (08:35→20:45)
[2017-02-23] MEDS: ENOXAPARIN 40 MG/0.4 ML SYR SC SCH (08:36)
[2017-02-23] MEDS: LEVOTHYROXINE 100 MCG TAB PO SCH (08:36)
[2017-02-23] MEDS: buPROPion XL 150 MG TAB PO SCH ×2 (08:36→20:45)
[2017-02-23] MEDS: Mometasone/Formoterol [Dulera 200 Mcg/5 Mcg Inhaler] IH SCH ×2 (09:22→20:47)
[2017-02-23] MEDS: Tadalafil [Cialis] 5 MG PO SCH (10:10)
--- NOTE | 2017-02-23 10:39 | HOSPPROG ---
Hospitalist Progress Note Assessment/Plan: 61y male with multiple medical problems. Patient presented the emergency room with right leg pain and swelling. #RLE cellulitis -on ceftriaxone #4 -will continue to need to elevate his right lower extremity #chronic bilateral venous insufficiency #chronic back pain on continuous opioids cont home meds PT/OT has an appt with his pain doctor tomorrow at 1 has chronic back pain, right knee pain #HTN stable #GERD stable # microcytic anemia/iron deficiency anemia -will need OP f/u in regards to this #Dispo:Plan is to dc tomorrow back home w home care/ will get a few more days of IV abx Subjective: Hesham is c/o ongoing low back pain and knee pain Objective: Vital Signs Temp Pulse Resp BP Pulse Ox 37.0 C 78 18 113/72 89 L 02/23/17 07:07 02/23/17 09:25 02/23/17 07:07 02/23/17 08:35 02/23/17 09:25 Laboratory Results 02/20/17 05:19 - Physical Exam Constitutional: appears nourished, chronically ill appearing, uncomfortable, No not in pain Eyes: PERRL Ears, Nose, Mouth, Throat: hearing normal Cardiovascular: regular rate and rhythym Respiratory: no respiratory distress, no rales or rhonchi Skin: warm, other (has boots and socks on/didn't evaluate skin on r le) Musculoskeletal: generalized weakness Neurologic: AAOx3 Psychiatric: interacting appropriately, not anxious ICD10 Worksheet Patient Problems: Problems Problem Status Onset Cellulitis Acute Acute renal failure Acute Cellulitis of leg Acute Severe sepsis Acute Umbilical hernia, incarcerated Acute
[2017-02-23] MEDS ORDERED: NON-FORMULARY NEW DRUG (Testosterone Cypionate [Testosterone Cypionate] 200 MG) IM SCH (12:00)
[2017-02-23] MEDS ORDERED: TESTOSTERONE IM 100 MG/ML SYRINGE IM SCH (12:00)
--- NOTE | 2017-02-23 14:36 | ASMTCMCOM ---
CM Note CM Note Notes: Per hospitalist, patient will discharge tomorrow after receiving IV antiobiotics and will then require 2x more doses at home. I have alerted [facility] who will send someone to see patient tomorrow morning to discuss his benefits and set up home care. Date Signed: 02/23/2017 02:36 PM Electronically Signed By:Inessa Narayanan RN
--- NOTE | 2017-02-23 15:31 | PDIAF ---
- Diagnosis Diagnosis: Right lower extremity cellulitis Code Status: Full Code - Medication Management Discharge Medications: Medications to Continue on Transfer Gabapentin [Gabapentin 800 mg] 800 mg PO QID 01/27/14 [Last Taken 02/19/17] Lisinopril [Zestril 20 mg (*)] 20 mg PO DAILY 01/27/14 [Last Taken 02/19/17] Pantoprazole Sodium 40 mg PO DAILY 01/27/14 [Last Taken 02/19/17] Simethicone [Gas Relief] 125 mg PO DAILY PRN 01/27/14 [Last Taken 1 Week Ago ~] Tadalafil [Cialis] 5 mg PO DAILY 01/27/14 [Last Taken 11/09/16] Tamsulosin HCl [Flomax 0.4 MG (*)] 0.4 mg PO DAILY 01/27/14 [Last Taken 02/19/17 ] Testosterone Cypionate 200 mg IM Q7D 01/27/14 [Last Taken 02/12/17] oxyCODONE CR [Oxycontin] 80 mg PO TID@,,20 01/27/14 [Last Taken 02/19/17 09: 00] oxyCODONE IR [Oxycodone Ir (*)] 30 - 60 mg PO Q4 PRN #60 tab 09/05/15 [Last Taken 02/19/17 12:00] Levothyroxine Sodium 100 mcg PO DAILY 11/09/16 [Last Taken 02/19/17] PARoxetine HCL [Paxil 20mg (*)] 20 mg PO BID 11/09/16 [Last Taken 02/19/17] buPROPion XL [Wellbutrin 150mg XL] 150 mg PO HS 11/09/16 [Last Taken 02/18/17] buPROPion XL [Wellbutrin 150mg XL] 300 mg PO DAILY 11/09/16 [Last Taken 02/19/17 ] Albuterol Hfa Anes Only [Proair Hfa Icu (*)] 2 puffs IH QID 11/11/16 [Last Taken 1 Week Ago ~02/12/17] Mometasone/Formoterol [Dulera 200 Mcg/5 Mcg Inhaler] 1 - 2 puffs IH BID [Last Taken 02/19/17 09:00] Cephalexin [Keflex (*)] 500 mg PO DAILY 02/19/17 [Last Taken 02/19/17] Fluconazole [Diflucan (*)] 100 mg PO DAILY PRN 02/19/17 [Last Taken Unknown] Ketoconazole 2% [Nizoral 2% Cream (*)] 1 denice TP DAILY PRN 02/19/17 [Last Taken Unknown] Residential Antibiotics: Ceftriaxone 2 g IV Q 24 hr Residential Antibiotic Stop Date: 02/26/17 Discharge Medications: Refer to the Discharge Home Medication list for PRN reason. PICC Care - Routine: N/A - Orders Isolation Type: None - Follow Up Care Current Providers and Referrals: Johnathan Amanda MD [Primary Care Provider] - As per Instructions
[2017-02-24] MEDS: GABAPENTIN 400 MG CAP PO SCH ×2 (05:19→11:51)
[2017-02-24] MEDS: ALBUTEROL 200 PUFFS/18 GM MDI IH SCH ×2 (05:24→10:44)
[2017-02-24 08:11] VITALS: RESP 20
--- NOTE | 2017-02-24 08:36 | HOSPPROG ---
Hospitalist Progress Note Assessment/Plan: 61y male with multiple medical problems. Patient presented the emergency room with right leg pain and swelling. #RLE cellulitis -on ceftriaxone #5 -will continue to need to elevate his right lower extremity #chronic bilateral venous insufficiency #chronic back pain on continuous opioids cont home meds PT/OT has an appt with his pain doctor today at 1 has chronic back pain, right knee pain #HTN stable #GERD stable # microcytic anemia/iron deficiency anemia -will need OP f/u in regards to this #Dispo:dc today Subjective: Hesham is feeling well, has no complaints. Objective: Vital Signs Temp Pulse Resp BP Pulse Ox 36.7 C 79 20 125/74 H 90 L 02/24/17 08:00 02/24/17 08:00 02/24/17 08:00 02/24/17 08:00 02/24/17 08:00 Laboratory Results 02/20/17 05:19 02/23/17 02/24/17 02/25/17 05:59 05:59 05:59 Intake Total 500 Output Total 700 350 Balance -200 -350 - Physical Exam Constitutional: no apparent distress, appears nourished Eyes: PERRL Ears, Nose, Mouth, Throat: hearing normal Respiratory: no respiratory distress Skin: warm Musculoskeletal: generalized weakness Neurologic: AAOx3 Psychiatric: interacting appropriately ICD10 Worksheet Patient Problems: Problems Problem Status Onset Cellulitis Acute Acute renal failure Acute Cellulitis of leg Acute Severe sepsis Acute Umbilical hernia, incarcerated Acute
--- NOTE | 2017-02-24 08:40 | PDIAF ---
- Diagnosis Diagnosis: Right lower extremity cellulitis Code Status: Full Code - Medication Management Discharge Medications: Medications to Continue on Transfer Gabapentin [Gabapentin 800 mg] 800 mg PO QID 01/27/14 [Last Taken 02/19/17] Lisinopril [Zestril 20 mg (*)] 20 mg PO DAILY 01/27/14 [Last Taken 02/19/17] Pantoprazole Sodium 40 mg PO DAILY 01/27/14 [Last Taken 02/19/17] Simethicone [Gas Relief] 125 mg PO DAILY PRN 01/27/14 [Last Taken 1 Week Ago ~] Tadalafil [Cialis] 5 mg PO DAILY 01/27/14 [Last Taken 11/09/16] Tamsulosin HCl [Flomax 0.4 MG (*)] 0.4 mg PO DAILY 01/27/14 [Last Taken 02/19/17 ] Testosterone Cypionate 200 mg IM Q7D 01/27/14 [Last Taken 02/12/17] oxyCODONE CR [Oxycontin] 80 mg PO TID@,,20 01/27/14 [Last Taken 02/19/17 09: 00] oxyCODONE IR [Oxycodone Ir (*)] 30 - 60 mg PO Q4 PRN #60 tab 09/05/15 [Last Taken 02/19/17 12:00] Levothyroxine Sodium 100 mcg PO DAILY 11/09/16 [Last Taken 02/19/17] PARoxetine HCL [Paxil 20mg (*)] 20 mg PO BID 11/09/16 [Last Taken 02/19/17] buPROPion XL [Wellbutrin 150mg XL] 150 mg PO HS 11/09/16 [Last Taken 02/18/17] buPROPion XL [Wellbutrin 150mg XL] 300 mg PO DAILY 11/09/16 [Last Taken 02/19/17 ] Albuterol Hfa Anes Only [Proair Hfa Icu (*)] 2 puffs IH QID 11/11/16 [Last Taken 1 Week Ago ~02/12/17] Mometasone/Formoterol [Dulera 200 Mcg/5 Mcg Inhaler] 1 - 2 puffs IH BID [Last Taken 02/19/17 09:00] Fluconazole [Diflucan (*)] 100 mg PO DAILY PRN 02/19/17 [Last Taken Unknown] Ketoconazole 2% [Nizoral 2% Cream (*)] 1 denice TP DAILY PRN 02/19/17 [Last Taken Unknown] Care Home Antibiotics: Ceftriaxone 2 g IV Q 24 hr Dynamic Balancer Set Up Worker Antibiotic Stop Date: 02/26/17 Discharge Medications: Refer to the Discharge Home Medication list for PRN reason. PICC Care - Routine: N/A - Orders Services needed: Home Care, Registered Nurse, Physical Therapy, Occupational Therapy Home Care Face to Face: I certify that this patient was under my care and that I had the required [id number] encounter meeting the encounter requirements on the discharge day. My findings support the fact that the patient is homebound as defined in Home Care Face to Face Continued: CMS Chapter 7 Medicare Benefits Manual 30.1.1 , The condition of the patient is such that there exists a normal inability to leave home and consequently, leaving home would require a considerable and taxing effort. Isolation Type: None Diet Recommendation: no restrictions on diet - Follow Up Care Current Providers and Referrals: Johnathan Amanda MD [Primary Care Provider] - As per Instructions
[2017-02-24] MEDS ORDERED: Tadalafil [Cialis] 5 MG PO SCH (09:00)
[2017-02-24] MEDS: PANTOPRAZOLE SODIUM 40 MG TAB PO SCH (09:41)
[2017-02-24] MEDS: LEVOTHYROXINE 100 MCG TAB PO SCH (09:41)
[2017-02-24] MEDS: PARoxetine HCL 20 MG TAB PO SCH (09:41)
[2017-02-24] MEDS: TAMSULOSIN HCL 0.4 MG CAP PO SCH (09:41)
[2017-02-24] MEDS: ENOXAPARIN 40 MG/0.4 ML SYR SC SCH (09:41)
[2017-02-24] MEDS: LISINOPRIL 20 MG TAB PO SCH (09:42)
[2017-02-24] MEDS: buPROPion XL 150 MG TAB PO SCH (09:42)
[2017-02-24] MEDS: Mometasone/Formoterol [Dulera 200 Mcg/5 Mcg Inhaler] IH SCH (09:51)
[2017-02-24 11:17] VITALS: BP 117/75; PULSE 97; TEMP 98.7; O2SAT 86
--- NOTE | 2017-02-24 12:12 | GDS ---
[f rep st] DISCHARGE SUMMARY DISCHARGE DIAGNOSES: 1. Right lower extremity cellulitis on chronic venous stasis. 2. Chronic back pain, on continuous opioids. 3. Hypertension. 4. Gastroesophageal reflux disease. 5. Iron-deficiency anemia. CONSULTATION: Dr. Ingrid Cueva. HISTORY OF PRESENT ILLNESS: Briefly, the patient is a 61-year-old male, with a history of chronic ba ck pain and chronic continuous opioid dependence, as well as previous cellulitis, who presented the [facility] with right leg pain and swelling. His leg became more red and swollen several days prior to his admission. He had an ultrasound 4 to 6 weeks ago that was negative for DVT. He subsequently had another performed on 02/19/2017, which showed no evidence of a DVT. He has calf swelling and reacti ve inguinal lymph node. He was seen and evaluated by the infectious disease physician. He is being treated with ceftriaxone. He will get a few more doses in the home care setting, and follow up with the Infectious Disease Team in the outpatient setting. HOSPITAL COURSE PER PROBLEM: 1. Right lower extremity swelling on chronic venous insufficiency. He will get a few more days of c eftriaxone in the home setting. It is improved. He is ambulating better with use of a walker. 2. Chronic back pain, on continuous opioids. He has an appointment with his pain doctor today at 1. 3. Hypertension, stable. 4. GERD. No complaints. 5. Iron-deficiency anemia. He is aware of this and realizes he should be on iron therapy with vitam in C. He will follow up with his primary care provider. DISCHARGE CONDITION: Stable. Blood pressure is 125/74, respiratory rate is 20, pulse is 79, tempera ture is 36.7 Celsius, O2 sats on room air are 90%. MEDICATIONS AT DISCHARGE: Please see the EMR. DISCHARGE INSTRUCTIONS: 1. To elevate his right leg several times throughout the day. 2. He will get IV antibiotics via home care. 3. If he develops fever, chills, chest pain, shortness of breath, return to the ER. 4. To discuss further treatment for his iron-deficiency anemia with his primary care provider. Greater than 30 minutes discharging and coordinating care. /[id number]/MODL
--- NOTE | 2017-02-24 15:09 | ASDISCHSUM ---
Discharge Information Plan Status:IV ABX/Infusion Medically Cleared to Leave:02/23/2017 Discharge Date:02/24/2017 12:24 PM D/C Disposition: ADT D/C Disposition:Home, Routine, Self-Care Projected Discharge Date:02/24/2017 11:00 AM Transportation at D/C: Discharge Delay Reason: Follow-Up Date:02/24/2017 11:00 AM Discharge Slot: Final Diagnosis: Placement Information Referral Type:Home Infusion Referral ID:[id number] Provider Name:[facility] Address 1:[address] Address 2: City:[place] Selection Factors: State:[place] Referral Type:*Home Health Care Services Referral ID:[id number] Provider Name:[facility] Address 1:[address] Address 2: City:[place] Selection Factors: State:[place] Patient Contact Information Contact Name:ANUJ Relationship: Address:[address] City:[place] Alternate Phone: [facility]/Zip Code:[place] [address] Email: Financial Information Financial Class: Primary Plan Desc:MEDICARE INPATIENT Primary Plan Number:[id number] Secondary Plan Desc[place] [place] Number:[id number] Assessment Information [facility] CM Progress Note CM Note CM Note Notes: Pt here for leg cellulitis, lives at home with . Per PT/OT pt would benefit from SNF, CM to discuss with pt in am. Date Signed: 02/20/2017 05:08 PM Electronically Signed By:Ashleigh Javier RN [facility] CM Progress Note CM Note CM Note Notes: Spoke w/, pt will be here through the weekend. PT/OT recommend SNT, CM to f/u with pt. Date Signed: 02/21/2017 05:48 PM Electronically Signed By:Ashleigh Javier RN [facility] CM Progress Note CM Note CM Note Notes: PT and OT recommending SNF. Pt. does not want to go. Pt. wants homecare. PATRICK SALGUERO informed CM today that Pt. will need ceftriaxone at d/c through a peripheral line, no picc. [facility] to [facility] case for cost. Sent referral through [facility] today. Pt. has Medicare. Might choose to come to infusion center if too expensive. Pt. will need homecare either arranged through [facility] or separate HC agency. Date Signed: 02/22/2017 04:18 PM Electronically Signed By:Reena Naranjo LCSW [facility] CM Progress Note CM Note CM Note Notes: Per hospitalist, patient will discharge tomorrow after receiving IV antiobiotics and will then require 2x more doses at home. I have alerted [facility] who will send someone to see patient tomorrow morning to discuss his benefits and set up home care. Date Signed: 02/23/2017 02:36 PM Electronically Signed By:Inessa Narayanan RN Case Management Discharge Plan Note Case Management Discharge Discharge Order Complete? Answers: Yes Patient to Obtain Answers: Independently Medications Transportation Arranged Answers: Family/Friends EMTALA Complete Answers: No Case Management Transport Answers: No Form Complete Faxed Final Orders Answers: Yes Family Notified Answers: No Discharge Comments Notes: Pt is being discharged today w/ [facility] home infusion and JEAN MARIE SHELDON. Pt will only need antibiotics for 2 more days. faxed d/c orders. provided JEAN MARIE Rutherford w/ phone number to give report to [facility]. available for changes. Date Signed: 02/24/2017 09:52 AM Electronically Signed By:TINO Mcqueen Intervention Information Intervention Type:*IM-Signed Date of Service:02/24/2017 10:33 AM Patient Type:Inpatient Staff Member:Sona Gallardo Hours: Discipline: Severity: Comment:
== END 2017-02-24 12:24 | disposition home or self-care (01) | DRG 603 ==
LOC: F3E 20:05
PROVIDERS: ADMIT Hospitalist; ATTEND Hospitalist
DX: L03.116 Cellulitis of left lower limb (principal); I87.8 Other specified disorders of veins; G89.29 Other chronic pain; F11.20 Opioid dependence, uncomplicated; D50.9 Iron deficiency anemia, unspecified; E11.9 Type 2 diabetes mellitus without complications; E66.9 Obesity, unspecified; Z68.36 Body mass index [BMI] 36.0-36.9, adult; G47.33 Obstructive sleep apnea (adult) (pediatric); K21.9 Gastro-esophageal reflux disease without esophagitis; I10 Essential (primary) hypertension; F41.8 Other specified anxiety disorders; Z96.653 Presence of artificial knee joint, bilateral
CPT/HCPCS: 96365; 97110-GP; 97116-GP; 97163-GP; 97166-GO; 97530-GO; 97530-GP; 97535-GO; G8978-GP-CJ; G8979-GP-CI; G8987-GO-CI; G8988-GO-CI; G8989-GO-CI; J0696; J1071; J1650

== ENCOUNTER → 2017-03-13 | Day surgery (SDC) | payer OTHER | END | disposition home or self-care (01) | LOC: FIMAGING 12:24 → EEVIPCON 12:24 | PROVIDERS: ATTEND Internal Medicine Infectious Disease | PROC: 02HV33Z Insertion of Infusion Device into Superior Vena Cava, Percutaneous Approach (ICD-10-PCS; principal; 2017-03-13) | DX: L03.115 Cellulitis of right lower limb (principal); Z79.2 Long term (current) use of antibiotics | CPT/HCPCS: 36569; 77001; C1751 ==

== ENCOUNTER 2017-04-15 18:33 | Emergency (ER) | payer OTHER ==
[2017-04-15 18:39] VITALS: RESP 20
--- NOTE | 2017-04-15 19:07 | EDPHY ---
H & P Stated Complaint: r leg wound sepsis HPI/ROS: CHIEF COMPLAINT: Leg pain, cellulitis. HISTORY OF PRESENT ILLNESS: The patient is a 62 y/o male with history of recurrent cellulitis arriving with his complaining of pain in his right leg onset yesterday. He has a history of chronic pain and continuous opioid dependence. He has a history of 4 total knee replacements in this leg with multiple "clean-outs" and has been admitted several times for cellulitis. His symptoms today feel the same as prior episodes of cellulitis. He recently had a PICC line and was receiving IV Daptomycin infusions as an outpatient under the care of infectious disease for cellulitis. He completed his last dose last Friday, 6 days ago, and his PICC line was pulled . He is still taking PO Keflex. Last night he noticed recurrent pain in his right leg. His pain now extends from just below his knee to his mid thigh and is associated with perceived redness in his lower right leg. His reports the redness had completely resolved last week when the Daptomycin was discontinued. He denies fever, chest pain, dyspnea, lightheadedness, nausea, vomiting, abdominal pain, or diarrhea. REVIEW OF SYSTEMS: A ten point review of systems was performed and is negative with the exception of the items mentioned in the HPI. Past medical history: Recurrent leg cellulitis - Dr. Stone and Dr. Aguirre from infectious disease; hypertension; degenerative arthritis; chronic back pain with continuous opioid dependence; obstructive sleep apnea, CPAP intolerant; obesity; diabetes not on oral hypoglycemics. Past surgical history: 4 total knee replacements on right leg, 2 total knee replacements on left knee, he reports a total of 20 surgeries due to "clean-outs " - Dr. Tang Family history: Noncontributory. Social history: at beside, 39 years. Lives in [place]. No tobacco or alcohol use. 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 Prior medial records reviewed including admission 02/19/17 for leg cellulitis. General Appearance: Alert. Vital signs reviewed. Blood pressure 90/74 at triage, heart rate 102, 36.9C. Subsequent blood pressure is 114/75 and blood pressure at discharge was 144/86. Eyes: Pupils equal and round, no conjunctival injection, no discharge. Anicteric. ENT, Mouth: Mucous membranes are moist, no oropharyngeal erythema or edema. Neck: No lymphadenopathy, supple. Respiratory: Lungs are clear to auscultation; no wheezes, rales, or rhonchi. Cardiovascular: Regular rate and rhythm; no murmur, rub, or gallop. Gastrointestinal: Abdomen is obese, soft and nontender, no masses or organomegaly. Skin: Warm and dry, no rashes on exposed skin, normal color. Back: Nontender to palpation over the thoracolumbar spine. No CVAT. Extremities: Erythematous and diffusely edematous lower legs, worse on right, mild warmth along medial aspect of knee, no streaking. Well-healed surgical scars. Neurological: Alert and oriented. Moving all four extremities easily and equally. Psychiatric: Normal affect. - Personal History Current Tetanus/Diphtheria Vaccine: Yes - Medical/Surgical History Hx Asthma: No Hx Chronic Respiratory Disease: No Hx Diabetes: No Hx Cardiac Disease: No Hx Renal Disease: No Hx Cirrhosis: No Hx Alcoholism: No Hx HIV/AIDS: No Hx Splenectomy or Spleen Trauma: No Other PMH: BILAT KNEE PROB/BACK SURGERY/FX WRIST, hernia repair, cellulitis both legs, HTN, damaged pubic bone, fall - Social History Smoking Status: Never smoked Constitutional: Initial Vital Signs Temperature (C) 36.9 C 04/15/17 18:37 Heart Rate 102 H 04/15/17 18:37 Respiratory Rate 20 04/15/17 18:37 Blood Pressure 90/74 L 04/15/17 18:37 O2 Sat (%) 93 04/15/17 18:37 O2 Delivery Mode Room Air Allergies/Adverse Reactions: amoxicillin [Amoxicillin] Allergy (Mild, Verified 04/15/17 18:36) NAUSEA codeine [Codeine] Allergy (Mild, Verified 04/15/17 18:36) NAUSEA hydromorphone HCl [From Dilaudid] Allergy (Mild, Verified 04/15/17 18:36) NAUSEA/DOESN'T WORK clavulanic acid [Clavulanic Acid] Allergy (Unknown, Verified 04/15/17 18:36) hydromorphone HCl Allergy (Unknown, Uncoded 11/20/16 11:24) NAUSEA/DOESN'T WORK Home Medications: Medication Instructions Recorded Gabapentin [Gabapentin 800 mg] 800 mg PO QID 01/27/14 Lisinopril [Zestril 20 mg (*)] 20 mg PO DAILY 01/27/14 Pantoprazole Sodium 40 mg PO DAILY 01/27/14 Simethicone [Gas Relief] 125 mg PO DAILY PRN 01/27/14 Tadalafil [Cialis] 5 mg PO DAILY 01/27/14 Tamsulosin HCl [Flomax 0.4 MG (*)] 0.4 mg PO DAILY 01/27/14 Testosterone Cypionate 200 mg IM Q7D 01/27/14 oxyCODONE CR [Oxycontin] 80 mg PO TID@04,12,20 01/27/14 oxyCODONE IR [Oxycodone Ir (*)] 30 - 60 mg PO Q4 PRN #60 tab 09/05/15 Levothyroxine Sodium 100 mcg PO DAILY 11/09/16 PARoxetine HCL [Paxil 20mg (*)] 20 mg PO BID 11/09/16 buPROPion XL [Wellbutrin 150mg XL] 150 mg PO HS 11/09/16 buPROPion XL [Wellbutrin 150mg XL] 300 mg PO DAILY 11/09/16 Albuterol Hfa Anes Only [Proair 2 puffs IH QID 11/11/16 Hfa Icu (*)] Mometasone/Formoterol [Dulera 200 1 - 2 puffs IH BID 11/11/16 Mcg/5 Mcg Inhaler] Fluconazole [Diflucan (*)] 100 mg PO DAILY PRN 02/19/17 Ketoconazole 2% [Nizoral 2% Cream 1 denice TP DAILY PRN 02/19/17 (*)] Daptomycin 500mg Iv Qd 03/27/17 Medical Decision Making ED Course/Re-evaluation: 193: Consulted with Dr. Cueva, ID. She says they actually spoke with him earlier today and said he did not need to come into the ED, but could come into their clinic in the next day or two. She would like him to increase his Keflex to 3x daily and elevate his leg when possible and they will see him in their office in the next 1-2 days. Reevaluated patient and discussed Dr. Cueva' recommendation. He says he gets bad diarrhea when he increases his Keflex dosing. He thinks he can compromise with 2 doses of Keflex per day instead, but says, "nothing is going to help my current situation except getting on an IV antibiotic MANUELA." He uses 80mg OxyContin 3x daily and hydrocodone for breakthrough pain at home. He will continue with these medications. He was initially hypotensive with systolic blood pressure of 90. His blood pressure improved while he was in the emergency department and at discharge had a recorded blood pressure of 144/86. He was not tachycardic at the time of my exam. He does not have fever. I do not think that he has sepsis. His right lower extremity is erythematous, as is his left lower extremity, but the right leg is not particularly warm relative to the left. He has signs of chronic venous stasis. I am not convinced that he has active cellulitis. I do not suspect DVT. He understands that he can return to the emergency department at any time if he feels that he is worsening. Follow-up is being arranged with Infectious Disease. Differential Diagnosis: I considered a differential diagnosis that includes but is not limited to cellulitis, osteomyelitis, DVT, superficial thrombophlebitis, venous stasis. Departure - Departure Disposition: Home, Routine, Self-Care Clinical Impression: Cellulitis of leg without foot, right Condition: Good Instructions: Cellulitis (ED) Additional Instructions: 1. Increase your Keflex to 500mg three times daily, or only two times daily if that's more manageable for you. Taking it with food can sometimes help with side effects. 2. Call the infectious disease office first thing tomorrow morning to arrange an appointment for the next 1-2 days. 3. Return to the ED for worsening of condition. For. Elevate your right leg above the level of your heart if possible. Referrals: Johnathan Amanda MD [Primary Care Provider] - As per Instructions Jacky Aguirre MD [Medical Doctor] - As per Instructions Report Scribed for: Elsa Sullivan Report Scribed by: Ml Vides Date of Report: 04/15/17 Time of Report: 19:32 Physician Review and Approval Statement: 04/15/17 19:06 Portions of this note were transcribed by the vice president medical affairs. I, Dr. Elsa Sullivan, personally performed the history, physical exam, and medical decision- making; and confirmed the accuracy of the information in the transcribed note.
[2017-04-15 20:09] VITALS: PULSE 97
[2017-04-15 20:44] VITALS: BP 144/86; TEMP 98.6; O2SAT 94
== END 2017-04-15 20:43 | disposition home or self-care (01) ==
DX: L03.115 Cellulitis of right lower limb (principal); I10 Essential (primary) hypertension

== ENCOUNTER 2017-07-28 12:45 | Inpatient (IN) | payer OTHER ==
--- NOTE | 2017-07-28 13:15 | EDPHY ---
H & P Stated Complaint: Vomiting, abdominal pain, weakness Time Seen by Provider: 07/28/17 13:15 HPI/ROS: CHIEF COMPLAINT: Vomiting, abdominal pain and weakness HISTORY OF PRESENT ILLNESS: The patient presents to the ED with a 3 day history of intractable nausea, vomiting and abdominal pain. The patient does have a history of chronic pain. He reportedly has been unable to keep his regular pain medications down. He has not been able to eat any solid food. He has been able to drink a scant amount of liquids. The patient denies history of significant abdominal pathology. He has remote history of appendectomy and hernia repair. The patient complains of moderate pain in his epigastrium. The patient also sustained a fall approximately a month ago. He has continued to have some chronic low back pain. The patient denies any acute numbness or weakness. REVIEW OF SYSTEMS: A comprehensive 10 point review of systems is otherwise negative aside from elements mentioned in the history of present illness. Source: Patient - Personal History Current Tetanus Diphtheria and Acellular Pertussis (TDAP): Yes - Medical/Surgical History Hx Asthma: No Hx Chronic Respiratory Disease: No Hx Diabetes: No Hx Cardiac Disease: No Hx Renal Disease: No Hx Cirrhosis: No Hx Alcoholism: No Hx HIV/AIDS: No Hx Splenectomy or Spleen Trauma: No Other PMH: BILAT KNEE PROB/BACK SURGERY/FX WRIST, hernia repair, cellulitis both legs, HTN, damaged pubic bone, fall - Social History Smoking Status: Never smoked - Physical Exam Exam: General Appearance: Obese male, no acute distress Eyes: Pupils equal and round no pallor or injection ENT, Mouth: Mucous membranes moist Respiratory: There are no retractions, lungs are clear to auscultation Cardiovascular: Regular rate and rhythm Gastrointestinal: Tenderness to palpation in the mid abdominal region, normal bowel sounds, no peritoneal signs Neurological: 5/5 strength all 4 extremities Skin: Warm and dry, no rashes Musculoskeletal: Tenderness to palpation noted in the lower lumbar spine predominantly in the lumbar paraspinal musculature Extremities: symmetrical, full range of motion Constitutional: Initial Vital Signs Temperature (C) 36.5 C 07/28/17 12:49 Heart Rate 71 07/28/17 12:49 Respiratory Rate 18 07/28/17 12:49 Blood Pressure 171/105 H 07/28/17 12:49 O2 Sat (%) 94 07/28/17 12:49 O2 Delivery Mode Room Air O2 (L/minute) 2 Allergies/Adverse Reactions: amoxicillin [Amoxicillin] Allergy (Mild, Verified 04/15/17 18:36) NAUSEA codeine [Codeine] Allergy (Mild, Verified 04/15/17 18:36) NAUSEA hydromorphone HCl [From Dilaudid] Allergy (Mild, Verified 04/15/17 18:36) NAUSEA/DOESN'T WORK clavulanic acid [Clavulanic Acid] Allergy (Unknown, Verified 04/15/17 18:36) hydromorphone HCl Allergy (Unknown, Uncoded 11/20/16 11:24) NAUSEA/DOESN'T WORK Home Medications: Medication Instructions Recorded Gabapentin [Gabapentin 800 mg] 800 mg PO QID 01/27/14 Pantoprazole Sodium 40 mg PO DAILY 01/27/14 Simethicone [Gas Relief] 125 mg PO DAILY PRN 01/27/14 Tadalafil [Cialis] 5 mg PO DAILY 01/27/14 Tamsulosin HCl [Flomax 0.4 MG (*)] 0.4 mg PO DAILY 01/27/14 Testosterone Cypionate 200 mg IM MO@0900 01/27/14 oxyCODONE CR [Oxycontin] 80 mg PO TID@04,12,20 01/27/14 Levothyroxine Sodium 100 mcg PO DAILY 11/09/16 PARoxetine HCL [Paxil 20mg (*)] 20 mg PO BID 11/09/16 buPROPion XL [Wellbutrin 150mg XL] 150 mg PO HS 11/09/16 buPROPion XL [Wellbutrin 150mg XL] 300 mg PO DAILY 11/09/16 Albuterol Hfa Anes Only [Proair 1 - 2 puffs IH QID PRN 11/11/16 Hfa Icu (*)] Mometasone/Formoterol [Dulera 200 1 - 2 puffs IH BID 11/11/16 Mcg/5 Mcg Inhaler] Ketoconazole 2% [Nizoral 2% Cream 1 denice TP DAILY PRN 02/19/17 (*)] Cephalexin [Keflex (*)] 500 mg PO BID 07/28/17 Fluconazole [Diflucan (*)] 150 mg PO DAILY 07/28/17 Lisinopril [Zestril 20 mg (*)] 20 mg PO HS 07/28/17 Lisinopril [Zestril 40 mg (*)] 40 mg PO DAILY 07/28/17 oxyCODONE IR [Oxycodone Ir (*)] 30 mg PO Q4 PRN 07/28/17 Medical Decision Making - Diagnostics Imaging Results: Imaging Impressions Lumbar Spine X-Ray 07/28/17 13:43 Impression: 1. Well-seated posterior fusion construct extending from L4 to S1. 2. No acute compression fracture. Abdomen CT 07/28/17 14:42 Impression: 1. There is no CT evidence of appendicitis. 2. Interim development of partial portal vein thrombosis since the previous study in October 2016, and interim enlargement of the spleen. 3. Small left ventral wall hernia, and small bilateral periumbilical fat- containing hernias. 4. Mild prostatomegaly with some urinary bladder wall thickening. 5. Postsurgical change following dorsal arthrodesis and laminectomies from L4 to S1. Findings were discussed with Dave Ayala MD at 15:42, on 07/28/2017. ED Course/Re-evaluation: The patient had an IV established. He received a L of normal saline. He received 4 mg of IV Zofran. He received 4 mg of IV morphine. Given his history of fall and prior back surgery lumbar spine films were obtained which demonstrate intact hardware without evidence of an acute fracture. I reviewed the patient's laboratory studies which are unremarkable for any acute abnormality. Re-evaluated the patient at 2:45 p.m.. He is feeling better however continues to have some mid abdominal pain. A CT scan of the abdomen pelvis has been ordered in the setting of his ongoing pain and intractable vomiting over the past 3 days. Patient was re-evaluated at 3:30 p.m.. He continues to complain of ongoing abdominal pain and vomiting. The patient will require admission to the hospital. Consultation is made with Dr. Miller from the hospitalist service. CT scan show a thrombosis in the portal vein, new from prior study over [address] Patel notified. Differential Diagnosis: Differential diagnosis considered includes gastroenteritis, perforation, obstruction, cholecystitis - Data Points Laboratory Results: Laboratory Results 07/28/17 13:25 07/28/17 13:25 07/28/17 07/28/17 13:25 13:25 WBC 5.69 10^3/uL 10^3/uL (3.80-9.50) RBC 6.13 10^6/uL 10^6/uL (4.40-6.38) Hgb 12.2 g/dL L g/dL (13.7-17.5) Hct 43.5 % % (40.0-51.0) MCV 71.0 fL L fL (81.5-99.8) MCH 19.9 pg L pg (27.9-34.1) MCHC 28.0 g/dL L g/dL (32.4-36.7) RDW 22.8 % H % (11.5-15.2) Plt Count 330 10^3/uL 10^3/uL (150-400) MPV 9.3 fL fL (8.7-11.7) Neut % (Auto) 69.6 % % (39.3-74.2) Lymph % (Auto) 15.8 % % (15.0-45.0) [place] % (Auto) 9.8 % % (4.5-13.0) Eos % (Auto) 3.9 % % (0.6-7.6) Baso % (Auto) 0.5 % % (0.3-1.7) Nucleat RBC Rel Count 0.0 % % (0.0-0.2) Absolute Neuts (auto) 3.96 10^3/uL 10^3/uL (1.70-6.50) Absolute Lymphs (auto) 0.90 10^3/uL L 10^3/uL (1.00-3.00) Absolute Monos (auto) 0.56 10^3/uL 10^3/uL (0.30-0.80) Absolute Eos (auto) 0.22 10^3/uL 10^3/uL (0.03-0.40) Absolute Basos (auto) 0.03 10^3/uL 10^3/uL (0.02-0.10) Absolute Nucleated RBC 0.00 10^3/uL 10^3/uL (0-0.01) Immature Gran % 0.4 % % (0.0-1.1) Immature Gran # 0.02 10^3/uL 10^3/uL (0.00-0.10) Platelet Estimate ADEQUATE (ADEQ) Hypochromasia 1+ H Microcytic Cells 1+ H Elliptocytes 1+ H Sodium 138 mEq/L mEq/L (135-145) Potassium 4.3 mEq/L mEq/L (3.5-5.2) Chloride 96 mEq/L L mEq/L (97-110) Carbon Dioxide 30 mEq/l mEq/l (22-31) Anion Gap 12 mEq/L mEq/L (8-16) BUN 10 mg/dL mg/dL (7-23) Creatinine 0.9 mg/dL mg/dL (0.7-1.3) Estimated GFR > 60 Glucose 103 mg/dL H mg/dL (70-100) Calcium 8.7 mg/dL mg/dL (8.5-10.4) Total Bilirubin 0.6 mg/dL mg/dL (0.1-1.4) Conjugated Bilirubin 0.5 mg/dL mg/dL (0.0-0.5) Unconjugated Bilirubin 0.1 mg/dL mg/dL (0.0-1.1) AST 36 IU/L IU/L (17-59) ALT 38 IU/L IU/L (21-72) Alkaline Phosphatase 82 IU/L IU/L (38-126) Total Protein 6.2 g/dL L g/dL (6.3-8.2) Albumin 3.3 g/dL L g/dL (3.5-5.0) Lipase 28 IU/L IU/L (23-300) Medications Given: Enoxaparin Sodium (Lovenox) 90 mg SC Q12H [facility] Stop: 01/24/18 16:59 Last Admin: 07/28/17 18:03 Dose: 90 mg Miscellaneous Medication (Tadalafil [Cialis]) 5 mg PO DAILY ERIK Stop: 01/24/18 17:44 Last Admin: 07/28/17 18:05 Dose: Not Given Ondansetron HCl (Zofran) 4 mg IVP Q4HRS PRN PRN Reason: Nausea/Vomiting, Can't Take PO Stop: 01/24/18 16:08 Last Admin: 07/28/17 17:57 Dose: 4 mg Oxycodone HCl (Oxycontin) 80 mg PO TID@04,12,20 ERIK Stop: 08/07/17 19:59 Last Admin: 07/28/17 19:58 Dose: 80 mg Oxycodone HCl (Oxycodone Ir) 30 mg PO Q4 PRN PRN Reason: BT PAIN Stop: 08/07/17 17:32 Last Admin: 07/28/17 18:02 Dose: 30 mg Tamsulosin HCl (Flomax) 0.4 mg PO DAILY ERIK Stop: 01/24/18 17:44 Last Admin: 07/28/17 18:06 Dose: Not Given Discontinued Medications Sodium Chloride (Ns) 1,000 mls @ 0 mls/hr IV EDNOW ONE; Wide Open PRN Reason: Protocol Stop: 07/28/17 13:44 Last Admin: 07/28/17 14:03 Dose: 1,000 mls Morphine Sulfate (Morphine) 4 mg IVP EDNOW ONE Stop: 07/28/17 14:47 Last Admin: 07/28/17 15:09 Dose: 4 mg Ondansetron HCl (Zofran) 4 mg IVP EDNOW ONE Stop: 07/28/17 13:44 Last Admin: 07/28/17 14:03 Dose: 4 mg Departure - Departure Disposition: [facility] Inpatient Acute Clinical Impression: Dehydration, Vomiting, Portal vein thrombosis Abdominal pain Qualifiers: Abdominal location: epigastric Qualified Code(s): R10.13 - Epigastric pain Condition: Good
[2017-07-28] MEDS ORDERED: NS 1,000 ML IV ONE (13:43)
[2017-07-28] MEDS ORDERED: ONDANSETRON 4 MG/2 ML VIAL IVP ONE (13:43)
[2017-07-28 13:47] LABS: PLATELET COUNT 330 10^3/uL (150-400)
[2017-07-28] MEDS ORDERED: IOPAMIDOL (ISOVUE-300) 100 ML BTL ONE (14:46)
[2017-07-28] MEDS ORDERED: HYDROmorphone HCL/NS 0.5 MG/ML SYR IVP PRN (16:09)
[2017-07-28] MEDS ORDERED: ACETAMINOPHEN 325 MG TAB PO PRN (16:09)
[2017-07-28] MEDS ORDERED: ONDANSETRON DISINTEGRATING 4 MG TAB PO PRN (16:09)
[2017-07-28] MEDS ORDERED: ENOXAPARIN 80 MG/0.8 ML SYR SC SCH (16:12)
[2017-07-28] MEDS ORDERED: hydrALAZINE 25 MG TAB PO PRN (16:17)
--- NOTE | 2017-07-28 17:06 | GHP ---
[f rep st] HISTORY AND PHYSICAL DATE OF ADMISSION: 07/28/2017 CHIEF COMPLAINT: Abdominal pain, nausea, vomiting. HISTORY OF PRESENT ILLNESS: The patient is a 62-year-old male with a history of hypertension and chronic low back pain on chronic opiates, as well as chronic venous insufficiency, who presents to the emergency department with abdominal pain, nausea, and vomiting. He states his symptoms started approximately 2 days ago with the onset of nausea and vague epigastric and right upper quadrant abdominal discomfort. He notes a history of prior surgery for hernia repair. Today, he vomited once, and due to ongoing symptoms he presented to the emergency department. He denies fevers, chills, or rigors. He denies hematemesis or coffee-ground emesis. He does report some loose stools , though denies melenic stools or hematochezia. He has a known history of GERD for which he takes proton pump inhibitor. He is also on continuous opiates for chronic low back pain and has had prior back surgeries. He has no significant alcohol history, nor does he have a history of cirrhosis. He denies chest pain or shortness of breath. In the emergency department, he is slightly hypertensive with a blood pressure of 170s over 90s. He is afebrile. CT scan of the abdomen revealed acute portal vein thrombosis. He is admitted to the hospital for further management. PAST MEDICAL HISTORY: 1. Hypertension. 2. GERD. 3. Chronic low back pain. 4. Chronic continuous opioid use. 5. 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 6. Obstructive sleep apnea, CPAP intolerant. 7. Severe obesity. 8. History of diabetes, not on insulin or oral hypoglycemics. 9. Inguinal hernia. PAST SURGICAL HISTORY: Total knee arthroplasty x4 in the left and 2 on the right, hernia repair. MEDICATIONS: Please see [facility] for completed outpatient medication list. ALLERGIES: Amoxicillin, codeine, Dilaudid, Augmentin. FAMILY HISTORY: Reviewed and noncontributory. Patient denies a family history of clotting disorders. SOCIAL HISTORY: The patient lives independently with his , who is present at the bedside. He is a [employer]ism and does not accept blood products. He denies alcohol or tobacco use. REVIEW OF SYSTEMS: A 10-point review of systems was performed and is negative except as per HPI. OBJECTIVE: VITAL SIGNS: Temperature is 36.5, blood pressure 172/92, heart rate 62, respiratory rate 16, he is 96% on room air. GENERAL: The patient is awake, alert, oriented, in no acute distress. HEENT: Head is atraumatic, normocephalic. Pupils equal, round, and reactive to light. Extraocular movements are intact. Oropharynx is clear. Mucous membranes are slightly dry. NECK: Supple. There is no appreciable JVD. HEART: Has a regular rate and rhythm. LUNGS: Clear to auscultation bilaterally. ABDOMEN: Soft, nondistended. There is right upper quadrant tenderness to palpation with some voluntary guarding. No rigidity or peritoneal signs are noted. Normoactive bowel sounds are present. EXTREMITIES: His right lower extremity reveals brawny 2 to 3+ edema, significantly worse than his left side. He has 2+ peripheral pulses in the extremities, otherwise warm and well perfused. NEUROLOGIC: Grossly nonfocal. He moves all 4 extremities. His speech is fluent. LABORATORY DATA: CBC reveals a normal white blood cell count. Hemoglobin is near his baseline at 12.2. His MCV is low at 71. Platelets are normal. PT/ INR is pending. Complete metabolic panel shows a chloride of 96, electrolytes otherwise normal. Blood glucose is 103. LFTs are normal. Albumin slightly low at 3.3. Lipase is normal. CT abdomen and pelvis with contrast reveals interval development of partial portal vein thrombosis compared to an October 2016 study with interval enlargement of the spleen. A small left ventral wall hernia is noted with small bilateral periumbilical fat containing hernias, mild prostatomegaly with some urinary bladder wall thickening, and postsurgical changes consistent with his prior arthrodesis and laminectomies from L4 to S1. ASSESSMENT/PLAN: The patient is a 62-year-old male with history of hypertension , chronic low back pain, and iron deficiency anemia, who presents to the emergency department with nausea and vomiting, is admitted to the hospital after CT reveals acute portal vein thrombosis. 1. Abdominal pain, likely secondary to acute portal vein thrombosis. This is new compared to his previous CT imaging. There is no evidence of cirrhosis, pancreatitis, abdominal infection or malignant process. Will start anticoagulation with Lovenox 1 mg/kg twice daily. Send a hypercoagulable panel along with JAK2 and alpha fetoprotein to rule out malignant etiology. Will also check a lactate to evaluate for intestinal ischemia, though there is no evidence of this on his CT imaging. Consider surgical consultation if his condition worsens. 2. Right lower extremity edema. Thought secondary to chronic venous insufficiency. He has been on prophylactic Keflex for recurrent cellulitis. I do not think he has an acute cellulitis, but will ultrasound his right lower extremity to rule out deep venous thrombosis. 3. Hypertension. His blood pressure is elevated on arrival. This may be secondary to acute pain. We will continue his home antihypertensives once his medication reconciliation is done and add p.r.n. hydralazine as well as focus on pain control. 4. Chronic low back pain with prior spinal fusions, on chronic continuous opiates. We will continue his home opioid regimen with p.r.n. IV Dilaudid for breakthrough pain. 5. Iron deficiency anemia. His hemoglobin is at baseline. There is no evidence of active bleeding. We will continue to follow. 6. Gastroesophageal reflux disease. Continue proton pump inhibitor. 7. Deep venous thrombosis prophylaxis. Therapeutic Lovenox. 8. Code status. Patient is full code. 9. Disposition. Patient admitted to inpatient status. I anticipate greater than 48 hours hospitalization for ongoing management of his acute portal vein thrombosis. /[id number]/MODL MTDD
[2017-07-28] MEDS ORDERED: KETOCONAZOLE 2% 15 GM CREAM TP PRN (17:33)
[2017-07-28] MEDS ORDERED: ALBUTEROL 60 PUFFS/8 GM MDI IH PRN (17:33)
[2017-07-28] MEDS: ONDANSETRON 4 MG/2 ML VIAL IVP PRN ×2 (17:57→23:01)
[2017-07-28] MEDS: ENOXAPARIN 100 MG/ML SYR SC SCH (18:03)
[2017-07-28] MEDS: Tadalafil [Cialis] 5 MG PO SCH (18:05)
[2017-07-28] MEDS: TAMSULOSIN HCL 0.4 MG CAP PO SCH (18:06)
[2017-07-28] MEDS ORDERED: SIMETHICONE 80 MG TAB CHEW PO PRN (18:15)
[2017-07-28 18:32] LABS: INR 1.31 (0.83-1.16); PROTIME(PATIENT) 16.5 SEC (12.0-15.0)
[2017-07-28] MEDS: oxyCODONE CR 80 MG TAB PO SCH (19:58)
[2017-07-28] MEDS: buPROPion XL 150 MG TAB PO SCH (21:00)
[2017-07-28] MEDS: LISINOPRIL 20 MG TAB PO SCH (21:00)
[2017-07-28] MEDS: GABAPENTIN 400 MG CAP PO SCH (21:01)
[2017-07-28] MEDS: PARoxetine HCL 20 MG TAB PO SCH (21:01)
[2017-07-28] MEDS: CEPHALEXIN 500 MG CAP PO SCH (21:01)
[2017-07-28] MEDS: Mometasone/Formoterol [Dulera 200 Mcg/5 Mcg Inhaler] IH SCH (22:01)
[2017-07-29] MEDS: oxyCODONE CR 80 MG TAB PO SCH ×3 (03:57→20:02)
[2017-07-29] MEDS: ONDANSETRON 4 MG/2 ML VIAL IVP PRN ×2 (04:02→08:48)
[2017-07-29] MEDS: ENOXAPARIN 100 MG/ML SYR SC SCH ×2 (05:37→16:32)
[2017-07-29] MEDS: GABAPENTIN 400 MG CAP PO SCH ×4 (05:37→20:02)
[2017-07-29 06:05] LABS: PLATELET COUNT 305 10^3/uL (150-400)
[2017-07-29] MEDS ORDERED: LEVOTHYROXINE 100 MCG TAB PO SCH (09:00)
--- NOTE | 2017-07-29 09:38 | ASMTCASEMG ---
Living Arrangements What is your living Answers: With Spouse arrangement? Who do you live with? Type Of Residence What kind of residence do Answers: House you live in? Discharge Plan Comments Coordination Status Comments Notes: Pt is a 62 y/o man admitted for abdominal pain, vomiting and dehydration. Pt is [employer] and does not accept any blood products. Therapies have been ordered and awaiting recommendations. Needs are TBD at this time. CM to follow. Plan: TBD Date Signed: 07/29/2017 09:37 AM Electronically Signed By:TINO Mcqueen
[2017-07-29] MEDS: Mometasone/Formoterol [Dulera 200 Mcg/5 Mcg Inhaler] IH SCH ×2 (10:11→22:33)
--- NOTE | 2017-07-29 10:17 | PDMN ---
Medical Necessity Medical necessity: est los>2mn for abd pain, likely r/t acute portal vein thrombosis, RLE edema, r/o DVT, HTN; admit for anticoagulation, pain control and possible surgical consult; comorbid chronic low back pain on chronic opiates , anemia, GERD; per order and H&P 07/28/17
[2017-07-29] MEDS: buPROPion XL 150 MG TAB PO SCH ×2 (10:22→20:02)
[2017-07-29] MEDS: PANTOPRAZOLE SODIUM 40 MG TAB PO SCH (10:22)
[2017-07-29] MEDS: PARoxetine HCL 20 MG TAB PO SCH ×2 (10:22→20:02)
[2017-07-29] MEDS: TAMSULOSIN HCL 0.4 MG CAP PO SCH (10:22)
[2017-07-29] MEDS: CEPHALEXIN 500 MG CAP PO SCH ×2 (10:23→20:02)
[2017-07-29] MEDS: LISINOPRIL 40 MG TAB PO SCH (10:23)
[2017-07-29] MEDS: Tadalafil [Cialis] 5 MG PO SCH (10:23)
--- NOTE | 2017-07-29 11:15 | HOSPPROG ---
Hospitalist Progress Note Assessment/Plan: DIAGNOSES: -portal vein thrombosis, new diagnosis, suspect fairly acute due to acute nature of symptoms but chronicity uncertain * At this point remains fairly symptomatic with abdominal pain and nausea not entirely relieved by Zofran being used * Synthetic functions are abnormal at this point with a mild coagulopathy and low albumin but his bilirubin and transaminases are normal; would be careful with hepatically cleared medications at this point; notably the coagulopathy is chronic and may or may not be related to his current thrombosis -chronic microcytic anemia * currently with high red blood cell count and minimal anemia suggesting a thalassemia due to his [place] heritage, however he states that he has typically been found to be iron deficient when tested and has trouble getting his iron counts up despite ongoing oral iron replacement; he is not anemic enough that he would need necessarily iron replacement to correct anemia, however his other organs would benefit from normal iron stores if he is low -chronic yeast dermatitis for which he uses a fluconazole shampoo at home, we do not have that shampoo here but he can bring it in from home -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, stable at present -chronic sleep apnea on CPAP -chronic severe stasis dermatitis and venous insufficiency of leg, current exam with moderate stasis dermatitis but no evidence of open wounds or infection -chronic back pain with chronic daily prescribed narcotic use for that pain -diabetes mellitus type 2 PLANS: -continue anticoagulation, and would have ultrasound in 8-12 weeks to look for thrombus resolution to determine whether anticoagulation should be continued -will check iron levels to see if he is currently iron deficient and if so will give some IV iron -will have to bring in his Diflucan shampoo from home as we do not have that available here -continue his usual suppressive dose Keflex -continue his CPAP -elevation of his legs -follow sugars while here and manage as indicated SUBJECTIVE: Still with nausea and abdominal pain unchanged from admission. 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: Exam: alert oriented skin warm dry color ok; [id number] stasis dermatitis with chronic as opposed to acute features in his legs but no signs of cellulitis or open wounds ; he does have some mild changes of his yeast dermatitis starting up resps not labored lungs clear BSs heart regular abd soft nondistended nontender, bowel sounds present limbs warm, no edema iv site ok Laboratory data: Transaminases and bilirubin normal, his albumin is slightly low and he has a mild coagulopathy with the INR 1.3 - notably the coagulopathy is chronic looking back at his previous blood tests from prior hospitalizations Microcytic anemia with high red blood cell count likely represents hemoglobinopathy, he has a tiny in so could be thalassemia Objective: Vital Signs Temp Pulse Resp BP Pulse Ox 36.8 C 69 18 141/89 H 91 L 07/29/17 07:29 07/29/17 07:29 07/29/17 07:29 07/29/17 07:29 07/29/17 08:00 Laboratory Results 07/29/17 04:30 07/29/17 04:30 07/28/17 07/29/17 07/30/17 06:59 06:59 06:59 Output Total 300 Balance -300 PT 16.5 SEC (12.0-15.0) H 07/28/17 18:06 INR 1.31 (0.83-1.16) H 07/28/17 18:06 - Time Spent With Patient Time Spent with Patient: greater than 35 minutes Time Spent with Patient: Greater than 35 minutes spent on this patients care, greater than 50% of time spent counseling, educating, and coordinating care regarding the above mentioned plan. ICD10 Worksheet Patient Problems: Problems Problem Status Onset Abdominal pain Acute Dehydration Acute Portal vein thrombosis Acute Vomiting Acute Acute renal failure Acute Cellulitis Acute Cellulitis of leg Acute Severe sepsis Acute Umbilical hernia, incarcerated Acute
[2017-07-29] MEDS ORDERED: PROMETHAZINE HCL 25 MG/ML INJ IVP PRN (11:26)
[2017-07-29] MEDS: ONDANSETRON 4 MG/2 ML VIAL IVP SCH ×3 (14:25→22:59)
[2017-07-29] MEDS ORDERED: KETOCONAZOLE 2% 120 ML SHAMPOO TP PRN (19:01)
[2017-07-29] MEDS: LISINOPRIL 20 MG TAB PO SCH (20:02)
[2017-07-29] MEDS: BUDESONIDE/FORMOTEROL 160/4.5 60 PUFFS/MDI IH SCH (22:33)
[2017-07-30] MEDS: ONDANSETRON 4 MG/2 ML VIAL IVP SCH ×6 (04:05→21:30)
[2017-07-30] MEDS: oxyCODONE CR 80 MG TAB PO SCH ×3 (05:04→20:17)
[2017-07-30] MEDS: LEVOTHYROXINE 100 MCG TAB PO SCH (05:04)
[2017-07-30] MEDS: GABAPENTIN 400 MG CAP PO SCH ×4 (05:04→20:21)
[2017-07-30] MEDS: ENOXAPARIN 100 MG/ML SYR SC SCH ×2 (05:09→16:10)
[2017-07-30 05:38] LABS: PLATELET COUNT 311 10^3/uL (150-400)
[2017-07-30] MEDS: PANTOPRAZOLE SODIUM 40 MG TAB PO SCH (09:21)
[2017-07-30] MEDS: SODIUM FERRIC GLUCONAT/SUCROSE 125 MG in NS 100 ML IV SCH (09:21)
[2017-07-30] MEDS: CEPHALEXIN 500 MG CAP PO SCH (09:21)
[2017-07-30] MEDS: buPROPion XL 150 MG TAB PO SCH (09:22)
[2017-07-30] MEDS: PARoxetine HCL 20 MG TAB PO SCH (09:22)
[2017-07-30] MEDS: Tadalafil [Cialis] 5 MG PO SCH (09:22)
[2017-07-30] MEDS: TAMSULOSIN HCL 0.4 MG CAP PO SCH (09:22)
[2017-07-30] MEDS: LISINOPRIL 40 MG TAB PO SCH (09:22)
[2017-07-30] MEDS: BUDESONIDE/FORMOTEROL 160/4.5 60 PUFFS/MDI IH SCH ×2 (09:23→21:05)
[2017-07-30] MEDS: Mometasone/Formoterol [Dulera 200 Mcg/5 Mcg Inhaler] IH SCH ×2 (09:52→21:05)
--- NOTE | 2017-07-30 18:19 | HOSPPROG ---
Hospitalist Progress Note Assessment/Plan: DIAGNOSES: -portal vein thrombosis, new diagnosis, suspect fairly acute due to acute nature of symptoms but chronicity uncertain * At this point remains fairly symptomatic with abdominal pain and nausea not entirely relieved by Zofran being used * Synthetic functions are abnormal at this point with a mild coagulopathy and low albumin but his bilirubin and transaminases are normal; would be careful with hepatically cleared medications at this point; notably the coagulopathy is chronic and may or may not be related to his current thrombosis -chronic microcytic anemia * currently with high red blood cell count and minimal anemia suggesting a thalassemia due to his [place] heritage, however does have iron deficiency demonstrated which has been common for him in the past and has not responded well to oral replacement therapy which she takes on a fairly regular basis at this point -chronic yeast dermatitis for which he uses a fluconazole shampoo at home, we do not have that shampoo here but he can bring it in from home -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, stable at present -chronic sleep apnea on CPAP -chronic severe stasis dermatitis and venous insufficiency of leg, current exam with moderate stasis dermatitis but no evidence of open wounds or infection -chronic back pain with chronic daily prescribed narcotic use for that pain -diabetes mellitus type 2 PLANS: -continue anticoagulation, and would have ultrasound in 8-12 weeks to look for thrombus resolution to determine whether anticoagulation should be continued -continue schedule doses of antiemetic at this time, will have to follow his symptoms and at this point he will need to remain here at least until we get to the point where he can eat and hydrate himself without IV nausea medicines -IV iron replacement doses ordered at this time; it is very likely that he will need to continue intermittent IV iron replacement in the outpatient setting and his iron levels should be monitored chronically; ? If he should have some GI workup for iron malabsorption -will have to bring in his Diflucan shampoo from home as we do not have that available here -continue his usual suppressive dose Keflex -continue his CPAP -elevation of his legs -follow sugars while here and manage as indicated SUBJECTIVE: Today on scheduled q.4 hours dosing of Zofran he has been able to eat better, however still having some nausea and requiring intermittent Phenergan Less abdominal discomfort today No other new symptoms No bleeding or bruising or other side effects of anticoagulation OBJECTIVE Vitals reviewed: Mildly elevated blood pressures otherwise stable without fever 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, 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: Exam: alert oriented skin warm dry color ok; [id number] stasis dermatitis on his leg are unchanged from yesterday resps not labored lungs clear BSs heart regular abd soft nondistended nontender, bowel sounds present limbs warm, no edema iv site ok Laboratory data: Microcytic anemia unchanged today Iron studies now back showing marked iron deficiency Liver panel normal today Hypercoagulation panel pending Objective: Vital Signs Temp Pulse Resp BP Pulse Ox 36.6 C 89 18 120/80 93 07/30/17 16:00 07/30/17 16:00 07/30/17 16:00 07/30/17 16:00 07/30/17 16:00 Laboratory Results 07/30/17 04:40 07/30/17 04:40 07/29/17 07/30/17 07/31/17 06:59 06:59 06:59 Intake Total 720 Output Total 300 875 Balance -300 -875 720 PT 16.5 SEC (12.0-15.0) H 07/28/17 18:06 INR 1.31 (0.83-1.16) H 07/28/17 18:06 - Time Spent With Patient Time Spent with Patient: greater than 35 minutes Time Spent with Patient: Greater than 35 minutes spent on this patients care, greater than 50% of time spent counseling, educating, and coordinating care regarding the above mentioned plan. ICD10 Worksheet Patient Problems: Problems Problem Status Onset Abdominal pain Acute Dehydration Acute Portal vein thrombosis Acute Vomiting Acute Acute renal failure Acute Cellulitis Acute Cellulitis of leg Acute Severe sepsis Acute Umbilical hernia, incarcerated Acute
[2017-07-31] MEDS: PARoxetine HCL 20 MG TAB PO SCH ×3 (01:08→21:04)
[2017-07-31] MEDS: CEPHALEXIN 500 MG CAP PO SCH ×3 (01:08→21:04)
[2017-07-31] MEDS: buPROPion XL 150 MG TAB PO SCH ×3 (01:08→21:04)
[2017-07-31] MEDS: LISINOPRIL 20 MG TAB PO SCH ×2 (01:09→21:04)
[2017-07-31] MEDS: ONDANSETRON 4 MG/2 ML VIAL IVP SCH ×7 (05:20→23:21)
[2017-07-31] MEDS: ENOXAPARIN 100 MG/ML SYR SC SCH ×2 (05:21→17:49)
[2017-07-31] MEDS: oxyCODONE CR 80 MG TAB PO SCH ×3 (05:23→21:04)
[2017-07-31] MEDS: LEVOTHYROXINE 100 MCG TAB PO SCH (05:24)
[2017-07-31] MEDS: GABAPENTIN 400 MG CAP PO SCH ×4 (05:24→21:04)
[2017-07-31] MEDS: BUDESONIDE/FORMOTEROL 160/4.5 60 PUFFS/MDI IH SCH ×2 (08:12→21:12)
[2017-07-31] MEDS: Mometasone/Formoterol [Dulera 200 Mcg/5 Mcg Inhaler] IH SCH (08:18)
[2017-07-31] MEDS: SODIUM FERRIC GLUCONAT/SUCROSE 125 MG in NS 100 ML IV SCH (08:42)
[2017-07-31] MEDS: LISINOPRIL 40 MG TAB PO SCH (08:43)
[2017-07-31] MEDS: PANTOPRAZOLE SODIUM 40 MG TAB PO SCH (08:43)
[2017-07-31] MEDS: Tadalafil [Cialis] 5 MG PO SCH (08:44)
[2017-07-31] MEDS ORDERED: TESTOSTERONE IM 100 MG/ML SYRINGE IM SCH (09:00)
[2017-07-31] MEDS: TAMSULOSIN HCL 0.4 MG CAP PO SCH (09:34)
--- NOTE | 2017-07-31 14:57 | HOSPPROG ---
Hospitalist Progress Note Assessment/Plan: DIAGNOSES: -portal vein thrombosis, new diagnosis, suspect fairly acute due to acute nature of symptoms but chronicity uncertain * At this point remains fairly symptomatic with abdominal pain and nausea not entirely relieved by Zofran being used but symptoms are improving * Synthetic functions are abnormal at this point with a mild coagulopathy and low albumin but his bilirubin and transaminases are normal; would be careful with hepatically cleared medications at this point; notably the coagulopathy is chronic and may or may not be related to his current thrombosis - R knee pain since falling down stairs 1 week ago (newly identified problem today); hx of tka and 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 * some swelling at knee, decrease rom, pain w wt bearing (using walker) -chronic microcytic anemia * Current labs consistent with marked good iron deficiency, and this has been a ongoing problem for him and poorly responsive to oral replacements; however he does at this time have an elevated red blood cell count which is commonly seen when his anemia is mild, and I suspect he may also have some thalassemia or other hemoglobin issue * As he does not historically respond well to oral iron replacements have started IV iron replacements here -chronic yeast dermatitis for which he uses a fluconazole shampoo at home, we do not have that shampoo here but he can bring it in from home -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 medicine tomorrow; can probably go home once he is able to eat and hydrate adequately -x-rays of right knee ordered today and will review those -IV iron replacement daily; it is very likely that he will need to continue intermittent IV iron replacement in the outpatient setting and his iron levels should be monitored chronically; -will have to bring in his Diflucan shampoo from home as we do not have that available here -continue his usual suppressive dose Keflex for recurrent joint prosthesis infections -continue his CPAP -elevation of his legs -follow sugars while here and manage as indicated SUBJECTIVE: While on the scheduled q.4 hours Zofran he is noticing still some nausea toward the end of each dose interval, but is eating more easily today and has not yet vomited No increase in abdominal discomfort No bleeding or bruising Today he tells me that a week ago he fell down some stairs and injured his right knee. This is the knee that has previous total knee arthroplasty leading to a prosthetic joint infection and 3 revisions surgeries so he has his 4th prosthesis in that knee now. Since the fall last week he has swelling and decreased range of motion and significant pain upon weight-bearing, infected using a walker to ambulate. He had not mention this to anyone here prior to today OBJECTIVE Vitals reviewed: Mildly elevated blood pressures otherwise stable without fever Exam: alert oriented skin warm dry color ok resps not labored lungs clear BSs heart regular abd soft nondistended nontender, bowel sounds present limbs warm, significant chronic edema and chronic stasis dermatitis changes in both legs right greater than left; his left knee is moderately swollen compared usual without effusion redness warmth or other signs of infection, but he does have tenderness diffusely around the left knee and some edema there. He can extend fully bit only flexes to about 60 degrees iv site ok Objective: Vital Signs Temp Pulse Resp BP Pulse Ox 37.0 C 83 16 155/80 H 93 07/31/17 07:58 07/31/17 08:14 07/31/17 08:14 07/31/17 08:43 07/31/17 08:14 Laboratory Results 07/30/17 04:40 07/30/17 04:40 07/30/17 07/31/17 08/01/17 06:59 06:59 06:59 Intake Total 1220 Output Total 875 1125 300 Balance -875 95 -300 PT 16.5 SEC (12.0-15.0) H 07/28/17 18:06 INR 1.31 (0.83-1.16) H 07/28/17 18:06 ICD10 Worksheet Patient Problems: Problems Problem Status Onset Abdominal pain Acute Dehydration Acute Portal vein thrombosis Acute Vomiting Acute Acute renal failure Acute Cellulitis Acute Cellulitis of leg Acute Severe sepsis Acute Umbilical hernia, incarcerated Acute
[2017-07-31] MEDS ORDERED: SENNOSIDES 1 TAB PO PRN (22:08)
[2017-08-01] MEDS: ONDANSETRON 4 MG/2 ML VIAL IVP SCH ×4 (03:26→15:09)
[2017-08-01 05:01] LABS: PLATELET COUNT 276 10^3/uL (150-400)
[2017-08-01] MEDS: GABAPENTIN 400 MG CAP PO SCH ×4 (05:07→20:07)
[2017-08-01] MEDS: oxyCODONE CR 80 MG TAB PO SCH ×3 (05:07→20:08)
[2017-08-01] MEDS: LEVOTHYROXINE 100 MCG TAB PO SCH (05:07)
[2017-08-01] MEDS: ENOXAPARIN 100 MG/ML SYR SC SCH ×2 (05:12→17:52)
[2017-08-01] MEDS: BUDESONIDE/FORMOTEROL 160/4.5 60 PUFFS/MDI IH SCH ×2 (08:11→20:27)
[2017-08-01] MEDS: PARoxetine HCL 20 MG TAB PO SCH ×2 (09:51→20:07)
[2017-08-01] MEDS: buPROPion XL 150 MG TAB PO SCH ×2 (09:51→20:07)
[2017-08-01] MEDS: TAMSULOSIN HCL 0.4 MG CAP PO SCH ×2 (09:52→09:55)
[2017-08-01] MEDS: PANTOPRAZOLE SODIUM 40 MG TAB PO SCH (09:52)
[2017-08-01] MEDS: CEPHALEXIN 500 MG CAP PO SCH ×2 (09:52→20:07)
[2017-08-01] MEDS: SODIUM FERRIC GLUCONAT/SUCROSE 125 MG in NS 100 ML IV SCH (09:52)
[2017-08-01] MEDS: LISINOPRIL 40 MG TAB PO SCH (09:52)
[2017-08-01] MEDS: Tadalafil [Cialis] 5 MG PO SCH (09:53)
--- NOTE | 2017-08-01 16:17 | ASMTCMCOM ---
CM Note CM Note Notes: CM spoke with MD, no dc today. When pt is medically stable will dc home w/[facility], Kim notified. DC Plan: Home care/[facility] (RN/PT/OT) Date Signed: 08/01/2017 04:17 PM Electronically Signed By:Ashleigh Javier RN
--- NOTE | 2017-08-01 18:11 | HOSPPROG ---
Hospitalist Progress Note Assessment/Plan: * Portal vein thrombosis -SQ Lovenox * Persistent nausea -IV zofran * Fe deficiency anemia -has never had colonoscopy as can't tolerate prep * Talley's esophagus * Continuous narcotic dependency for chronic LBP -oxycodone Subjective: Still severe nausea, requiring zofran Objective: Vital Signs Temp Pulse Resp BP Pulse Ox 37.1 C 86 20 131/85 H 96 08/01/17 16:00 08/01/17 16:00 08/01/17 16:00 08/01/17 16:00 08/01/17 16:00 Laboratory Results 08/01/17 04:25 08/01/17 04:25 07/31/17 08/01/17 08/02/17 05:59 05:59 05:59 Intake Total 1220 600 Output Total 1125 1900 Balance 95 -1300 PT 16.5 SEC (12.0-15.0) H 07/28/17 18:06 INR 1.31 (0.83-1.16) H 07/28/17 18:06 hypercoag work-up reviewed with Dr. Mauricio CT abd - partial portal vein thrombosis with splenomegaly - Physical Exam Constitutional: no apparent distress, appears nourished, not in pain Cardiovascular: regular rate and rhythym, no murmur, rub, or gallop Respiratory: no respiratory distress, no rales or rhonchi, clear to auscultation Gastrointestinal: normoactive bowel sounds, soft, non-tender abdomen, no palpable masses Skin: no rashes or abrasions, no fluctuance, no induration Neurologic: AAOx3, sensation intact bilaterally Psychiatric: interacting appropriately, not anxious, not encephalopathic, thought process linear ICD10 Worksheet Patient Problems: Problems Problem Status Onset Abdominal pain Acute Dehydration Acute Portal vein thrombosis Acute Vomiting Acute Acute renal failure Acute Cellulitis Acute Cellulitis of leg Acute Severe sepsis Acute Umbilical hernia, incarcerated Acute
[2017-08-01] MEDS: LISINOPRIL 20 MG TAB PO SCH (20:07)
[2017-08-01] MEDS: ONDANSETRON 4 MG/2 ML VIAL IVP PRN (20:08)
[2017-08-02] MEDS: oxyCODONE CR 80 MG TAB PO SCH ×3 (03:48→20:13)
[2017-08-02] MEDS: LEVOTHYROXINE 100 MCG TAB PO SCH (06:09)
[2017-08-02] MEDS: ENOXAPARIN 100 MG/ML SYR SC SCH (06:10)
[2017-08-02] MEDS: GABAPENTIN 400 MG CAP PO SCH ×4 (06:10→20:12)
[2017-08-02] MEDS: CEPHALEXIN 500 MG CAP PO SCH ×2 (08:59→20:13)
[2017-08-02] MEDS: LISINOPRIL 40 MG TAB PO SCH (09:00)
[2017-08-02] MEDS: buPROPion XL 150 MG TAB PO SCH ×2 (09:00→20:13)
[2017-08-02] MEDS: TAMSULOSIN HCL 0.4 MG CAP PO SCH (09:00)
[2017-08-02] MEDS: PARoxetine HCL 20 MG TAB PO SCH ×2 (09:00→20:12)
[2017-08-02] MEDS: PANTOPRAZOLE SODIUM 40 MG TAB PO SCH (09:00)
[2017-08-02] MEDS: Tadalafil [Cialis] 5 MG PO SCH (09:00)
[2017-08-02] MEDS: ONDANSETRON 4 MG/2 ML VIAL IVP PRN (09:01)
[2017-08-02] MEDS: BUDESONIDE/FORMOTEROL 160/4.5 60 PUFFS/MDI IH SCH ×2 (11:30→20:55)
[2017-08-02] MEDS ORDERED: PROMETHAZINE HCL 25 MG TAB PO PRN (11:34)
[2017-08-02] MEDS ORDERED: PROMETHAZINE HCL 25 MG SUPPR PR PRN (11:34)
[2017-08-02] MEDS ORDERED: BISACODYL 10 MG SUPP PR PRN (11:37)
[2017-08-02] MEDS ORDERED: POLYETHYLENE GLYCOL 3350 17 GM PKT PO PRN (11:37)
[2017-08-02] MEDS ORDERED: LACTULOSE 20 GM/30 ML UDCUP PO PRN (11:37)
[2017-08-02] MEDS ORDERED: MAGNESIUM HYDROXIDE 30 ML UDCUP PO PRN (11:37)
--- NOTE | 2017-08-02 12:43 | HOSPPROG ---
Hospitalist Progress Note Assessment/Plan: * Portal vein thrombosis -SQ Lovenox - change to Eliquis * Persistent nausea - ? all due to portal vein thrombosis -check head CT - will also eval scalp abscess * Fe deficiency anemia -has never had colonoscopy as can't tolerate prep * Talley's esophagus -PPI * Continuous narcotic dependency for chronic LBP -oxycodone * Scalp abscess - draining pus -wound care * Chronic infected hardware right knee -chronic suppressive Keflex * Constipation -bowel protocol - might help nausea * TYRONE - CPAP intolerant * Obesity BMI 36 Subjective: Still with extreme nausea - very dependent on IV Zofran, doesn't feel ready to go home without IV Zofran Objective: Vital Signs Temp Pulse Resp BP Pulse Ox 36.8 C 77 18 131/73 H 91 L 08/02/17 07:18 08/02/17 07:18 08/02/17 07:18 08/02/17 07:18 08/02/17 07:18 Laboratory Results 08/01/17 04:25 08/01/17 04:25 08/01/17 08/02/17 08/03/17 05:59 05:59 05:59 Intake Total 600 Output Total 1900 1900 Balance -1300 -1900 PT 16.5 SEC (12.0-15.0) H 07/28/17 18:06 INR 1.31 (0.83-1.16) H 07/28/17 18:06 AXR viewed, my personal interpretation is - FOS Repeat CBC tomorrow am - Physical Exam Constitutional: no apparent distress, appears nourished, not in pain Cardiovascular: regular rate and rhythym, no murmur, rub, or gallop Respiratory: no respiratory distress, no rales or rhonchi, clear to auscultation Gastrointestinal: normoactive bowel sounds, soft, non-tender abdomen, no palpable masses Skin: no rashes or abrasions, no fluctuance, no induration, other (pus expressed from abscess on scalp) Neurologic: AAOx3, sensation intact bilaterally Psychiatric: interacting appropriately, not anxious, not encephalopathic, thought process linear ICD10 Worksheet Patient Problems: Problems Problem Status Onset Abdominal pain Acute Dehydration Acute Portal vein thrombosis Acute Vomiting Acute Acute renal failure Acute Cellulitis Acute Cellulitis of leg Acute Severe sepsis Acute Umbilical hernia, incarcerated Acute
[2017-08-02] MEDS ORDERED: IOPAMIDOL (ISOVUE-300) 100 ML BTL ONE (13:54)
[2017-08-02] MEDS: ONDANSETRON DISINTEGRATING 4 MG TAB PO PRN ×2 (14:57→20:20)
[2017-08-02] MEDS: APIXABAN 5 MG TAB PO SCH (20:12)
[2017-08-02] MEDS: LISINOPRIL 20 MG TAB PO SCH (20:12)
[2017-08-02] MEDS: SENNOSIDES/DOCUSATE SODIUM TAB PO SCH (20:13)
[2017-08-03] MEDS: oxyCODONE CR 80 MG TAB PO SCH ×3 (04:04→20:12)
[2017-08-03 04:50] LABS: PLATELET COUNT 288 10^3/uL (150-400)
[2017-08-03] MEDS: GABAPENTIN 400 MG CAP PO SCH ×4 (06:12→20:12)
[2017-08-03] MEDS: LEVOTHYROXINE 100 MCG TAB PO SCH (06:12)
[2017-08-03] MEDS: CEPHALEXIN 500 MG CAP PO SCH ×2 (09:14→20:12)
[2017-08-03] MEDS: APIXABAN 5 MG TAB PO SCH ×2 (09:15→20:13)
[2017-08-03] MEDS: PANTOPRAZOLE SODIUM 40 MG TAB PO SCH (09:15)
[2017-08-03] MEDS: PARoxetine HCL 20 MG TAB PO SCH ×2 (09:15→20:12)
[2017-08-03] MEDS: buPROPion XL 150 MG TAB PO SCH ×2 (09:15→20:12)
[2017-08-03] MEDS: TAMSULOSIN HCL 0.4 MG CAP PO SCH (09:15)
[2017-08-03] MEDS: SENNOSIDES/DOCUSATE SODIUM TAB PO SCH ×2 (09:15→20:13)
[2017-08-03] MEDS: LISINOPRIL 40 MG TAB PO SCH (09:15)
[2017-08-03] MEDS: ONDANSETRON DISINTEGRATING 4 MG TAB PO PRN (09:18)
[2017-08-03] MEDS: BUDESONIDE/FORMOTEROL 160/4.5 60 PUFFS/MDI IH SCH ×2 (09:32→20:13)
[2017-08-03] MEDS: Tadalafil [Cialis] 5 MG PO SCH (10:10)
--- NOTE | 2017-08-03 12:46 | WOCRNPDOC ---
WOCRN Advanced Assessment Note - Skin Integrity Problem, Advanced Assess Proximal Head Dressing Type: Open to Air Exudate Amount: Scant Exudate Characteristic(s): Serosanguinous Shikha Wound Tissue: Indurated, Intact Shikha Wound Swelling: Mild Wound Bed Color: Red Wound Bed Constitution: Red/[place] - Non Granular Tissue Site Odor: None Site Measurement - Head-to-Toe Length X Width X Depth (cm): 0.3cmx0.7cmx0.1xm Skin Integrity Problem Comment: Discrete wound noted on the top of patient's head, w/ induration periwound but no erythema, fluctuance, or c/o pain. Patient reports he has had this wound for "3-4 weeks", and that he routinely expresses purulence from the site. Nursing cultured purulent exudate when patient was admitted yesterday. I was not able to express any purulent exudate today. Wound explored w/ blunt end of cotton-tiiped applicator, no tunneling evident. Recommend a dressing to keep site/protected and covered at this time, mainly because patient admits to touching it often. Will have nursing apply. Advise biopsy of wound if it continues to persist to r/o any cancerous process. Wound care does not need to follow ongoing.
[2017-08-03] MEDS: FLUCONAZOLE 150 MG TAB PO SCH (15:06)
--- NOTE | 2017-08-03 15:06 | HOSPPROG ---
Hospitalist Progress Note Assessment/Plan: * Portal vein thrombosis -Eliquis * Persistent nausea - ? all due to portal vein thrombosis -treat constipation -if persists consider w/u gallbladder? * Fe deficiency anemia -has never had colonoscopy as can't tolerate prep * Talley's esophagus -PPI * Continuous narcotic dependency for chronic LBP -oxycodone * Scalp abscess - draining pus -wound care * Chronic infected hardware right knee -chronic suppressive Keflex * Constipation -bowel protocol - might help nausea * TYRONE - CPAP intolerant * Obesity BMI 36 * Fungal skin infection -nystatin allergy -PCP usually gives course of Diflucan - requests start here Subjective: Still severe nausea, maybe a little better. constipated Objective: Vital Signs Temp Pulse Resp BP Pulse Ox 36.9 C 78 16 148/87 H 91 L 08/02/17 23:49 08/03/17 07:54 08/03/17 07:54 08/03/17 09:15 08/03/17 07:54 Microbiology 08/02/17 11:22 Gram Stain - Final Head - Other Laboratory Results 08/03/17 04:30 08/01/17 04:25 08/02/17 08/03/17 08/04/17 05:59 05:59 05:59 Intake Total 240 Output Total 1900 200 300 Balance -1900 40 -300 PT 16.5 SEC (12.0-15.0) H 07/28/17 18:06 INR 1.31 (0.83-1.16) H 07/28/17 18:06 - Physical Exam Constitutional: no apparent distress, appears nourished, not in pain Cardiovascular: regular rate and rhythym, no murmur, rub, or gallop Respiratory: no respiratory distress, no rales or rhonchi, clear to auscultation Gastrointestinal: normoactive bowel sounds, soft, non-tender abdomen, no palpable masses Skin: no rashes or abrasions, no fluctuance, no induration Neurologic: AAOx3, sensation intact bilaterally Psychiatric: interacting appropriately, not anxious, not encephalopathic, thought process linear ICD10 Worksheet Patient Problems: Problems Problem Status Onset Abdominal pain Acute Dehydration Acute Portal vein thrombosis Acute Vomiting Acute Acute renal failure Acute Cellulitis Acute Cellulitis of leg Acute Severe sepsis Acute Umbilical hernia, incarcerated Acute
[2017-08-03] MEDS: LISINOPRIL 20 MG TAB PO SCH (20:12)
[2017-08-04] MEDS: GABAPENTIN 400 MG CAP PO SCH ×2 (06:04→11:58)
[2017-08-04] MEDS: LEVOTHYROXINE 100 MCG TAB PO SCH (06:04)
[2017-08-04] MEDS: oxyCODONE CR 80 MG TAB PO SCH ×2 (06:04→11:58)
[2017-08-04 07:38] VITALS: BP 116/81
[2017-08-04] MEDS: BUDESONIDE/FORMOTEROL 160/4.5 60 PUFFS/MDI IH SCH (09:47)
[2017-08-04] MEDS: PANTOPRAZOLE SODIUM 40 MG TAB PO SCH (09:54)
[2017-08-04] MEDS: FLUCONAZOLE 150 MG TAB PO SCH (09:54)
[2017-08-04] MEDS: APIXABAN 5 MG TAB PO SCH (09:54)
[2017-08-04] MEDS: TAMSULOSIN HCL 0.4 MG CAP PO SCH (09:54)
[2017-08-04] MEDS: buPROPion XL 150 MG TAB PO SCH (09:54)
[2017-08-04] MEDS: SENNOSIDES/DOCUSATE SODIUM TAB PO SCH (09:54)
[2017-08-04] MEDS: PARoxetine HCL 20 MG TAB PO SCH (09:54)
[2017-08-04] MEDS: CEPHALEXIN 500 MG CAP PO SCH (09:54)
[2017-08-04] MEDS: LISINOPRIL 40 MG TAB PO SCH (09:55)
[2017-08-04] MEDS: Tadalafil [Cialis] 5 MG PO SCH (09:55)
--- NOTE | 2017-08-04 13:55 | PDIAF ---
- Diagnosis Diagnosis: portal vein thrombosis Code Status: Full Code - Medication Management Discharge Medications: Medications to Continue on Transfer Gabapentin [Gabapentin 800 mg] 800 mg PO QID 01/27/14 [Last Taken 07/28/17 08: 00 ONE DOSE TODAY] Pantoprazole Sodium 40 mg PO DAILY 01/27/14 [Last Taken 07/28/17] Simethicone [Gas Relief] 125 mg PO DAILY PRN 01/27/14 [Last Taken 1 Week Ago ~] Tadalafil [Cialis] 5 mg PO DAILY 01/27/14 [Last Taken 07/26/17] Tamsulosin HCl [Flomax 0.4 MG (*)] 0.4 mg PO DAILY 01/27/14 [Last Taken 07/26/17 ] Testosterone Cypionate 200 mg IM MO@0900 01/27/14 [Last Taken 07/21/17] oxyCODONE CR [Oxycontin] 80 mg PO TID@04,12,20 01/27/14 [Last Taken 07/28/17 08: 00 ONE DOSE TODAY] Levothyroxine Sodium 100 mcg PO DAILY 11/09/16 [Last Taken 07/26/17] PARoxetine HCL [Paxil 20mg (*)] 20 mg PO BID 11/09/16 [Last Taken 07/27/17] buPROPion XL [Wellbutrin 150mg XL] 150 mg PO HS 11/09/16 [Last Taken 07/27/17] buPROPion XL [Wellbutrin 150mg XL] 300 mg PO DAILY 11/09/16 [Last Taken 07/27/17 ] Albuterol Hfa Anes Only [Proair Hfa Icu (*)] 1 - 2 puffs IH QID PRN 11/11/16 [ Last Taken 1 Week Ago ~02/12/17] Cephalexin [Keflex (*)] 500 mg PO BID 07/28/17 [Last Taken 07/28/17] Lisinopril [Zestril 20 mg (*)] 20 mg PO HS 07/28/17 [Last Taken 07/27/17] Lisinopril [Zestril 40 mg (*)] 40 mg PO DAILY 07/28/17 [Last Taken 07/27/17] oxyCODONE IR [Oxycodone Ir (*)] 30 mg PO Q4 PRN 07/28/17 [Last Taken 07/28/17 2 DOSES TODAY] Budesonide/Formoterol 160/4.5 [Symbicort 160-4.5 Mcg Inh (*)] 2 puffs IH BID 11/08 [Last Taken Unknown] Ketoconazole 2% [Nizoral Shampoo (*)] 1 denice TP DAILY PRN 07/29/17 [Last Taken Unknown] Apixaban [Eliquis] 5 mg PO BID #60 tab 08/04/17 [Last Taken Unknown] Fluconazole [Diflucan (*)] 150 mg PO DAILY #7 tab 08/04/17 [Last Taken Unknown] Ondansetron Odt [Zofran Odt 4 mg (*)] 4 mg PO Q4HRS PRN #20 tab 08/04/17 [Last Taken Unknown] Polyethylene Glycol 3350 [Miralax 17 gm (*)] 17 gm PO DAILY #30 pkt 08/04/17 [ Last Taken Unknown] Discharge Medications: Refer to the Discharge Home Medication list for PRN reason. - Orders Services needed: Home Care, Registered Nurse, Physical Therapy, Occupational Therapy Home Care Face to Face: I certify that this patient was under my care and that I had the required [id number] encounter meeting the encounter requirements on the discharge day. My findings support the fact that the patient is homebound as defined in Home Care Face to Face Continued: [facility] Chapter 7 Medicare Benefits Manual 30.1.1 , The condition of the patient is such that there exists a normal inability to leave home and consequently, leaving home would require a considerable and taxing effort. Isolation Type: None Diet Recommendation: no restrictions on diet Additional Instructions: Please follow up with hvac sales engineer to biopsy wound on top of the head if it doesn't heal within the next month. - Follow Up Care Current Providers and Referrals: Johnathan Amanda MD [Primary Care Provider] - As per Instructions Olena Tang MD [Medical Doctor] -
--- NOTE | 2017-08-04 14:10 | ASMTLACE ---
LACE Length of stay for Answers: 7-13 days current admission Acuity / Level of Answers: Yes Care: Did the patient have an inpatient admission? Comorbidities - select Answers: Diabetes (uncontrolled or all that apply controlled) Opioid dependence / Chronic pain Other Notes: HTN # of Emergency department Answers: 3-4 visits in the last 6 months Score: 17 Date Signed: 08/04/2017 02:09 PM Electronically Signed By:TINO Mcqueen
--- NOTE | 2017-08-04 14:19 | GDS ---
[f rep st] DISCHARGE SUMMARY DISCHARGE DIAGNOSES: 1. Portal vein thrombosis. 2. Persistent nausea. 3. Narcotic induced constipation. 4. Iron deficiency anemia. 5. Talley's esophagus. 6. Continuous narcotic dependency for chronic low back pain. 7. Scalp abscess. 8. 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 9. Obstructive sleep apnea, CPAP intolerant. 10. Obesity. BMI 36. 11. Fungal skin infection. HISTORY OF PRESENT ILLNESS: The patient is a 62-year-old male, who presented with severe unrelenting nausea and inability to take p.o. He had a CT scan of the abdomen and pelvis that showed a portal v ein thrombosis with some mild splenomegaly. He was initiated on anticoagulation. His nausea has bee n very slow to resolve, although at the time of discharge he is eating and says that his nausea is 80 % better. There may have been an element of constipation contributing to his nausea as when we got h im on a more aggressive bowel protocol and he had a good bowel movement, he had a dramatic fall in hi s nausea symptoms. There is no evidence of any gallbladder disease on our current imaging, but could consider a HIDA scan if the nausea persists. Also not evaluated was this a possible anginal equival ent, which could be considered with outpatient stress testing, although I think this is far less like ly. He does have iron deficiency anemia and has never had a colonoscopy because he cannot tolerate t he prep. A more complete GI workup, could also be pursued if nausea persists. He does have known Ba rrett's esophagus and is up to date on EGDs and continues on a chronic proton pump inhibitor. He did have a scalp abscess that did drain some pus, but it is felt to be drained completely at this time and does not have any evidence of surrounding cellulitis. Wound care nurse saw him and also blas ang if it did not heal completely he may need a dermatology consultation as an outpatient to rule ou t malignancy. He has chronically infected hardware in his right knee and is on chronic suppressive Keflex. He comp lains of increasing right knee pain and plans to follow up with Dr. Tang as an outpatient post discha rgsanjay. His x-ray here was unremarkable. The patient reports a history of recurrent fungal skin infections and did have an element of yeast in his groin and behind his ears. He is allergic to nystatin. He is typically prescribed Diflucan by his primary care provider and requested that we initiate Diflucan here. He was started on Diflucan 1 50 mg p.o. daily will continue a course of treatment. DISCHARGE MEDICATIONS: Please see computerized record for full detailed list. New medications: 1. Eliquis 5 mg p.o. twice daily. 2. Diflucan 150 mg p.o. daily for 7 days. 3. Zofran ODT 4 mg p.o. q.4 hours as needed. 4. MiraLAX 17 g p.o. daily. ADDITIONAL DISCHARGE INSTRUCTIONS: 1. Home health PT, OT, VNS. 2. Follow up with Dermatology to biopsy wound on top of the head if it does not heal within 1 month. 3. Follow up with Dr. Olena Tang regarding increased right knee pain. 4. Greater than 30 minutes' time was spent arranging this discharge. Patient was seen and examined by willie grace on the day of discharge. /[id number]/MODL
[2017-08-04] MEDS: ONDANSETRON DISINTEGRATING 4 MG TAB PO PRN (14:54)
[2017-08-05] MEDS ORDERED: FLUCONAZOLE 100 MG TAB PO SCH (09:00)
--- NOTE | 2017-08-06 13:42 | ASDISCHSUM ---
Discharge Information Plan Status:Home with No Needs Medically Cleared to Leave:08/04/2017 Discharge Date:08/04/2017 04:36 PM CM D/C Disposition: ADT D/C Disposition:Home Health Service Projected Discharge Date:08/04/2017 11:00 AM Transportation at D/C: Discharge Delay Reason: Follow-Up Date:08/04/2017 11:00 AM Discharge Slot: Final Diagnosis: Placement Information Referral Type:*Home Health Care Services Referral ID:[id number] Provider Name: Address 1: Phone Number: Address 2: Fax Number: City: Selection Factors: State: Patient Contact Information Contact Name:ANUJ Relationship: Address:[address] City:[facility] Phone: [facility]/Zip Code:[place] [address] Email: Financial Information Financial Class:Medicare Primary Plan Desc:MEDICARE INPATIENT Primary Plan Number:[id number] Secondary Plan Desc:[place] Secondary Plan Number:[id number] Assessment Information LACE LACE Length of stay for Answers: 7-13 days current admission Acuity / Level of Answers: Yes Care: Did the patient have an inpatient admission? Comorbidities - select Answers: Diabetes (uncontrolled or all that apply controlled) Opioid dependence / Chronic pain Other Notes: HTN # of Emergency department Answers: 3-4 visits in the last 6 months Score: 17 Date Signed: 08/04/2017 02:09 PM Electronically Signed By:TINO Mcqueen [facility] Initial CM Assessment Living Arrangements What is your living Answers: With Spouse arrangement? Who do you live with? Type Of Residence What kind of residence do Answers: House you live in? Discharge Plan Comments Coordination Status Comments Notes: Pt is a 62 y/o man admitted for abdominal pain, vomiting and dehydration. Pt is Gnosticist and does not accept any blood products. Therapies have been ordered and awaiting recommendations. Needs are TBD at this time. CM to follow. Plan: TBD Date Signed: 07/29/2017 09:37 AM Electronically Signed By:TINO Mcqueen BC CM Progress Note CM Note CM Note Notes: CM spoke with , no dc today. When pt is medically stable will dc home w/Kim SHELDONied. DC Plan: Home care/[facility] (RN/PT/OT) Date Signed: 08/01/2017 04:17 PM Electronically Signed By:Ashleigh Javier RN Case Management Discharge Plan Note Case Management Discharge Discharge Order Complete? Answers: Yes Patient to Obtain Answers: via Family Medications Transportation Arranged Answers: Family/Friends EMTALA Complete Answers: No Case Management Transport Answers: No Form Complete Faxed Final Orders Answers: No Agency/Facility Transfer Answers: No Report Printed & Faxed to Receiving Agency Family Notified Answers: No Discharge Comments Notes: CM spoke w/ JEAN MARIE Campa and Dr. Montero regarding d/c POC. Pt is being discharged today. Pt is not interested in having HC at this time. Pt reports that his has been taking care of him for the last 20 years. CM informed pt to contact his PCP if he feels like he needs more support when he gets home. CM available for changes. Plan: Independent Date Signed: 08/04/2017 02:08 PM Electronically Signed By:TINO Mcqueen Intervention Information Intervention Type:*IM-Signed Date of Service:08/04/2017 02:23 PM Patient Type:Inpatient Staff Member:Sona Gallardo Hours: Discipline: Severity: Comment:
== END 2017-08-04 16:36 | disposition home health service (06) | DRG 442 ==
LOC: OBSVTOIN 16:08 → F3E 16:32
PROVIDERS: ADMIT Hospitalist; ATTEND Hospitalist
DX: I81 Portal vein thrombosis (principal); F11.20 Opioid dependence, uncomplicated; L02.811 Cutaneous abscess of head [any part, except face]; T84.53XA Infection and inflammatory reaction due to internal right knee prosthesis, initial encounter; E86.0 Dehydration; K59.03 Drug induced constipation; D50.9 Iron deficiency anemia, unspecified; K22.70 Barrett's esophagus without dysplasia; G89.29 Other chronic pain; G47.33 Obstructive sleep apnea (adult) (pediatric); E66.01 Morbid (severe) obesity due to excess calories; B36.9 Superficial mycosis, unspecified; L30.8 Other specified dermatitis; Z68.36 Body mass index [BMI] 36.0-36.9, adult; Z79.2 Long term (current) use of antibiotics
CPT/HCPCS: 81291-90; 81439-90; 84402-90; 85300-90; 85303-90; 85306-90; 86147-90; 96374; 97116-GP; 97162-GP; 97166-GO; 97530-GP; 97535-GO; G8978-GP-CJ; G8979-GP-CI; G8987-GO-CJ; G8988-GO-CJ; J1071; J1650; J2270; J2405; J2916; Q9967

== ENCOUNTER 2017-12-02 14:07 | Inpatient (IN) | payer OTHER ==
--- NOTE | 2017-12-02 15:47 | EDPHY ---
General Time Seen by Provider: 12/02/17 15:29 Narrative: CHIEF COMPLAINT: Right leg pain, "I think it is cellulitis" HISTORY OF PRESENT ILLNESS: Patient presents by private vehicle with 2 complaints with the 1st complaint is right knee pain status post fall. He said he tripped and fell 1 week ago and is concerned over right lateral knee pain because he is hardware in place. No numbness or tingling. No weakness. No head injury injury elsewhere. His 2nd complaint is right lower extremity cellulitis. This has been present for 2-3 days. He takes Keflex daily for empiric coverage for his right knee hardware. Despite this symptoms have worsened. He has moderate pain in the right leg. No fever. Significant swelling in the right leg has double compared to the left leg in 1 week. Does have previous history of cellulitis. No other associated complaints or modifying factors. REVIEW OF SYSTEMS: 10 systems were reviewed and negative with the exception of the elements mentioned in the history of present illness. PCP: Dr. Amanda SPECIALISTS: Orthopedist PAST MEDICAL HISTORY: Chronic back pain, cellulitis, hypertension, portal vein thrombosis PAST SURGICAL HISTORY: Orthopedic surgeries SOCIAL HISTORY: Nonsmoker. Lives independently with his spouse FAMILY HISTORY: Noncontributory EXAMINATION: General Appearance: Alert, no distress Head: normocephalic, atraumatic Eyes: Pupils equal and round, no conjunctival pallor or injection ENT, Mouth: Mucous membranes moist Neck: Normal inspection, supple, non-tender Respiratory: Lungs are clear to auscultation Cardiovascular: Regular rate and rhythm. No murmur DP pulses symmetric 2+. PT pulses symmetric 2+. Gastrointestinal: Obese Abdomen is soft and nontender. No distention or tympany. Neurological: A&O, nonfocal, strength is symmetric upper lower extremities. No footdrop. Skin: Warm and dry. Venous stasis dermatitis of both lower extremities. There is extensive erythema to the right lower extremity with moderate warmth. No fluctuance. There is significant pedal edema on the right lower extremity with some weeping. Well-healed right knee surgical incision with no dehiscence. Extremities: Range of motion of the right knee is limited due to pain. He does retain some flexion extension. Range motion ankle symmetric. Mild tenderness of the right knee over the lateral joint line. There is tenderness of the entire lower extremity below the knee with significant, nonpitting pedal edema the right lower extremity. Unable to formally evaluate the leg for evidence of DVT. Psychiatric: Mood and affect normal DIFFERENTIAL DIAGNOSES: Including but not limited to cellulitis, osteomyelitis, venous stasis, DVT, fracture, sprain, strain MDM: 3:40 p.m. Extensive right lower extremity cellulitis with no evidence of abscess. Unable to perform a value DVT exam given the extensive edema and surgical changes. I do feel it is unlikely that he would have a DVT on Eliquis therapy, but I have ordered ultrasound for this. I have also ordered x-ray, laboratory studies but the patient will likely need admission the hospital for vancomycin therapy. He does not meet SIRS criteria. There is no evidence of sepsis. He is awake alert no acute distress. 4:30 p.m. CBC is unremarkable. X-ray as read by me reveals chronic changes with no acute findings. Ultrasound lower extremity for DVT is pending. I discussed the case with Dr. Leroy Johnson. He will admit the patient to his service. I have ordered IV vancomycin. He is admitted stable condition. 4:[address] Frederick. Ultrasound a right lower extremity reveals no DVT. Edema noted. 4:[address] Johnson has evaluated the patient emergency department. SUPERVISION: Patient was independently examined, but I discussed the case with my secondary supervising physician Dr. Patel CONSULTATION: None. Hospitalist admission - Diagnostics Imaging Results: Imaging Impressions Extremity Venous Study 12/02/17 15:48 Impression: Negative. No deep venous thrombosis. Findings discussed with Emergency Department physician, Allan Hidalgo at 01/2018 16:39. Imaging: I viewed and interpreted images myself - History History Review: I reviewed the patient's medical records, I obtained additional history from the patient's family Smoking Status: Never smoked - Objective Vital Signs: Initial Vital Signs Temperature (C) 98.8 F 12/02/17 14:22 Heart Rate 98 12/02/17 14:22 Respiratory Rate 18 12/02/17 14:22 Blood Pressure 145/88 H 12/02/17 14:22 O2 Sat (%) 93 12/02/17 14:22 O2 Delivery Mode Room Air Allergies/Adverse Reactions: amoxicillin [Amoxicillin] Allergy (Mild, Verified 12/02/17 14:21) NAUSEA codeine [Codeine] Allergy (Mild, Verified 12/02/17 14:21) NAUSEA hydromorphone HCl [From Dilaudid] Allergy (Mild, Verified 12/02/17 14:21) NAUSEA/DOESN'T WORK clavulanic acid [Clavulanic Acid] Allergy (Unknown, Verified 12/02/17 14:21) nystatin Allergy (Verified 12/02/17 14:21) hydromorphone HCl Allergy (Unknown, Uncoded 11/20/16 11:24) NAUSEA/DOESN'T WORK Home Medications: Medication Instructions Recorded Gabapentin [Gabapentin 800 mg] 800 mg PO QID 01/27/14 Pantoprazole Sodium 40 mg PO DAILY 01/27/14 Simethicone [Gas Relief] 125 mg PO DAILY PRN 01/27/14 Tadalafil [Cialis] 5 mg PO DAILY 01/27/14 Tamsulosin HCl [Flomax 0.4 MG (*)] 0.4 mg PO DAILY 01/27/14 Testosterone Cypionate 200 mg IM MO@0900 01/27/14 oxyCODONE CR [Oxycontin] 80 mg PO TID@04,12,20 01/27/14 Levothyroxine Sodium 100 mcg PO DAILY 11/09/16 PARoxetine HCL [Paxil 20mg (*)] 20 mg PO BID 11/09/16 buPROPion XL [Wellbutrin 150mg XL] 150 mg PO HS 11/09/16 buPROPion XL [Wellbutrin 150mg XL] 300 mg PO DAILY 11/09/16 Albuterol Hfa Anes Only [Proair 1 - 2 puffs IH QID PRN 11/11/16 Hfa Icu (*)] Cephalexin [Keflex (*)] 500 mg PO BID 07/28/17 Lisinopril [Zestril 20 mg (*)] 20 mg PO HS 07/28/17 Lisinopril [Zestril 40 mg (*)] 40 mg PO DAILY 07/28/17 oxyCODONE IR [Oxycodone Ir (*)] 30 mg PO Q4 PRN 07/28/17 Budesonide/Formoterol 160/4.5 2 puffs IH BID 07/29/17 [Symbicort 160-4.5 Mcg Inh (*)] Ketoconazole 2% [Nizoral Shampoo 1 denice TP DAILY PRN 07/29/17 (*)] Apixaban [Eliquis] 5 mg PO BID #60 tab 08/04/17 Fluconazole [Diflucan (*)] 150 mg PO DAILY #7 tab 08/04/17 Ondansetron Odt [Zofran Odt 4 mg 4 mg PO Q4HRS PRN #20 tab 08/04/17 (*)] Polyethylene Glycol 3350 [Miralax 17 gm PO DAILY #30 pkt 08/04/17 17 gm (*)] Keflex 12/02/17 Laboratory Results: Laboratory Results 12/02/17 15:45 12/02/17 15:45 12/02/17 12/02/17 15:45 15:45 WBC 6.15 10^3/uL 10^3/uL (3.80-9.50) RBC 6.18 10^6/uL 10^6/uL (4.40-6.38) Hgb 13.8 g/dL g/dL (13.7-17.5) Hct 47.6 % % (40.0-51.0) MCV 77.0 fL L fL (81.5-99.8) MCH 22.3 pg L pg (27.9-34.1) MCHC 29.0 g/dL L g/dL (32.4-36.7) RDW 22.0 % H % (11.5-15.2) Plt Count 290 10^3/uL 10^3/uL (150-400) MPV 9.4 fL fL (8.7-11.7) Neut % (Auto) 57.8 % % (39.3-74.2) Lymph % (Auto) 23.4 % % (15.0-45.0) Ward % (Auto) 11.9 % % (4.5-13.0) Eos % (Auto) 6.0 % % (0.6-7.6) Baso % (Auto) 0.7 % % (0.3-1.7) Nucleat RBC Rel Count 0.0 % % (0.0-0.2) Absolute Neuts (auto) 3.56 10^3/uL 10^3/uL (1.70-6.50) Absolute Lymphs (auto) 1.44 10^3/uL 10^3/uL (1.00-3.00) Absolute Monos (auto) 0.73 10^3/uL 10^3/uL (0.30-0.80) Absolute Eos (auto) 0.37 10^3/uL 10^3/uL (0.03-0.40) Absolute Basos (auto) 0.04 10^3/uL 10^3/uL (0.02-0.10) Absolute Nucleated RBC 0.00 10^3/uL 10^3/uL (0-0.01) Immature Gran % 0.2 % % (0.0-1.1) Immature Gran # 0.01 10^3/uL 10^3/uL (0.00-0.10) ESR 27 MM/HR H MM/HR (0-20) Sodium 138 mEq/L mEq/L (135-145) Potassium 4.4 mEq/L mEq/L (3.3-5.0) Chloride 96 mEq/L L mEq/L (97-110) Carbon Dioxide 30 mEq/l mEq/l (22-31) Anion Gap 12 mEq/L mEq/L (8-16) BUN 17 mg/dL mg/dL (7-23) Creatinine 1.1 mg/dL mg/dL (0.7-1.3) Estimated GFR > 60 Glucose 96 mg/dL mg/dL (70-100) Calcium 9.1 mg/dL mg/dL (8.5-10.4) C-Reactive Protein 52.1 mg/L H mg/L (<10.0) Medications Given: Discontinued Medications Vancomycin HCl 1.25 gm/ (Dextrose) 250 mls @ 166.67 mls/hr IV EDNOW ONE PRN Reason: Protocol Stop: 12/02/17 18:00 Last Admin: 12/02/17 16:41 Dose: Not Given Departure - Departure Disposition: [facility] Inpatient Acute Clinical Impression: Cellulitis of leg Qualifiers: Laterality: right Qualified Code(s): L03.115 - Cellulitis of right lower limb Condition: Good
[2017-12-02 15:56] LABS: PLATELET COUNT 290 10^3/uL (150-400)
[2017-12-02] MEDS ORDERED: VANCOMYCIN 1.25 GM in D5W 250 ML IV ONE (16:31)
[2017-12-02] MEDS ORDERED: ONDANSETRON DISINTEGRATING 4 MG TAB PO PRN (17:17)
[2017-12-02] MEDS ORDERED: KETOCONAZOLE 2% 120 ML SHAMPOO TP PRN (17:17)
[2017-12-02] MEDS ORDERED: ALBUTEROL 60 PUFFS/8 GM MDI IH PRN (17:30)
[2017-12-02] MEDS ORDERED: SIMETHICONE 80 MG TAB CHEW PO PRN (17:30)
[2017-12-02] MEDS ORDERED: D50W 25 GM/50 ML SYR IVP PRN (17:42)
[2017-12-02] MEDS: INSULIN LISPRO 100 UNIT/ML SC SCH (18:10)
--- NOTE | 2017-12-02 18:10 | GHP ---
DATE OF ADMISSION: 12/02/2017 CHIEF COMPLAINT: Right leg swelling and redness. HISTORY OF PRESENT ILLNESS: This is a 62-year-old male with a history of recurrent right lower extre mity cellulitis and chronic edema, who is on Keflex for prophylaxis, who presents to the emergency de partment today with a few days of worsening redness and swelling in his right leg. The patient state s that he had a fall about a week ago and has been rather laid up. He denies any pain or itching in his right lower leg or his knee. He denies any fevers or chills. He has been compliant with his blaise e medications. PAST MEDICAL HISTORY: 1. Hospitalization in July 2017 where he presented with abdominal pain due to acute portal vein throm bosis. 2. 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 3. Hypertension. 4. GERD. 5. Chronic low back pain. 6. Chronic continuous opioid use. 7. Obstructive sleep apnea, on CPAP. 8. Severe obesity. 9. History of diabetes mellitus. 10. Inguinal hernia. 11. Total knee arthroplasty x4 in the left and 2 on the right. HOME MEDICATIONS: Reviewed. Refer to [employer] for details. ALLERGIES: Amoxicillin, codeine, Dilaudid, Augmentin, and possibly vancomycin per patient. SOCIAL HISTORY: The patient lives independently. He is a [employer] and does not accept Nexamp products. He denies any alcohol, tobacco, or illicit drug use. FAMILY HISTORY: Reviewed and noncontributory. REVIEW OF SYSTEMS: Comprehensive 10-point review of systems was done and was negative, except as men tioned in HPI. PHYSICAL EXAM: VITAL SIGNS: Blood pressure 126/77, pulse 91, respiratory rate 18, O2 saturation 93% on room air, and temperature afebrile. GENERAL: No acute distress. HEAD: Normocephalic, atraumat ic. EYES: PERRLA. Sclerae anicteric. MOUTH: Moist mucous membranes. NECK: Supple. No lymphade nopathy. CARDIOVASCULAR: S1 and S2. No JVD. There is bilateral lower extremity edema. PULMONARY: Lungs are clear. No wheezes, rales, or rhonchi. ABDOMEN: Soft, nontender, and nondistended. No guarding or rebound tenderness. Normoactive bowel sounds. EXTREMITIES: No clubbing or cyanosis. N EUROLOGICAL: Cranial nerves 2 through 12 grossly intact. No focal motor or sensory deficits. SKIN: There is mild erythema over the left anterior lower leg. The right anterior lower leg has venous s tasis changes, as well as erythema tracking up the thigh. There is no induration, purulence, or sign ificant warmth to touch. DIAGNOSTICS: WBC 6.1, hemoglobin 13.8, hematocrit 47.6, and platelets 290. Sodium 138, potassium 4. 4, chloride 96, BUN 17, creatinine 1.1, and glucose 96. C-reactive protein 52.1. ESR mildly elevate d at 27. Lower extremity Doppler is pending. ASSESSMENT AND PLAN: This is a 62-year-old male with history of recurrent cellulitis of the right lo wer extremity presenting with: 1. Worsening erythema and edema of the right leg, which seems to be more consistent with stasis derm atitis. However, cellulitis does remain a possibility. Plan: I have discussed the case with Dr. Adrian Stone, who will see the patient in consultation tomorrow. We will add a procalcitonin to see if th is is indicative of an acute bacterial infection. For now, we will treat empirically with cefazolin. I have ordered that he keep his leg elevated. We will also trial clobetasol cream to see if this h elps with the venous stasis changes of the skin and stasis dermatitis. 2. Hospitalization in July for portal vein thrombosis. Plan: Continue home dose of Eliquis. 3. History of diabetes. Plan: Monitor blood sugars a.c. and h.s. while in the hospital. 4. History of chronic opioid dependence. Plan: Continue home medications and monitor with central oxygen monitoring given his history of obstructive sleep apnea. 5. History of obstructive sleep apnea. Plan: Continue continuous positive airway pressure while in the hospital and use caution with narcotics. The patient requests to be full code status. /[id number]/MODL
[2017-12-02] MEDS: oxyCODONE CR 80 MG TAB PO SCH (19:34)
[2017-12-02] MEDS ORDERED: MOMETASONE IH SCH (21:00)
[2017-12-02] MEDS ORDERED: FORMOTEROL IH SCH (21:00)
[2017-12-02] MEDS: buPROPion XL 150 MG TAB PO SCH (21:13)
[2017-12-02] MEDS: GABAPENTIN 400 MG CAP PO SCH (21:13)
[2017-12-02] MEDS: APIXABAN 5 MG TAB PO SCH (21:13)
[2017-12-02] MEDS: LISINOPRIL 20 MG TAB PO SCH (21:13)
[2017-12-02] MEDS: PARoxetine HCL 20 MG TAB PO SCH (21:13)
[2017-12-02] MEDS: Mometasone/Formoterol [Dulera 200 Mcg/5 Mcg Inhaler] IH SCH (21:40)
[2017-12-02] MEDS: CLOBETASOL 0.05% 15 GM CRTUBE TP SCH (21:58)
[2017-12-03] MEDS: oxyCODONE CR 80 MG TAB PO SCH ×3 (03:51→20:04)
[2017-12-03] MEDS: GABAPENTIN 400 MG CAP PO SCH ×4 (05:38→21:24)
[2017-12-03] MEDS: PANTOPRAZOLE SODIUM 40 MG TAB PO SCH (08:27)
[2017-12-03] MEDS: APIXABAN 5 MG TAB PO SCH ×2 (08:28→21:24)
[2017-12-03] MEDS: LEVOTHYROXINE 100 MCG TAB PO SCH (08:28)
[2017-12-03] MEDS: ASCORBIC ACID 500 MG TAB PO SCH (08:28)
[2017-12-03] MEDS: TAMSULOSIN HCL 0.4 MG CAP PO SCH (08:28)
[2017-12-03] MEDS: buPROPion XL 150 MG TAB PO SCH ×2 (08:29→21:24)
[2017-12-03] MEDS: PARoxetine HCL 20 MG TAB PO SCH ×2 (08:29→21:24)
[2017-12-03] MEDS: CHOLECALCIFEROL VIT D3 1,000 UNITS TAB PO SCH (08:30)
[2017-12-03] MEDS: INSULIN LISPRO 100 UNIT/ML SC SCH ×3 (08:36→18:48)
[2017-12-03] MEDS: CLOBETASOL 0.05% 15 GM CRTUBE TP SCH ×2 (08:54→21:26)
[2017-12-03] MEDS: LISINOPRIL 40 MG TAB PO SCH (08:56)
[2017-12-03] MEDS: Mometasone/Formoterol [Dulera 200 Mcg/5 Mcg Inhaler] IH SCH ×2 (09:16→20:51)
--- NOTE | 2017-12-03 10:33 | PCMIDPN ---
Assessment/Plan: Assessment/Plan: * Right lower extremity erythema and knee swelling: Suspect erythema is most compatible with venous insufficiency and that knee swelling is related to recent fall. Patient however at significant risk for chronic septic total knee arthroplasty with complex past medical history. He feels like the only thing that has helped him before is daptomycin. Discussed with him that prolonged IV antibiotic therapy is not feasible solution in event that his knee is chronically infected. Will change cefazolin to daptomycin to see if this has any impact clinically. Side effects of daptomycin including potential for myositis, hypersensitivity pneumonitis, and need to avoid simultaneous use of statin cholesterol lowering agents discussed with patient today. 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 Recognize modality may be somewhat limited with refractile artifact and lack of contrast. Discussed with patient that symptoms may all be related to mechanical issues and underlying venous insufficiency. Time spent, 45 min, of which greater than half was spent in education/counseling /coordination of care related to right lower extremity erythema and the swelling as outlined above. 12/03/17 10:29 12/03/17 10:32 Subjective: Patient well known to our service for prior care related to recurrent septic arthritis of right TKA and recurrent cellulitis of right lower extremity/ chronic venous stasis dermatitis. Last seen in our office in May of last year. Patient describes recently sustaining fall after which is knee became significantly more swollen. He describes developing increasing erythema and edema of the right lower extremity with warmth. He states if he does not take his suppressive Keflex dose that he immediately will developed worsening erythema and warmth. He has not experienced fever. No drainage from knee. He has been told in the past that only remaining surgical options for knee would include above the knee amputation. He is highly opposed to this treatment approach. He feels adamantly that he has soft tissue infection currently. He states the only thing that has helped have been antibiotics in the past. Evaluation to date has revealed normal white blood cell count and procalcitonin with modestly elevated CRP. Ultrasound shows no evidence of DVT. Plain films show no evidence of fracture. Objective: Vital Signs Temp Pulse Resp BP Pulse Ox 36.6 C 82 16 142/91 H 98 12/03/17 08:00 12/03/17 08:00 12/03/17 08:00 12/03/17 08:00 12/03/17 08:00 12/02/17 12/03/17 12/04/17 05:59 05:59 05:59 Intake Total 100 Output Total 550 Balance -450 ESR 27 MM/HR (0-20) H 12/02/17 15:45 C-Reactive Protein 52.1 mg/L (<10.0) H 12/02/17 15:45 Laboratory Tests 12/02/17 15:45 WBC 6.15 Neut % (Auto) 57.8 - Physical Exam General Appearance: alert, no apparent distress, non-toxic Extremities: inflammation (Bilateral lower extremity venous insufficiency change ; right knee is grossly edematous without overlying erythema; warmth is present throughout) Lymphatic: other (No lymphangitis in right thigh) ICD10 Worksheet Patient Problems: Problems Problem Status Onset Cellulitis of leg Acute Abdominal pain Acute Acute renal failure Acute Cellulitis Acute Dehydration Acute Portal vein thrombosis Acute Severe sepsis Acute Umbilical hernia, incarcerated Acute Vomiting Acute
--- NOTE | 2017-12-03 11:26 | HOSPPROG ---
Hospitalist Progress Note Assessment/Plan: #RLE cellulitis #Right knee swelling and hx of arthroplasty #Portal Vein Thrombosis #chronic AC #Pedal Edema Plan: IV abx per ID, Dapto will be started MRI knee per ID will obtain CT abd to eval thrombosis. cont all other meds Change to inpatient Subjective: no cp or sob. no n/v. still with right knee pain and swelling. Objective: Vital Signs Temp Pulse Resp BP Pulse Ox 36.6 C 93 18 134/88 H 92 12/03/17 08:00 12/03/17 10:47 12/03/17 10:47 12/03/17 10:47 12/03/17 10:47 12/02/17 12/03/17 12/04/17 05:59 05:59 05:59 Intake Total 100 Output Total 550 Balance -450 - Physical Exam Constitutional: no apparent distress Eyes: PERRL Ears, Nose, Mouth, Throat: moist mucous membranes, hearing normal Cardiovascular: regular rate and rhythym, edema Respiratory: no respiratory distress, no rales or rhonchi, clear to auscultation , reduced air movement Gastrointestinal: normoactive bowel sounds, soft, non-tender abdomen Skin: warm, other (RLE erythema and swelling) Musculoskeletal: generalized weakness Neurologic: AAOx3 Psychiatric: interacting appropriately, not anxious, not encephalopathic ICD10 Worksheet Patient Problems: Problems Problem Status Onset Cellulitis of leg Acute Abdominal pain Acute Acute renal failure Acute Cellulitis Acute Dehydration Acute Portal vein thrombosis Acute Severe sepsis Acute Umbilical hernia, incarcerated Acute Vomiting Acute
[2017-12-03] MEDS ORDERED: NS 1,000 ML IV SCH (11:30)
[2017-12-03 12:25] LABS: CREATINE KINASE 154 IU/L (0-224)
--- NOTE | 2017-12-03 13:02 | PDMN ---
Medical Necessity Medical necessity: Change to IP, as of 12/03/17, per MD & MCG M-70; los >2 mn for ongoing management of RLE cellulitis w/pain, erythema & knee swelling s/p fall; requiring further workup/monitoring, ID consult, IV abx, pain management & therapies; hx recurrent septic arthritis of R TKA & recurrent RLE cellulitis on daily Keflex, portal vein thrombosis on AC, diabetes
[2017-12-03] MEDS: DAPTOmycin 550 MG in NS 100 ML IV SCH (13:51)
--- NOTE | 2017-12-03 17:23 | ASMTCMCOM ---
CM Note CM Note Notes: Pt is a 62 y/o man admitted for right leg swelling and redness. Pt has a hx of recurrent right lower extremity cellulitis and chronic edema. Pt is being given Ancef at this time. Pt lives w/ his in [place]. Therapies have been ordered and awaiting recommendations. Needs are TBD at this time. CM to follow. Plan: TBD Date Signed: 12/03/2017 10:42 AM Electronically Signed By:TINO Mcqueen
[2017-12-03] MEDS: LISINOPRIL 20 MG TAB PO SCH (21:23)
[2017-12-04] MEDS: oxyCODONE CR 80 MG TAB PO SCH ×3 (04:12→20:06)
[2017-12-04] MEDS: GABAPENTIN 400 MG CAP PO SCH ×4 (06:07→21:00)
[2017-12-04] MEDS: DAPTOmycin 550 MG in NS 100 ML IV SCH (09:23)
[2017-12-04] MEDS: CHOLECALCIFEROL VIT D3 1,000 UNITS TAB PO SCH (09:23)
[2017-12-04] MEDS: buPROPion XL 150 MG TAB PO SCH ×2 (09:23→21:01)
[2017-12-04] MEDS: LEVOTHYROXINE 100 MCG TAB PO SCH (09:24)
[2017-12-04] MEDS: TAMSULOSIN HCL 0.4 MG CAP PO SCH (09:24)
[2017-12-04] MEDS: APIXABAN 5 MG TAB PO SCH (09:24)
[2017-12-04] MEDS: ASCORBIC ACID 500 MG TAB PO SCH (09:24)
[2017-12-04] MEDS: PANTOPRAZOLE SODIUM 40 MG TAB PO SCH (09:24)
[2017-12-04] MEDS: PARoxetine HCL 20 MG TAB PO SCH ×2 (09:24→21:01)
[2017-12-04] MEDS: LISINOPRIL 40 MG TAB PO SCH (09:24)
[2017-12-04] MEDS: CLOBETASOL 0.05% 15 GM CRTUBE TP SCH ×2 (09:27→21:02)
[2017-12-04] MEDS: Mometasone/Formoterol [Dulera 200 Mcg/5 Mcg Inhaler] IH SCH ×2 (09:50→20:43)
--- NOTE | 2017-12-04 09:53 | HOSPPROG ---
Hospitalist Progress Note Assessment/Plan: #RLE cellulitis -improving -cont with Daptomycin -MRI RLE with no e/o abscess, myositis, or fluid collection #Right knee swelling and hx of arthroplasty -improving #Portal Vein Thrombosis -initially diagnosed in early July 2017 and Eliquis started at that time -Abd US done 12/03 shows no e/o of PVT and there is normal blood flow. -will stop Eliquis and trial off it #chronic AC: stopping Eliquis per above #Pedal Edema #Question DMII: The pt denies. Glucose has been well controlled -stop ISS and await A1C cont inpatient Subjective: reports that his RLE/Knee swelling is getting better. afebrile. glucose well controlled Objective: Vital Signs Temp Pulse Resp BP Pulse Ox 36.2 C 85 18 126/89 H 88 L 12/04/17 08:00 12/04/17 08:00 12/04/17 08:00 12/04/17 08:00 12/04/17 08:00 12/03/17 12/04/17 12/05/17 05:59 05:59 05:59 Intake Total 1340 Output Total 1900 250 Balance -560 -250 - Physical Exam Constitutional: no apparent distress Eyes: PERRL Ears, Nose, Mouth, Throat: moist mucous membranes, hearing normal Cardiovascular: regular rate and rhythym, edema Respiratory: no respiratory distress, no rales or rhonchi, clear to auscultation Gastrointestinal: normoactive bowel sounds, soft, non-tender abdomen Skin: warm Musculoskeletal: generalized weakness Neurologic: AAOx3 Psychiatric: interacting appropriately, not anxious, not encephalopathic Lymph, Heme, Immunologic: No petechiae ICD10 Worksheet Patient Problems: Problems Problem Status Onset Cellulitis of leg Acute Abdominal pain Acute Acute renal failure Acute Cellulitis Acute Dehydration Acute Portal vein thrombosis Acute Severe sepsis Acute Umbilical hernia, incarcerated Acute Vomiting Acute
[2017-12-04] MEDS ORDERED: ALTEPLASE 2 MG VIAL IVP PRN (10:26)
--- NOTE | 2017-12-04 10:30 | PCMIDPN ---
Assessment/Plan: 1.? Right lower extremity cellulitis versus venous stasis: MRI of the right knee was not particularly helpful. The patient is absolutely convinced that this is infectious in nature, and that the cellulitis in his pretibial area is better compared with yesterday. Will treat for 10 days with daptomycin intravenously. PICC line will be placed in his right upper extremity today, and the patient is agreeable to this. He may be able to go home tomorrow if we can set up antibiotics. Subjective: Patient tells me"I am twice says better as yesterday."No diarrhea. Objective: Vital Signs Daptomycin 550 mg IV daily day 2 No fevers Temp Pulse Resp BP Pulse Ox 36.2 C 85 18 126/89 H 88 L 12/04/17 08:00 12/04/17 08:00 12/04/17 08:00 12/04/17 08:00 12/04/17 08:00 12/03/17 12/04/17 12/05/17 05:59 05:59 05:59 Intake Total 1340 Output Total 1900 250 Balance -560 -250 ESR 27 MM/HR (0-20) H 12/02/17 15:45 C-Reactive Protein 52.1 mg/L (<10.0) H 12/02/17 15:45 No microbiology CRP 52, last checked last year - Physical Exam General Appearance: alert, no apparent distress Extremities: other (Right knee chronically larger than the left. No overlying skin changes or warmth or ballotable effusion. Pretibial area with santos discoloration and skin puckering ? Consistent with diminished edema. No vesicles or bullae. Left lower extremity does not have this santos appearance.) ICD10 Worksheet Patient Problems: Problems Problem Status Onset Cellulitis of leg Acute Abdominal pain Acute Acute renal failure Acute Cellulitis Acute Dehydration Acute Portal vein thrombosis Acute Severe sepsis Acute Umbilical hernia, incarcerated Acute Vomiting Acute
[2017-12-04] MEDS: INSULIN LISPRO 100 UNIT/ML SC SCH (11:42)
[2017-12-04] MEDS ORDERED: TESTOSTERONE IM 100 MG/ML SYRINGE IM SCH ×2 (15:45→16:00)
--- NOTE | 2017-12-04 16:33 | ASMTCMCOM ---
CM Note CM Note Notes: Spoke with pt's Roseline and pt after seeing that pt has declined home health care in the past. PT and OT are both recommending home health care, but Roseline and patient are declining support this time as well. Pt likely to D/C tomorrow and will start 3E OP infusion of Daptomycin on Friday at 13:00. PICC line to be placed today. Infusion appointment will need to be canceled should pt not discharge Friday ([phone]). Pt informed of appointment time and accepts. Pt's only able to transport him home Friday between 12:00 - 14:00, and CM discussed taxi option if his 's available window is missed. CM to follow for further needs. D/C Plan: Home with outpatient infusion Date Signed: 12/04/2017 04:31 PM Electronically Signed By:Kika Quezada
[2017-12-04] MEDS: LISINOPRIL 20 MG TAB PO SCH (21:01)
[2017-12-05] MEDS: oxyCODONE CR 80 MG TAB PO SCH ×2 (04:10→12:05)
[2017-12-05] MEDS: GABAPENTIN 400 MG CAP PO SCH ×2 (06:01→12:05)
[2017-12-05 07:27] VITALS: BP 137/83
[2017-12-05] MEDS: Mometasone/Formoterol [Dulera 200 Mcg/5 Mcg Inhaler] IH SCH (09:21)
[2017-12-05] MEDS: TAMSULOSIN HCL 0.4 MG CAP PO SCH (09:49)
[2017-12-05] MEDS: PANTOPRAZOLE SODIUM 40 MG TAB PO SCH (09:49)
[2017-12-05] MEDS: CHOLECALCIFEROL VIT D3 1,000 UNITS TAB PO SCH (09:49)
[2017-12-05] MEDS: PARoxetine HCL 20 MG TAB PO SCH (09:49)
[2017-12-05] MEDS: buPROPion XL 150 MG TAB PO SCH (09:49)
[2017-12-05] MEDS: LEVOTHYROXINE 100 MCG TAB PO SCH (09:50)
[2017-12-05] MEDS: CLOBETASOL 0.05% 15 GM CRTUBE TP SCH (09:50)
[2017-12-05] MEDS: LISINOPRIL 40 MG TAB PO SCH (09:50)
[2017-12-05] MEDS: ASCORBIC ACID 500 MG TAB PO SCH (09:50)
[2017-12-05] MEDS: DAPTOmycin 550 MG in NS 100 ML IV SCH (09:50)
--- NOTE | 2017-12-05 10:13 | PCMIDPN ---
Assessment/Plan: 1.? Right lower extremity cellulitis versus venous stasis: The patient's right lower extremity does look better today, with skin puckering and diminished pinkness. Continue daptomycin as is for another week, stop date December 12. The patient will come to [facility] for his infusions starting tomorrow, and this form was filled out by me. I have asked our nurse to contact the patient for a follow-up with Dr. Stone next week. Patient does not feel that he needs home PT/OT. Baseline CK normal. I do not feel this needs to be repeated as the patient will only need a week more of therapy. 12/05/17 10:11 Subjective: Patient is eager to go home. Tells me that his leg feels better. Objective: Vital Signs Daptomycin 550 mg IV daily day 05/31 No fevers Temp Pulse Resp BP Pulse Ox 36.5 C 81 17 137/83 H 93 12/05/17 07:24 12/05/17 07:24 12/05/17 07:24 12/05/17 07:24 12/05/17 07:24 12/04/17 12/05/17 12/06/17 05:59 05:59 05:59 Intake Total 1340 Output Total 1900 250 0 Balance -560 -250 0 ESR 27 MM/HR (0-20) H 12/02/17 15:45 C-Reactive Protein 52.1 mg/L (<10.0) H 12/02/17 15:45 - Physical Exam General Appearance: alert, no apparent distress Extremities: other (Patient has a PICC line in his right upper extremity looks fine) Skin: other (Right lower extremity does look less swollen today. The skin is less pink compared with yesterday as well. Overall, admittedly, it does look improved on antibiotics.) ICD10 Worksheet Patient Problems: Problems Problem Status Onset Cellulitis of leg Acute Abdominal pain Acute Acute renal failure Acute Cellulitis Acute Dehydration Acute Portal vein thrombosis Acute Severe sepsis Acute Umbilical hernia, incarcerated Acute Vomiting Acute
--- NOTE | 2017-12-05 13:23 | PDDCSUM ---
Discharge Summary Discharge Summary: HPI/Hospital Course: 62 yo male with hx of right knee arthroplasty and recurring infections admitted with RLE cellulitis. Started on Daptomycin with much improvement. ID is following. will cont with IV abx via our OP infusion center. Next appt is tomorrow. He will f/u with Dr. Stone. He has a hx of PVT and Eliquis was stopped per below Of not he does not have DMII. A1C is c/w 6. Glucose was well controlled. He denies any previous hx of having DMII DDX #RLE cellulitis -improving -cont with Daptomycin -MRI RLE with no e/o abscess, myositis, or fluid collection #Right knee swelling and hx of arthroplasty -improving #Portal Vein Thrombosis -initially diagnosed in early July 2017 and Eliquis started at that time -Abd US done 12/03 shows no e/o of PVT and there is normal blood flow. -will stop Eliquis and trial off it #chronic AC: stopping Eliquis per above Exam: NAD AAOX3 NORMAL WORK OF BREATHING NO ABD DISTENTION SKIN WARM MEDS: SEE MED REC F/U: PER ABOVE TOTAL TIME SPENT ON D/C IS 35 MIN
== END 2017-12-05 14:25 | disposition home or self-care (01) | DRG 603 ==
LOC: INTOOBSV 16:32 → F3E 17:18 → OBSVTOIN 12-03 11:27
PROVIDERS: ADMIT Family Medicine; ATTEND Family Medicine
PROC: 02HV33Z Insertion of Infusion Device into Superior Vena Cava, Percutaneous Approach (ICD-10-PCS; principal; 2017-12-04)
DX: L03.115 Cellulitis of right lower limb (principal); I10 Essential (primary) hypertension; K21.9 Gastro-esophageal reflux disease without esophagitis; G47.33 Obstructive sleep apnea (adult) (pediatric); F11.20 Opioid dependence, uncomplicated; E66.9 Obesity, unspecified; Z68.36 Body mass index [BMI] 36.0-36.9, adult; Z79.01 Long term (current) use of anticoagulants; Z96.653 Presence of artificial knee joint, bilateral; Z86.718 Personal history of other venous thrombosis and embolism
CPT/HCPCS: 97116-GP; 97162-GP; 97166-GO; 97530-GO; 97530-GP; C1751; G0378; G8978-GP-CK; G8979-GP-CI; G8987-GO-CK; G8988-GO-CI; J0690; J0878; J1071; J3370

== ENCOUNTER 2018-04-10 14:24 | Inpatient (IN) | payer OTHER ==
--- NOTE | 2018-04-10 15:26 | EDPHY ---
H & P Time Seen by Provider: 04/10/18 15:26 HPI/ROS: CHIEF COMPLAINT: Leg swelling and redness for 4 days HISTORY OF PRESENT ILLNESS: Patient has recurrent lower leg cellulitis and is on chronic prophylactic Keflex. He presents today with 4 days of read this and swelling in his legs right greater than left. Today it is worse and he has trouble walking but not associated with fever or chills. The pain is worsened trying to weight bear. Is a history of recurrent cellulitis most recently treated with outpatient daptomycin. REVIEW OF SYSTEMS: Eye: no change in vision ENT: no sore throat Cardiac: no chest pain or syncope Pulmonary: He has had a cough for about a week and has been using his inhaler more than usual, says he has a possible asthma Abdomen: no vomiting, diarrhea, abdominal pain Musculoskeletal: Chronic back pain and bilateral leg swelling Skin: Leg redness right greater than left Neuro: no headache Constitutional: no fever : no urinary symptoms A comprehensive 10 point review of systems is otherwise negative aside from elements mentioned in the history of present illness. PAST MEDICAL HISTORY: History and physical dated 12/02/2017 personally reviewed includes recurrent cellulitis, portal vein thrombosis in 2018, bilateral knee arthroplasty, hypertension, chronic back pain, sleep apnea, diabetes, inguinal hernia, thyroid, possible asthma. Of note he has never had a DVT in either leg despite multiple ultrasounds in the past. Social history: Nonsmoker General Appearance: Alert and conversant, cooperative. Eyes: No scleral icterus. ENT, Mouth: Normal mucous membranes. Edentulous. Respiratory: No wheezing, normal respiratory rate. Cardiovascular: Regular rate and rhythm. Pulses present in both feet. Gastrointestinal: Abdomen is soft and non tender. Neurological: Alert, face symmetric, normal motor and sensory in extremities. Skin: Bilateral or redness with some bruising on the left leg. Musculoskeletal: Bilateral leg edema, induration. Compartments are soft, no specific bony tenderness. No eschar or blister or crepitus. Psychiatric: Not agitated. Emergency Department course/MDM: Discussed with Dr. Cueva at 4:00 p.m. admission to hospitalist service. Does not have SIRS criteria on arrival. Afebrile, normal WBC, not tachypneic. Cellulitis bilateral lower extremity. Patient states he was still is no vancomycin per Dr. Stone because of renal issues, recommended 6mg/kg IV daptomycin per Hammad, 1653. Smoking Status: Never smoked Constitutional: Initial Vital Signs Temperature (C) 37.1 C 04/10/18 14:30 Heart Rate 96 04/10/18 14:30 Respiratory Rate 18 04/10/18 14:30 Blood Pressure 129/80 H 04/10/18 14:30 O2 Sat (%) 91 L 04/10/18 14:30 O2 Delivery Mode Room Air Allergies/Adverse Reactions: amoxicillin [Amoxicillin] Allergy (Mild, Verified 04/10/18 14:33) NAUSEA codeine [Codeine] Allergy (Mild, Verified 04/10/18 14:33) NAUSEA hydromorphone HCl [From Dilaudid] Allergy (Mild, Verified 04/10/18 14:33) NAUSEA/DOESN'T WORK clavulanic acid [Clavulanic Acid] Allergy (Unknown, Verified 04/10/18 14:33) ciprofloxacin [From Cipro] Allergy (Verified 04/10/18 14:33) Other-Enter Comments nystatin Allergy (Verified 04/10/18 14:33) Hives hydromorphone HCl Allergy (Unknown, Uncoded 12/02/17 17:10) NAUSEA/DOESN'T WORK Home Medications: Medication Instructions Recorded Gabapentin [Gabapentin 800 mg] 800 mg PO QID 01/27/14 Pantoprazole Sodium 40 mg PO DAILY 01/27/14 Tamsulosin HCl [Flomax 0.4 MG (*)] 0.4 mg PO DAILY 01/27/14 Testosterone Cypionate 200 mg IM MO@0900 01/27/14 Levothyroxine Sodium 100 mcg PO DAILY 11/09/16 buPROPion XL [Wellbutrin 150mg XL] 300 mg PO DAILY 11/09/16 Lisinopril [Zestril 20 mg (*)] 20 mg PO HS 07/28/17 Lisinopril [Zestril 40 mg (*)] 40 mg PO DAILY 07/28/17 Mometasone/Formoterol [Dulera 200 1 puffs IH BID 12/02/17 Mcg/5 Mcg Inhaler] Cephalexin [Keflex (*)] 500 mg PO BID 04/10/18 PARoxetine HCL [Paxil 20mg (*)] 20 mg PO BID 04/10/18 buPROPion XL [Wellbutrin Xl] 150 mg PO HS 04/10/18 oxyCODONE CR [OxyCONTIN] 80 mg PO TID 04/10/18 oxyCODONE IR [Oxycodone Ir (*)] 30 mg PO TID 04/10/18 Medical Decision Making - Diagnostics Imaging Results: Imaging Impressions Chest X-Ray 04/10/18 15:58 Impression: Possible early or impending CHF. Imaging: I viewed and interpreted images myself Differential Diagnosis: Differential considered including but not limited to cellulitis, fasciitis, sepsis, compartment syndrome, DVT. Consult/Admit Bed Type: [facility] - Data Points Laboratory Results: Laboratory Results 04/10/18 15:27 04/10/18 15:27 04/10/18 04/10/18 15:27 15:27 WBC 8.24 10^3/uL 10^3/uL (3.80-9.50) RBC 6.29 10^6/uL 10^6/uL (4.40-6.38) Hgb 13.9 g/dL g/dL (13.7-17.5) Hct 47.5 % % (40.0-51.0) MCV 75.5 fL L fL (81.5-99.8) MCH 22.1 pg L pg (27.9-34.1) MCHC 29.3 g/dL L g/dL (32.4-36.7) RDW 22.1 % H % (11.5-15.2) Plt Count 308 10^3/uL 10^3/uL (150-400) MPV 10.1 fL fL (8.7-11.7) Neut % (Auto) 65.4 % % (39.3-74.2) Lymph % (Auto) 19.8 % % (15.0-45.0) [place] % (Auto) 12.1 % % (4.5-13.0) Eos % (Auto) 1.8 % % (0.6-7.6) Baso % (Auto) 0.7 % % (0.3-1.7) Nucleat RBC Rel Count 0.0 % % (0.0-0.2) Absolute Neuts (auto) 5.38 10^3/uL 10^3/uL (1.70-6.50) Absolute Lymphs (auto) 1.63 10^3/uL 10^3/uL (1.00-3.00) Absolute Monos (auto) 1.00 10^3/uL H 10^3/uL (0.30-0.80) Absolute Eos (auto) 0.15 10^3/uL 10^3/uL (0.03-0.40) Absolute Basos (auto) 0.06 10^3/uL 10^3/uL (0.02-0.10) Absolute Nucleated RBC 0.00 10^3/uL 10^3/uL (0-0.01) Immature Gran % 0.2 % % (0.0-1.1) Immature Gran # 0.02 10^3/uL 10^3/uL (0.00-0.10) Platelet Estimate ADEQUATE (ADEQ) Sodium 134 mEq/L L mEq/L (135-145) Potassium 5.5 mEq/L H mEq/L (3.5-5.2) Chloride 100 mEq/L mEq/L (97-110) Carbon Dioxide 26 mEq/l mEq/l (22-31) Anion Gap 8 mEq/L mEq/L (6-14) BUN 27 mg/dL H mg/dL (7-23) Creatinine 1.4 mg/dL H mg/dL (0.7-1.3) Estimated GFR 51 Glucose 84 mg/dL mg/dL (70-100) Calcium 9.0 mg/dL mg/dL (8.5-10.4) Medications Given: Discontinued Medications Albuterol/Ipratropium (Duoneb) 3 ml IH EDNOW ONE Stop: 04/10/18 15:58 Last Admin: 04/10/18 16:08 Dose: 3 ml Sodium Chloride (Ns) 1,000 mls @ 0 mls/hr IV EDNOW ONE; Wide Open PRN Reason: Protocol Stop: 04/10/18 16:00 Last Admin: 04/10/18 16:15 Dose: 1,000 mls Departure - Departure Disposition: [facility] Inpatient Acute Clinical Impression: Bilateral cellulitis of lower leg Condition: Good
[2018-04-10 15:55] LABS: PLATELET COUNT 308 10^3/uL (150-400)
[2018-04-10] MEDS ORDERED: IPRATROPIUM/ALBUTEROL 3 ML DEYVIAL IH ONE (15:57)
[2018-04-10] MEDS ORDERED: VANCOMYCIN HCL/NORMAL SALINE 250 ML IV ONE (15:58)
[2018-04-10] MEDS ORDERED: NS 1,000 ML IV ONE (15:59)
--- NOTE | 2018-04-10 16:20 | PDGENHP ---
History and Physical History and Physical: CC: Swelling and redness of legs HISTORY: This patient who has a long history of stasis dermatitis and some episodes of cellulitis in his legs along with a previously infected right knee prosthesis, comes into the ER today complaining of swelling and redness of both legs right worse than left. In the past it is right leg that gives him more trouble over time. Notably he has what sounds like chronic unchanged pain in his knee and his knee feels weaker than usual but not with increase in pain, and it does not sound like there is really much pain in the calves. He has not been having chills or sweats. He does admit that both legs are more swollen than they typically are. Despite having chronic bilateral leg edema and recurrent infections, the patient has been declining over time to take diuretic therapy. He tells me that he thinks he makes as much as 3 quarts of urine each night, not and does not specifically limit his fluid or salt intake. He does have chronic lung disease and is on bronchodilators for that. 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 I have reviewed the list and ordered appropriate medicines. PHYSICAL EXAMINATION: Vital Signs: Temperature 37.1 degrees, otherwise normal vital signs Field Control Inspector: In the ER sinus Examination: General: alert, oriented, good mentation, relaxed; he is very obese man Skin: warm, dry, good color, no rash HEENT: normal Neck: no mass or jvd Resps: relaxed Lungs: Severely diminished but otherwise clear breath sounds Heart: regular, no murmur Abdomen: soft, nondistended, nontender, +BS, no mass Upper Extremities: normal Lower Extremities: Severe bilateral edema of the legs from the toes up to the mid thigh; he has obvious stasis dermatitis below the knees bilaterally. Neither leg has warmth to palpation or tenderness in the areas of the stasis dermatitis. There is no weeping and no open sores but there are some chronic pockets in the skin from his chronic stasis dermatitis. There is nothing that looks like an abscess or an area of necrosis or myositis. No Bleeding or bruising Neurologic: normal speech/language, normal research animal attendant, no focal weakness IV site: looks normal LABORATORY DATA: Chronic microcytosis is present but without anemia [place] [id number] Sedimentation rate and CRP are pending Creatinine is 1.4 with a baseline 1.1, potassium high at 5.5, and sodium borderline at 134 RADIOLOGY STUDIES: A looked at the x-ray image from the ER today and there is very subtle changes suggesting possible pulmonary vascular congestion but otherwise unremarkable 12 LEAD EKG: ASSESSMENT: * Acute stasis dermatitis of both legs, moderately severe * The patient is convinced that there is bilateral cellulitis of the legs but objectively on examination this is not very clear cut with no erythema or tenderness and with no significant pain, no fever; ESR and CRP pending but these will be nonspecific in this setting * History of cellulitis of legs, but a long history of stasis dermatitis where the patient is convinced he has cellulitis and even the infectious disease physicians are not entirely convinced * History of right septic prosthetic knee joint * Chronic edema of legs, severe; I suspect there is some right-sided congestive heart failure due to his obesity/sleep apnea and chronic lung disease though this was not borne out by an echocardiogram 2 years ago (though images were limited by his obesity); notably however he also has history of portal vein thrombosis * Chronic respiratory failure likely due to obesity * Type 2 diabetes mellitus * Chronic pain in the back with chronic high-dose prescribed narcotics and chronic gabapentin use PLANS: * Inpatient admission * IV Lasix, topical steroids for management of stasis dermatitis * 2 g sodium diet * I have asked Dr. Cueva to see the patient to assess whether not we think there is truly cellulitis here; will decide with her whether to start antibiotics at this point * The patient clearly drinks more water per day than is ideal for him and I have counseled him on a low-sodium low fluid intake diet * Monitor blood sugars and treat as indicated * Continue usual narcotic doses and gabapentin for his chronic pain I have reviewed the patient's case in detail with Dr. Ingrid Cueva I have reviewed the patient's past medical records as part of this assessment, including previous hospital admissions
[2018-04-10] MEDS ORDERED: ZOLPIDEM TARTRATE 5 MG TAB PO PRN (16:22)
[2018-04-10] MEDS ORDERED: ACETAMINOPHEN 325 MG TAB PO PRN (16:22)
[2018-04-10] MEDS ORDERED: ONDANSETRON 4 MG/2 ML VIAL IVP PRN (16:22)
[2018-04-10] MEDS ORDERED: DAPTOmycin 540 MG in NS 100 ML IV ONE (16:54)
[2018-04-10] MEDS ORDERED: FUROSEMIDE 40 MG/4 ML VIAL IVP ONE (16:55)
--- NOTE | 2018-04-10 17:45 | PCMIDPN ---
Assessment/Plan: # Right lower extremity cellulitis verses inflammation from venous insufficiency. No other signs of infection such as fever or leukocytosis. Patient is adamant that his right lower extremity is more inflamed/red than baseline and feels he has acute cellulitis. --hold Keflex --daptomycin 6 makes per kg IV daily --elevation and diuresis per hospitalist --will continue to monitor response on a daily basis --will send CRP, although in a nonspecific to try to sort out level of inflammation # renal insufficiency, will avoid vancomycin due to potential for toxicity Subjective: 63 yo male known to ID service with chronic LE venous insufficiency, DM recurrent RLE cellulitis on chronic keflex 500mg PO BID. Last acute infection was Nov 2017 and he received IV daptomycin. Patient reports increasing pain, swelling and redness over last couple days, denies specific injury. Patient does not use any LE compression and claims that it makes his legs worse. Objective: Vital Signs Temp Pulse Resp BP Pulse Ox 37.2 C 97 18 118/65 90 L 04/10/18 17:32 04/10/18 17:32 04/10/18 17:32 04/10/18 17:32 04/10/18 17:32 04/09/18 04/10/18 04/11/18 05:59 05:59 05:59 Intake Total 300 Balance 300 - Physical Exam General Appearance: alert, no apparent distress, obese Respiratory: lungs clear, No accessory muscle use Neck: supple Cardiac/Chest: regular rate, rhythm (borderline tachycardia) Extremities: other (woody pedal edema R 3+ L 2+; hyperpigmentation in stocking distribution, superimposed pink discoloration RLE - fairly circumfrential; no tinea; LLE more focal erythema mid [place] anterior to lateral region) Peripheral Pulses: 1+: dorsalis-pedis (R), dorsalis-pedis (L) Abdomen: non-tender, soft Skin: No rash Neuro/Psych: alert, normal mood/affect, oriented x 3 - Time Spent With Patient Time Spent with Patient: greater than 35 minutes (care coordinated with Dr. Contreras and ER) Time Spent with Patient: Greater than 35 minutes spent on this patients care, greater than 50% of time spent counseling, educating, and coordinating care regarding the above mentioned plan. ICD10 Worksheet Patient Problems: Problems Problem Status Onset Bilateral cellulitis of lower leg Acute Abdominal pain Acute Acute renal failure Acute Cellulitis Acute Cellulitis of leg Acute Dehydration Acute Portal vein thrombosis Acute Severe sepsis Acute Umbilical hernia, incarcerated Acute Vomiting Acute
[2018-04-10] MEDS: MOMETASONE IH SCH (20:51)
[2018-04-10] MEDS: FORMOTEROL IH SCH (20:51)
[2018-04-10] MEDS: oxyCODONE CR 80 MG TAB PO SCH (21:06)
[2018-04-10] MEDS: PARoxetine HCL 20 MG TAB PO SCH (21:06)
[2018-04-10] MEDS: GABAPENTIN 400 MG CAP PO SCH (21:06)
[2018-04-10] MEDS: LISINOPRIL 20 MG TAB PO SCH (21:06)
[2018-04-10] MEDS: MELATONIN 3 MG TAB PO SCH (21:06)
[2018-04-10] MEDS: CEPHALEXIN 500 MG CAP PO SCH (21:06)
[2018-04-10] MEDS: buPROPion XL 150 MG TAB PO SCH (21:06)
[2018-04-10] MEDS: TRIAMCINOLONE 0.1% 15GM OINT TP SCH (21:07)
[2018-04-11 05:03] LABS: PLATELET COUNT 253 10^3/uL (150-400)
[2018-04-11] MEDS: GABAPENTIN 400 MG CAP PO SCH ×4 (06:01→21:19)
--- NOTE | 2018-04-11 07:29 | PDMN ---
Medical Necessity Medical necessity: Pt meets IP criteria as of 04/10/2018 per and MCG MG-VAS ( Vascular Disease GRG); est los > 2 mn for ongoing tx and management of acute on chronic BLE venous stasis dermatitis along with possible cellulitis, probable CHF and management of other chronic conditions including DM, anemia, TYRONE, and chronic back pain; requiring infectious disease consultation, IV diuretics, fluid and sodium restricted diet, pt education and counseling, and PT/OT.
[2018-04-11] MEDS: oxyCODONE CR 80 MG TAB PO SCH ×3 (08:23→21:19)
[2018-04-11] MEDS: LEVOTHYROXINE 100 MCG TAB PO SCH (08:23)
[2018-04-11] MEDS: PANTOPRAZOLE SODIUM 40 MG TAB PO SCH (08:23)
[2018-04-11] MEDS: TRIAMCINOLONE 0.1% 15GM OINT TP SCH ×3 (08:30→21:18)
[2018-04-11] MEDS ORDERED: FUROSEMIDE 40 MG/4 ML VIAL IVP SCH (09:00)
[2018-04-11] MEDS: FORMOTEROL IH SCH ×2 (09:11→23:02)
[2018-04-11] MEDS: MOMETASONE IH SCH ×2 (09:11→23:02)
[2018-04-11] MEDS: CEPHALEXIN 500 MG CAP PO SCH (09:41)
[2018-04-11] MEDS ORDERED: LACTULOSE 20 GM/30 ML UDCUP PO PRN (09:44)
[2018-04-11] MEDS ORDERED: BISACODYL 10 MG SUPP PR PRN (09:44)
[2018-04-11] MEDS ORDERED: POLYETHYLENE GLYCOL 3350 17 GM PKT PO PRN (09:44)
[2018-04-11] MEDS ORDERED: MAGNESIUM HYDROXIDE 30 ML UDCUP PO PRN (09:44)
[2018-04-11] MEDS: TAMSULOSIN HCL 0.4 MG CAP PO SCH (10:32)
[2018-04-11] MEDS: PARoxetine HCL 20 MG TAB PO SCH ×2 (10:32→21:19)
[2018-04-11] MEDS: LISINOPRIL 40 MG TAB PO SCH (10:32)
[2018-04-11] MEDS: TORSEMIDE 10 MG TAB PO SCH (10:39)
[2018-04-11] MEDS: buPROPion XL 150 MG TAB PO SCH ×2 (10:39→21:19)
[2018-04-11] MEDS: ENOXAPARIN 40 MG/0.4 ML SYR SC SCH (10:39)
--- NOTE | 2018-04-11 11:39 | PCMIDPN ---
Assessment/Plan: # Right lower extremity cellulitis verses inflammation from venous insufficiency. Minimal change in the degree of inflammation noted on his right lower extremity. Some recession of the erythema mid left mansfield. No other signs of infection such as fever or leukocytosis, he has a mildly elevated CRP. Patient remains adamant that his right lower extremity is more inflamed/red than baseline, more painful and more swollen and feels he has acute cellulitis. --reviewed risk factors of antibiotic use including evolving selection of more resistant bacteria, C diff, specific risk factors with daptomycin including hypersensitivity pneumonitis and rhabdomyolysis. --stressed the importance of minimal duration of antibiotic therapy. Hopeful to give a very short course of daptomycin 5-7 days --reviewed management of venous insufficiency. Patient is willing to return to lymph massage and to try using lymphedema pumps again after resume lymphatic massage. He will not wear compression stockings. Will try to arrange outpatient lymphatic massage # renal insufficiency, will avoid vancomycin due to potential for toxicity Medications Daptomycin 550 mg IV daily, # 2 Subjective: Patient it feels minimal improvement overnight, does note some decrease in swelling but was unable to sleep due to urinary frequency from Lasix. Denies diarrhea, rash, itching. His appetite is good. His is present in the room during education as described above. Objective: Vital Signs Temp Pulse Resp BP Pulse Ox 36.6 C 86 16 131/80 H 95 04/11/18 08:00 04/11/18 08:00 04/11/18 08:00 04/11/18 10:32 04/11/18 08:00 Laboratory Results 04/11/18 04:42 04/11/18 04:42 04/10/18 04/11/18 04/12/18 05:59 05:59 05:59 Intake Total 700 Output Total 1250 Balance -550 C-Reactive Protein 28.9 mg/L (<10.0) H 04/10/18 18:15 - Physical Exam General Appearance: alert, no apparent distress, obese Respiratory: No accessory muscle use Extremities: other (Chronic lower extremity edema, [place] in nature right greater than left. Hyperpigmentation in a stocking distribution right greater than left. [place] inflammation in a stocking distribution in the right unchanged from yesterday no associated warmth. Erythema left anterior mansfield with some recession and improvement in warmth.) Skin: No rash Neuro/Psych: alert, normal mood/affect, oriented x 3 - Time Spent With Patient Time Spent with Patient: greater than 35 minutes Time Spent with Patient: Greater than 35 minutes spent on this patients care, greater than 50% of time spent counseling, educating, and coordinating care regarding the above mentioned plan. ICD10 Worksheet Patient Problems: Problems Problem Status Onset Bilateral cellulitis of lower leg Acute Abdominal pain Acute Acute renal failure Acute Cellulitis Acute Cellulitis of leg Acute Dehydration Acute Portal vein thrombosis Acute Severe sepsis Acute Umbilical hernia, incarcerated Acute Vomiting Acute
[2018-04-11] MEDS: IPRATROPIUM/ALBUTEROL 3 ML DEYVIAL IH PRN (12:05)
[2018-04-11 12:09] LABS: CREATINE KINASE 336 IU/L (0-224)
[2018-04-11] MEDS ORDERED: DAPTOmycin 550 MG in NS 100 ML IV SCH (17:00)
--- NOTE | 2018-04-11 17:17 | ASMTCMCOM ---
CM Note CM Note Notes: 04/11/2018 Case Management Note Pt admitted for lower extremity acute stasis dermatitis with possible cellulitis. PT OT evals pending. Pt is . Pt historically refuses home care support at discharge. Anticipating independent discharge with follow up as directed. Case Management d/c poc: to be determined. Case Management to follow. Date Signed: 04/11/2018 05:17 PM Electronically Signed By:Prema Kirkpatrick RN
[2018-04-11] MEDS: MELATONIN 3 MG TAB PO SCH (21:19)
[2018-04-11] MEDS: SENNOSIDES/DOCUSATE SODIUM TAB PO SCH (21:19)
[2018-04-11] MEDS: LISINOPRIL 20 MG TAB PO SCH (21:19)
[2018-04-12] MEDS: GABAPENTIN 400 MG CAP PO SCH ×4 (05:10→20:24)
[2018-04-12] MEDS: oxyCODONE CR 80 MG TAB PO SCH ×3 (09:34→20:25)
[2018-04-12] MEDS: FORMOTEROL IH SCH ×2 (09:43→20:29)
[2018-04-12] MEDS: MOMETASONE IH SCH ×2 (09:43→20:29)
[2018-04-12] MEDS: PARoxetine HCL 20 MG TAB PO SCH ×2 (09:44→20:25)
[2018-04-12] MEDS: LISINOPRIL 40 MG TAB PO SCH (09:44)
[2018-04-12] MEDS: TAMSULOSIN HCL 0.4 MG CAP PO SCH (09:44)
[2018-04-12] MEDS: PANTOPRAZOLE SODIUM 40 MG TAB PO SCH (09:44)
[2018-04-12] MEDS: buPROPion XL 150 MG TAB PO SCH ×2 (09:45→20:24)
[2018-04-12] MEDS: LEVOTHYROXINE 100 MCG TAB PO SCH (09:45)
[2018-04-12] MEDS: ENOXAPARIN 40 MG/0.4 ML SYR SC SCH (09:46)
[2018-04-12] MEDS: SENNOSIDES/DOCUSATE SODIUM TAB PO SCH ×2 (09:46→20:58)
[2018-04-12] MEDS: TORSEMIDE 10 MG TAB PO SCH (11:09)
[2018-04-12] MEDS: TRIAMCINOLONE 0.1% 15GM OINT TP SCH ×3 (11:10→20:29)
--- NOTE | 2018-04-12 11:43 | PCMIDPN ---
Assessment/Plan: # Right lower extremity cellulitis verses inflammation from venous insufficiency. Possibly a little less pinkness RLE, but patient feels minimal improvement in pain. --Plan DC Friday afternoon. Get IV abx in infusion center via PIV. Plan 7 days. Is willing to go home today but unable to get transport to hospital for infusion center on Friday --reviewed management of venous insufficiency. Patient is willing to return to lymph massage and to try using lymphedema pumps again after resume lymphatic massage. He will not wear compression stockings. Will try to arrange outpatient lymphatic massage --recheck CK and CRP in AM --due to persist focal right leg pain rule out DVT with Doppler --I could try to check on his leg on in infusion center, will awaiting time of appointment # renal insufficiency, will avoid vancomycin due to potential for toxicity Medications Daptomycin 550 mg IV daily, # 3 Subjective: Patient feels right leg pain is not improved since admission. This was the reason for admission, right leg pain decreasing his mobility. Objective: Vital Signs Temp Pulse Resp BP Pulse Ox 36.5 C 90 18 112/98 H 94 04/12/18 11:17 04/12/18 11:17 04/12/18 11:17 04/12/18 11:17 04/12/18 11:17 Laboratory Results 04/11/18 04:42 04/11/18 04:42 04/11/18 04/12/18 04/13/18 05:59 05:59 05:59 Intake Total 700 500 Output Total 1250 2525 400 Balance -550 -2024 -400 C-Reactive Protein 28.9 mg/L (<10.0) H 04/10/18 18:15 - Physical Exam General Appearance: alert, no apparent distress, obese Respiratory: No accessory muscle use Extremities: inflammation (Stocking distribution on right leg, seems a bit less intense today - but still mostly consistent with inflammation from venous insufficiency), swelling (Bilateral lower extremity [place] edema right greater than left), other (Hyperpigmentation in a stocking distribution right greater than left) Skin: No rash Neuro/Psych: alert, normal mood/affect, oriented x 3 - Time Spent With Patient Time Spent with Patient: greater than 25 minutes (Reviewed plan of care with Hesham and his family at bedside) Time Spent with Patient: Greater than 25 minutes spent on this patients care, greater than 50% of time spent counseling, educating, and coordinating care regarding the above mentioned plan. ICD10 Worksheet Patient Problems: Problems Problem Status Onset Bilateral cellulitis of lower leg Acute Abdominal pain Acute Acute renal failure Acute Cellulitis Acute Cellulitis of leg Acute Dehydration Acute Portal vein thrombosis Acute Severe sepsis Acute Umbilical hernia, incarcerated Acute Vomiting Acute
[2018-04-12 14:24] LABS: PLATELET COUNT 285 10^3/uL (150-400)
[2018-04-12 14:43] LABS: CREATINE KINASE 531 IU/L (0-224)
[2018-04-12] MEDS: DAPTOmycin 550 MG in NS 100 ML IV SCH (15:26)
--- NOTE | 2018-04-12 16:09 | HOSPPROG ---
Hospitalist Progress Note Assessment/Plan: 1. Recurrent cellulitis of chronic stasis dermatitis/venous insuff -discussed care plan with Dr Cueva (well known to ID practice) -daptocyn IV per ID -Dr Cueva had a yamilka discussion with him/ re risks of abx in general, and specifically of vanco and dapto -unclear if this is truly cellulitis as nl WBC and chronic stasis -will reassess in AM, possible short course IV abx per ID -asks what he can do, but refuses compression or Lasix -torsemide started 2. History of right septic prosthetic knee joint -chronic keflex suppression -stop per ID 3. Chronic edema of legs, severe -see above 4. History of portal vein thrombosis 07/2017 5. Chronic respiratory failure/TYRONE -cpap -O2 as needed 6. Type 2 diabetes mellitus 7. Chronic pain in the back with chronic high-dose prescribed narcotics and chronic gabapentin use -[place] [facility] [place] [address] [place] doesnt carry 80 mg oxy. I spoke with [place] and [facility], he uses two different names (Ludin and Hesham), fills testosterone at [place], [place] [facility]. PDMP has him under these multiple names, so have to search by /last name only to acurately see -incredibly high doses, tried to call pain med provider-closed. PCP is Dr Albert Amanda at [facility] in [facility]. NO additional pain meds to be Rxd by me 8. Hypothyroid 9. Depression 10. HTN 11. Renal insufficiency -creat elev from baseline -watch closely with torsemide use -on MARISOL I for HTN, may need to stop if creat continues to elev PCP- Dr Albert Amanda VTE prophy- lovenox FULL CODE Dispo- unclear at this time, depends upon response to IV abx, likely > 2 mdnts Subjective: Saw him at same time as Dr Cueva. in room. Says redness/pain in R leg, unable to walk. No f/v/d/chills. Used to have lymph massage, helped. Person that did massage left practice, he never started anywhere else (maybe a few yrs ago). Declines lasix, declines compression hose. Says he has used SCDs prev, doesnt want to use in hospital, says would consider if able to restart massage. Objective: Vital Signs Temp Pulse Resp BP Pulse Ox 97.7 F 90 18 112/98 H 94 04/12/18 11:17 04/12/18 11:17 04/12/18 11:17 04/12/18 11:17 04/12/18 11:17 Laboratory Results 04/12/18 14:10 04/12/18 14:10 04/11/18 04/12/18 04/13/18 11:59 11:59 11:59 Intake Total 700 500 Output Total 1650 8163 Balance -950 -2024 - Time Spent With Patient Time Spent with Patient: greater than 35 minutes Time Spent with Patient: Greater than 35 minutes spent on this patients care, greater than 50% of time spent counseling, educating, and coordinating care regarding the above mentioned plan. - Physical Exam Constitutional: obese, unkempt Eyes: anicteric sclera Ears, Nose, Mouth, Throat: moist mucous membranes, hearing normal Cardiovascular: regular rate and rhythym, no murmur, rub, or gallop Respiratory: no respiratory distress, no rales or rhonchi, clear to auscultation Skin: other (B LE with brawny erythema, edema, some warmth. Small open area L mansfield- dressed. ) Psychiatric: poor insight ICD10 Worksheet Patient Problems: Problems Problem Status Onset Bilateral cellulitis of lower leg Acute Abdominal pain Acute Acute renal failure Acute Cellulitis Acute Cellulitis of leg Acute Dehydration Acute Portal vein thrombosis Acute Severe sepsis Acute Umbilical hernia, incarcerated Acute Vomiting Acute
[2018-04-12] MEDS: LISINOPRIL 20 MG TAB PO SCH (20:24)
[2018-04-12] MEDS: MELATONIN 3 MG TAB PO SCH (20:25)
--- NOTE | 2018-04-12 22:24 | HOSPPROG ---
Hospitalist Progress Note Assessment/Plan: 1. Recurrent cellulitis of chronic stasis dermatitis/venous insuff -discussed care plan with Dr Cueva (well known to ID practice) -daptocyn IV per ID, day #3 - short course, OK at infusion center/discharge -Dr Cueva had a yamilka discussion with him/ re risks of abx in general, and specifically of vanco and dapto yesterday -unclear if this is truly cellulitis as nl WBC and chronic stasis -he refuses compression or Lasix or elevation -doppler neg for DVT -torsemide started, tolerating -CPK elev, Dr Cueva aware, continue dapto and recheck in AM 2. History of right septic prosthetic knee joint -chronic keflex suppression stopped at admission per ID 3. Chronic edema of legs, severe -see above -refused PT 4. History of portal vein thrombosis 07/2017 5. Chronic respiratory failure/TYRONE -cpap -O2 as needed 6. Type 2 diabetes mellitus -refuses blood sugars -a1c 6.0 11/2017 7. Chronic pain in the back with chronic high-dose prescribed narcotics and chronic gabapentin use -fills opiates at [facility] on [address] [place] doesnt carry 80 mg oxy. I spoke with [place] and [facility] pharmacy Sat, he uses two different names (Ludin and Hesham), fills testosterone at [place], opiates at [facility]. PDMP has him under these multiple names, so have to search by /last name only to acurately see -incredibly high doses, tried to call pain med provider Sat-closed. PCP is Dr Albert Amanda at [facility] in [facility]. NO additional pain meds to be Rxd by me 8. Hypothyroid 9. Depression 10. HTN 11. Renal insufficiency -creat elev from baseline but no change with torsemide -watch closely with torsemide use -on MARISOL I for HTN, may need to stop this and lasix if creat increases and no obvious improvement in edema PCP- Dr Albert Amanda VTE prophy- lovenox FULL CODE Dispo- unclear at this time- per Dr Cueva note OK to dc with IV ABX at infusion center but he refuses to discharge (CM tried to arrange transport to infusion center tomorrow so could discharge today) Subjective: Very upset, says leg not better, unable to walk. Doesnt want to discharge with IV abx at infusion center when leg not better. Became very angry/ yelling with CM when discussing transportation/infusion ctr for discharge planning. Says no SOB/CP. Objective: Vital Signs Temp Pulse Resp BP Pulse Ox 97.8 F 92 20 133/68 H 95 04/12/18 19:19 04/12/18 19:19 04/12/18 19:19 04/12/18 19:19 04/12/18 19:19 Laboratory Results 04/12/18 14:10 04/12/18 14:10 04/11/18 04/12/18 04/13/18 11:59 11:59 11:59 Intake Total 700 500 Output Total 5370 6368 1623 [facility] -022 -5 -1625 - Time Spent With Patient Time Spent with Patient: greater than 35 minutes Time Spent with Patient: Greater than 35 minutes spent on this patients care, greater than 50% of time spent counseling, educating, and coordinating care regarding the above mentioned plan. - Pending Discharge Pending Discharge Within 48 Hours: Yes Pending Discharge Date: 04/14/18 Pending Discharge Time: 11:00 - Physical Exam Constitutional: chronically ill appearing, obese Eyes: anicteric sclera Ears, Nose, Mouth, Throat: moist mucous membranes, hearing normal Cardiovascular: regular rate and rhythym Respiratory: no respiratory distress, no rales or rhonchi, clear to auscultation Skin: other (brawny edematous erythema B LE, limited change since yesterday) Psychiatric: poor insight ICD10 Worksheet Patient Problems: Problems Problem Status Onset Bilateral cellulitis of lower leg Acute Abdominal pain Acute Acute renal failure Acute Cellulitis Acute Cellulitis of leg Acute Dehydration Acute Portal vein thrombosis Acute Severe sepsis Acute Umbilical hernia, incarcerated Acute Vomiting Acute
[2018-04-13] MEDS: oxyCODONE CR 80 MG TAB PO SCH ×3 (04:44→20:43)
[2018-04-13] MEDS: GABAPENTIN 400 MG CAP PO SCH ×4 (04:45→20:42)
[2018-04-13 05:44] LABS: CREATINE KINASE 331 IU/L (0-224)
[2018-04-13] MEDS ORDERED: TESTOSTERONE CYPIONATE 200 MG IM SCH (09:00)
[2018-04-13] MEDS: MOMETASONE IH SCH ×2 (09:51→21:29)
[2018-04-13] MEDS: FORMOTEROL IH SCH ×2 (09:51→21:29)
[2018-04-13] MEDS: IPRATROPIUM/ALBUTEROL 3 ML DEYVIAL IH PRN (09:53)
[2018-04-13] MEDS: buPROPion XL 150 MG TAB PO SCH ×2 (10:07→20:42)
[2018-04-13] MEDS: PANTOPRAZOLE SODIUM 40 MG TAB PO SCH (10:08)
[2018-04-13] MEDS: LEVOTHYROXINE 100 MCG TAB PO SCH (10:08)
[2018-04-13] MEDS: TAMSULOSIN HCL 0.4 MG CAP PO SCH (10:08)
[2018-04-13] MEDS: ENOXAPARIN 40 MG/0.4 ML SYR SC SCH (10:08)
[2018-04-13] MEDS: LISINOPRIL 40 MG TAB PO SCH (10:08)
[2018-04-13] MEDS: TORSEMIDE 10 MG TAB PO SCH (10:08)
[2018-04-13] MEDS: PARoxetine HCL 20 MG TAB PO SCH ×2 (10:08→20:42)
[2018-04-13] MEDS: TRIAMCINOLONE 0.1% 15GM OINT TP SCH ×3 (10:10→21:47)
[2018-04-13] MEDS: SENNOSIDES/DOCUSATE SODIUM TAB PO SCH ×2 (10:16→21:46)
[2018-04-13] MEDS ORDERED: TESTOSTERONE IM 100 MG/ML SYRINGE IM SCH (12:00)
[2018-04-13] MEDS: DAPTOmycin 550 MG in NS 100 ML IV SCH (12:35)
--- NOTE | 2018-04-13 14:33 | ASMTCMCOM ---
CM Note CM Note Notes: Per PT/OT and Infectious Disease, patient not ready for d/c. He has been very disagreeable w some staff regarding recommendations for his care; for example, he should have home health PT but refuses. Will likely need IV abx upon discharge. Case Management will continue to follow. Date Signed: 04/13/2018 02:33 PM Electronically Signed By:Inessa Narayanan RN
--- NOTE | 2018-04-13 15:27 | PCMIDPN ---
Assessment/Plan: Assessment: Right lower extremity cellulitis? Patient with prior history of multiple infections in the right lower extremity. Over the last couple of years the patient has complained periodically of worsening pain in the area with negative workups. Edema and erythema in prior presentations appear to improve with empiric antibiotic therapy. So far this stay there is no symptomatic improvement and the examination but trays only edema and no significant warmth or erythema. Plan to continue daptomycin for 1 more day inpatient and observe. Plan: 1. Continue IV daptomycin. 2. Follow clinical improvement. 04/13/18 15:25 Subjective: Patient is sitting on the side of his bed this morning. He is clutching in his leg in discomfort. No fevers or chills. Appears to be tolerating his daptomycin without issue. Objective: Daptomycin # 3 Vital Signs Temp Pulse Resp BP Pulse Ox 36.8 C 90 16 114/74 90 L 04/13/18 15:06 04/13/18 15:06 04/13/18 15:06 04/13/18 15:06 04/13/18 15:06 Laboratory Results 04/13/18 04:15 04/13/18 04:15 04/12/18 04/13/18 04/14/18 05:59 05:59 05:59 Intake Total 500 350 360 Output Total 2525 2024 400 Balance -2024 C-Reactive Protein 60.6 mg/L (<10.0) H 04/13/18 04:15 - Physical Exam General Appearance: WD/WN, alert, no apparent distress, non-toxic Respiratory: lungs clear, normal breath sounds, No respiratory distress Cardiac/Chest: regular rate, rhythm, No tachycardia Extremities: pedal edema, No non-tender, No normal inspection, No inflammation, No erythema Skin: normal color, warm/dry, No rash Neuro/Psych: alert, normal mood/affect, oriented x 3 ICD10 Worksheet Patient Problems: Problems Problem Status Onset Bilateral cellulitis of lower leg Acute Abdominal pain Acute Acute renal failure Acute Cellulitis Acute Cellulitis of leg Acute Dehydration Acute Portal vein thrombosis Acute Severe sepsis Acute Umbilical hernia, incarcerated Acute Vomiting Acute
--- NOTE | 2018-04-13 16:40 | HOSPPROG ---
Hospitalist Progress Note Assessment/Plan: DIAGNOSES: * Acute stasis dermatitis of both legs, moderately severe with ongoing severe bilateral leg edema * ? Cellulitis of legs * History of right septic prosthetic knee joint * Chronic edema of legs, severe; I suspect there is some right-sided congestive heart failure due to his obesity/sleep apnea and chronic lung disease though this was not borne out by an echocardiogram 2 years ago (though images were limited by his obesity); notably however he also has history of portal vein thrombosis * Chronic respiratory failure likely due to obesity, with home oxygen * Chronic pain in the back with chronic high-dose prescribed narcotics and chronic gabapentin use * Chronic iron deficiency anemia, still with iron deficiency at this time with low saturation and ferritin At this point his legs do look better but there are still not normal. At this point there is very little erythema left in the left leg notable decrease in erythema on the right leg. The right leg still remains fairly bumpy typical of stasis dermatitis. Again no evidence of abscess, necrosis, or other complications and his knee looks good PLANS: * Continue leg elevation * Continue diuretic * Continue 2 g sodium diet * Continue restricted fluid intake * Trav wraps of his legs * I had a long talk again today with the patient on the importance of minimizing edema in the legs and the importance of all of the above measures to maintain better skin health in his legs * Per Infectious Disease will continue antibiotics at this time reassess tomorrow, potentially discharge tomorrow * Will give him some IV iron today SUBJECTIVE: Still with pain in both legs No fever chills or sweats OBJECTIVE Vitals reviewed: There has been no fever during this hospital stay; vital stable overall I&O he has had good diuresis so far greater than 4 L total net output Exam: alert oriented skin warm dry color ok resps not labored lungs clear BSs heart regular abd soft nondistended nontender, bowel sounds present limbs he remains with severe edema of both legs but it is slightly decreased from the time of admission; the erythema is pretty much gone from the left leg. In the right leg there is still some erythema but less than 2 days ago. The skin remains quite bumpy typical of stasis dermatitis iv site ok Lab data: white blood cell count is at 6000 otherwise stable CBC Sodium 134 otherwise normal electrolytes, creatinine improved at 1.4 C reactive protein is high Lab data suggestive iron deficiency anemia at this time Objective: Vital Signs Temp Pulse Resp BP Pulse Ox 36.8 C 90 16 114/74 90 L 04/13/18 15:06 04/13/18 15:06 04/13/18 15:06 04/13/18 15:06 04/13/18 15:06 Laboratory Results 04/13/18 04:15 04/13/18 04:15 04/12/18 04/13/18 04/14/18 06:59 06:59 06:59 Intake Total 500 350 360 Output Total 1315 5 400 Balance -2024 -1675 -40 ICD10 Worksheet Patient Problems: Problems Problem Status Onset Bilateral cellulitis of lower leg Acute Abdominal pain Acute Acute renal failure Acute Cellulitis Acute Cellulitis of leg Acute Dehydration Acute Portal vein thrombosis Acute Severe sepsis Acute Umbilical hernia, incarcerated Acute Vomiting Acute
[2018-04-13] MEDS: SODIUM FERRIC GLUCONAT/SUCROSE 125 MG in NS 100 ML IV SCH (18:01)
[2018-04-13] MEDS: LISINOPRIL 20 MG TAB PO SCH (20:42)
[2018-04-14] MEDS: oxyCODONE CR 80 MG TAB PO SCH ×3 (02:58→20:51)
[2018-04-14] MEDS: MELATONIN 3 MG TAB PO SCH (02:58)
[2018-04-14] MEDS: FORMOTEROL IH SCH ×2 (09:23→21:35)
[2018-04-14] MEDS: MOMETASONE IH SCH ×2 (09:23→21:35)
--- NOTE | 2018-04-14 09:39 | PCMIDPN ---
Assessment/Plan: 1. Right lower extremity cellulitis, with probable superimposed allergic contact dermatitis: It is difficult given his clinical exam not to call this a cellulitis. That being said, patient has erythematous papules that he claims are new on his inner thighs and lower extremities bilaterally that are pruritic and could be contributing to his recurrent presentation. Suspect these are related to an allergic contact dermatitis from topical creams. (?) For now, emphasized that he should not be putting anything on his lower extremities, and to keep his right lower extremity elevated. Patient became agitated and extremely upset when I suggested that he would likely not need a course of antibiotics moving forward. For now, would continue daptomycin and perhaps switch to oral therapy in the next day or 2. He may benefit from seeing a nail tech as an outpatient, as I do feel it provide him peace of mind and reassurance. Lesions do not look vasculitic. Will hold off on Anca's for now. 2. Elevated CK: Lower today. Continue daptomycin. Follow. Over 25 min spent with this patient today. Subjective: Does not feel that he is getting better as fast as he should. Thinks he needs a course of IV antibiotics. Absolutely not ready to go home, per him. Objective: Daptomycin 550 mg IV daily day for No fevers Vital Signs Temp Pulse Resp BP Pulse Ox 36.4 C 72 16 129/82 H 93 04/14/18 08:55 04/14/18 08:55 04/14/18 08:55 04/14/18 08:55 04/14/18 08:55 Laboratory Results 04/13/18 04:15 04/13/18 04:15 04/13/18 04/14/18 04/15/18 05:59 05:59 05:59 Intake Total 350 1110 Output Total 2024 1900 Balance -9235 -790 C-Reactive Protein 60.6 mg/L (<10.0) H 04/13/18 04:15 Ultrasound negative for DVT right lower extremity - Physical Exam General Appearance: no apparent distress, obese EENT: No thrush Respiratory: lungs clear Extremities: other (Right lower extremity with blanching erythema there is some erythematous papules there excoriated on his pretibial area that are circumferential in extend up his inner thigh. He also has these on the pretibial areas of his left lower extremity as well. There is a small ulceration that is covered with a Mepilex. Right knee is chronically larger than the left. The right lower extremity is warm. No significant tenderness to palpation.) ICD10 Worksheet Patient Problems: Problems Problem Status Onset Bilateral cellulitis of lower leg Acute Abdominal pain Acute Acute renal failure Acute Cellulitis Acute Cellulitis of leg Acute Dehydration Acute Portal vein thrombosis Acute Severe sepsis Acute Umbilical hernia, incarcerated Acute Vomiting Acute
[2018-04-14] MEDS: ENOXAPARIN 40 MG/0.4 ML SYR SC SCH (09:40)
[2018-04-14] MEDS: PANTOPRAZOLE SODIUM 40 MG TAB PO SCH (09:41)
[2018-04-14] MEDS: LISINOPRIL 40 MG TAB PO SCH (09:41)
[2018-04-14] MEDS: LEVOTHYROXINE 100 MCG TAB PO SCH (09:41)
[2018-04-14] MEDS: buPROPion XL 150 MG TAB PO SCH ×2 (09:41→20:50)
[2018-04-14] MEDS: TAMSULOSIN HCL 0.4 MG CAP PO SCH (09:41)
[2018-04-14] MEDS: PARoxetine HCL 20 MG TAB PO SCH ×2 (09:45→20:51)
[2018-04-14] MEDS: GABAPENTIN 400 MG CAP PO SCH ×4 (09:49→20:51)
[2018-04-14] MEDS: TORSEMIDE 10 MG TAB PO SCH (10:00)
[2018-04-14] MEDS: SENNOSIDES/DOCUSATE SODIUM TAB PO SCH ×2 (10:02→22:12)
[2018-04-14] MEDS: DAPTOmycin 550 MG in NS 100 ML IV SCH (12:01)
[2018-04-14] MEDS: SODIUM FERRIC GLUCONAT/SUCROSE 125 MG in NS 100 ML IV SCH (12:01)
[2018-04-14] MEDS: TRIAMCINOLONE 0.1% 15GM OINT TP SCH ×3 (13:44→22:12)
--- NOTE | 2018-04-14 18:13 | HOSPPROG ---
Hospitalist Progress Note Assessment/Plan: DIAGNOSES: * Acute stasis dermatitis of both legs, moderately severe with ongoing severe bilateral leg edema * ? Cellulitis of legs * History of right septic prosthetic knee joint * Chronic edema of legs, severe; I suspect there is some right-sided congestive heart failure due to his obesity/sleep apnea and chronic lung disease though this was not borne out by an echocardiogram 2 years ago (though images were limited by his obesity); notably however he also has history of portal vein thrombosis * Chronic respiratory failure likely due to obesity, with home oxygen * Chronic pain in the back with chronic high-dose prescribed narcotics and chronic gabapentin use * Chronic microcytic anemia with both thalassemia and chronic iron deficiency -Ferritin and Fe Sat both low but are the best numbers we have in our lab data so far -gi w/u's neg in past -one dose IV iron given 04/13 PLANS: * continue IV dapto * Continue leg elevation * Continue diuretic * Continue 2 g sodium diet * Continue restricted fluid intake * Trav wraps of his legs * I had a long talk again today with the patient on the importance of minimizing edema in the legs and the importance of all of the above measures to maintain better skin health in his legs Pt to remain with inpt care for ongoing diuresis, IV antibiotics SUBJECTIVE: Still with pain in both legs, unchanged from prior No fever chills or sweats OBJECTIVE Vitals reviewed: There has been no fever during this hospital stay; vital stable overall I&O continues to diurese reasonably well Exam: alert oriented skin warm dry color ok resps not labored lungs clear BSs heart regular abd soft nondistended nontender, bowel sounds present limbs still a lot of edema but noticably less each day; very slow progress on cellulitis/stasis dermatitis iv site ok Objective: Vital Signs Temp Pulse Resp BP Pulse Ox 36.7 C 98 16 129/82 H 93 04/14/18 16:19 04/14/18 16:19 04/14/18 16:19 04/14/18 16:19 04/14/18 16:19 Laboratory Results 04/13/18 04:15 04/13/18 04:15 04/13/18 04/14/18 04/15/18 06:59 06:59 06:59 Intake Total 350 1110 Output Total 2024 1900 400 Balance -1675 -790 -400 ICD10 Worksheet Patient Problems: Problems Problem Status Onset Bilateral cellulitis of lower leg Acute Abdominal pain Acute Acute renal failure Acute Cellulitis Acute Cellulitis of leg Acute Dehydration Acute Portal vein thrombosis Acute Severe sepsis Acute Umbilical hernia, incarcerated Acute Vomiting Acute
[2018-04-14] MEDS: LISINOPRIL 20 MG TAB PO SCH (20:51)
[2018-04-15] MEDS: MELATONIN 3 MG TAB PO SCH ×2 (00:36→23:51)
[2018-04-15] MEDS: GABAPENTIN 400 MG CAP PO SCH ×4 (04:23→20:14)
[2018-04-15] MEDS: oxyCODONE CR 80 MG TAB PO SCH ×3 (04:23→20:13)
--- NOTE | 2018-04-15 08:17 | HOSPPROG ---
Hospitalist Progress Note Assessment/Plan: #Bilateral leg dermatitis with overlying right leg cellulitis -ID following. Daptomycin, transition to orals in 1-2 days #Iron deficiency anemia: IV iron #Chronic leg edema: suspect underlying RHF with TYRONE -rec diuretics, but he declined #Chronic pain with opioid dependency #Diabetes: diet-controlled #HTN: home meds #TYRONE: CPAP #Diet: regular #DVT ppx:Lovenox #Disp: inpt admission for IV abx Subjective: right leg with less redness and swelling Objective: Vital Signs Temp Pulse Resp BP Pulse Ox 36.5 C 78 18 129/86 H 91 L 04/15/18 08:12 04/15/18 08:12 04/15/18 08:12 04/15/18 08:12 04/15/18 08:12 Laboratory Results 04/13/18 04:15 04/13/18 04:15 04/14/18 04/15/18 04/16/18 05:59 05:59 05:59 Intake Total 1110 500 Output Total 1900 1250 Balance -790 -750 - Time Spent With Patient Time Spent with Patient: greater than 35 minutes Time Spent with Patient: Greater than 35 minutes spent on this patients care, greater than 50% of time spent counseling, educating, and coordinating care regarding the above mentioned plan. - Physical Exam Constitutional: no apparent distress Ears, Nose, Mouth, Throat: moist mucous membranes Cardiovascular: regular rate and rhythym, edema Respiratory: no respiratory distress Gastrointestinal: normoactive bowel sounds Genitourinary: No rasmussen in urethra Skin: other (papular lesions, chronic venous stasis BL legs with mild erythema RLE) Musculoskeletal: full muscle strength Neurologic: AAOx3, CN II-XII Intact Psychiatric: interacting appropriately, anxious ICD10 Worksheet Patient Problems: Problems Problem Status Onset Umbilical hernia, incarcerated Acute Cellulitis of leg Acute Acute renal failure Acute Severe sepsis Acute Cellulitis Acute Vomiting Acute Dehydration Acute Abdominal pain Acute Portal vein thrombosis Acute Bilateral cellulitis of lower leg Acute
[2018-04-15] MEDS: MOMETASONE IH SCH ×2 (10:09→21:32)
[2018-04-15] MEDS: FORMOTEROL IH SCH ×2 (10:09→21:32)
[2018-04-15] MEDS: LEVOTHYROXINE 100 MCG TAB PO SCH (10:32)
[2018-04-15] MEDS: buPROPion XL 150 MG TAB PO SCH ×2 (10:32→20:13)
[2018-04-15] MEDS: LISINOPRIL 40 MG TAB PO SCH (10:33)
[2018-04-15] MEDS: TAMSULOSIN HCL 0.4 MG CAP PO SCH (10:33)
[2018-04-15] MEDS: TORSEMIDE 10 MG TAB PO SCH (10:36)
[2018-04-15] MEDS: PANTOPRAZOLE SODIUM 40 MG TAB PO SCH (10:38)
[2018-04-15] MEDS: PARoxetine HCL 20 MG TAB PO SCH ×2 (10:39→20:14)
[2018-04-15] MEDS: ENOXAPARIN 40 MG/0.4 ML SYR SC SCH (10:39)
[2018-04-15] MEDS: SENNOSIDES/DOCUSATE SODIUM TAB PO SCH ×2 (10:44→20:15)
[2018-04-15] MEDS: TRIAMCINOLONE 0.1% 15GM OINT TP SCH ×3 (10:44→20:15)
[2018-04-15] MEDS: SODIUM FERRIC GLUCONAT/SUCROSE 125 MG in NS 100 ML IV SCH (12:14)
[2018-04-15] MEDS: IPRATROPIUM/ALBUTEROL 3 ML DEYVIAL IH PRN (12:24)
[2018-04-15] MEDS: DAPTOmycin 550 MG in NS 100 ML IV SCH (13:50)
--- NOTE | 2018-04-15 16:49 | PCMIDPN ---
Assessment/Plan: Assessment: 63-year-old man with bilateral stasis dermatitis of the lower extremities with right greater than the left, complicated by possible right lower extremity cellulitis. Clinically improved with decreased swelling and aching pain that he describes as "bone pain" in the right lower extremity. Unclear etiology of the papular lesions that are primarily on the right lower extremity but also exists on the left lower extremity. The continue daptomycin of though he could discharge on oral therapy within the next couple of days. 1. Probable right lower extremity cellulitis complicating chronic venous stasis and edema 2. Chronic bilateral lower extremity venous stasis dermatitis 3. Predominantly right lower extremity papular skin lesions of unclear etiology 4. Acute kidney injury, improved Plan: 1. Continue daptomycin 2. Anticipate transition to oral therapy next couple of days 3. Discussed in detail with patient possible side effects daptomycin which include elevated creatine kinase, myalgias, rash, and pneumonia 04/15/18 16:52 Subjective: No fever or chills overnight. No rash or diarrhea. Right lower extremity pain and swelling improved. Eating without nausea. Objective: Vital Signs Temp Pulse Resp BP Pulse Ox 36.9 C 97 16 120/76 90 L 04/15/18 15:28 04/15/18 15:28 04/15/18 15:28 04/15/18 15:28 04/15/18 15:28 Laboratory Results 04/13/18 04:15 04/13/18 04:15 04/14/18 04/15/18 04/16/18 05:59 05:59 05:59 Intake Total 1110 500 Output Total 1900 1250 300 Balance -790 -750 -300 C-Reactive Protein 60.6 mg/L (<10.0) H 04/13/18 04:15 Laboratory Tests 04/12/18 04/13/18 04/13/18 14:10 04:15 04:15 WBC 9.63 H 6.95 Creatinine 1.3 - Physical Exam General Appearance: alert, no apparent distress, obese, non-toxic EENT: No scleral icterus Respiratory: lungs clear, normal breath sounds, No respiratory distress, No crackles, No wheezing Neck: full range of motion, supple Cardiac/Chest: regular rate, rhythm, No bradycardia, No tachycardia, No diastolic murmur, No systolic murmur Extremities: other (Right lower extremity with chronic knee deformity, erythema with discrete papules extending from the knee distally down to the foot the, erythema circumferential around the mansfield, no tenderness to palpation, no drainage; left lower extremity with small erosion the anterior mansfield, mild erythema, scattered papular lesions) Abdomen: non-tender, soft, No distended, No guarding Back: normal inspection Neuro/Psych: alert, normal mood/affect, oriented x 3, No confused - Time Spent With Patient Time Spent with Patient: greater than 35 minutes (Greater than 35 min spent in counseling, educating, and coordinating care counseling provided regarding potential side effects of antibiotics, at a history of stasis dermatitis, risks and benefits of ongoing antibacterial therapy) Time Spent with Patient: Greater than 35 minutes spent on this patients care, greater than 50% of time spent counseling, educating, and coordinating care regarding the above mentioned plan. ICD10 Worksheet Patient Problems: Problems Problem Status Onset Umbilical hernia, incarcerated Acute Cellulitis of leg Acute Acute renal failure Acute Severe sepsis Acute Cellulitis Acute Vomiting Acute Dehydration Acute Abdominal pain Acute Portal vein thrombosis Acute Bilateral cellulitis of lower leg Acute
[2018-04-15] MEDS: LISINOPRIL 20 MG TAB PO SCH (20:13)
[2018-04-16] MEDS: GABAPENTIN 400 MG CAP PO SCH ×4 (04:33→20:07)
[2018-04-16] MEDS: oxyCODONE CR 80 MG TAB PO SCH ×3 (04:33→20:08)
--- NOTE | 2018-04-16 08:09 | HOSPPROG ---
Hospitalist Progress Note Assessment/Plan: #Bilateral leg dermatitis with overlying right leg cellulitis -ID following. Daptomycin here and no abx at DC #Iron deficiency anemia: IV iron x 4 days #Chronic leg edema: suspect underlying RHF with TYRONE -rec diuretics, but he declined #Chronic pain with opioid dependency #Diabetes: diet-controlled #Depression: Paxil #HTN: home meds #Gait instability: home PT/OT #TYRONE: CPAP #Diet: regular #DVT ppx:Lovenox #Disp: inpt admission for abx, PT. Can DC tomorrow if clinically stable Subjective: "harder to walk on right leg" Objective: Vital Signs Temp Pulse Resp BP Pulse Ox 36.6 C 79 18 128/87 H 90 L 04/16/18 04:00 04/16/18 04:00 04/16/18 04:00 04/16/18 04:00 04/16/18 04:00 Laboratory Results 04/13/18 04:15 04/13/18 04:15 04/15/18 04/16/18 04/17/18 05:59 05:59 05:59 Intake Total 500 Output Total 1250 725 Balance -129 -722 - Time Spent With Patient Time Spent with Patient: greater than 35 minutes Time Spent with Patient: Greater than 35 minutes spent on this patients care, greater than 50% of time spent counseling, educating, and coordinating care regarding the above mentioned plan. - Physical Exam Constitutional: no apparent distress Eyes: PERRL Ears, Nose, Mouth, Throat: moist mucous membranes Cardiovascular: regular rate and rhythym Respiratory: no respiratory distress Gastrointestinal: normoactive bowel sounds Genitourinary: no bladder fullness Skin: other (papules over BL legs ) ICD10 Worksheet Patient Problems: Problems Problem Status Onset Bilateral cellulitis of lower leg Acute Abdominal pain Acute Acute renal failure Acute Cellulitis Acute Cellulitis of leg Acute Dehydration Acute Portal vein thrombosis Acute Severe sepsis Acute Umbilical hernia, incarcerated Acute Vomiting Acute
[2018-04-16] MEDS: LISINOPRIL 40 MG TAB PO SCH (09:17)
[2018-04-16] MEDS: PARoxetine HCL 20 MG TAB PO SCH ×2 (09:17→20:08)
[2018-04-16] MEDS: buPROPion XL 150 MG TAB PO SCH ×2 (09:17→20:08)
[2018-04-16] MEDS: PANTOPRAZOLE SODIUM 40 MG TAB PO SCH (09:17)
[2018-04-16] MEDS: LEVOTHYROXINE 100 MCG TAB PO SCH (09:17)
[2018-04-16] MEDS: FORMOTEROL IH SCH ×2 (09:18→20:08)
[2018-04-16] MEDS: MOMETASONE IH SCH ×2 (09:18→20:08)
[2018-04-16] MEDS: ENOXAPARIN 40 MG/0.4 ML SYR SC SCH (09:18)
[2018-04-16] MEDS: TAMSULOSIN HCL 0.4 MG CAP PO SCH (09:18)
[2018-04-16] MEDS: SENNOSIDES/DOCUSATE SODIUM TAB PO SCH ×2 (09:21→20:08)
[2018-04-16] MEDS: SODIUM FERRIC GLUCONAT/SUCROSE 125 MG in NS 100 ML IV SCH (09:21)
[2018-04-16] MEDS: TRIAMCINOLONE 0.1% 15GM OINT TP SCH ×3 (09:21→20:08)
[2018-04-16] MEDS: IPRATROPIUM/ALBUTEROL 3 ML DEYVIAL IH PRN ×2 (10:17→17:56)
--- NOTE | 2018-04-16 11:36 | ASMTCMCOM ---
CM Note CM Note Notes: Met with pt, will accept home PT but it cannot start until next Friday. CM spoke w/Kesty at [facility] and that is ok as long as the order states the start date. DC Plan: [facility] (PT) Date Signed: 04/16/2018 11:28 AM Electronically Signed By:Ashleigh Javier RN
[2018-04-16] MEDS: DAPTOmycin 550 MG in NS 100 ML IV SCH (12:37)
--- NOTE | 2018-04-16 16:28 | PCMIDPN ---
Assessment/Plan: Assessment: 63-year-old man with bilateral stasis dermatitis of the lower extremities with right greater than the left, complicated by possible right lower extremity cellulitis. Clinically improved locally with decreased swelling and decreased erythema. Had extensive discussion with patient and family member at bedside regarding the fact that longer duration of antibiotics does not necessarily correlate with a better outcome in that 7 days for cellulitis, even with 3 current cellulitis, 1 has been noticeable improvement in the extremity is an adequate treatment course. Explored numerous potential oral step-down therapies, linezolid a good choice with his relatively high dose of Paxil. He has numerous antibiotic intolerances and not necessarily allergies. He has agreed to discharge home tomorrow with no further antibiotics he. 1. Probable right lower extremity cellulitis complicating chronic venous stasis and edema; improved 2. Chronic bilateral lower extremity venous stasis dermatitis 3. Predominantly right lower extremity papular skin lesions of unclear etiology 4. Acute kidney injury, improved Plan: 1. Stop daptomycin today, he has had 7 days of antibiotic therapy 2. Discussed in detail with patient possible side effects daptomycin which include elevated creatine kinase, myalgias, rash, and pneumonia 3. He will need podiatry referral and Dermatology referral as outpatient Subjective: No fever or chills. No diarrhea. States he feels the right lower extremity swelling is much improved, erythema approximately 20% improved. No new rashes or skin lesions. Eating and drinking without nausea. Objective: Vital Signs Temp Pulse Resp BP Pulse Ox 37.1 C 92 18 136/87 H 96 04/16/18 16:00 04/16/18 16:00 04/16/18 16:00 04/16/18 16:00 04/16/18 16:00 Laboratory Results 04/13/18 04:15 04/13/18 04:15 04/15/18 04/16/18 04/17/18 05:59 05:59 05:59 Intake Total 500 500 Output Total 1250 725 750 Balance -750 -725 -250 C-Reactive Protein 60.6 mg/L (<10.0) H 04/13/18 04:15 Laboratory Tests 04/10/18 04/12/18 04/13/18 18:15 14:10 04:15 WBC 9.63 H C-Reactive Protein 28.9 H 60.6 H 04/13/18 04:15 WBC 6.95 C-Reactive Protein Medications Generic Name Dose Route Start Last Admin Trade Name Delma PRN Reason Stop Dose Admin Daptomycin 550 mg/ Sodium 111 mls @ 200 mls/hr 04/12/18 13:00 04/16/18 12:37 Chloride IV 05/12/18 12:59 111 mls DAILY@1300 ERIK Protocol - Physical Exam General Appearance: alert, no apparent distress, non-toxic EENT: No scleral icterus Respiratory: lungs clear, normal breath sounds, No respiratory distress, No crackles, No wheezing Neck: full range of motion, supple Cardiac/Chest: regular rate, rhythm, No bradycardia, No tachycardia, No diastolic murmur, No systolic murmur Extremities: other (Right lower extremity with chronic knee deformity, erythema with discrete papules extending from the knee distally down to the foot, erythema circumferential around the mansfield, no tenderness to palpation, no drainage; left lower extremity a small erosion the anterior mansfield, mild erythema , scattered papular lesions) Skin: other (See extremity exam) Neuro/Psych: alert, normal mood/affect, oriented x 3 - Time Spent With Patient Time Spent with Patient: greater than 35 minutes (Approximately 90 min spent with patient discussing recurrent cellulitis, risks of ongoing antibacterial therapy, alternative therapies including oral medications, importance of aggressive edema control in preventing recurrent infections) Time Spent with Patient: Greater than 35 minutes spent on this patients care, greater than 50% of time spent counseling, educating, and coordinating care regarding the above mentioned plan. ICD10 Worksheet Patient Problems: Problems Problem Status Onset Bilateral cellulitis of lower leg Acute Abdominal pain Acute Acute renal failure Acute Cellulitis Acute Cellulitis of leg Acute Dehydration Acute Portal vein thrombosis Acute Severe sepsis Acute Umbilical hernia, incarcerated Acute Vomiting Acute
[2018-04-16] MEDS: MELATONIN 3 MG TAB PO SCH (20:07)
[2018-04-16] MEDS: LISINOPRIL 20 MG TAB PO SCH (20:08)
[2018-04-17] MEDS: oxyCODONE CR 80 MG TAB PO SCH ×2 (03:10→10:58)
[2018-04-17] MEDS: GABAPENTIN 400 MG CAP PO SCH ×2 (05:12→10:57)
[2018-04-17] MEDS: LISINOPRIL 40 MG TAB PO SCH (08:45)
[2018-04-17] MEDS: IPRATROPIUM/ALBUTEROL 3 ML DEYVIAL IH PRN (09:05)
[2018-04-17] MEDS: MOMETASONE IH SCH (09:18)
[2018-04-17] MEDS: FORMOTEROL IH SCH (09:18)
[2018-04-17] MEDS: SENNOSIDES/DOCUSATE SODIUM TAB PO SCH (09:18)
[2018-04-17] MEDS: TAMSULOSIN HCL 0.4 MG CAP PO SCH (09:25)
[2018-04-17] MEDS: buPROPion XL 150 MG TAB PO SCH (09:25)
[2018-04-17] MEDS: PARoxetine HCL 20 MG TAB PO SCH (09:25)
[2018-04-17] MEDS: ENOXAPARIN 40 MG/0.4 ML SYR SC SCH (09:25)
[2018-04-17] MEDS: PANTOPRAZOLE SODIUM 40 MG TAB PO SCH (09:25)
[2018-04-17] MEDS: LEVOTHYROXINE 100 MCG TAB PO SCH (09:26)
--- NOTE | 2018-04-17 09:39 | PCMIDPN ---
Assessment/Plan: Assessment/Plan: * Right lower extremity cellulitis superimposed on chronic venous insufficiency/ chronic lymphedema: Residual erythema consistent with venous insufficiency change without findings of ongoing cellulitis. Patient has completed 7 days of daptomycin. Patient will resume his suppressive cephalexin at twice daily dosing. Encouraged elevation, compression and use of lymphedema pumps; he notes intolerance of compression including limited compression with Trav wraps. Will arrange for follow-up in the office next week. 04/17/18 09:37 Subjective: Patient notes improving ambulation and decreasing right lower extremity pain. Clinical findings and course reviewed today. Objective: Vital Signs Temp Pulse Resp BP Pulse Ox 36.5 C 87 16 100/72 92 04/17/18 07:43 04/17/18 09:08 04/17/18 09:08 04/17/18 08:45 04/17/18 09:08 Laboratory Results 04/13/18 04:15 04/13/18 04:15 04/16/18 04/17/18 04/18/18 05:59 05:59 05:59 Intake Total 1100 Output Total 725 1125 Balance -725 -25 C-Reactive Protein 60.6 mg/L (<10.0) H 04/13/18 04:15 No antibiotic therapy Status post 7 days of daptomycin - Physical Exam General Appearance: alert, no apparent distress, non-toxic Extremities: inflammation (Right lower extremity with erythema present over majority of lower extremity below knee; minimal associated warmth; no tenderness palpation; chronic deformity of knee which is unchanged versus prior examinations) Lymphatic: other (No right thigh lymphangitis) - Time Spent With Patient Time Spent with Patient: greater than 25 minutes Time Spent with Patient: Greater than 25 minutes spent on this patients care, greater than 50% of time spent counseling, educating, and coordinating care regarding the above mentioned plan. ICD10 Worksheet Patient Problems: Problems Problem Status Onset Bilateral cellulitis of lower leg Acute Abdominal pain Acute Acute renal failure Acute Cellulitis Acute Cellulitis of leg Acute Dehydration Acute Portal vein thrombosis Acute Severe sepsis Acute Umbilical hernia, incarcerated Acute Vomiting Acute
[2018-04-17] MEDS: TRIAMCINOLONE 0.1% 15GM OINT TP SCH (09:47)
--- NOTE | 2018-04-17 10:12 | PDIAF ---
- Diagnosis Diagnosis: Right leg cellulitis Code Status: Full Code - Medication Management Additional Medication Instructions: Wants therapy to start Apr 21 Discharge Medications: electronically signed and located in the Home Medication List. - Orders Services needed: Registered Nurse, Physical Therapy, Occupational Therapy Isolation Type: None Diet Recommendation: sodium restricted Diet Texture: Regular Texture Diet Additional Instructions: Blood pressure has been low while hospitalized. Hold Lisinopril for next 3-5 days. Check blood pressure 2 times a day and take to your primary care doctor. - Follow Up Care Current Providers and Referrals: Travon Stone MD [Medical Doctor] - 04/22/18 1:00 pm NONE *PRIMARY CARE P,. [Primary Care Provider] - As per Instructions
--- NOTE | 2018-04-17 11:13 | GDS ---
DISCHARGE DIAGNOSES: 1. Right lower extremity cellulitis superimposed on chronic venous insufficiency/lymphedema. 2. Hypertension. 3. Iron-deficiency anemia. 4. Chronic pain with opioid dependency. 5. Diabetes, diet controlled. 6. Depression. 7. Gait instability. 8. Obstructive sleep apnea on CPAP. HISTORY OF PRESENT ILLNESS: A 63-year-old male well known to Infectious Disease Team for long-standing leg venous insufficiency and recurrent cellulitis with a prior infected right knee prosthesis, presented to the ER with swelling and redness of his legs, worse on the right. He is on chronic Keflex by ID. HOSPITAL COURSE BY PROBLEM: 1. Right lower extremity cellulitis superimposed on chronic venous insufficiency/lymphedema: completed 7 days of daptomycin here in the hospital and will resume suppressive Keflex twice a day. Encouraged elevation, compression, and use of lymphedema pumps. Advised diuretics, he declined. FU with Dr. Stone 2. Iron-deficiency anemia: received 4 days of IV iron here. 3. Chronic leg edema: suspect right heart failure with TYRONE. Recommended diuretics but he declined. 4. Chronic pain with opioid dependency: Resume home medications. 5. Diabetes, diet controlled. 6. Depression: Paxil. 7. Hypertension: Blood pressures have been borderline here. Hold Lisinopril and check BPs at home. FU with PCP. 8. TYRONE: CPAP. 9. Gait instability: Home PT, OT. DISPOSITION: Patient is stable for discharge home with [facility]. NEW MEDICATIONS: None. FOLLOWUP: 1. Dr. Stone. 2. Blood pressure with his primary care physician. PHYSICAL EXAMINATION: VITAL SIGNS: Today, temperature 36.5, blood pressure 100 /72, heart rate is in the 70s, respirations 16, 91% on room air. GENERAL: Sitting up in bed, no acute distress. HEENT: PERRLA. Moist mucous membranes. CV: Regular rate and rhythm. LUNGS: Clear. ABDOMEN: Soft, nontender. : No Guo. MUSCULOSKELETAL: Erythema, bilateral legs, greater on the right with overlying dermatitis. No tenderness or swelling over the right knee joint. Time spent in discharge greater than 30 minutes discussing followup plan with patient and discussing case with Dr. Stone. /[id number]/MODL MTDD
[2018-04-17 11:36] VITALS: BP 107/71
--- NOTE | 2018-04-17 12:43 | ASMTLACE ---
LACE Length of stay for Answers: 4-6 days current admission Acuity / Level of Answers: Yes Care: Did the patient have an inpatient admission? Comorbidities - select Answers: Diabetes (uncontrolled or all that apply controlled) Opioid dependence / Chronic pain Other Notes: Recurrent cellulitis; HTN; Hx of DVT # of Emergency department Answers: 1-2 visits in the last 6 months Score: 14 Date Signed: 04/17/2018 12:43 PM Electronically Signed By:Ashleigh Javier RN
--- NOTE | 2018-04-17 12:56 | ASMTDCNOTE ---
Case Management Discharge Discharge Order Complete? Answers: Yes Patient to Obtain Answers: Independently Medications Transportation Arranged Answers: Family/Friends Faxed Final Orders Answers: Yes Agency/Facility Transfer Answers: Yes Report Printed & Faxed to Receiving Agency Discharge Comments Notes: D/w , final orders in chart. Marcelina at [facility] notified, and dc order written for homecare to begin on the 21 of April. RN to leave report. Date Signed: 04/17/2018 12:55 PM Electronically Signed By:Ashleigh Javier RN
--- NOTE | 2018-04-17 16:08 | ASDISCHSUM ---
Discharge Information Plan Status:Home with Home Health Medically Cleared to Leave:04/16/2018 Discharge Date:04/17/2018 01:49 PM D/C Disposition: ADT D/C Disposition:Home, Routine, Self-Care Projected Discharge Date:04/17/2018 11:00 AM Transportation at D/C: Discharge Delay Reason: Follow-Up Date:04/17/2018 11:00 AM Discharge Slot: Final Diagnosis: Placement Information Referral Type:*Home Health Care Services Referral ID:[id number] Provider Name:[facility] Address 1:[address] [facility] [address] Address 2: City:[place] Selection Factors: State:[place] Patient Contact Information Contact Name:ANUJ Relationship: Address:[address] City:[place] Alternate Phone: State/Zip Code:[place] [address] Email: Financial Information Financial Class:Medicare Primary Plan Desc:MEDICARE INPATIENT Primary Plan Number:[id number] Secondary Plan Desc:[facility] Secondary Plan Number:[id number] Assessment Information [facility] CM Progress Note CM Note CM Note Notes: 04/11/2018 Case Management Note Pt admitted for lower extremity acute stasis dermatitis with possible cellulitis. PT OT duncanals pending. Pt is . Pt historically refuses home care support at discharge. Anticipating independent discharge with follow up as directed. Case Management d/c poc: to be determined. Case Management to follow. Date Signed: 04/11/2018 05:17 PM Electronically Signed By:Prema Kirkpatrick RN [facility] Length of stay for Answers: 4-6 days current admission Acuity / Level of Answers: Yes Care: Did the patient have an inpatient admission? Comorbidities - select Answers: Diabetes (uncontrolled or all that apply controlled) Opioid dependence / Chronic pain Other Notes: Recurrent cellulitis; HTN; Hx of DVT # of Emergency department Answers: 1-2 visits in the last 6 months Score: 14 Date Signed: 04/17/2018 12:43 PM Electronically Signed By:Ashleigh Javier RN [facility] Progress Note CM Note CM Note Notes: Per PT/OT and Infectious Disease, patient not ready for d/c. He has been very disagreeable w some staff regarding recommendations for his care; for example, he should have home health PT but refuses. Will likely need IV abx upon discharge. Case Management will continue to follow. Date Signed: 04/13/2018 02:33 PM Electronically Signed By:Inessa Narayanan RN [facility] CM Progress Note CM Note CM Note Notes: Met with pt, will accept home PT but it cannot start until next Friday. WEST spoke w/Marcelina at [facility] and that is ok as long as the order states the start date. DC Plan: [facility] (PT) Date Signed: 04/16/2018 11:28 AM Electronically Signed By:Ashleigh Javier RN Case Management Discharge Plan Note Case Management Discharge Discharge Order Complete? Answers: Yes Patient to Obtain Answers: Independently Medications Transportation Arranged Answers: Family/Friends Faxed Final Orders Answers: Yes Agency/Facility Transfer Answers: Yes Report Printed & Faxed to Receiving Agency Discharge Comments Notes: D/w , final orders in chart. Marcelina at [facility] notified, and dc order written for homecare to begin on the 21 of April. RN to leave report. Date Signed: 04/17/2018 12:55 PM Electronically Signed By:Ashleigh Javier RN Intervention Information
== END 2018-04-17 13:49 | disposition home health service (06) | DRG 603 ==
LOC: F3E 17:19
PROVIDERS: ADMIT Internal Medicine; ATTEND Internal Medicine
DX: L03.115 Cellulitis of right lower limb (principal); I87.2 Venous insufficiency (chronic) (peripheral); I89.0 Lymphedema, not elsewhere classified; N17.9 Acute kidney failure, unspecified; R26.89 Other abnormalities of gait and mobility; E11.9 Type 2 diabetes mellitus without complications; G47.33 Obstructive sleep apnea (adult) (pediatric); D50.9 Iron deficiency anemia, unspecified; G89.29 Other chronic pain; F11.20 Opioid dependence, uncomplicated; E03.9 Hypothyroidism, unspecified; I10 Essential (primary) hypertension; Z96.653 Presence of artificial knee joint, bilateral
CPT/HCPCS: 97116-GP; 97162-GP; 97166-GO; 97530-GO; 97530-GP; 97535-GO; J0878; J1071; J1650; J1940; J2916; J3370

== ENCOUNTER 2018-05-31 18:05 | Inpatient (IN) | payer OTHER ==
--- NOTE | 2018-05-31 19:30 | EDPHY ---
H & P Stated Complaint: slipped on ice 2 days ago l wrist inj also incresed chronic r leg celluliti Time Seen by Provider: 05/31/18 18:46 HPI/ROS: CHIEF COMPLAINT: Left wrist and elbow pain HISTORY OF PRESENT ILLNESS: 63-year-old male presents with left wrist and elbow pain. He slipped and fell 2 days ago. Gradually increasing left wrist and elbow pain since then. Initially, no wrist pain after the fall and able to use wrist normally. Today he has been unable to use left wrist because of moderate pain and swelling. Also has felt ill today, with decreased appetite. Chronic bilateral venous stasis, increased swelling and redness of the right lower extremity. On Keflex prophylaxis. No fever or chills. Last oral intake at 1530. He did not hit his head during the fall; no JOHNSON or neck pain. REVIEW OF SYSTEMS: complete 10 point ROS reviewed and is negative except for the noted elements in the HPI - Personal History Current Tetanus Diphtheria and Acellular Pertussis (TDAP): Yes - Medical/Surgical History Hx Asthma: No Hx Chronic Respiratory Disease: No Hx Diabetes: No Hx Cardiac Disease: No Hx Renal Disease: No Hx Cirrhosis: No Hx Alcoholism: No Hx HIV/AIDS: No Hx Splenectomy or Spleen Trauma: No Other PMH: BILAT KNEE PROB/BACK SURGERY/FX WRIST, hernia repair, recurrent cellulitis both legs, HTN, damaged pubic bone, fall. 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 - Social History Smoking Status: Never smoked - Physical Exam Exam: General Appearance: Alert, pleasant Head: Atraumatic Eyes: No conjunctival erythema or periorbital ecchymosis; disconjugate gaze present ENT, Mouth: no oral trauma, no bony tenderness Neck: Nontender, full range of motion without pain Respiratory: No chest wall tenderness, lungs clear bilaterally Cardiovascular: Regular rate and rhythm Abdomen: Abdomen is soft and nontender Skin: No lacerations, no abrasions Back: No midline T/L/S tenderness Extremities: Left upper extremity-erythema warmth and tenderness over the posterior aspect of the elbow and olecranon a bursa, elbow range of motion without pain; left wrist deformity and mild tenderness, range of motion with minimal pain, ecchymosis of the hand and wrist; bilateral brawny edema of legs , right slightly more erythematous than left. Neurological: A&Ox3, normal motor function, normal sensory exam, cranial nerves intact Psychiatric: Mood and affect normal Constitutional: Initial Vital Signs Temperature (C) 37.2 C 05/31/18 18:19 Heart Rate 104 H 05/31/18 18:19 Respiratory Rate 18 05/31/18 18:19 Blood Pressure 137/93 H 05/31/18 18:19 O2 Sat (%) 92 05/31/18 18:19 O2 Delivery Mode Room Air Allergies/Adverse Reactions: celecoxib [From Celebrex] Allergy (Intermediate, Verified 05/31/18 22:27) Other-Enter Comments ibuprofen Allergy (Intermediate, Verified 05/31/18 22:27) Other-Enter Comments amoxicillin [Amoxicillin] Allergy (Mild, Verified 05/31/18 22:27) NAUSEA codeine [Codeine] Allergy (Mild, Verified 05/31/18 22:27) NAUSEA hydromorphone HCl [From Dilaudid] Allergy (Mild, Verified 05/31/18 22:27) NAUSEA/DOESN'T WORK clavulanic acid [Clavulanic Acid] Allergy (Unknown, Verified 05/31/18 18:18) ciprofloxacin [From Cipro] Allergy (Verified 05/31/18 22:27) Other-Enter Comments nystatin Allergy (Verified 05/31/18 22:27) Hives Home Medications: Medication Instructions Recorded Gabapentin [Gabapentin 800 mg] 800 mg PO QID 01/27/14 Pantoprazole Sodium 40 mg PO DAILYAC 01/27/14 Tamsulosin HCl [Flomax 0.4 MG (*)] 0.4 mg PO DAILY 01/27/14 Testosterone Cypionate 200 mg IM MO@0900 01/27/14 Levothyroxine Sodium 100 mcg PO DAILY06 11/09/16 buPROPion XL [Wellbutrin 150mg XL] 300 mg PO DAILY 11/09/16 Lisinopril [Zestril 40 mg (*)] 40 mg PO DAILY 07/28/17 Mometasone/Formoterol [Dulera 200 1 puffs IH BID 12/02/17 Mcg/5 Mcg Inhaler] Cephalexin [Keflex (*)] 500 mg PO BID 04/10/18 PARoxetine HCL [Paxil 20mg (*)] 20 mg PO BID 04/10/18 buPROPion XL [Wellbutrin 150mg XL] 150 mg PO HS 04/10/18 oxyCODONE CR [Oxycontin] 80 mg PO TID@,,04/10/18 oxyCODONE IR [Oxycodone Ir (*)] 60 mg PO TID@,,04/10/18 Tadalafil 5 mg PO DAILY 05/31/18 Herbals/Supplements -Info Only 1 ea PO DAILY 06/01/18 Medical Decision Making - Diagnostics Imaging Results: Wrist X-Ray 05/31/18 18:46 Impression: Soft tissue swelling, greatest dorsally. Difficult to exclude 2 tiny radiopaque foreign bodies. 2. Left Wrist, 4 views including a navicular view History: Pain and bruising with inability to use the wrist, post fall a few days ago, Findings: There is diffuse soft tissue swelling around the wrist. No definite acute fracture is identified. The distal radius and ulna are chronically deformed consistent with remote trauma. There is a palmar dislocation of the carpus compared to the chronically deformed distal radius. The carpus is abnormal. The proximal carpal row is not well defined. There is chronic fragmentation at the base of the thumb involving the greater multangular bone. There is a large hypertrophic ridge between the proximal first and second metacarpals. The navicular bone looks chronically deformed. Impression: Indeterminate age palmar carpal dislocation. There has likely been remote trauma to the wrist. Please see above. Noncontrast CT or MRI of the wrist might be helpful. If there are any old x-rays, we would be happy to review them to assess for interval change. Is there a history of remote surgery ? Did this patient have an unusual occupation or hobby such as using a jackhammer? Elbow X-Ray 05/31/18 18:54 Impression: Soft tissue swelling, greatest dorsally. Difficult to exclude 2 tiny radiopaque foreign bodies. 2. Left Wrist, 4 views including a navicular view History: Pain and bruising with inability to use the wrist, post fall a few days ago, Findings: There is diffuse soft tissue swelling around the wrist. No definite acute fracture is identified. The distal radius and ulna are chronically deformed consistent with remote trauma. There is a palmar dislocation of the carpus compared to the chronically deformed distal radius. The carpus is abnormal. The proximal carpal row is not well defined. There is chronic fragmentation at the base of the thumb involving the greater multangular bone. There is a large hypertrophic ridge between the proximal first and second metacarpals. The navicular bone looks chronically deformed. Impression: Indeterminate age palmar carpal dislocation. There has likely been remote trauma to the wrist. Please see above. Noncontrast CT or MRI of the wrist might be helpful. If there are any old x-rays, we would be happy to review them to assess for interval change. Is there a history of remote surgery ? Did this patient have an unusual occupation or hobby such as using a jackhammer? Extremity CT 05/31/18 19:22 Impression: Palmarly dislocated radial carpal joint of unknown chronicity. 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 Please see above. Is there any history of gout or CPPD? Imaging: Discussed imaging studies w/ call center assistant Radiologist ED Course/Re-evaluation: This patient presents with a left olecranon bursitis and a left wrist dislocation. Unclear if the wrist dislocation is acute or chronic, as the patient has minimal pain and is able to flex and extend the wrist. However, he has been unable use the wrist today, 2 days after the injury. For this reason, CT wrist ordered. 193: Dr. Baum consulted. 1999: d/w Dr. Baum, CT reveals a probable chronic dislocation of the left wrist, but CT images are suboptimal. Will repeat CT with finer cuts through the wrist. Pt on antibiotic prophylaxis with Keflex for ongoing venous stasis of the lower extremities. He is allergic to amoxicillin and Cipro. Doxycycline 100mg orally given for bursitis. Pt seen by Dr. Baum in ED, feels left wrist is c/w chronic dislocation, requests pt admission for olecranon bursitis. Hospitalist service consulted by Dr. Baum. Differential Diagnosis: includes though not limited to fracture, acute dislocation, septic bursitis, DVT , cellulitis - Data Points Laboratory Results: Laboratory Results 06/01/18 04:40 06/01/18 04:40 Medications Given: Acetaminophen (Tylenol) 650 mg PO Q4HRS PRN PRN Reason: Pain, Mild/Fever, Can Take PO Stop: 11/27/18 22:58 Last Admin: 06/01/18 18:24 Dose: 650 mg Bupropion HCl (Wellbutrin Xl) 150 mg PO HS ERIK Stop: 11/27/18 23:44 Last Admin: 06/01/18 00:07 Dose: 150 mg Bupropion HCl (Wellbutrin Xl) 300 mg PO DAILY ERIK Stop: 11/28/18 08:59 Last Admin: 06/01/18 09:38 Dose: 300 mg Enoxaparin Sodium (Lovenox) 40 mg SC DAILY ERIK Stop: 11/28/18 08:59 Last Admin: 06/01/18 08:36 Dose: 40 mg Fluconazole (Diflucan) 200 mg PO DAILY ERIK Stop: 07/01/18 16:44 Last Admin: 06/01/18 17:32 Dose: 200 mg Gabapentin (Neurontin) 800 mg PO QID ERIK Stop: 11/27/18 23:44 Last Admin: 06/01/18 15:39 Dose: 800 mg Vancomycin/Sodium Chloride (Vancomycin 1 Gm (Premix)) 250 mls @ 250 mls/hr IV Q12H ERIK Stop: 07/01/18 09:59 Last Admin: 06/01/18 09:58 Dose: 250 mls Ketoconazole (Nizoral 2% Cream) 1 denice TP DAILY ERIK Stop: 07/01/18 16:44 Last Admin: 06/01/18 17:33 Dose: 1 denice Ketoconazole (Nizoral Shampoo) 1 denice TP DAILY ERIK Stop: 07/01/18 16:44 Last Admin: 06/01/18 18:03 Dose: Not Given Levothyroxine Sodium (Synthroid) 100 mcg PO DAILY06 ERIK Stop: 11/28/18 05:59 Last Admin: 06/01/18 05:24 Dose: 100 mcg Lisinopril (Zestril) 40 mg PO DAILY ERIK Stop: 11/28/18 08:59 Last Admin: 06/01/18 09:38 Dose: 40 mg Miscellaneous Medication (Mometasone/Formoterol [Dulera 200 Mcg/5 Mcg Inhaler]) 1 puffs IH BID ERIK Stop: 11/28/18 08:59 Last Admin: 06/01/18 20:08 Dose: Not Given Miscellaneous Medication (Tadalafil [Tadalafil]) 5 mg PO DAILY ERIK Stop: 11/28/18 08:59 Last Admin: 06/01/18 17:23 Dose: Not Given Miscellaneous Medication (Non-Formulary) 1 ea PO DAILY ERIK Stop: 11/28/18 15:44 Last Admin: 06/01/18 17:00 Dose: 1 cap Oxycodone HCl (Oxycontin) 80 mg PO TID@04,12,20 ERIK Stop: 06/10/18 23:44 Last Admin: 06/01/18 19:21 Dose: 80 mg Oxycodone HCl (Oxycodone Ir) 60 mg PO TID@,12,20 PRN PRN Reason: Pain Stop: 06/10/18 23:43 Last Admin: 06/01/18 19:21 Dose: 60 mg Pantoprazole Sodium (Protonix) 40 mg PO DAILYAC ERIK Stop: 11/28/18 07:29 Last Admin: 06/01/18 08:35 Dose: 40 mg Paroxetine HCl (Paxil) 20 mg PO BID ERIK Stop: 11/27/18 23:44 Last Admin: 06/01/18 09:38 Dose: 20 mg Tamsulosin HCl (Flomax) 0.4 mg PO DAILY ERIK Stop: 11/28/18 08:59 Last Admin: 06/01/18 09:38 Dose: 0.4 mg Testosterone Cypionate (Testosterone Im Syringe) 200 mg IM Mo@0900 ERIK Stop: 11/28/18 16:29 Last Admin: 06/01/18 17:31 Dose: 200 mg Discontinued Medications Doxycycline Hyclate (Doxycycline Hyclate) 100 mg PO EDNOW ONE PRN Reason: Protocol Stop: 05/31/18 21:08 Last Admin: 05/31/18 21:34 Dose: Not Given Vancomycin/Sodium Chloride (Vancomycin 1 Gm (Premix)) 250 mls @ 250 mls/hr IV EDNOW ONE PRN Reason: Protocol Stop: 05/31/18 22:59 Last Admin: 05/31/18 22:08 Dose: 250 mls Departure - Departure Disposition: [facility] Clinical Impression: Olecranon bursitis of left elbow, Chronic dislocation left wrist Condition: Good
[2018-05-31 19:44] LABS: PLATELET COUNT 272 10^3/uL (150-400)
[2018-05-31] MEDS ORDERED: DOXYCYCLINE HYCLATE 100 MG CAP/TAB PO ONE (21:07)
[2018-05-31] MEDS ORDERED: VANCOMYCIN HCL/NORMAL SALINE 250 ML IV ONE (22:00)
[2018-05-31] MEDS ORDERED: oxyCODONE IR 5 MG TAB PO PRN (22:59)
[2018-05-31] MEDS ORDERED: ONDANSETRON DISINTEGRATING 4 MG TAB PO PRN (22:59)
[2018-05-31] MEDS ORDERED: ONDANSETRON 4 MG/2 ML VIAL IVP PRN (22:59)
--- NOTE | 2018-05-31 23:42 | GCON ---
[f rep st] CONSULTATION REFERRING PHYSICIAN: Lurdes Salinas MD. REASON FOR CONSULTATION: Left wrist and elbow pain. CHIEF COMPLAINT: Left wrist and elbow pain. HISTORY OF PRESENT ILLNESS: The patient is a 63-year-old male who slipped and fell two days ago. He states that he hit his elbow and his wrist on the ground. Since then he has been having worsening left elbow pain. In addition he is also having increasing left wrist pain, and he states that he cannot use his wrist. When he is walking on the stairs he has trouble gripping the banister. He also notes increasing redness over the left elbow and swelling of the entire extremity. He does have a history of recurrent cellulitis of both legs and is status post bilateral total knee and is on Keflex prophylaxis. Upon questioning, he does note that he has had pain in that wrist for five years with several different episodes of pain. He states that occasionally it does seem like it has been crunching around before. Has had some crepitus in that wrist in the past. He notes that he has had many falls in the past. 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 He is currently disabled for his knees and also for back pain. He has had a prior back fusion. He does note that he has had bilateral carpal tunnel releases in both wrists. He had a prior ORIF of the right wrist and states that it "moved." The prior surgeon offered him a revision. However, he declined. REVIEW OF SYSTEMS: A 10-point systems is negative except as noted above. PAST MEDICAL HISTORY: Recurrent cellulitis of bilateral lower extremity, hypertension. PAST SURGICAL HISTORY: Bilateral total knee with subsequent revision. He says about 20 total knee surgeries. He has had a prior hernia repair. SMOKING HISTORY: Does not smoke. PHYSICAL EXAMINATION: GENERAL: He is lying in bed. Does not appear to be in any apparent distress. Alert and oriented. MUSCULOSKELETAL: Left upper extremity: He has diffuse edema from the elbow down to the wrist. There is erythema over the olecranon with some bogginess over his olecranon. He has erythema over the medial aspect of his forearm down to the middle third of his forearm. This is exquisitely tender to palpation, both in the medial and lateral aspects of the elbow. He does not have any pain in the elbow with passive range of motion in the mid arc of motion. Left wrist: He has diffuse edema over the wrist confluent with the edema in his elbow. He has only minor ecchymoses. His wrist range of motion is about 30 degrees in each direction. At the extremes it is painful. However, in the passive mid arc of motion he does not have much pain. He does have some crepitus with motion. He is unable to make a full fist due to edema in his fingers. Sensation is intact to light touch. He does not complain of the right wrist today, however it is deformed with prominent ulnar styloid and radial deviation of that wrist. IMAGING: X-ray of the left wrist reveals what appears to be a radiocarpal or perilunate dislocation of the wrist. The overall appearance appears chronic. There is sclerotic change throughout the wrist. A CT scan of that wrist reveals cystic change throughout the carpus, especially in the distal radius. The lunate is very deformed, flattened. There is exchange clerk the capitate head with flattening and sclerosis. He appears to have either a loss of part of the scaphoid or chronic nonunion. There is sclerosis throughout the wrist. ASSESSMENT AND PLAN: 1. Left wrist pain in the setting of what appears to be a chronic perilunate dislocation. I do not think this is an acute injury. His exam is not consistent with acute perilunate dislocation which is usually an injury that requires a significant amount of force and leads to a significant amount of pain and swelling. In the mid arc of motion he has minimal pain. This is not very consistent with an acute injury. In addition, he does note he has had many falls and problems with the wrist in the past. The CT scan is consistent with chronic changes of that wrist. I believe that he likely exacerbated the arthritic changes in his wrist with this fall, but I do not think that any kind of acute surgical attempt at reduction of this perilunate would be of any help. The differential diagnosis for this includes chronic gout or chronic inflammatory arthritis. He may also have Charcot type arthropathy, although this is unusual in a patient without diabetes. If he has continued pain he would likely require wrist arthrodesis. I would not recommend wrist replacement in the setting of chronic infections. 2. Left upper extremity cellulitis and olecranon bursitis. As he is already on Keflex prophylaxis and is developing this despite Keflex prophylaxis, I would recommend IV antibiotics for this issue. He can follow up with me in clinic for his wrist. If he is admitted, I will follow him in the hospital. /[id number]/MODL MTDD
[2018-06-01] MEDS: oxyCODONE CR 80 MG TAB PO SCH ×4 (00:06→19:21)
[2018-06-01] MEDS: buPROPion XL 150 MG TAB PO SCH ×3 (00:07→20:59)
[2018-06-01] MEDS: GABAPENTIN 400 MG CAP PO SCH ×5 (00:07→20:59)
[2018-06-01] MEDS: PARoxetine HCL 20 MG TAB PO SCH ×3 (00:12→20:59)
--- NOTE | 2018-06-01 02:13 | PDGENHP ---
History and Physical - Chief Complaint L arm pain - History of Present Illness 63 yo M w/ hx of HTN, COPD, and chronic pain presents with L arm pain. The patient fell on his L arm 2 days ago. Today he noticed swelling, redness, and pain of his L forearm and L elbow. He denies fevers and chills. In the ED his arm was noted to have a cellulitic appearance. He is not displaying any signs of sepsis. Imaging evaluation revealed likely wrist dislocation, which may be chronic. He was evaluated by hand surgery who thought the more likely issue was cellulitis and olecranon bursitis. He has been on Keflex prophylaxis for hx of LLE infection. Since this infection progressed despite ongoing oral antibiotics , he is being admitted for IV antibiotics. Case discussed with ED physician Dr. Mariscal; records reviewed and summarized above. History Information - Allergies/Home Medication List Allergies/Adverse Reactions: celecoxib [From Celebrex] Allergy (Intermediate, Verified 05/31/18 22:27) Other-Enter Comments ibuprofen Allergy (Intermediate, Verified 05/31/18 22:27) Other-Enter Comments amoxicillin [Amoxicillin] Allergy (Mild, Verified 05/31/18 22:27) NAUSEA codeine [Codeine] Allergy (Mild, Verified 05/31/18 22:27) NAUSEA hydromorphone HCl [From Dilaudid] Allergy (Mild, Verified 05/31/18 22:27) NAUSEA/DOESN'T WORK clavulanic acid [Clavulanic Acid] Allergy (Unknown, Verified 05/31/18 18:18) ciprofloxacin [From Cipro] Allergy (Verified 05/31/18 22:27) Other-Enter Comments nystatin Allergy (Verified 05/31/18 22:27) Hives Home Medications: Gabapentin [Gabapentin 800 mg] 800 mg PO QID 01/27/14 [Last Taken 05/31/18 12:00 ] Pantoprazole Sodium 40 mg PO DAILYAC 01/27/14 [Last Taken 05/31/18 07:30] Tamsulosin HCl [Flomax 0.4 MG (*)] 0.4 mg PO DAILY 01/27/14 [Last Taken 09:00] Testosterone Cypionate 200 mg IM MO@0900 01/27/14 [Last Taken 05/18/18 09:00] Levothyroxine Sodium 100 mcg PO DAILY06 11/09/16 [Last Taken 05/31/18 06:00] buPROPion XL [Wellbutrin 150mg XL] 300 mg PO DAILY 11/09/16 [Last Taken 09:00] Lisinopril [Zestril 40 mg (*)] 40 mg PO DAILY 07/28/17 [Last Taken 05/31/18 09: 00] Mometasone/Formoterol [Dulera 200 Mcg/5 Mcg Inhaler] 1 puffs IH BID 12/02/17 [ Last Taken 05/31/18 09:00] Cephalexin [Keflex (*)] 500 mg PO BID 04/10/18 [Last Taken 05/31/18 09:00] PARoxetine HCL [Paxil 20mg (*)] 20 mg PO BID 04/10/18 [Last Taken 05/31/18 09:00 ] buPROPion XL [Wellbutrin 150mg XL] 150 mg PO HS 04/10/18 [Last Taken 05/30/18 21 :00] oxyCODONE CR [Oxycontin] 80 mg PO TID@04,,04/10/18 [Last Taken 05/31/18 12: 00] oxyCODONE IR [Oxycodone Ir (*)] 60 mg PO TID@,,04/10/18 [Last Taken 05/31 12:00] Tadalafil 5 mg PO DAILY 05/31/18 [Last Taken 05/31/18 09:00] I have personally reviewed and updated: family history, medical history - Past Medical History COPD, hypertension Additional medical history: Chronic pain - Surgical History Reports: hernia repair, spinal surgery Additional surgical history: Bilateral knee surgeries - Family History Positive for: CAD - Social History Smoking Status: Never smoked Review of Systems Review of Systems: ROS: 10pt was reviewed & negative except for what was stated in HPI & below Physical Exam Physical Exam: Temp Pulse Resp BP Pulse Ox 37.2 C 90 18 139/85 H 90 L 05/31/18 23:11 05/31/18 23:11 05/31/18 23:11 05/31/18 23:11 05/31/18 23:11 Constitutional: obese, uncomfortable Eyes: PERRL, EOMI Ears, Nose, Mouth, Throat: moist mucous membranes, no oral mucosal ulcers Cardiovascular: regular rate and rhythym, systolic murmur Respiratory: no respiratory distress, clear to auscultation Gastrointestinal: normoactive bowel sounds, soft, non-tender abdomen Skin: warm, erythema (L arm on forearm and over L olecranon) Musculoskeletal: full muscle strength, pain with ROM (L wrist>L elbow) Neurologic: AAOx3, CN II-XII Intact Psychiatric: interacting appropriately, not anxious Lab Data & Imaging Review 05/31/18 19:35 05/31/18 19:35 WBC 7.13 10^3/uL (3.80-9.50) 05/31/18 19:35 RBC 6.21 10^6/uL (4.40-6.38) 05/31/18 19:35 Hgb 14.2 g/dL (13.7-17.5) 05/31/18 19:35 Hct 49.2 % (40.0-51.0) 05/31/18 19:35 MCV 79.2 fL (81.5-99.8) L 05/31/18 19:35 MCH 22.9 pg (27.9-34.1) L 05/31/18 19:35 MCHC 28.9 g/dL (32.4-36.7) L 05/31/18 19:35 RDW 22.2 % (11.5-15.2) H 05/31/18 19:35 Plt Count 272 10^3/uL (150-400) 05/31/18 19:35 MPV 9.7 fL (8.7-11.7) 05/31/18 19:35 Neut % (Auto) 79.5 % (39.3-74.2) H 05/31/18 19:35 Lymph % (Auto) 9.0 % (15.0-45.0) L 05/31/18 19:35 Creek % (Auto) 9.0 % (4.5-13.0) 05/31/18 19:35 Eos % (Auto) 1.8 % (0.6-7.6) 05/31/18 19:35 Baso % (Auto) 0.4 % (0.3-1.7) 05/31/18 19:35 Nucleat RBC Rel Count 0.0 % (0.0-0.2) 05/31/18 19:35 Absolute Neuts (auto) 5.67 10^3/uL (1.70-6.50) 05/31/18 19:35 Absolute Lymphs (auto) 0.64 10^3/uL (1.00-3.00) L 05/31/18 19:35 Absolute Monos (auto) 0.64 10^3/uL (0.30-0.80) 05/31/18 19:35 Absolute Eos (auto) 0.13 10^3/uL (0.03-0.40) 05/31/18 19:35 Absolute Basos (auto) 0.03 10^3/uL (0.02-0.10) 05/31/18 19:35 Absolute Nucleated RBC 0.00 10^3/uL (0-0.01) 05/31/18 19:35 Immature Gran % 0.3 % (0.0-1.1) 05/31/18 19:35 Immature Gran # 0.02 10^3/uL (0.00-0.10) 05/31/18 19:35 Platelet Estimate ADEQUATE (ADEQ) 05/31/18 19:35 Polychromasia 1+ H 05/31/18 19:35 Hypochromasia 2+ H 05/31/18 19:35 Microcytic Cells 1+ H 05/31/18 19:35 Elliptocytes 1+ H 05/31/18 19:35 Sodium 136 mEq/L (135-145) 05/31/18 19:35 Potassium 4.7 mEq/L (3.5-5.2) 05/31/18 19:35 Chloride 97 mEq/L (97-110) 05/31/18 19:35 Carbon Dioxide 29 mEq/l (22-31) 05/31/18 19:35 Anion Gap 10 mEq/L (6-14) 05/31/18 19:35 BUN 20 mg/dL (7-23) 05/31/18 19:35 Creatinine 1.1 mg/dL (0.7-1.3) 05/31/18 19:35 Estimated GFR > 60 05/31/18 19:35 Glucose 116 mg/dL (70-100) H 05/31/18 19:35 Calcium 9.2 mg/dL (8.5-10.4) 05/31/18 19:35 Imaging Review: Imaging Impressions Wrist X-Ray 05/31/18 18:46 Impression: Soft tissue swelling, greatest dorsally. Difficult to exclude 2 tiny radiopaque foreign bodies. 2. Left Wrist, 4 views including a navicular view History: Pain and bruising with inability to use the wrist, post fall a few days ago, Findings: There is diffuse soft tissue swelling around the wrist. No definite acute fracture is identified. The distal radius and ulna are chronically deformed consistent with remote trauma. There is a palmar dislocation of the carpus compared to the chronically deformed distal radius. The carpus is abnormal. The proximal carpal row is not well defined. There is chronic fragmentation at the base of the thumb involving the greater multangular bone. There is a large hypertrophic ridge between the proximal first and second metacarpals. The navicular bone looks chronically deformed. Impression: Indeterminate age palmar carpal dislocation. There has likely been remote trauma to the wrist. Please see above. Noncontrast CT or MRI of the wrist might be helpful. If there are any old x-rays, we would be happy to review them to assess for interval change. Is there a history of remote surgery ? Did this patient have an unusual occupation or hobby such as using a jackhammer? Elbow X-Ray 05/31/18 18:54 Impression: Soft tissue swelling, greatest dorsally. Difficult to exclude 2 tiny radiopaque foreign bodies. 2. Left Wrist, 4 views including a navicular view History: Pain and bruising with inability to use the wrist, post fall a few days ago, Findings: There is diffuse soft tissue swelling around the wrist. No definite acute fracture is identified. The distal radius and ulna are chronically deformed consistent with remote trauma. There is a palmar dislocation of the carpus compared to the chronically deformed distal radius. The carpus is abnormal. The proximal carpal row is not well defined. There is chronic fragmentation at the base of the thumb involving the greater multangular bone. There is a large hypertrophic ridge between the proximal first and second metacarpals. The navicular bone looks chronically deformed. Impression: Indeterminate age palmar carpal dislocation. There has likely been remote trauma to the wrist. Please see above. Noncontrast CT or MRI of the wrist might be helpful. If there are any old x-rays, we would be happy to review them to assess for interval change. Is there a history of remote surgery ? Did this patient have an unusual occupation or hobby such as using a jackhammer? Extremity CT 05/31/18 19:22 Impression: Palmarly dislocated radial carpal joint of unknown chronicity. 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 Please see above. Is there any history of gout or CPPD? Assessment & Plan Assessment: 63 yo M w/ HTN, COPD, and chronic pain presents with LUE cellulitis and bursitis after a recent fall. Plan: 1. LUE cellulitis, bursitis - Occurring 2 days after a recent fall. He is on oral Keflex for suppressive therapy of LLE cellulitis. He is not displaying sepsis physiology at this time. - Vancomycin IV noting progression despite Keflex 2. L wrist dislocation - CT (personally reviewed/interpreted) demonstrates palmarly dislocated radial carpal joint of unknown chronicity. - Hand surgery (Dr. Baum) following, appreciate assistance 3. Chronic pain - Due to history of several back and knee issues. - Continue home medications 4. HTN - Continue home medications 5. COPD - Continue home medications Diet - Regular Code - Full Ppx - LMWH Dispo - Admit under observation status
[2018-06-01 04:54] LABS: PLATELET COUNT 270 10^3/uL (150-400)
[2018-06-01] MEDS: LEVOTHYROXINE 100 MCG TAB PO SCH (05:24)
--- NOTE | 2018-06-01 08:29 | SOAPPROG ---
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 I follow him in clinic Plan: -cont IV abx -OT for finger ROM and edema reduction -wrist brace for L wrist 06/01/18 08:27 Subjective: Brandy elbow feels a bit better this morning. Objective: Vital Signs Temp Pulse Resp BP Pulse Ox 36.9 C 92 20 148/92 H 92 06/01/18 07:40 06/01/18 07:40 06/01/18 07:40 06/01/18 07:40 06/01/18 07:40 Laboratory Results 06/01/18 04:40 06/01/18 04:40 05/31/18 06/01/18 06/02/18 05:59 05:59 05:59 Intake Total 500 Output Total 500 250 Balance 0 -250 LUE -edema persists. He has slightly more elbow ROM with less pain -able to make fist, improved from yesterday ICD10 Worksheet Patient Problems: Problems Problem Status Onset Olecranon bursitis of left elbow Acute Abdominal pain Acute Acute renal failure Acute Bilateral cellulitis of lower leg Acute Cellulitis Acute Cellulitis of leg Acute Dehydration Acute Portal vein thrombosis Acute Severe sepsis Acute Umbilical hernia, incarcerated Acute Vomiting Acute
[2018-06-01] MEDS: PANTOPRAZOLE SODIUM 40 MG TAB PO SCH (08:35)
[2018-06-01] MEDS: ENOXAPARIN 40 MG/0.4 ML SYR SC SCH (08:36)
[2018-06-01] MEDS: Mometasone/Formoterol [Dulera 200 Mcg/5 Mcg Inhaler] IH SCH ×2 (09:20→20:08)
[2018-06-01] MEDS: ACETAMINOPHEN 325 MG TAB PO PRN ×2 (09:37→18:24)
[2018-06-01] MEDS: TAMSULOSIN HCL 0.4 MG CAP PO SCH (09:38)
[2018-06-01] MEDS: LISINOPRIL 40 MG TAB PO SCH (09:38)
[2018-06-01] MEDS: TADALAFIL 5 MG PO SCH ×3 (09:39→17:23)
[2018-06-01] MEDS: VANCOMYCIN HCL/NORMAL SALINE 250 ML IV SCH ×2 (09:58→21:17)
--- NOTE | 2018-06-01 15:33 | ASMTCMCOM ---
CM Note CM Note Notes: Met with patient to discuss needs on discharge. Patient has used [facility] in the past and feels it would be a good idea to use again. Spoke with Kim at [facility] re: referral, able to accept. Exact d/c date unclear at this time. Patient states he does not want OT at home, only RN and PT. CM will follow. Plan: [facility] RN, PT Date Signed: 06/01/2018 03:32 PM Electronically Signed By:Mallory Joe RN
--- NOTE | 2018-06-01 15:54 | HOSPPROG ---
Hospitalist Progress Note Assessment/Plan: 63 yo M w/ HTN, COPD, and chronic pain presents with worsening left arm swelling after a fall. #LUE edema: Rash not c/w cellulitis but pt reports improvement on antibiotics. Swelling ? due to flare of arthritis. - US to rule out DVT - Continue IV vancomcyin for now #Rash: Circular erythematous lesions on arms, trunk, head. Either seborrheic dermatitis or tinea corpus. - Sending ALEJANDRA prep - Given diffuse nature, will trial PO diflucan 200mg qd (obtaining ecg to monitor qt) - Ketoconazole shampoo and cream #Left wrist dislocation: Chronic - Ortho following, has splint #Chronic pain with continuous opioid dependency: Continue home meds #HTN: Home meds #COPD: No flare. Continue home meds. VTE ppx: LMWH Code: full Diet: regular Dispo: Switch to inpatient for ongoing IV therapies Subjective: Wanting his testosterone injection. Doesn't know when rash on arms started but has noticed redness on forehead and itching behind ears since starting antibiotics. Objective: Vital Signs Temp Pulse Resp BP Pulse Ox 36.9 C 87 20 153/92 H 95 06/01/18 12:19 06/01/18 12:19 06/01/18 12:19 06/01/18 12:19 06/01/18 12:19 Laboratory Results 06/01/18 04:40 06/01/18 04:40 05/31/18 06/01/18 06/02/18 05:59 05:59 05:59 Intake Total 500 Output Total 500 550 Balance 0 -550 - Physical Exam Constitutional: no apparent distress, obese Eyes: PERRL Ears, Nose, Mouth, Throat: moist mucous membranes, no oral mucosal ulcers Cardiovascular: regular rate and rhythym, no murmur, rub, or gallop, edema ( left lower arm) Respiratory: no respiratory distress, reduced air movement (bases) Gastrointestinal: normoactive bowel sounds, soft, non-tender abdomen Genitourinary: no bladder fullness, no bladder tenderness, no renal bruits Skin: other (numerous scattered circular erythematous lesions with raised borders on bilateral arms, torso, back, forehead) Musculoskeletal: full muscle strength, other (full ROM in left elbow) Neurologic: AAOx3 Psychiatric: interacting appropriately ICD10 Worksheet Patient Problems: Problems Problem Status Onset Olecranon bursitis of left elbow Acute Abdominal pain Acute Acute renal failure Acute Bilateral cellulitis of lower leg Acute Cellulitis Acute Cellulitis of leg Acute Dehydration Acute Portal vein thrombosis Acute Severe sepsis Acute Umbilical hernia, incarcerated Acute Vomiting Acute
[2018-06-01] MEDS ORDERED: TESTOSTERONE IM 100 MG/ML SYRINGE IM SCH (16:30)
[2018-06-01] MEDS: FLUCONAZOLE 100 MG TAB PO SCH (17:32)
[2018-06-01] MEDS: KETOCONAZOLE 2% 15 GM CREAM TP SCH (17:33)
[2018-06-01] MEDS: KETOCONAZOLE 2% 120 ML SHAMPOO TP SCH ×2 (17:33→18:03)
[2018-06-02] MEDS: oxyCODONE CR 80 MG TAB PO SCH ×3 (03:43→20:24)
[2018-06-02] MEDS: GABAPENTIN 400 MG CAP PO SCH ×4 (05:34→20:24)
[2018-06-02] MEDS: LEVOTHYROXINE 100 MCG TAB PO SCH (05:34)
[2018-06-02] MEDS: FLUCONAZOLE 100 MG TAB PO SCH (08:22)
[2018-06-02] MEDS: buPROPion XL 150 MG TAB PO SCH ×2 (08:22→21:17)
[2018-06-02] MEDS: LISINOPRIL 40 MG TAB PO SCH (08:22)
[2018-06-02] MEDS: PANTOPRAZOLE SODIUM 40 MG TAB PO SCH (08:23)
[2018-06-02] MEDS: KETOCONAZOLE 2% 15 GM CREAM TP SCH (08:23)
[2018-06-02] MEDS: TADALAFIL 5 MG PO SCH (08:23)
[2018-06-02] MEDS: ENOXAPARIN 40 MG/0.4 ML SYR SC SCH (08:23)
[2018-06-02] MEDS: TAMSULOSIN HCL 0.4 MG CAP PO SCH (08:23)
[2018-06-02] MEDS: PARoxetine HCL 20 MG TAB PO SCH ×2 (08:23→20:24)
[2018-06-02] MEDS: VANCOMYCIN HCL/NORMAL SALINE 250 ML IV SCH ×2 (10:43→20:24)
--- NOTE | 2018-06-02 11:00 | PDMN ---
Medical Necessity Medical necessity: Change to IP, as of 06/01/18, per & [facility] PG-[facility] Wound & Skin Management; los >2 mn for ongoing management of LUE swelling & circular erythematous lesions on arms, trunk & head of unclear etiology; requiring further workup/monitoring & IV abx; hx COPD & L wrist dislocation w/splint
[2018-06-02] MEDS: KETOCONAZOLE 2% 120 ML SHAMPOO TP SCH (13:07)
[2018-06-02] MEDS: Mometasone/Formoterol [Dulera 200 Mcg/5 Mcg Inhaler] IH SCH ×2 (13:09→21:05)
--- NOTE | 2018-06-02 14:31 | ASMTCMCOM ---
CM Note CM Note Notes: Patient plan of care reviewed in am rounds. Still has significant edema. Transition to oral antibiotics. Plan home with services. 63 year old male with swelling of left arm. S/p fall and dislocation. Plan: Dc to home with [facility] when medically cleared for discharge to home. Date Signed: 06/02/2018 02:31 PM Electronically Signed By:Moriah Doyle RN
--- NOTE | 2018-06-02 14:52 | HOSPPROG ---
Hospitalist Progress Note Assessment/Plan: 63 yo M w/ HTN, COPD, and chronic pain presents with worsening left arm swelling and redness after a fall. #LUE cellulitis, edema: Improving. US negative for DVT - Continue IV vancomycin (trough at goal this AM), switch to PO in next day or so - D/w ID who will see patient (they know him well) #Left olecranon bursitis: D/t trauma from fall. Full ROM on exam today. #Rash: Circular erythematous lesions on arms, trunk, head. Seborrheic dermatitis or tinea corpus. - Trial diflucan 200mg qd per patient request (qtc ok) - Ketoconazole shampoo and cream - Re-establish w/derm as outpt #Left wrist dislocation: Chronic - Ortho following, rec'd splint but pt refusing #BLE venous insufficiency: Chronic stasis dermatitis. No e/o cellulitis. - Resume suppressive keflex once completes above abx #Chronic pain with continuous opioid dependency: Continue home meds #HTN: Home meds #COPD: No flare. Continue home meds. VTE ppx: LMWH Code: full Diet: regular Dispo: Remain inpatient for ongoing IV therapies. Therapy services recommending home care. Subjective: Left arm swelling better, redness decreased. No fevers. Wants 5 days of IV antibiotics and ID consultation. I witnessed him ambulate with crutches from bathroom to bed and he was very unsteady. Objective: Vital Signs Temp Pulse Resp BP Pulse Ox 36.8 C 94 12 153/97 H 93 06/02/18 11:42 06/02/18 11:42 06/02/18 11:42 06/02/18 11:42 06/02/18 11:42 Microbiology 06/01/18 18:00 ALEJANDRA Preparation - Final Arm - Skin 06/01/18 18:00 ALEJANDRA Preparation - Final Scalp - Skin 06/01/18 06/02/18 06/03/18 05:59 05:59 05:59 Intake Total 681 Output Total 1500 Balance -819 - Physical Exam Constitutional: no apparent distress, obese Eyes: PERRL, anicteric sclera Ears, Nose, Mouth, Throat: moist mucous membranes Cardiovascular: regular rate and rhythym, no murmur, rub, or gallop, edema ( chronic venous stasis of BLE) Respiratory: no respiratory distress, no rales or rhonchi, clear to auscultation Gastrointestinal: normoactive bowel sounds, soft, non-tender abdomen, no palpable masses Genitourinary: no bladder fullness, no bladder tenderness, no renal bruits Skin: other (scattered raised erythematous lesions on arms, trunk, head) Musculoskeletal: generalized weakness Neurologic: AAOx3 Psychiatric: interacting appropriately ICD10 Worksheet Patient Problems: Problems Problem Status Onset Olecranon bursitis of left elbow Acute Abdominal pain Acute Acute renal failure Acute Bilateral cellulitis of lower leg Acute Cellulitis Acute Cellulitis of leg Acute Dehydration Acute Portal vein thrombosis Acute Severe sepsis Acute Umbilical hernia, incarcerated Acute Vomiting Acute
--- NOTE | 2018-06-02 16:38 | PCMIDPN ---
Assessment/Plan: Assessment/Plan: * Left upper extremity cellulitis/olecranon bursitis: Likely precipitant recent traumatic injury when fell on ice. Typically septic bursitis associated with Staphylococcus aureus. Agree with ongoing vancomycin as he is clinically improving and has been on suppressive cephalexin for recurrent lower extremity cellulitis. Suspect he will be able to transition to oral doxycycline over next 24-48 hours. * Bilateral venous insufficiency with stasis dermatitis: No active findings of cellulitis. Will plan on continued suppressive cephalexin once vancomycin discontinued. 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 Time spent, greater than 35 min, which greater than half was spent in education/ counseling/coordination of care related to left upper extremity cellulitis/ septic bursitis. Plan of care reviewed with patient and Dr. Crouch. 06/02/18 16:34 Subjective: Patient well known to me from prior care for recurrent lower extremity cellulitis in association with venous insufficiency. Patient on chronic suppressive cephalexin for this entity. Patient recently fell on to arm when he slipped on the ice resulting in wrist and elbow pain. This persisted and was associated with significant swelling prompting his evaluation in the emergency department at which point in time he was noted to have a dislocation of the radial carpal joint. Old navicular fracture also noted. Patient was subsequently noted to have erythema and edema with bursal fluid over the left olecranon region. He was started on vancomycin for cellulitis/septic bursitis. He notes that with vancomycin therapy his swelling has gone down and his elbow has become less tender. He has not experienced fever or chills. He also notes he has had diffuse skin rash that has been worse over last 2 weeks. He previously had been followed by Dermatology but has not been seen for approximately 1 year. Based on the above findings, he is now seen for ongoing infectious disease care. Objective: Vital Signs Temp Pulse Resp BP Pulse Ox 36.8 C 94 12 153/97 H 93 06/02/18 11:42 06/02/18 11:42 06/02/18 11:42 06/02/18 11:42 06/02/18 11:42 Microbiology 06/01/18 18:00 ALEJANDRA Preparation - Final Arm - Skin 06/01/18 18:00 ALEJANDRA Preparation - Final Scalp - Skin 06/01/18 06/02/18 06/03/18 05:59 05:59 05:59 Intake Total 681 Output Total 1500 Balance -819 Vancomycin # 2 Laboratory Tests 06/02/18 09:31 Vancomycin Trough 10.9 - Physical Exam General Appearance: alert, obese, No non-toxic EENT: No scleral icterus, No thrush, No conjunctival petechiae Respiratory: lungs clear, No respiratory distress Cardiac/Chest: regular rate, rhythm Extremities: inflammation (Left olecranon region with palpable fluid in bursa with mild thickening; erythema surrounding this region for several cm with warmth and tenderness; no irritability of elbow joint; forearm is edematous extending into hand and wrist; no erythema consistent with cellulitis over forearm; bilateral lower extremities with chronic venous insufficiency changes and no evidence of active cellulitis) Skin: rash (Diffuse papular squamous rash over extremities with some areas of excoriation; more diffuse erythematous rash over scalp) Lymphatic: other (No left upper extremity lymphangitis) ICD10 Worksheet Patient Problems: Problems Problem Status Onset Olecranon bursitis of left elbow Acute Abdominal pain Acute Acute renal failure Acute Bilateral cellulitis of lower leg Acute Cellulitis Acute Cellulitis of leg Acute Dehydration Acute Portal vein thrombosis Acute Severe sepsis Acute Umbilical hernia, incarcerated Acute Vomiting Acute
--- NOTE | 2018-06-02 19:07 | SOAPPROG ---
SOAP Progress Note Assessment/Plan: Assessment: L elbow septic olecranon bursitis and cellulitis -improving after IV Vanco -seen by Dr. King Nava wrist advanced arthritis and likely chronic dislocation -he may have been living with this for a while. I follow him in clinic Plan: -cont IV abx. Transition to PO per ID -OT for finger ROM and edema reduction -wrist brace for L wrist Subjective: Elbow and arm feels even better today Objective: Vital Signs Temp Pulse Resp BP Pulse Ox 36.8 C 94 12 153/97 H 93 06/02/18 11:42 06/02/18 11:42 06/02/18 11:42 06/02/18 11:42 06/02/18 11:42 Microbiology 06/01/18 18:00 ALEJANDRA Preparation - Final Arm - Skin 06/01/18 18:00 ALEJANDRA Preparation - Final Scalp - Skin 06/01/18 06/02/18 06/03/18 05:59 05:59 05:59 Intake Total 681 500 Output Total 1500 600 Balance -819 -100 L elbow -edema decreased. Better ROM of fingers -still has some erythema and tenderness over post elbow extending into proximal forearm ICD10 Worksheet Patient Problems: Problems Problem Status Onset Olecranon bursitis of left elbow Acute Abdominal pain Acute Acute renal failure Acute Bilateral cellulitis of lower leg Acute Cellulitis Acute Cellulitis of leg Acute Dehydration Acute Portal vein thrombosis Acute Severe sepsis Acute Umbilical hernia, incarcerated Acute Vomiting Acute
[2018-06-03] MEDS: oxyCODONE CR 80 MG TAB PO SCH ×3 (04:01→20:32)
[2018-06-03] MEDS: GABAPENTIN 400 MG CAP PO SCH ×3 (05:56→20:36)
[2018-06-03] MEDS: PANTOPRAZOLE SODIUM 40 MG TAB PO SCH (05:56)
[2018-06-03] MEDS: LEVOTHYROXINE 100 MCG TAB PO SCH (05:56)
[2018-06-03] MEDS: Mometasone/Formoterol [Dulera 200 Mcg/5 Mcg Inhaler] IH SCH ×2 (09:00→20:39)
[2018-06-03] MEDS: TAMSULOSIN HCL 0.4 MG CAP PO SCH (09:47)
[2018-06-03] MEDS: ENOXAPARIN 40 MG/0.4 ML SYR SC SCH (09:47)
[2018-06-03] MEDS: TADALAFIL 5 MG PO SCH (09:47)
[2018-06-03] MEDS: PARoxetine HCL 20 MG TAB PO SCH ×2 (09:48→20:37)
[2018-06-03] MEDS: LISINOPRIL 40 MG TAB PO SCH (09:48)
[2018-06-03] MEDS: buPROPion XL 150 MG TAB PO SCH ×2 (09:48→20:37)
[2018-06-03] MEDS: FLUCONAZOLE 100 MG TAB PO SCH (09:48)
[2018-06-03] MEDS: KETOCONAZOLE 2% 15 GM CREAM TP SCH (09:50)
[2018-06-03] MEDS: VANCOMYCIN HCL/NORMAL SALINE 250 ML IV SCH ×2 (10:03→23:14)
--- NOTE | 2018-06-03 10:38 | PCMIDPN ---
Assessment/Plan: Please see [employer] down time note on paper from 06/03/2018 for full details. Assessment/Plan: * Left upper extremity cellulitis/olecranon bursitis: Likely precipitant recent traumatic injury when fell on ice. Will ask Orthopedic surgery to aspirate bursal fluid as this is more prominent today. * Bilateral venous insufficiency with stasis dermatitis: No active findings of cellulitis. Will plan on continued suppressive cephalexin once vancomycin discontinued. 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 06/04/18 08:55 Subjective: Pt provides that he slept well last night. Has not noticed a huge difference in his left olecranon between yesterday and today. He complains of swelling over his olecranon and surrounding pain. I, Sena Lobo, am scribing for, and in the presence of, Travon Stone MD ITravon MD, personally performed the services described in this documentation, as scribed by Sena Lobo in my presence, and it is both accurate and complete. Objective: Vital Signs Temp Pulse Resp BP Pulse Ox 36.5 C 91 18 141/97 H 90 L 06/03/18 08:00 06/03/18 08:00 06/03/18 08:00 06/03/18 08:00 06/03/18 08:00 Laboratory Results 06/03/18 04:46 06/02/18 06/03/18 06/04/18 05:59 05:59 05:59 Intake Total 681 1250 Output Total 1500 1850 375 Balance -819 -600 -375 Vancomycin #3 Laboratory Tests 06/02/18 09:31 Vancomycin Trough 10.9 - Physical Exam General Appearance: alert, no apparent distress, obese EENT: No scleral icterus, No thrush Respiratory: No respiratory distress Cardiac/Chest: other (bilateral venous insufficiency changes without active cellulitis ) Extremities: other (Erythema localized over bursa extending onto anterior forearm with mild edema, warmth, and tenderness. Palpable fluid in bursa which has mild thickening, no irritability with [id number] of elbow, residual forearm and wrist edema present which is not cellulitis) Skin: other (diffuse papulosquamous rash ) Neuro/Psych: oriented x 3 - Line/s PIV Lines: No drainage, No erythema ICD10 Worksheet Patient Problems: Problems Problem Status Onset Olecranon bursitis of left elbow Acute Abdominal pain Acute Acute renal failure Acute Bilateral cellulitis of lower leg Acute Cellulitis Acute Cellulitis of leg Acute Dehydration Acute Portal vein thrombosis Acute Severe sepsis Acute Umbilical hernia, incarcerated Acute Vomiting Acute
[2018-06-03] MEDS: KETOCONAZOLE 2% 120 ML SHAMPOO TP SCH (10:43)
[2018-06-04] MEDS: oxyCODONE CR 80 MG TAB PO SCH ×3 (04:47→21:20)
[2018-06-04] MEDS: GABAPENTIN 400 MG CAP PO SCH ×4 (04:47→21:20)
[2018-06-04] MEDS: LEVOTHYROXINE 100 MCG TAB PO SCH (04:47)
[2018-06-04 05:09] LABS: PLATELET COUNT 236 10^3/uL (150-400)
[2018-06-04] MEDS: Mometasone/Formoterol [Dulera 200 Mcg/5 Mcg Inhaler] IH SCH ×2 (09:09→20:12)
[2018-06-04] MEDS: PANTOPRAZOLE SODIUM 40 MG TAB PO SCH (09:26)
[2018-06-04] MEDS: ENOXAPARIN 40 MG/0.4 ML SYR SC SCH (09:26)
[2018-06-04] MEDS: FLUCONAZOLE 100 MG TAB PO SCH (09:27)
[2018-06-04] MEDS: LISINOPRIL 40 MG TAB PO SCH (09:27)
[2018-06-04] MEDS: TAMSULOSIN HCL 0.4 MG CAP PO SCH (09:27)
[2018-06-04] MEDS: buPROPion XL 150 MG TAB PO SCH ×2 (09:27→21:20)
[2018-06-04] MEDS: PARoxetine HCL 20 MG TAB PO SCH ×2 (09:27→21:20)
[2018-06-04] MEDS: KETOCONAZOLE 2% 120 ML SHAMPOO TP SCH (09:28)
[2018-06-04] MEDS: KETOCONAZOLE 2% 15 GM CREAM TP SCH (09:28)
[2018-06-04] MEDS: TADALAFIL 5 MG PO SCH (09:29)
--- NOTE | 2018-06-04 09:35 | PCMIDPN ---
Assessment/Plan: Assessment/Plan: * Left upper extremity cellulitis/olecranon bursitis: Likely precipitant recent traumatic injury when fell on ice. Query if initially had some hemorrhage into bursal space with fall. Bursal aspirate with low number white blood cells which are not neutrophil predominant and significantly higher number of RBC. Gram stain is negative with culture pending. Will continue vancomycin with hope of transition to oral doxycycline to complete therapy tomorrow as he is slowly improving. Follow-up culture with modification antibiotic therapy accordingly. * Bilateral venous insufficiency with stasis dermatitis: No active findings of cellulitis. Plan to resume suppressive cephalexin once treatment of bursitis completed. * Skin rash: No interval change. 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 * Increased creatinine: Creatinine 1.2 which is similar to prior baseline. Continue to follow while on IV vancomycin. 06/04/18 08:55 06/04/18 09:32 06/04/18 09:35 Subjective: Patient notes less elbow pain after aspiration yesterday. Reviewed aspirate with Dr. Baum noting removal of serosanguineous fluid; no gross blood noted. Objective: Vital Signs Temp Pulse Resp BP Pulse Ox 36.9 C 80 20 139/90 H 92 06/04/18 08:00 06/04/18 08:00 06/04/18 08:00 06/04/18 09:27 06/04/18 08:00 Microbiology 06/03/18 15:10 Gram Stain - Final Elbow - Aspirate Laboratory Results 06/04/18 04:42 06/04/18 04:42 06/03/18 06/04/18 06/05/18 05:59 05:59 05:59 Intake Total 1250 500 Output Total 1850 1725 Balance -600 -1225 Vancomycin # 4 Laboratory Tests 06/03/18 15:10 Synovial WBC 551 H Synovial RBC [id number] H Synovial Neutrophils 30 H Synovial Lymphocytes 64 Synovial Eosinophils 6 - Physical Exam General Appearance: alert, no apparent distress, non-toxic EENT: No scleral icterus, No thrush Extremities: inflammation (Left olecranon region with residual bursal fluid and mild thickening; overlying erythema which extends distally over forearm; edema overall has decreased; no pain with range of motion of elbow; tender over olecranon) Skin: rash (No interval change in diffuse papular squamous rash), other ( Bilateral venous insufficiency stasis dermatitis without active cellulitis present) ICD10 Worksheet Patient Problems: Problems Problem Status Onset Olecranon bursitis of left elbow Acute Abdominal pain Acute Acute renal failure Acute Bilateral cellulitis of lower leg Acute Cellulitis Acute Cellulitis of leg Acute Dehydration Acute Portal vein thrombosis Acute Severe sepsis Acute Umbilical hernia, incarcerated Acute Vomiting Acute
--- NOTE | 2018-06-04 09:40 | SOAPPROG ---
SOAP Progress Note Assessment/Plan: Progress Note for 06/03/18 Assessment: L elbow septic olecranon bursitis and cellulitis -bursa aspirated per request of ID service L wrist advanced arthritis and likely chronic dislocation -he may have been living with this for a while. I follow him in clinic Plan: -cont IV abx. Transition to PO per ID -OT for finger ROM and edema reduction -wrist brace for L wrist -f/u aspirate labs and culture Subjective: Progress Note for 06/03/18 Elbow seems to hurt again today. Swelling over wrist and forearm improved Objective: Vital Signs Temp Pulse Resp BP Pulse Ox 36.9 C 80 20 139/90 H 92 06/04/18 08:00 06/04/18 08:00 06/04/18 08:00 06/04/18 08:00 06/04/18 08:00 Microbiology 06/03/18 15:10 Gram Stain - Final Elbow - Aspirate Laboratory Results 06/04/18 04:42 06/04/18 04:42 06/03/18 06/04/18 06/05/18 05:59 05:59 05:59 Intake Total 1250 500 Output Total 1850 1725 Balance -600 -1225 L elbow -erythema over olecranon extending to proximal medial forearm -pitting edema over dorsal wrist and forearm -bogginess over olecranon Procedure: Verbal consent obtained. Using sterile technique 3cc fluid aspirated from the L olecranon bursa. ICD10 Worksheet Patient Problems: Problems Problem Status Onset Olecranon bursitis of left elbow Acute Abdominal pain Acute Acute renal failure Acute Bilateral cellulitis of lower leg Acute Cellulitis Acute Cellulitis of leg Acute Dehydration Acute Portal vein thrombosis Acute Severe sepsis Acute Umbilical hernia, incarcerated Acute Vomiting Acute
[2018-06-04] MEDS: VANCOMYCIN HCL/NORMAL SALINE 250 ML IV SCH ×2 (10:37→21:20)
--- NOTE | 2018-06-04 11:08 | HOSPPROG ---
Hospitalist Progress Note Assessment/Plan: # L olecranon bursitis and cellulitis - s/p aspiration with primarily bloody fuild (serosanguinous per Dr Baum - will continue to treat with iv abx for now - cont vanc - plan change to doxy in a few days # rahs - has been present for about a year - needs outpatient derm followup - diflucan started, ketoconazole started here - unclear if improved # chronic L wrist dislocation - refused splint # chronic pain on continuous narcotics - high dose oxycontin and oxycodone, gabapentin # htn - lisinopril # COPD - no exacerbation # hypothyroid - synthroid Subjective: no complaints; s/p aspiration of elbow by Dr Baum yesterday; no N/V /D; eating well Objective: Vital Signs Temp Pulse Resp BP Pulse Ox 36.9 C 80 20 139/90 H 92 06/04/18 08:00 06/04/18 08:00 06/04/18 08:00 06/04/18 09:27 06/04/18 08:00 Microbiology 06/03/18 15:10 Gram Stain - Final Elbow - Aspirate Laboratory Results 06/04/18 04:42 06/04/18 04:42 06/03/18 06/04/18 06/05/18 05:59 05:59 05:59 Intake Total 1250 500 Output Total 1850 1725 Balance -600 -[address] Baum and Dr Stone's notes discussed with Dr Stone - Physical Exam Constitutional: no apparent distress, appears nourished Cardiovascular: regular rate and rhythym, no murmur, rub, or gallop Respiratory: no respiratory distress, no rales or rhonchi, clear to auscultation Gastrointestinal: soft, non-tender abdomen, no palpable masses, No guarding, No rebound, No distension Skin: rash ICD10 Worksheet Patient Problems: Problems Problem Status Onset Umbilical hernia, incarcerated Acute Cellulitis of leg Acute Acute renal failure Acute Severe sepsis Acute Cellulitis Acute Vomiting Acute Dehydration Acute Abdominal pain Acute Portal vein thrombosis Acute Bilateral cellulitis of lower leg Acute Olecranon bursitis of left elbow Acute
--- NOTE | 2018-06-04 15:27 | ASMTCMCOM ---
CM Note CM Note Notes: Chart reviewed for discharge planning purposes. Patient is agreeable to HHC RN and PT. Likely to change to oral antibiotics when medically cleared by ID to do so. CM to follow for any other needsPlan: DC to Home [facility] when medically cleared for discharge. Date Signed: 06/04/2018 03:25 PM Electronically Signed By:Moriah Doyle RN
[2018-06-04] MEDS ORDERED: BACITRACIN OINTMENT 1 PACKET TP ONE (17:08)
--- NOTE | 2018-06-04 19:16 | SOAPPROG ---
SOAP Progress Note Assessment/Plan: Assessment: L elbow septic olecranon bursitis and cellulitis -bursa WBC low. Culture neg so far L wrist advanced arthritis and likely chronic dislocation -he may have been living with this for a while. I follow him in clinic Plan: -cont IV abx. Transition to PO per ID -OT for finger ROM and edema reduction -wrist brace for L wrist -f/u aspirate labs and culture Subjective: Overall the arm feels better, but there is still some pain in parts of the elbow Objective: Vital Signs Temp Pulse Resp BP Pulse Ox 36.6 C 86 20 138/96 H 93 06/04/18 16:00 06/04/18 16:00 06/04/18 16:00 06/04/18 16:00 06/04/18 16:00 Microbiology 06/03/18 15:10 Gram Stain - Final Elbow - Aspirate Laboratory Results 06/04/18 04:42 06/04/18 04:42 06/03/18 06/04/18 06/05/18 05:59 05:59 05:59 Intake Total 1250 500 885 Output Total 1850 1725 1050 Balance -600 -1225 -165 LUE -edema has decreased -the olecranon tip less boggy compared to yesterday -still some erythema over lateral elbow, this is slowly improving -flexion and extension of the elbow without pain ICD10 Worksheet Patient Problems: Problems Problem Status Onset Olecranon bursitis of left elbow Acute Abdominal pain Acute Acute renal failure Acute Bilateral cellulitis of lower leg Acute Cellulitis Acute Cellulitis of leg Acute Dehydration Acute Portal vein thrombosis Acute Severe sepsis Acute Umbilical hernia, incarcerated Acute Vomiting Acute
[2018-06-05] MEDS: GABAPENTIN 400 MG CAP PO SCH ×4 (05:01→21:28)
[2018-06-05] MEDS: oxyCODONE CR 80 MG TAB PO SCH ×3 (05:02→21:28)
[2018-06-05] MEDS: LEVOTHYROXINE 100 MCG TAB PO SCH (05:02)
[2018-06-05] MEDS: buPROPion XL 150 MG TAB PO SCH ×2 (09:18→21:28)
[2018-06-05] MEDS: PARoxetine HCL 20 MG TAB PO SCH ×2 (09:18→21:28)
[2018-06-05] MEDS: ENOXAPARIN 40 MG/0.4 ML SYR SC SCH (09:18)
[2018-06-05] MEDS: PANTOPRAZOLE SODIUM 40 MG TAB PO SCH (09:18)
[2018-06-05] MEDS: LISINOPRIL 40 MG TAB PO SCH (09:18)
[2018-06-05] MEDS: FLUCONAZOLE 100 MG TAB PO SCH (09:18)
[2018-06-05] MEDS: TAMSULOSIN HCL 0.4 MG CAP PO SCH (09:19)
[2018-06-05] MEDS: TADALAFIL 5 MG PO SCH (09:20)
[2018-06-05] MEDS: KETOCONAZOLE 2% 15 GM CREAM TP SCH (09:25)
[2018-06-05] MEDS: Mometasone/Formoterol [Dulera 200 Mcg/5 Mcg Inhaler] IH SCH ×2 (09:25→22:18)
[2018-06-05] MEDS: KETOCONAZOLE 2% 120 ML SHAMPOO TP SCH (09:25)
--- NOTE | 2018-06-05 10:11 | HOSPPROG ---
Hospitalist Progress Note Assessment/Plan: # L olecranon bursitis and cellulitis - s/p aspiration with primarily bloody fuild (serosanguineous per Dr Baum) - will continue to treat with iv abx for now - cont vanc - plan change to doxy per ID # slightly elevated SCr - follow closely on vanc # rash - has been present for about a year - needs outpatient derm followup - diflucan started, ketoconazole started here - unclear if improved # chronic L wrist dislocation - refused splint # chronic pain on continuous narcotics - high dose oxycontin and oxycodone, gabapentin # htn - lisinopril # COPD - no exacerbation # hypothyroid - synthroid # dvt ppx - lovenox Subjective: no acute events; denies N/V/D; eating well; UOP normal Objective: Vital Signs Temp Pulse Resp BP Pulse Ox 36.8 C 78 18 122/85 H 88 L 06/05/18 08:00 06/05/18 08:00 06/05/18 08:00 06/05/18 09:18 06/05/18 08:00 Microbiology 06/03/18 15:10 Gram Stain - Final Elbow - Aspirate Laboratory Results 06/04/18 04:42 06/05/18 04:55 06/04/18 06/05/18 06/06/18 05:59 05:59 05:59 Intake Total 500 885 Output Total 1725 2050 550 Balance -1225 -1165 -550 - Physical Exam Constitutional: other (comfortable sitting on side of bed) Cardiovascular: regular rate and rhythym, no murmur, rub, or gallop Respiratory: no respiratory distress, no rales or rhonchi, clear to auscultation Gastrointestinal: soft, non-tender abdomen, no palpable masses, No guarding, No rebound, No distension Musculoskeletal: other (L elbow with ongoing erythema and fluctuance) ICD10 Worksheet Patient Problems: Problems Problem Status Onset Umbilical hernia, incarcerated Acute Cellulitis of leg Acute Acute renal failure Acute Severe sepsis Acute Cellulitis Acute Vomiting Acute Dehydration Acute Abdominal pain Acute Portal vein thrombosis Acute Bilateral cellulitis of lower leg Acute Olecranon bursitis of left elbow Acute
--- NOTE | 2018-06-05 13:32 | PCMIDPN ---
Assessment/Plan: Assessment: Left-sided olecranon bursitis. Cultures not growing anything. Patient has been improving on empiric vancomycin after aspiration. Creatinine increased mildly from 1.2-1.4. We will discontinue vancomycin and switch to oral doxycycline at this point. Plan: 1. Discontinue vancomycin. 2. Start doxycycline 100 mg p.o. Twice daily. 3. Continue to follow clinical appearance of left upper extremity. 06/05/18 13:29 06/05/18 13:30 Subjective: Patient is very pleased with his progress. Notes that the erythema on the left elbow is decreased. Swelling of the left arm and total is decreased. He is also very happy that his legs appeared look better to him as well. Objective: Vancomycin # 5 Vital Signs Temp Pulse Resp BP Pulse Ox 36.6 C 92 16 126/84 H 90 L 06/05/18 12:00 06/05/18 12:00 06/05/18 12:00 06/05/18 12:00 06/05/18 12:00 Microbiology 06/03/18 15:10 Gram Stain - Final Elbow - Aspirate Laboratory Results 06/04/18 04:42 06/05/18 04:55 06/04/18 06/05/18 06/06/18 05:59 05:59 05:59 Intake Total 500 885 Output Total 1725 2050 550 Balance -1225 -1165 -550 - Physical Exam General Appearance: WD/WN, alert, no apparent distress, non-toxic Respiratory: lungs clear, normal breath sounds, No respiratory distress Cardiac/Chest: regular rate, rhythm, No tachycardia Extremities: non-tender, swelling (Mild left upper extremity), erythema (Mild left upper extremity), No normal inspection, No necrosis Skin: normal color, warm/dry, rash (Chronic rash unchanged) Neuro/Psych: alert, normal mood/affect, oriented x 3 ICD10 Worksheet Patient Problems: Problems Problem Status Onset Olecranon bursitis of left elbow Acute Abdominal pain Acute Acute renal failure Acute Bilateral cellulitis of lower leg Acute Cellulitis Acute Cellulitis of leg Acute Dehydration Acute Portal vein thrombosis Acute Severe sepsis Acute Umbilical hernia, incarcerated Acute Vomiting Acute
[2018-06-05] MEDS: VANCOMYCIN HCL/NORMAL SALINE 250 ML IV SCH (13:50)
--- NOTE | 2018-06-05 18:47 | CPEKG ---
Test Reason : OPEN Blood Pressure : / mmHG Vent. Rate : 086 BPM Atrial Rate : 086 BPM P-R Int : 159 ms QRS Dur : 104 ms QT Int : 357 ms P-R-T Axes : 051 018 005 degrees QTc Int : 427 ms Sinus rhythm Delayed R wave transition Nonspecific interventricular conduction delay Confirmed by Yaw Oliva ([id number]) on 06/05/2018 6:47:08 PM Referred By: Tonya Montero Confirmed By:Yaw Oliva
[2018-06-05] MEDS: DOXYCYCLINE HYCLATE 100 MG CAP/TAB PO SCH (21:28)
[2018-06-06] MEDS: oxyCODONE CR 80 MG TAB PO SCH ×2 (04:16→13:23)
[2018-06-06] MEDS: GABAPENTIN 400 MG CAP PO SCH ×4 (05:18→22:35)
[2018-06-06] MEDS: LEVOTHYROXINE 100 MCG TAB PO SCH (05:18)
--- NOTE | 2018-06-06 09:38 | HOSPPROG ---
Hospitalist Progress Note Assessment/Plan: #XU: likely from Vanc -repeat in AM. Hold MARISOL-I #HTN: hold ACEi with XU #Left olecranon bursitis: change to Doxy 100mg BID #Chronic pain with chronic opioid dependency: counseled on decreasing dose; he states functions at home and not too somnolent -having regular BMs #Chronic skin lesions: legs/arms. Rec outpatient derm. Ketoconazole has been added #Hypothyroidism: LT4 #Chronic left wrist dislocation: refused splint #COPD: stable #Diet: regular #Disp: inpatient admission to monitor elbow on orals and monitor Cr. Cased discussed with Dr. Aguirre Subjective: pain in left arm better. States groggy this AM, because has only slept a few hours last couple nights Objective: Vital Signs Temp Pulse Resp BP Pulse Ox 36.6 C 70 14 109/83 H 93 06/06/18 08:00 06/06/18 08:00 06/06/18 08:00 06/06/18 08:00 06/06/18 08:00 Microbiology 06/03/18 15:10 Gram Stain - Final Elbow - Aspirate Laboratory Results 06/04/18 04:42 06/06/18 05:05 06/05/18 06/06/18 06/07/18 05:59 05:59 05:59 Intake Total 885 1750 Output Total 0 1250 Balance -1165 500 - Time Spent With Patient Time Spent with Patient: greater than 35 minutes Time Spent with Patient: Greater than 35 minutes spent on this patients care, greater than 50% of time spent counseling, educating, and coordinating care regarding the above mentioned plan. - Physical Exam Constitutional: no apparent distress, other (anxious) Eyes: PERRL Ears, Nose, Mouth, Throat: moist mucous membranes Cardiovascular: regular rate and rhythym Respiratory: no respiratory distress, other (diminshed BS at bases) Gastrointestinal: normoactive bowel sounds Genitourinary: no bladder fullness Skin: warm Musculoskeletal: other (left elbow with swelling, mild erythema. TTP) Neurologic: AAOx3, CN II-XII Intact Psychiatric: anxious ICD10 Worksheet Patient Problems: Problems Problem Status Onset Olecranon bursitis of left elbow Acute Abdominal pain Acute Acute renal failure Acute Bilateral cellulitis of lower leg Acute Cellulitis Acute Cellulitis of leg Acute Dehydration Acute Portal vein thrombosis Acute Severe sepsis Acute Umbilical hernia, incarcerated Acute Vomiting Acute
[2018-06-06] MEDS: Mometasone/Formoterol [Dulera 200 Mcg/5 Mcg Inhaler] IH SCH ×2 (09:40→22:21)
--- NOTE | 2018-06-06 10:34 | PCMIDPN ---
Assessment/Plan: Assessment: Left-sided olecranon bursitis. Cultures not growing anything. Patient had been improving on empiric vancomycin after aspiration. Creatinine increased mildly again today to 1.6. Vancomycin off for over 24 hr. Now on doxycycline. Plan: 1. Continue doxycycline 100 mg p.o. Twice daily. 2. Continue to follow clinical appearance of left upper extremity. Subjective: Patient is sitting on the edge of his bed. He has no new complaint. States that his left elbow is with reduced pain. Reduced redness as well as swelling. Patient continues to be pleased with the appearance of his lower extremities. Objective: Doxycycline 100 mg p. O. Twice daily # 1 Vital Signs Temp Pulse Resp BP Pulse Ox 36.6 C 79 16 109/83 H 89 L 06/06/18 08:00 06/06/18 09:41 06/06/18 09:41 06/06/18 08:00 06/06/18 09:41 Microbiology 06/03/18 15:10 Gram Stain - Final Elbow - Aspirate Laboratory Results 06/04/18 04:42 06/06/18 05:05 06/05/18 06/06/18 06/07/18 05:59 05:59 05:59 Intake Total 885 1750 Output Total 2050 1250 Balance -1165 500 - Physical Exam General Appearance: WD/WN, alert, no apparent distress, non-toxic Cardiac/Chest: regular rate, rhythm, No tachycardia Extremities: non-tender, erythema (Mild bilateral lower extremity-chronic), No normal inspection Skin: normal color, warm/dry, rash Neuro/Psych: alert, normal mood/affect, oriented x 3 ICD10 Worksheet Patient Problems: Problems Problem Status Onset Olecranon bursitis of left elbow Acute Abdominal pain Acute Acute renal failure Acute Bilateral cellulitis of lower leg Acute Cellulitis Acute Cellulitis of leg Acute Dehydration Acute Portal vein thrombosis Acute Severe sepsis Acute Umbilical hernia, incarcerated Acute Vomiting Acute
[2018-06-06] MEDS: PARoxetine HCL 20 MG TAB PO SCH ×2 (10:55→22:35)
[2018-06-06] MEDS: buPROPion XL 150 MG TAB PO SCH ×2 (10:55→22:35)
[2018-06-06] MEDS: DOXYCYCLINE HYCLATE 100 MG CAP/TAB PO SCH ×2 (10:55→22:35)
[2018-06-06] MEDS: PANTOPRAZOLE SODIUM 40 MG TAB PO SCH (10:55)
[2018-06-06] MEDS: ENOXAPARIN 40 MG/0.4 ML SYR SC SCH (10:55)
[2018-06-06] MEDS: TAMSULOSIN HCL 0.4 MG CAP PO SCH (10:55)
[2018-06-06] MEDS: FLUCONAZOLE 100 MG TAB PO SCH (10:55)
[2018-06-06] MEDS: KETOCONAZOLE 2% 120 ML SHAMPOO TP SCH (10:57)
[2018-06-06] MEDS: KETOCONAZOLE 2% 15 GM CREAM TP SCH (10:57)
[2018-06-06] MEDS: TADALAFIL 5 MG PO SCH (10:58)
[2018-06-06] MEDS: LISINOPRIL 40 MG TAB PO SCH (10:59)
[2018-06-06] MEDS ORDERED: LACTULOSE 20 GM/30 ML UDCUP PO PRN (11:29)
[2018-06-06] MEDS ORDERED: MAGNESIUM HYDROXIDE 30 ML UDCUP PO PRN (11:29)
[2018-06-06] MEDS ORDERED: POLYETHYLENE GLYCOL 3350 17 GM PKT PO PRN (11:29)
[2018-06-06] MEDS ORDERED: BISACODYL 10 MG SUPP PR PRN (11:29)
[2018-06-06] MEDS: SENNOSIDES/DOCUSATE SODIUM TAB PO SCH (22:35)
[2018-06-07] MEDS: LEVOTHYROXINE 100 MCG TAB PO SCH (04:57)
[2018-06-07] MEDS: GABAPENTIN 400 MG CAP PO SCH ×2 (04:57→14:14)
[2018-06-07] MEDS: oxyCODONE CR 80 MG TAB PO SCH ×3 (04:58→14:14)
[2018-06-07] MEDS: Mometasone/Formoterol [Dulera 200 Mcg/5 Mcg Inhaler] IH SCH (09:03)
[2018-06-07] MEDS: buPROPion XL 150 MG TAB PO SCH (10:26)
[2018-06-07] MEDS: PARoxetine HCL 20 MG TAB PO SCH (10:27)
[2018-06-07] MEDS: PANTOPRAZOLE SODIUM 40 MG TAB PO SCH (10:27)
[2018-06-07] MEDS: DOXYCYCLINE HYCLATE 100 MG CAP/TAB PO SCH (10:27)
[2018-06-07] MEDS: FLUCONAZOLE 100 MG TAB PO SCH (10:27)
[2018-06-07] MEDS: TAMSULOSIN HCL 0.4 MG CAP PO SCH (10:27)
[2018-06-07] MEDS: ENOXAPARIN 40 MG/0.4 ML SYR SC SCH (10:28)
[2018-06-07] MEDS: SENNOSIDES/DOCUSATE SODIUM TAB PO SCH (10:29)
[2018-06-07] MEDS: TADALAFIL 5 MG PO SCH (10:30)
[2018-06-07] MEDS: KETOCONAZOLE 2% 120 ML SHAMPOO TP SCH (10:38)
[2018-06-07] MEDS: KETOCONAZOLE 2% 15 GM CREAM TP SCH (10:40)
[2018-06-07 11:47] VITALS: BP 135/75
--- NOTE | 2018-06-07 12:40 | GDS ---
[f rep st] DISCHARGE SUMMARY DISCHARGE DIAGNOSES: 1. Left olecranon bursitis. 2. Acute kidney injury. 3. Hypertension. 4. Chronic pain, with chronic opioid dependency. 5. Chronic skin lesions. 6. Hypothyroidism. 7. Chronic left wrist dislocation. 8. Chronic obstructive pulmonary disease. CONSULTATIONS: Infectious Disease. HISTORY OF PRESENT ILLNESS: A 63-year-old male with hypertension, COPD, chronic pain, presents with left elbow pain. He fell on it 2 days ago, noticed swelling, redness, pain at the left forearm and elbow. Denies fevers or chills. Imaging showed likely wrist dislocation, which could be chronic. He was evaluated by Hand Surgery who thought this was more likely due to cellulitis. He has been on suppressive Keflex with history of left lower leg infection. HOSPITAL COURSE BY PROBLEM: 1. Left olecranon bursitis: evaluated by Infectious Disease. DC on doxycycline x 10 days, FU [facility]. 2. XU: due to vanc. Peaked at 1.6, now 1.4. Hold lisinopril until repeat BMP on Friday with PCP. 3. COPD, no exacerbation. 4. TYRONE. Does not use CPAP. 5. Chronic skin lesions, legs/arms. Outpatient dermatology. 6. Hypertension. been normotensive here off lisinopril. Hols until BMP done. 7. Chronic pain, with opioid dependency: home meds, bowel regimen. 8. Chronic left arthritis: possible dislocation. Will FU with Dr. Baum. Home OT. DISPOSITION: Patient is stable for discharge home with home care, PT/OT. MEDICATIONS: Hold lisinopril. NEW MEDICATIONS: Doxycycline 100 mg b.i.d. FOLLOWUP: 1. [facility]. 2. Dr. Aguirre of [facility]. 3. Dr. Amanda with repeat BMP on Friday. 4. Dr. Baum for wrist arthritis. PHYSICAL EXAMINATION: VITAL SIGNS: Today, temperature 36.4, blood pressure 135 /75, heart rate is in the 80s, respirations 17; 91% on room air. GENERAL: No acute distress. Sitting up. HEENT: PERRLA. Moist mucous membranes. CV: Regular rate and rhythm. LUNGS: Clear. ABDOMEN: Soft, nontender, nondistended. MUSCULOSKELETAL: Left olecranon bursitis with swelling, less tender today. Some erythema still present over elbow and upper forearm. NEURO : 2 through 12 intact. PSYCH: Alert and oriented x3. was at bedside. Questions answered. Time spent on discharge: Greater [address] Aguirre and counseling patient on followup plan. /[id number]/MODL MTDD
--- NOTE | 2018-06-07 13:28 | ASMTLACE ---
LACE Length of stay for Answers: 4-6 days current admission Acuity / Level of Answers: Yes Care: Did the patient have an inpatient admission? Comorbidities - select Answers: Chronic pulmonary disease all that apply Opioid dependence / Chronic pain Other Notes: HTN # of Emergency department Answers: 1-2 visits in the last 6 months Score: 15 Date Signed: 06/07/2018 01:28 PM Electronically Signed By:Prema Kirkpatrick RN
--- NOTE | 2018-06-07 13:32 | PDIAF ---
- Diagnosis Diagnosis: Left elbow olecranon Code Status: Full Code - Medication Management Discharge Medications: electronically signed and located in the Home Medication List. - Orders Services needed: Home Care, Registered Nurse, Physical Therapy, Occupational Therapy Home Care Face to Face: I certify that this patient was under my care and that I had the required [id number] encounter meeting the encounter requirements on the discharge day. My findings support the fact that the patient is homebound as defined in Home Care Face to Face Continued: CMS Chapter 7 Medicare Benefits Manual 30.1.1 , The condition of the patient is such that there exists a normal inability to leave home and consequently, leaving home would require a considerable and taxing effort. Isolation Type: None Diet Recommendation: no restrictions on diet Diet Texture: Regular Texture Diet Additional Instructions: No NSAID: Advil, Alevel, Motrin, Ibuprofen Can take Tylenol. HOLD LISINOPRIL - Labs/Radiology Creatinine Date: 06/09/18 - Follow Up Care Current Providers and Referrals: Johnathan Amanda MD [Primary Care Provider] - 2-3 days without fail Cody Baum MD [Medical Doctor] - follow up in 2 weeks
--- NOTE | 2018-06-07 13:51 | ASMTDCNOTE ---
Case Management Discharge Discharge Order Complete? Answers: Yes Patient to Obtain Answers: via Family Medications Transportation Arranged Answers: Family/Friends Faxed Final Orders Answers: Yes Notes: HC Agency/Facility Transfer Answers: Yes Notes: HC Report Printed & Faxed to Receiving Agency Discharge Comments Notes: 06/07/2018 Case Management Note Faxed final orders to [facility]. Notified of d/c via phone. IM signed. Case Management d/c poc: home with and [facility] RN PT OT Date Signed: 06/07/2018 01:50 PM Electronically Signed By:Prema Kirkpatrick RN
--- NOTE | 2018-06-07 13:51 | ASDISCHSUM ---
Discharge Information Plan Status:Home with Home Health Medically Cleared to Leave:06/07/2018 Discharge Date:06/07/2018 D/C Disposition:Home Health Service ADT D/C Disposition:Home, Routine, Self-Care Projected Discharge Date:06/03/2018 11:00 AM Transportation at D/C: Discharge Delay Reason: Follow-Up Date:06/03/2018 11:00 AM Discharge Slot: Final Diagnosis: Placement Information Referral Type:*Home Health Care Services Referral ID:[id number] Provider Name:[facility] Address 1:[address] [facility] [address] Address 2: City:[place] Selection Factors: State:[place] Patient Contact Information Contact Name:ANUJ Relationship: Address:[address] City:[place] Alternate Phone: State/Zip Code:[place] [address] Email: Financial Information Financial Class:Medicare Primary Plan Desc:MEDICARE INPATIENT Primary Plan Number:[id number] Secondary Plan Desc:[place] Secondary Plan Number:[id number] Assessment Information LACE LACE Length of stay for Answers: 4-6 days current admission Acuity / Level of Answers: Yes Care: Did the patient have an inpatient admission? Comorbidities - select Answers: Chronic pulmonary disease all that apply Opioid dependence / Chronic pain Other Notes: HTN # of Emergency department Answers: 1-2 visits in the last 6 months Score: 15 Date Signed: 06/07/2018 01:28 PM Electronically Signed By:Prema Kirkpatrick RN [facility] CM Progress Note CM Note CM Note Notes: Met with patient to discuss needs on discharge. Patient has used [facility] in the past and feels it would be a good idea to use again. Spoke with Kim at [facility] re: referral, able to accept. Exact d/c date unclear at this time. Patient states he does not want OT at home, only RN and PT. CM will follow. Plan: [facility] RN, PT Date Signed: 06/01/2018 03:32 PM Electronically Signed By:Mallory Joe RN [facility] CM Progress Note CM Note CM Note Notes: Patient plan of care reviewed in am rounds. Still has significant edema. Transition to oral antibiotics. Plan home with services. 63 year old male with swelling of left arm. S/p fall and dislocation. Plan: Dc to home with [facility] when medically cleared for discharge to home. Date Signed: 06/02/2018 02:31 PM Electronically Signed By:Moriah Doyle RN [facility] CM Progress Note CM Note CM Note Notes: Chart reviewed for discharge planning purposes. Patient is agreeable to [facility] RN and PT. Likely to change to oral antibiotics when medically cleared by ID to do so. CM to follow for any other needsPlan: DC to Home with [facility] from [facility] when medically cleared for discharge. Date Signed: 06/04/2018 03:25 PM Electronically Signed By:Moriah Doyle RN Case Management Discharge Plan Note Case Management Discharge Discharge Order Complete? Answers: Yes Patient to Obtain Answers: via Family Medications Transportation Arranged Answers: Family/Friends Faxed Final Orders Answers: Yes Notes: [facility] Agency/Facility Transfer Answers: Yes Notes: [facility] Report Printed & Faxed to Receiving Agency Discharge Comments Notes: 06/07/2018 Case Management Note Faxed final orders to [facility]. Notified of d/c via phone. IM signed. Case Management d/c poc: home with and BC RN PT OT Date Signed: 06/07/2018 01:50 PM Electronically Signed By:Prema Kirkpatrick RN Intervention Information Intervention Type:*MELINDA-Signed Date of Service:06/01/2018 02:32 PM Patient Type:Observation Staff Member:Sona Gallardo Hours: Discipline: Severity: Comment: Intervention Type:*IM-Signed Date of Service:06/07/2018 01:50 PM Patient Type:Inpatient Staff Member:JEAN MARIE Kirkpatrick Hillary Hours: Discipline: Severity: Comment:
== END 2018-06-07 15:42 | disposition home health service (06) | DRG 558 ==
LOC: F1N 22:50 → OBSVTOIN 06-01 15:01
PROVIDERS: ADMIT Student in an Organized Health Care Education/Training Program; ATTEND Internal Medicine
DX: M70.22 Olecranon bursitis, left elbow (principal); L03.113 Cellulitis of right upper limb; N17.9 Acute kidney failure, unspecified; F11.20 Opioid dependence, uncomplicated; G89.29 Other chronic pain; M24.432 Recurrent dislocation, left wrist; I10 Essential (primary) hypertension; E03.9 Hypothyroidism, unspecified; J44.9 Chronic obstructive pulmonary disease, unspecified; I87.2 Venous insufficiency (chronic) (peripheral)
CPT/HCPCS: 96365; 97110-GO; 97116-GP; 97140-GO; 97161-GP; 97166-GO; 97530-GP; 97535-GO; G0378; J1071; J1650; J3370

== ENCOUNTER 2018-08-13 16:03 | Inpatient (IN) | payer OTHER ==
--- NOTE | 2018-08-13 16:52 | EDPHY ---
H & P Stated Complaint: r leg swelling/cellulitis Time Seen by Provider: 08/13/18 16:14 HPI/ROS: CHIEF COMPLAINT: Bilateral leg swelling and redness HISTORY OF PRESENT ILLNESS: 63-year-old male with chronic venous stasis and recurrent bilateral lower extremity cellulitis presents with erythema and swelling of his legs. Onset of moderate erythema and swelling of both legs 1 week ago, gradually increasing. He now feels ill and complains of moderate generalized weakness. Having difficulty ambulating d/t weakness. No fever. History of MRSA, states that he typically requires vancomycin or daptomycin to treat the cellulitis. No SOB and no h/o DVT. REVIEW OF SYSTEMS: complete 10 point ROS reviewed and is negative except for the noted elements in the HPI Source: Patient, Family - Personal History Current Tetanus Diphtheria and Acellular Pertussis (TDAP): Yes - Medical/Surgical History Hx Asthma: No Hx Chronic Respiratory Disease: No Hx Diabetes: No Hx Cardiac Disease: No Hx Renal Disease: No Hx Cirrhosis: No Hx Alcoholism: No Hx HIV/AIDS: No Hx Splenectomy or Spleen Trauma: No Other PMH: BILAT KNEE PROB/BACK SURGERY/FX WRIST, hernia repair, recurrent cellulitis both legs, HTN, damaged pubic bone, fall. 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 - Family History Significant Family History: No pertinent family hx - Social History Smoking Status: Never smoked Alcohol Use: Sober Drug Use: None - Physical Exam Exam: General Appearance: Alert, pleasant, obese Eyes: Pupils equal and round, no conjunctival pallor or injection ENT, Mouth: Mucous membranes moist Neck: Normal inspection Respiratory: Lungs are clear to auscultation Cardiovascular: Regular rate and rhythm Gastrointestinal: Abdomen is soft and nontender Neurological: A&O, nonfocal, slow and tenuous gait Skin: Warm and dry Extremities: Bilateral lower extremity swelling, right greater than left, bilateral lower leg erythema and tenderness, open and weeping wound left anterior leg, no fluctuance Psychiatric: Mood and affect normal Constitutional: Initial Vital Signs Temperature (C) 36.5 C 08/13/18 16:04 Heart Rate 100 08/13/18 16:04 Respiratory Rate 20 08/13/18 16:04 Blood Pressure 136/95 H 08/13/18 16:04 O2 Sat (%) 94 08/13/18 16:04 O2 Delivery Mode Room Air Allergies/Adverse Reactions: celecoxib [From Celebrex] Allergy (Intermediate, Verified 08/13/18 16:03) Other-Enter Comments ibuprofen Allergy (Intermediate, Verified 08/13/18 16:03) Other-Enter Comments amoxicillin [Amoxicillin] Allergy (Mild, Verified 08/13/18 16:03) NAUSEA codeine [Codeine] Allergy (Mild, Verified 08/13/18 16:03) NAUSEA hydromorphone HCl [From Dilaudid] Allergy (Mild, Verified 08/13/18 16:03) NAUSEA/DOESN'T WORK clavulanic acid [Clavulanic Acid] Allergy (Unknown, Verified 08/13/18 16:03) ciprofloxacin [From Cipro] Allergy (Verified 08/13/18 16:03) Other-Enter Comments nystatin Allergy (Verified 08/13/18 16:03) Hives Home Medications: Medication Instructions Recorded Gabapentin [Gabapentin 800 mg] 800 mg PO QID 01/27/14 Pantoprazole Sodium 40 mg PO DAILYAC 01/27/14 Tamsulosin HCl [Flomax 0.4 MG (*)] 0.4 mg PO DAILY 01/27/14 Testosterone Cypionate 200 mg IM MO@0900 01/27/14 Levothyroxine Sodium 100 mcg PO DAILY06 11/09/16 buPROPion XL [Wellbutrin 150mg XL] 300 mg PO DAILY 11/09/16 Lisinopril [Zestril 40 mg (*)] 40 mg PO DAILY 07/28/17 Mometasone/Formoterol [Dulera 200 1 puffs IH BID 12/02/17 Mcg/5 Mcg Inhaler] PARoxetine HCL [Paxil 20mg (*)] 20 mg PO BID 04/10/18 buPROPion XL [Wellbutrin 150mg XL] 150 mg PO HS 04/10/18 oxyCODONE CR [Oxycontin] 80 mg PO TID@,,04/10/18 oxyCODONE IR [Oxycodone Ir (*)] 60 mg PO TID@,,04/10/18 Tadalafil 5 mg PO DAILY 05/31/18 Herbals/Supplements -Info Only 1 ea PO DAILY 06/01/18 Doxycycline Hyclate [Vibramycin 100 mg PO BID #20 capsule 06/07/18 100 MG (*)] Ketoconazole 2% [Nizoral Shampoo 1 denice TP DAILY shampoo 06/07/18 (*)] Medical Decision Making ED Course/Re-evaluation: This patient presents with bilateral lower extremity erythema, unclear if this is cellulitis or secondary to chronic venous stasis. Does not meet SIRS criteria. Blood cultures were drawn. Consulted Dr. Stone, who knows the patient well. Patient was seen by Dr. Stone in the emergency department and placed on Ancef IV for possible BLE cellulitis. Plan for admission to the hospitalist service. Dr. Contreras was consulted and will admit the patient. Differential Diagnosis: Differential diagnosis includes though it is not limited to fracture, dislocation, tendon disruption, neurovascular compromise. - Data Points Laboratory Results: Laboratory Results 08/13/18 16:50 08/13/18 16:50 Medications Given: Albuterol (Proventil Inhaler) 2 puffs IH Q4HRS PRN PRN Reason: Short of Breath/Dyspnea Stop: 02/09/19 19:09 Last Admin: 08/13/18 20:51 Dose: 2 puffs Bupropion HCl (Wellbutrin Xl) 150 mg PO HS ERIK Stop: 02/09/19 20:59 Last Admin: 08/16/18 20:51 Dose: 150 mg Bupropion HCl (Wellbutrin Xl) 300 mg PO DAILY ERIK Stop: 02/10/19 08:59 Last Admin: 08/16/18 09:16 Dose: 300 mg Doxycycline Hyclate (Doxycycline Hyclate) 100 mg PO BID ERIK PRN Reason: Protocol Stop: 09/12/18 20:59 Last Admin: 08/16/18 20:51 Dose: 100 mg Furosemide (Lasix) 20 mg PO DAILY ERIK Stop: 02/12/19 08:59 Last Admin: 08/16/18 15:14 Dose: 20 mg Gabapentin (Neurontin) 800 mg PO QID ERIK Stop: 02/09/19 20:59 Last Admin: 08/17/18 05:45 Dose: 800 mg Heparin Sodium (Porcine) (Heparin Sc Injection) 5,000 unit SC Q8 ERIK Stop: 02/10/19 05:59 Last Admin: 08/17/18 05:45 Dose: 5,000 unit Ketoconazole (Nizoral Shampoo) 1 denice TP DAILY ERIK Stop: 09/13/18 08:59 Last Admin: 08/16/18 11:43 Dose: Not Given Levothyroxine Sodium (Synthroid) 100 mcg PO DAILY06 ERIK Stop: 02/10/19 05:59 Last Admin: 08/17/18 05:45 Dose: 100 mcg Melatonin (Melatonin) 3 mg PO HS ERIK Stop: 02/09/19 20:59 Last Admin: 08/16/18 20:51 Dose: 3 mg Miscellaneous Medication (Mometasone/Formoterol [Dulera 200 Mcg/5 Mcg Inhaler]) 1 puffs IH BID ERIK Stop: 02/09/19 20:59 Last Admin: 08/16/18 21:35 Dose: Not Given Oxycodone HCl (Oxycontin) 80 mg PO TID@,, ERIK Stop: 08/23/18 19:59 Last Admin: 08/17/18 04:33 Dose: 80 mg Oxycodone HCl (Oxycodone Ir) 60 mg PO TID@,,20 ERIK Stop: 08/23/18 19:59 Last Admin: 08/17/18 04:33 Dose: 60 mg Pantoprazole Sodium (Protonix) 40 mg PO DAILYAC ERIK Stop: 02/10/19 07:29 Last Admin: 08/16/18 05:58 Dose: 40 mg Paroxetine HCl (Paxil) 20 mg PO BID ERIK Stop: 02/09/19 20:59 Last Admin: 08/16/18 20:51 Dose: 20 mg Tamsulosin HCl (Flomax) 0.4 mg PO DAILY ERIK Stop: 02/10/19 08:59 Last Admin: 08/16/18 09:16 Dose: 0.4 mg Discontinued Medications Furosemide (Lasix Injection) 40 mg IVP ONCE ONE Stop: 08/13/18 22:03 Last Admin: 08/13/18 23:23 Dose: Not Given Furosemide (Lasix Injection) 40 mg IVP ONCE ONE Stop: 08/14/18 13:11 Last Admin: 08/14/18 13:55 Dose: 40 mg Cefazolin Sodium/Dextrose (Ancef) 100 mls @ 200 mls/hr IV Q12H ERIK PRN Reason: Protocol Stop: 09/12/18 17:59 Last Admin: 08/14/18 05:15 Dose: 100 mls Cefazolin Sodium/Dextrose (Ancef) 100 mls @ 200 mls/hr IV Q8H ERIK PRN Reason: Protocol Stop: 09/13/18 16:29 Last Admin: 08/16/18 09:15 Dose: 100 mls Lisinopril (Zestril) 40 mg PO DAILY [facility] Stop: 02/10/19 08:59 Last Admin: 08/14/18 08:39 Dose: 40 mg Departure - Departure Disposition: [facility] Inpatient Acute Clinical Impression: Cellulitis of leg Qualifiers: Laterality: unspecified laterality Qualified Code(s): L03.119 - Cellulitis of unspecified part of limb Condition: Good
[2018-08-13 17:04] LABS: PLATELET COUNT 288 10^3/uL (150-400)
[2018-08-13] MEDS ORDERED: CEFAZOLIN 2 GM/DEXTROSE/100 ML BAG IV ONE (17:42)
[2018-08-13] MEDS: ceFAZolin 2 GM/DEXTROSE 100 ML IV SCH (18:00)
--- NOTE | 2018-08-13 18:02 | PCMIDPN ---
Assessment/Plan: Assessment/Plan: * Bilateral lower extremity erythema: Suspect vast majority of clinical findings are related to venous insufficiency and stasis dermatitis. Does have faint erythema in the left thigh which could represent component of cellulitis. Will begin cefazolin 2 g IV q.12 hours adjusted for increased creatinine ( breakthrough cellulitis with suppressive cephalexin unlikely to be associated with resistant pathogens). No purulence to suggest presence of MRSA. Leg elevation will be important. Follow clinical response to above measures. Blood cultures have been obtained. Serous drainage present from left lower extremity consistent with venous insufficiency; would not recommend culturing this fluid given concerns will detect skin susan/skin colonization. * Bilateral lower extremity edema: Worsening edema in thighs than has been typical on previous admissions. Will obtain ultrasound of the right lower extremity to ensure no evidence of DVT. Query if he is retaining fluid in the setting of his renal insufficiency or potentially related to depressed ejection fracture particularly in light of ongoing weight gain. Will obtain echocardiogram to further evaluate. * Rash: Chronic rash of unclear etiology. Patient has not seen dermatology for further evaluation. This was recommended to him today. Time spent, greater than 35 min, which greater than half was spent in education/ counseling/coordination of care related to possible lower extremity cellulitis and bilateral lower extremity edema with chronic venous insufficiency. Care coordinated with patient and Dr. Salinas. 08/13/18 17:58 08/13/18 18:02 08/13/18 18:06 Subjective: Patient well known to Infectious Disease service from recurrent right lower extremity cellulitis in the setting of chronic bilateral lower extremity venous insufficiency and right lower extremity lymphedema. Presented today with worsening bilateral lower extremity edema and erythema with concern for recurrent cellulitis. No fever or chills. Notes that he feels "weak" and has been experiencing difficulty with his activities of daily living such as getting to the toilet. Now has some drainage from the left lower extremity anterior [place]field. Notes that he has gained approximately 15 lb. On suppressive cephalexin with goal of preventing recurrent cellulitis and notes that he is not always taking twice daily. Allergies to medications review today. Objective: Vital Signs Temp Pulse Resp BP Pulse Ox 36.5 C 100 20 136/95 H 94 08/13/18 16:04 08/13/18 16:04 08/13/18 16:04 08/13/18 16:04 08/13/18 16:04 Selected Entries 08/13/18 16:04 Temperature (C) 36.5 C Laboratory Tests 08/13/18 08/13/18 08/13/18 16:50 16:50 16:50 WBC 8.73 Hct 49.4 Plt Count 288 Neut % (Auto) 69.0 Lymph % (Auto) 18.2 VBG Lactic Acid 1.9 Creatinine 1.7 H - Physical Exam General Appearance: alert, non-toxic EENT: No scleral icterus, No thrush, No conjunctival petechiae Respiratory: lungs clear, respiratory distress (Increased respiratory effort present) Cardiac/Chest: tachycardia Extremities: inflammation (Bilateral lower extremities with venous insufficiency changes and circumferential erythema from knee to foot; faint erythema in left thigh; warmth over areas of erythema without significant tenderness; pitting edema extends into thigh bilaterally) Abdomen: non-tender, No distended Skin: rash (Diffuse erythematous patches over chest, back and upper extremities) , No embolic lesions Lymphatic: other (No lymphangitis bilateral thighs) ICD10 Worksheet Patient Problems: Problems Problem Status Onset Umbilical hernia, incarcerated Acute Cellulitis of leg Acute Acute renal failure Acute Severe sepsis Acute Cellulitis Acute Vomiting Acute Dehydration Acute Abdominal pain Acute Portal vein thrombosis Acute Bilateral cellulitis of lower leg Acute Olecranon bursitis of left elbow Acute
[2018-08-13] MEDS ORDERED: ALBUTEROL 60 PUFFS/8 GM MDI IH PRN (19:10)
[2018-08-13] MEDS ORDERED: ACETAMINOPHEN 325 MG TAB PO PRN (19:48)
[2018-08-13] MEDS: buPROPion XL 150 MG TAB PO SCH (20:27)
[2018-08-13] MEDS: MELATONIN 3 MG TAB PO SCH (20:27)
[2018-08-13] MEDS: PARoxetine HCL 20 MG TAB PO SCH (20:28)
[2018-08-13] MEDS: DOXYCYCLINE HYCLATE 100 MG CAP/TAB PO SCH (20:31)
[2018-08-13] MEDS: GABAPENTIN 400 MG CAP PO SCH (20:31)
[2018-08-13] MEDS: oxyCODONE CR 80 MG TAB PO SCH (20:48)
[2018-08-13] MEDS: Mometasone/Formoterol [Dulera] 200 Mcg/5 Mcg Inhaler IH SCH (20:51)
[2018-08-13] MEDS ORDERED: FUROSEMIDE 40 MG/4 ML VIAL IVP ONE (22:02)
--- NOTE | 2018-08-13 22:06 | PDGENHP ---
<Ginger Morel - Last Filed: 08/13/18 22:24> History and Physical - Chief Complaint Bilateral lower extremity edema and erythema - History of Present Illness 63-year-old male with history of chronic venous stasis and recurrence bilateral lower extremity cellulitis presents with increasing bilateral lower extremity edema and erythema, onset was 1 week ago. He has presented to the hospital on numerous occasions due to issues with bilateral lower extremities. He denies any fevers or chills. Denies chest pain or palpitations. Endorses shortness of breath. He feels overall generalized weakness. He does not meet the criteria for SIRS. It is unclear whether this is cellulitis or secondary to chronic venous stasis. Dr. Travon Stone is quite familiar with the patient and has placed him on Ancef IV and has consulted the patient. He is being admitted for treatment and monitoring. History Information - Allergies/Home Medication List Allergies/Adverse Reactions: celecoxib [From Celebrex] Allergy (Intermediate, Verified 08/13/18 16:03) Other-Enter Comments ibuprofen Allergy (Intermediate, Verified 08/13/18 16:03) Other-Enter Comments amoxicillin [Amoxicillin] Allergy (Mild, Verified 08/13/18 16:03) NAUSEA codeine [Codeine] Allergy (Mild, Verified 08/13/18 16:03) NAUSEA hydromorphone HCl [From Dilaudid] Allergy (Mild, Verified 08/13/18 16:03) NAUSEA/DOESN'T WORK clavulanic acid [Clavulanic Acid] Allergy (Unknown, Verified 08/13/18 16:03) ciprofloxacin [From Cipro] Allergy (Verified 08/13/18 16:03) Other-Enter Comments nystatin Allergy (Verified 08/13/18 16:03) Hives Home Medications: Gabapentin [Gabapentin 800 mg] 800 mg PO QID 01/27/14 [Last Taken 08/13/18] Pantoprazole Sodium 40 mg PO DAILYAC 01/27/14 [Last Taken 08/13/18] Tamsulosin HCl [Flomax 0.4 MG (*)] 0.4 mg PO DAILY 01/27/14 [Last Taken 08/13/18 ] Testosterone Cypionate 200 mg IM MO@0900 01/27/14 [Last Taken 08/10/18] Levothyroxine Sodium 100 mcg PO DAILY06 11/09/16 [Last Taken 08/13/18] buPROPion XL [Wellbutrin 150mg XL] 300 mg PO DAILY 11/09/16 [Last Taken 08/13/18 ] Lisinopril [Zestril 40 mg (*)] 40 mg PO DAILY 07/28/17 [Last Taken 08/13/18] Mometasone/Formoterol [Dulera 200 Mcg/5 Mcg Inhaler] 1 puffs IH BID 12/02/17 [ Last Taken 08/13/18] PARoxetine HCL [Paxil 20mg (*)] 20 mg PO BID 04/10/18 [Last Taken 08/13/18] buPROPion XL [Wellbutrin 150mg XL] 150 mg PO HS 04/10/18 [Last Taken 08/12/18] oxyCODONE CR [Oxycontin] 80 mg PO TID@,,04/10/18 [Last Taken 08/13/18 12: 00] oxyCODONE IR [Oxycodone Ir (*)] 60 mg PO TID@,,04/10/18 [Last Taken 08/13 12:00] Tadalafil 5 mg PO DAILY 05/31/18 [Last Taken 08/13/18] Herbals/Supplements -Info Only 1 ea PO DAILY 06/01/18 [Last Taken 08/13/18] I have personally reviewed and updated: family history, medical history, social history, surgical history - Past Medical History COPD, hypertension Additional medical history: Chronic pain - Surgical History Reports: hernia repair, spinal surgery Additional surgical history: Bilateral knee surgeries - Family History Positive for: CAD - Social History Smoking Status: Never smoked Alcohol Use: Sober Drug Use: None Additional social history: for 40 years. Review of Systems Review of Systems: ROS: 10pt was reviewed & negative except for what was stated in HPI & below Physical Exam Physical Exam: Lab data reviewed. Case discussed w/admitting physician, Dr. Mahesh Contreras. White blood count: 8.73 Hemoglobin hematocrit: 14.6 and 49.4 Platelet count: 288 Sodium: 134 Potassium: 5.3 Chloride: 97 Carbon dioxide: 25 BUN/Cr: 39/1.7 Lactic acid: 1.9 Temp Pulse Resp BP Pulse Ox 36.8 C 98 18 154/94 H 92 08/13/18 18:51 08/13/18 20:51 08/13/18 20:51 08/13/18 19:01 08/13/18 20:51 O2 (L/minute) 1 Constitutional: obese, uncomfortable Eyes: PERRL, anicteric sclera, EOMI Ears, Nose, Mouth, Throat: moist mucous membranes, hearing normal, ears appear normal, no oral mucosal ulcers Cardiovascular: no murmur, rub, or gallop, tachycardia Respiratory: expiratory wheeze Gastrointestinal: normoactive bowel sounds, soft, non-tender abdomen, no palpable masses Genitourinary: no bladder fullness, no bladder tenderness Skin: erythema, other (BLE 3+ pitting R> L) Musculoskeletal: pain with ROM, generalized weakness Neurologic: AAOx3, sensation intact bilaterally, CN II-XII Intact Psychiatric: interacting appropriately, not anxious, not encephalopathic, thought process linear Lymph, Heme, Immunologic: no cervical LAD, no supraclavicular LAD Lab Data & Imaging Review 08/13/18 16:50 08/13/18 16:50 WBC 8.73 10^3/uL (3.80-9.50) 08/13/18 16:50 RBC 6.43 10^6/uL (4.40-6.38) H 08/13/18 16:50 Hgb 14.6 g/dL (13.7-17.5) 08/13/18 16:50 Hct 49.4 % (40.0-51.0) 08/13/18 16:50 MCV 76.8 fL (81.5-99.8) L 08/13/18 16:50 MCH 22.7 pg (27.9-34.1) L 08/13/18 16:50 MCHC 29.6 g/dL (32.4-36.7) L 08/13/18 16:50 RDW 22.1 % (11.5-15.2) H 08/13/18 16:50 Plt Count 288 10^3/uL (150-400) 08/13/18 16:50 MPV 9.9 fL (8.7-11.7) 08/13/18 16:50 Neut % (Auto) 69.0 % (39.3-74.2) 08/13/18 16:50 Lymph % (Auto) 18.2 % (15.0-45.0) 08/13/18 16:50 Carlisle % (Auto) 10.9 % (4.5-13.0) 08/13/18 16:50 Eos % (Auto) 0.6 % (0.6-7.6) 08/13/18 16:50 Baso % (Auto) 0.6 % (0.3-1.7) 08/13/18 16:50 Nucleat RBC Rel Count 0.0 % (0.0-0.2) 08/13/18 16:50 Absolute Neuts (auto) 6.03 10^3/uL (1.70-6.50) 08/13/18 16:50 Absolute Lymphs (auto) 1.59 10^3/uL (1.00-3.00) 08/13/18 16:50 Absolute Monos (auto) 0.95 10^3/uL (0.30-0.80) H 08/13/18 16:50 Absolute Eos (auto) 0.05 10^3/uL (0.03-0.40) 08/13/18 16:50 Absolute Basos (auto) 0.05 10^3/uL (0.02-0.10) 08/13/18 16:50 Absolute Nucleated RBC 0.00 10^3/uL (0-0.01) 08/13/18 16:50 Immature Gran % 0.7 % (0.0-1.1) 08/13/18 16:50 Immature Gran # 0.06 10^3/uL (0.00-0.10) 08/13/18 16:50 Platelet Estimate ADEQUATE (ADEQ) 08/13/18 16:50 Polychromasia 1+ H 08/13/18 16:50 Hypochromasia 1+ H 08/13/18 16:50 Microcytic Cells 1+ H 08/13/18 16:50 Echinocytes 1+ H 08/13/18 16:50 VBG Lactic Acid 1.9 mmol/L (0.7-2.1) 08/13/18 16:50 Sodium 134 mEq/L (135-145) L 08/13/18 16:50 Potassium 5.3 mEq/L (3.5-5.2) H 08/13/18 16:50 Chloride 97 mEq/L (97-110) 08/13/18 16:50 Carbon Dioxide 25 mEq/l (22-31) 08/13/18 16:50 Anion Gap 12 mEq/L (6-14) 08/13/18 16:50 BUN 39 mg/dL (7-23) H 08/13/18 16:50 Creatinine 1.7 mg/dL (0.7-1.3) H 08/13/18 16:50 Estimated GFR 41 08/13/18 16:50 Glucose 96 mg/dL (70-100) 08/13/18 16:50 Calcium 9.3 mg/dL (8.5-10.4) 08/13/18 16:50 Total Bilirubin 0.3 mg/dL (0.1-1.4) 08/13/18 16:50 Conjugated Bilirubin 0.1 mg/dL (0.0-0.5) 08/13/18 16:50 Unconjugated Bilirubin 0.2 mg/dL (0.0-1.1) 08/13/18 16:50 AST 44 IU/L (17-59) 08/13/18 16:50 ALT 46 IU/L (21-72) 08/13/18 16:50 Alkaline Phosphatase 69 IU/L (38-126) 08/13/18 16:50 NT-Pro-B Natriuret Pep 127 pg/mL (0-125) H 08/13/18 16:50 Total Protein 6.7 g/dL (6.3-8.2) 08/13/18 16:50 Albumin 4.0 g/dL (3.5-5.0) 08/13/18 16:50 Assessment & Plan Assessment: 63-year-old male presenting with 1 weeks worth of worsening bilateral lower extremity erythema and swelling with pain. Endorses general weakness. No fevers. Vital signs are the following blood pressure 123/87, pulse 94, respirations 20, 95% on room air, 36.5c. #Cellulitis of leg vs chronic venous stasis #XU -Infectious Disease consulted please see Dr. Solis consultation in full. To summarize: Most likely related to venous insufficiency and stasis dermatitis with possible component on left thigh of cellulitis. Ancef was initiated every 12 hr is adjusted for creatinine. In regards to edema: Will obtain ultrasound right lower extremity to ensure no evidence of DVT, possible fluid retention especially with complaints of gaining 15 lb of weight and unknown time period. Will perform echo in the morning to evaluate further. Elevate bilateral lower extremities. He is on suppressive cephalexin with goal of preventing recurrence cellulitis and he does not always take the appropriate dosing because he expresses memory loss. -Blood cultures pending -Furosemide 40 mg IV push 1 time tonight -Daily weights -OT to evaluate and treat -BMP in AM Diet: Low-sodium VTE ppx: LMWH Code: Full Dispo: Admit to inpatient <Jorge Contreras Miriam - Last Filed: 08/13/18 23:42> History and Physical - History of Present Illness Review of Systems Review of Systems: Physical Exam Physical Exam: Temp Pulse Resp BP Pulse Ox 36.8 C 98 18 154/94 H 92 08/13/18 18:51 08/13/18 20:51 08/13/18 20:51 08/13/18 19:01 08/13/18 20:51 O2 (L/minute) 1 Lab Data & Imaging Review 08/13/18 16:50 08/13/18 16:50 WBC 8.73 10^3/uL (3.80-9.50) 08/13/18 16:50 RBC 6.43 10^6/uL (4.40-6.38) H 08/13/18 16:50 Hgb 14.6 g/dL (13.7-17.5) 08/13/18 16:50 Hct 49.4 % (40.0-51.0) 08/13/18 16:50 MCV 76.8 fL (81.5-99.8) L 08/13/18 16:50 MCH 22.7 pg (27.9-34.1) L 08/13/18 16:50 MCHC 29.6 g/dL (32.4-36.7) L 08/13/18 16:50 RDW 22.1 % (11.5-15.2) H 08/13/18 16:50 Plt Count 288 10^3/uL (150-400) 08/13/18 16:50 MPV 9.9 fL (8.7-11.7) 08/13/18 16:50 Neut % (Auto) 69.0 % (39.3-74.2) 08/13/18 16:50 Lymph % (Auto) 18.2 % (15.0-45.0) 08/13/18 16:50 Carlisle % (Auto) 10.9 % (4.5-13.0) 08/13/18 16:50 Eos % (Auto) 0.6 % (0.6-7.6) 08/13/18 16:50 Baso % (Auto) 0.6 % (0.3-1.7) 08/13/18 16:50 Nucleat RBC Rel Count 0.0 % (0.0-0.2) 08/13/18 16:50 Absolute Neuts (auto) 6.03 10^3/uL (1.70-6.50) 08/13/18 16:50 Absolute Lymphs (auto) 1.59 10^3/uL (1.00-3.00) 08/13/18 16:50 Absolute Monos (auto) 0.95 10^3/uL (0.30-0.80) H 08/13/18 16:50 Absolute Eos (auto) 0.05 10^3/uL (0.03-0.40) 08/13/18 16:50 Absolute Basos (auto) 0.05 10^3/uL (0.02-0.10) 08/13/18 16:50 Absolute Nucleated RBC 0.00 10^3/uL (0-0.01) 08/13/18 16:50 Immature Gran % 0.7 % (0.0-1.1) 08/13/18 16:50 Immature Gran # 0.06 10^3/uL (0.00-0.10) 08/13/18 16:50 Platelet Estimate ADEQUATE (ADEQ) 08/13/18 16:50 Polychromasia 1+ H 08/13/18 16:50 Hypochromasia 1+ H 08/13/18 16:50 Microcytic Cells 1+ H 08/13/18 16:50 Echinocytes 1+ H 08/13/18 16:50 VBG Lactic Acid 1.9 mmol/L (0.7-2.1) 08/13/18 16:50 Sodium 134 mEq/L (135-145) L 08/13/18 16:50 Potassium 5.3 mEq/L (3.5-5.2) H 08/13/18 16:50 Chloride 97 mEq/L (97-110) 08/13/18 16:50 Carbon Dioxide 25 mEq/l (22-31) 08/13/18 16:50 Anion Gap 12 mEq/L (6-14) 08/13/18 16:50 BUN 39 mg/dL (7-23) H 08/13/18 16:50 Creatinine 1.7 mg/dL (0.7-1.3) H 08/13/18 16:50 Estimated GFR 41 08/13/18 16:50 Glucose 96 mg/dL (70-100) 08/13/18 16:50 Calcium 9.3 mg/dL (8.5-10.4) 08/13/18 16:50 Total Bilirubin 0.3 mg/dL (0.1-1.4) 08/13/18 16:50 Conjugated Bilirubin 0.1 mg/dL (0.0-0.5) 08/13/18 16:50 Unconjugated Bilirubin 0.2 mg/dL (0.0-1.1) 08/13/18 16:50 AST 44 IU/L (17-59) 08/13/18 16:50 ALT 46 IU/L (21-72) 08/13/18 16:50 Alkaline Phosphatase 69 IU/L (38-126) 08/13/18 16:50 NT-Pro-B Natriuret Pep 127 pg/mL (0-125) H 08/13/18 16:50 Total Protein 6.7 g/dL (6.3-8.2) 08/13/18 16:50 Albumin 4.0 g/dL (3.5-5.0) 08/13/18 16:50 Assessment & Plan Assessment: I assess the patient with Antonette Morel and have reviewed the case in detail with her. I agree with her plans as outlined above. This patient comes in quite frequently with leg infections and sometimes with stasis dermatitis in his legs, always with very swollen legs, usually not compliant with a low-salt diet though usually compliant with his diuretic medications. Whether this is an acute infection at this time or not is unclear but is reasonable to treat him. Dr. Travon Stone is assessing the patient following along as well and he knows the patient well
[2018-08-14] MEDS: oxyCODONE CR 80 MG TAB PO SCH ×3 (04:49→19:54)
[2018-08-14] MEDS: LEVOTHYROXINE 100 MCG TAB PO SCH (05:14)
[2018-08-14] MEDS: GABAPENTIN 400 MG CAP PO SCH ×4 (05:14→21:48)
[2018-08-14] MEDS: HEPARIN 5,000 UNIT/0.5 ML INJ SC SCH ×3 (05:15→21:47)
[2018-08-14] MEDS: ceFAZolin 2 GM/DEXTROSE 100 ML IV SCH ×2 (05:15→16:55)
[2018-08-14] MEDS: TAMSULOSIN HCL 0.4 MG CAP PO SCH (08:39)
[2018-08-14] MEDS: PARoxetine HCL 20 MG TAB PO SCH ×2 (08:39→21:48)
[2018-08-14] MEDS: PANTOPRAZOLE SODIUM 40 MG TAB PO SCH (08:39)
[2018-08-14] MEDS: DOXYCYCLINE HYCLATE 100 MG CAP/TAB PO SCH ×2 (08:39→21:48)
[2018-08-14] MEDS: buPROPion XL 150 MG TAB PO SCH ×2 (08:39→21:48)
[2018-08-14] MEDS: KETOCONAZOLE 2% 120 ML SHAMPOO TP SCH (08:41)
[2018-08-14] MEDS ORDERED: LISINOPRIL 40 MG TAB PO SCH (09:00)
[2018-08-14] MEDS: Mometasone/Formoterol [Dulera] 200 Mcg/5 Mcg Inhaler IH SCH ×2 (09:29→20:37)
--- NOTE | 2018-08-14 11:20 | ASDISCHSUM ---
Discharge Information Plan Status:Home with No Needs Medically Cleared to Leave: Discharge Date: D/C Disposition:Home, Routine, Self-Care ADT D/C Disposition: Projected Discharge Date: Transportation at D/C: Discharge Delay Reason: Follow-Up Date: Discharge Slot: Final Diagnosis: Placement Information Patient Contact Information Contact Name:ANUJ Relationship: Address:[address] City:[place] Alternate Phone: State/Zip Code:[place] [address] Email: Financial Information Financial Class:Medicare Primary Plan Desc:MEDICARE INPATIENT Primary Plan Number:[id number] Secondary Plan Desc:GAUDENCIO NILES Secondary Plan Number:[id number] Assessment Information LACE LACE Length of stay for Answers: Less than 1 day current admission Comorbidities - select Answers: Chronic pulmonary disease all that apply Opioid dependence / Chronic pain Other Notes: HTN; Chronic venous stasis; Recurrent cellulitis # of Emergency department Answers: 3-4 visits in the last 6 months Score: 10 Date Signed: 08/14/2018 11:19 AM Electronically Signed By:Vickie Crowder Intervention Information
--- NOTE | 2018-08-14 11:38 | ECHO ---
[email or web address] [address] [address] Main: [phone] Echocardiography Examination Transthoracic Name: ALEXIS JIM MR#: [id number] Study Date: 08/14/2018 Study Time: 08:57 AM Date of : 1955 Age: 63 year(s) Height: 157.5 cm (62 in.) Weight: 90.72 kg (200 lb.) BSA: 1.91 m2 Gender: Male Examination: Echo Contrast: Image Quality: Adequate Rhythm: Normal sinus rhythm Heart Rate: 90 bpm BP: 148 mmHg/97 mmHg Indication: Shortness of breath, weight gain, worse LE edema, assess EF Procedure Staff Referring Physician: Junior Sales Assistant: Ruth Berrios [facility] Reading Physician: Yomi King MD Requesting Provider: Ordering Physician: Travon Stone Indication: Shortness of breath, weight gain, worse LE edema, assess EF Measurements Chambers AV/MV Label Value Normal Value Label Value Normal Value LVOT Vmax 1 m/s (0.7m/s - 1.1m/s) AV PGmax 8 mmHg LVOTd 2.3 cm (1.9cm - 2.1cm) AV Vmax 1.43 m/s LVDd, 2D 5 cm (4.2cm - 5.9cm) LULI (Vmax) 2.9 cm2 LVDs, 2D 3.9 cm (2.1cm - 4cm) MV E Vmax 0.77 m/s IVSd, 2D 0.8 cm (0.6cm - 1.1cm) MV A Vmax 0.58 m/s LVPWd, 2D 1.1 cm (0.6cm - 1cm) MV E/A 1.33 LVEF, BP 51 % (55% - 70%) MV E/E' lateral 6.5 LVEF, 2D 43 % (54% - 74%) MV E/E' septal 12.7 (0.45 - 1.25) RVDd, 2D 3.4 cm (1.9cm - 3.8cm) MV DT 144 ms TAPSE 1.4 cm MV E' septal 0.06 m/s LA Volume, BP 54 ml (18ml - 58ml) MV E' lateral 0.12 m/s LADs, 2D 4.1 cm (3cm - 4cm) MV E/E' mean 8.56 LAESV index, BP 28.3 ml/m2 MV E' mean 0.09 m/s RA Area 14 cm2 TV/PV Additional Vessels Label Value Normal Value Label Value Normal Value TR Pmax 24 mmHg AoAsc 2.6 cm TR Vmax 2.47 m/s AoRoot, 2D 2.9 cm (1.4cm - 2.6cm) PV PGmax 4 mmHg PV Vmax, Caliper 1.05 m/s (0.6m/s - 0.9m/s) Patient: ALEXIS JIM Study Date: 08/14/2018 Page 1 of 2 08:57 AM Conclusions Overall Conclusions: No pericardial effusion. Ejection fraction 55%. Concentric left ventricular hypertrophy associated with diastolic dysfunction. Mild tricuspid regurgitation with normal right ventricular systolic pressure. Findings Left Ventricle: Left ventricle is normal in size. Mildly reduced systolic left ventricular function. EF evaluated by EF (biplane Arana's). The ejection fraction, measured by Simpsons method, is 51 %. EF range is estimated at 55 % - 50 %. There is mild concentric left ventricular hypertrophy. Basal inferior wall hypokinesis.Grade I Diastolic Dysfunction. Right Ventricle: Normal size right ventricle. Right ventricular systolic function is normal. Left Atrium: The left atrium is normal in size. Right Atrium: The right atrium is normal in size. Mitral Valve: Mitral valve appears structurally normal. No significant mitral regurgitation. No mitral valve stenosis. Aortic Valve: The aortic valve is structurally normal and trileaflet. No significant aortic valve regurgitation. There is no aortic stenosis. Tricuspid Valve: Tricuspid valve leaflets are structurally normal. Mild tricuspid regurgitation. No tricuspid valve stenosis. Pulmonary artery pressure normal. Pulmonic Valve: Pulmonic valve is poorly visualized. Aorta: The aortic root size in 2D measures 2.9 cm. The aortic root exhibits normal size. The ascending aorta measures 2.6 cm. Ascending aorta is normal in size. Aorta Measurements AoRoot, 2D is 2.9 cm. IVC: The inferior vena cava is poorly visualized. Pericardium: No pericardial effusion. Exam Details Procedure Ordered: Echo Procedure Status: Routine study Image Quality: Adequate Facility Location: Cardiac Echo 1 (No Signature Object) Patient: ALEXIS JIM Study Date: 08/14/2018 Page 2 of 2 08:57 AM [id number]
[2018-08-14] MEDS ORDERED: FUROSEMIDE 40 MG/4 ML VIAL IVP ONE (13:10)
--- NOTE | 2018-08-14 13:16 | HOSPPROG ---
Hospitalist Progress Note Assessment/Plan: #Cellulitis of right leg vs chronic venous stasis -ID following -On Cefazolin. Looks like also on Doxycycline. Prob can stop Doxy, will wait for ID reccs #XU #Pedal Edema: -Negative RLE US for DVT -Trial of Lasix today. Refused dose last night. -Echocardiogram is pending #Hyperkalemia: Lasix per above should help #HTN: monitor closely. Hold Lisinopril in setting of elevated Cr. It appears to have been given this morning #COPD, not in exacerbation #BPH: home meds #Insomnia: home meds #Generalized Weakness: PT/OT evals pending Diet: Low-sodium VTE ppx: LMWH Code: Full Dispo:cont inpatient Subjective: did not take the diuretic last night. echo is pending. no cp. erythema of legs and swelling has not improved. Objective: Vital Signs Temp Pulse Resp BP Pulse Ox 36.6 C 103 H 20 131/79 H 93 08/14/18 11:25 08/14/18 11:25 08/14/18 11:25 08/14/18 11:25 08/14/18 11:25 Laboratory Results 08/14/18 04:59 08/13/18 08/14/18 08/15/18 05:59 05:59 05:59 Intake Total 120 120 Output Total 400 Balance -280 120 - Physical Exam Constitutional: no apparent distress Eyes: PERRL, EOMI Ears, Nose, Mouth, Throat: moist mucous membranes Cardiovascular: regular rate and rhythym, edema Respiratory: no respiratory distress, no rales or rhonchi, clear to auscultation Gastrointestinal: normoactive bowel sounds Skin: warm Musculoskeletal: generalized weakness Neurologic: AAOx3 Psychiatric: interacting appropriately, not anxious, not encephalopathic Lymph, Heme, Immunologic: No petechiae ICD10 Worksheet Patient Problems: Problems Problem Status Onset Cellulitis of leg Acute Abdominal pain Acute Acute renal failure Acute Bilateral cellulitis of lower leg Acute Cellulitis Acute Dehydration Acute Olecranon bursitis of left elbow Acute Portal vein thrombosis Acute Severe sepsis Acute Umbilical hernia, incarcerated Acute Vomiting Acute
--- NOTE | 2018-08-14 13:45 | ASMTCMCOM ---
CM Note CM Note Notes: Please disregard previous note. Charted on wrong pt. CM met with RN. RN reports that she disconnected PT/OT for pt. RN reports that pt lives with his and appears to be at his baseline. CM to follow. Plan: Independent Date Signed: 08/14/2018 01:43 PM Electronically Signed By:Vickie Crowder
--- NOTE | 2018-08-14 16:11 | PCMIDPN ---
Assessment/Plan: # B LE chronic changes c/w venous stasis, blanching pinkness present more on R than L. Patient feels there are diffuse "pustules" RLE but on exam just appears to be chronic edema --continue cefazolin at 2gm IV --diuresis, elevation. Patient will not wear compression --education that leg does not look infected today therefore no change in antibiotic warranted # ARF: Cr better today, increase cefazolin dose to q8h # Subject R leg weakness: unclear chronicity. continue to monitor meds cefazolin 2gm IV q12h doxycycline 100mg PO BID micro 08/13 blood cx (2) pending Subjective: patient feels poorly and strongly believes it is due to his RLE which appears darker to him. Admits that the leg has been brighter in the past Urinating a lot due to Lasix no diarrhea chronic back pain feels like R leg not as strong as previously Objective: Vital Signs Temp Pulse Resp BP Pulse Ox 36.9 C 95 18 117/82 H 93 08/14/18 15:47 08/14/18 15:47 08/14/18 15:47 08/14/18 15:47 08/14/18 15:47 Laboratory Results 08/14/18 04:59 08/13/18 08/14/18 08/15/18 05:59 05:59 05:59 Intake Total 120 370 Output Total 400 850 Balance -280 -480 - Physical Exam General Appearance: alert, no apparent distress EENT: other (no teeth), No thrush Respiratory: lungs clear, No accessory muscle use, No crackles Neck: supple Cardiac/Chest: regular rate, rhythm Extremities: pedal edema, inflammation, swelling, other (edema, inflammation, swelling R>L) Abdomen: non-tender, soft Male Genitalia: No rasmussen Skin: warm/dry, No diaphoresis, No rash Neuro/Psych: alert, normal mood/affect, oriented x 3, other (R leg strength a little less than L but R still able to move against gravity) - Time Spent With Patient Time Spent with Patient: greater than 35 minutes Time Spent with Patient: Greater than 35 minutes spent on this patients care, greater than 50% of time spent counseling, educating, and coordinating care regarding the above mentioned plan. ICD10 Worksheet Patient Problems: Problems Problem Status Onset Cellulitis of leg Acute Abdominal pain Acute Acute renal failure Acute Bilateral cellulitis of lower leg Acute Cellulitis Acute Dehydration Acute Olecranon bursitis of left elbow Acute Portal vein thrombosis Acute Severe sepsis Acute Umbilical hernia, incarcerated Acute Vomiting Acute
[2018-08-14] MEDS: MELATONIN 3 MG TAB PO SCH (21:48)
[2018-08-15] MEDS: ceFAZolin 2 GM/DEXTROSE 100 ML IV SCH ×3 (00:49→15:51)
[2018-08-15] MEDS: oxyCODONE CR 80 MG TAB PO SCH ×3 (03:51→19:34)
[2018-08-15] MEDS: LEVOTHYROXINE 100 MCG TAB PO SCH (05:38)
[2018-08-15] MEDS: HEPARIN 5,000 UNIT/0.5 ML INJ SC SCH ×3 (05:38→21:06)
[2018-08-15] MEDS: GABAPENTIN 400 MG CAP PO SCH ×4 (05:38→21:06)
[2018-08-15] MEDS: PANTOPRAZOLE SODIUM 40 MG TAB PO SCH (07:51)
[2018-08-15] MEDS: TAMSULOSIN HCL 0.4 MG CAP PO SCH (07:51)
[2018-08-15] MEDS: PARoxetine HCL 20 MG TAB PO SCH ×2 (07:52→21:07)
[2018-08-15] MEDS: DOXYCYCLINE HYCLATE 100 MG CAP/TAB PO SCH ×2 (07:52→21:06)
[2018-08-15] MEDS: buPROPion XL 150 MG TAB PO SCH ×2 (07:52→21:07)
[2018-08-15] MEDS: KETOCONAZOLE 2% 120 ML SHAMPOO TP SCH (08:10)
[2018-08-15] MEDS: Mometasone/Formoterol [Dulera] 200 Mcg/5 Mcg Inhaler IH SCH ×2 (09:37→22:03)
--- NOTE | 2018-08-15 11:40 | HOSPPROG ---
Hospitalist Progress Note Assessment/Plan: #Cellulitis of right leg vs chronic venous stasis -ID following -On Cefazolin and Doxycycline. #XU: resolved #Pedal Edema and volume overload -significant improvement with Lasix IV x 1 -Refuses Lasix today -Likely needs to schedule daily diuretics. He is willing to try tomorrow and this will be scheduled -Negative RLE US for DVT #Hyperkalemia: resolved #HTN: monitor closely. Hold Lisinopril in setting of elevated Cr. BP is appropriate today. Can restart MARISOL-I if BP goes up. #COPD, not in exacerbation #BPH: home meds #Insomnia: home meds #Generalized Weakness: PT/OT evals pending Diet: Low-sodium VTE ppx: LMWH Code: Full Dispo:cont inpatient. Pt is convinced that he has cellulites with pustules and the the IV abx are starting to help. ID is following. Subjective: leg is less swollen. no cp or sob. Feels that LE infection is getting better. Objective: Vital Signs Temp Pulse Resp BP Pulse Ox 36.8 C 98 18 121/87 H 92 08/15/18 11:15 08/15/18 11:15 08/15/18 11:15 08/15/18 11:15 08/15/18 11:15 Laboratory Results 08/15/18 05:05 08/14/18 08/15/18 08/16/18 05:59 05:59 05:59 Intake Total 120 1370 250 Output Total 400 3350 350 Balance -280 -1979 - - Physical Exam Constitutional: no apparent distress Eyes: PERRL, EOMI Ears, Nose, Mouth, Throat: moist mucous membranes Cardiovascular: regular rate and rhythym, edema Respiratory: no respiratory distress, no rales or rhonchi Gastrointestinal: normoactive bowel sounds Skin: warm Neurologic: AAOx3 Psychiatric: interacting appropriately, not anxious, not encephalopathic Lymph, Heme, Immunologic: No petechiae ICD10 Worksheet Patient Problems: Problems Problem Status Onset Cellulitis of leg Acute Abdominal pain Acute Acute renal failure Acute Bilateral cellulitis of lower leg Acute Cellulitis Acute Dehydration Acute Olecranon bursitis of left elbow Acute Portal vein thrombosis Acute Severe sepsis Acute Umbilical hernia, incarcerated Acute Vomiting Acute
--- NOTE | 2018-08-15 14:11 | PCMIDPN ---
Assessment/Plan: # B LE chronic changes c/w venous stasis, no active infection --continue cefazolin at 2gm IV q8 --patient wants a day off lasix, supported ongoing diuresis (agreed to Lasix on Friday) --hopeful to stop abx soon # ARF: resolved meds cefazolin 2gm IV q8h #2 doxycycline 100mg PO BID micro 08/13 blood cx (2) NGTD Subjective: still worried about being on the wrong abx but admits legs look lots better, including smaller 3L and 3Kg off since admit Objective: Vital Signs Temp Pulse Resp BP Pulse Ox 36.8 C 98 18 121/87 H 92 08/15/18 11:15 08/15/18 11:15 08/15/18 11:15 08/15/18 11:15 08/15/18 11:15 Laboratory Results 08/15/18 05:05 08/14/18 08/15/18 08/16/18 05:59 05:59 05:59 Intake Total 120 1370 250 Output Total 400 3350 350 Balance -280 -1980 -100 General Appearance: alert, no apparent distress EENT: no teeth, No thrush Respiratory: lungs clear, No accessory muscle use, No crackles Neck: supple Cardiac/Chest: regular rate, rhythm Extremities: woody pedal edema, santos pinkness, swelling R>L - less than yesterday Abdomen: non-tender, soft Male Genitalia: No rasmussen Skin: warm/dry, No diaphoresis, No rash Neuro/Psych: alert, normal mood/affect, oriented x 3, Time Spent with Patient: greater than 35 minutes Time Spent with Patient: Greater than 35 minutes spent on this patients care, greater than 50% of time spent counseling, educating, and coordinating care regarding the above mentioned plan. ICD10 Worksheet Patient Problems: Problems Problem Status Onset Cellulitis of leg Acute Abdominal pain Acute Acute renal failure Acute Bilateral cellulitis of lower leg Acute Cellulitis Acute Dehydration Acute Olecranon bursitis of left elbow Acute Portal vein thrombosis Acute Severe sepsis Acute Umbilical hernia, incarcerated Acute Vomiting Acute
[2018-08-15] MEDS: MELATONIN 3 MG TAB PO SCH (21:06)
[2018-08-16] MEDS: ceFAZolin 2 GM/DEXTROSE 100 ML IV SCH ×2 (01:22→09:15)
[2018-08-16] MEDS: oxyCODONE CR 80 MG TAB PO SCH ×3 (04:15→20:50)
[2018-08-16] MEDS: PANTOPRAZOLE SODIUM 40 MG TAB PO SCH (05:58)
[2018-08-16] MEDS: HEPARIN 5,000 UNIT/0.5 ML INJ SC SCH ×3 (05:58→23:42)
[2018-08-16] MEDS: LEVOTHYROXINE 100 MCG TAB PO SCH (05:58)
[2018-08-16] MEDS: GABAPENTIN 400 MG CAP PO SCH ×4 (05:59→20:50)
[2018-08-16] MEDS: DOXYCYCLINE HYCLATE 100 MG CAP/TAB PO SCH ×2 (09:16→20:51)
[2018-08-16] MEDS: buPROPion XL 150 MG TAB PO SCH ×2 (09:16→20:51)
[2018-08-16] MEDS: TAMSULOSIN HCL 0.4 MG CAP PO SCH (09:16)
[2018-08-16] MEDS: PARoxetine HCL 20 MG TAB PO SCH ×2 (09:16→20:51)
--- NOTE | 2018-08-16 10:22 | HOSPPROG ---
Hospitalist Progress Note Assessment/Plan: #Cellulitis of right leg vs chronic venous stasis -Dr Cueva stopped ancef IV, continued po doxy -revwd importance of compression/diuretics -he refuses compression socks, agrees to PO diuretics today -likely dc in AM #XU: resolved -restart lisinopril in AM (says takes 20-40 mg daily) #Pedal Edema and volume overload -significant improvement with Lasix IV x 1 -needs to schedule daily diuretics. He is willing to try today again, but will need PCP to work/reinforce this -Negative RLE US for DVT #Hyperkalemia: resolved #HTN: stable -restart donavon I #COPD, not in exacerbation #BPH: home meds #Insomnia: home meds #Generalized Weakness: PT/OT evals pending Diet: Low-sodium DVT prophy- lovenox Code: Full Dispo:likely dc in AM, FU with Dr Amanda PCP Subjective: Nervous about heart, testosterone, PSA, leg infection. OK with discharge in AM. Says will FU with Dr Amanda in office (reuests PSA and testosterone labs as not done 'for awhile'- confirmed on Qoopl) and needed for FU appt with Dr Amanda. No CP/SOB/n/v/d. Objective: Vital Signs Temp Pulse Resp BP Pulse Ox 97.6 F 84 20 136/77 H 90 L 08/16/18 08:38 08/16/18 08:38 08/16/18 08:38 08/16/18 08:38 08/16/18 08:38 Laboratory Results 08/15/18 05:05 08/14/18 08/15/18 08/16/18 11:59 11:59 11:59 Intake Total 240 1500 1200 Output Total 400 3700 2800 Balance -160 -2200 -1600 - Time Spent With Patient Time Spent with Patient: greater than 35 minutes Time Spent with Patient: Greater than 35 minutes spent on this patients care, greater than 50% of time spent counseling, educating, and coordinating care regarding the above mentioned plan. - Pending Discharge Pending Discharge Within 24 Hours: Yes Pending Discharge Date: 08/17/18 Pending Discharge Time: 11:00 - Physical Exam Constitutional: no apparent distress, obese Eyes: anicteric sclera Ears, Nose, Mouth, Throat: moist mucous membranes, hearing normal Cardiovascular: regular rate and rhythym, edema (brawny edema/stasis R>>L LE) Respiratory: no respiratory distress, no rales or rhonchi, clear to auscultation Gastrointestinal: normoactive bowel sounds, soft, non-tender abdomen, No rebound , No distension Skin: erythema (RLE- not sure re baseline but per reports of other providers it is lessening) Psychiatric: interacting appropriately, not encephalopathic ICD10 Worksheet Patient Problems: Problems Problem Status Onset Cellulitis of leg Acute Abdominal pain Acute Acute renal failure Acute Bilateral cellulitis of lower leg Acute Cellulitis Acute Dehydration Acute Olecranon bursitis of left elbow Acute Portal vein thrombosis Acute Severe sepsis Acute Umbilical hernia, incarcerated Acute Vomiting Acute
[2018-08-16] MEDS: Mometasone/Formoterol [Dulera] 200 Mcg/5 Mcg Inhaler IH SCH ×4 (10:25→21:35)
[2018-08-16] MEDS: FUROSEMIDE 20 MG TAB PO SCH ×2 (11:43→15:14)
[2018-08-16] MEDS: KETOCONAZOLE 2% 120 ML SHAMPOO TP SCH (11:43)
--- NOTE | 2018-08-16 14:13 | PCMIDPN ---
Assessment/Plan: # B LE chronic changes c/w venous stasis, no active infection --dc cefazolin --still on doxycycline suppression --elevation and lasix --discussed importance of watching fluid intake but patient states not worth living if can't drink when and what he wants. # ARF: resolved meds cefazolin 2gm IV q8h #3 doxycycline 100mg PO BID micro 08/13 blood cx (2) NGTD Subjective: patient is very reluctant to stop antibiotics somewhat upset Objective: Vital Signs Temp Pulse Resp BP Pulse Ox 36.6 C 86 16 154/90 H 94 08/16/18 11:49 08/16/18 11:49 08/16/18 11:49 08/16/18 11:49 08/16/18 11:49 Laboratory Results 08/15/18 05:05 08/15/18 08/16/18 08/17/18 05:59 05:59 05:59 Intake Total 1370 1350 100 Output Total 3350 2150 1000 Balance -1979 -800 -900 General Appearance: alert, no apparent distress EENT: no teeth, No thrush Respiratory: intermittent increase RR when upset Extremities: woody pedal edema, santos pinkness, swelling R>L - still gradually improving Male Genitalia: No rasmussen Skin: warm/dry, No diaphoresis, No rash Neuro/Psych: alert, normal mood/affect, oriented x 3, Time Spent with Patient: greater than 35 minutes Time Spent with Patient: Greater than 35 minutes spent on this patients care, greater than 50% of time spent counseling, educating (patient and ), and coordinating care regarding the above mentioned plan. ICD10 Worksheet Patient Problems: Problems Problem Status Onset Cellulitis of leg Acute Abdominal pain Acute Acute renal failure Acute Bilateral cellulitis of lower leg Acute Cellulitis Acute Dehydration Acute Olecranon bursitis of left elbow Acute Portal vein thrombosis Acute Severe sepsis Acute Umbilical hernia, incarcerated Acute Vomiting Acute
--- NOTE | 2018-08-16 15:47 | ASMTCMCOM ---
CM Note CM Note Notes: Per MD note patient improving. IV antibiotics discontinued at this point in time. No needs for discharge identified at this point. CM available should needs arise. Plan: Dc to home when medically cleared for discharge. Date Signed: 08/16/2018 03:47 PM Electronically Signed By:Moriah Doyle RN
[2018-08-16] MEDS: MELATONIN 3 MG TAB PO SCH (20:51)
[2018-08-17] MEDS: oxyCODONE CR 80 MG TAB PO SCH ×2 (04:33→11:38)
[2018-08-17] MEDS: GABAPENTIN 400 MG CAP PO SCH ×2 (05:45→11:38)
[2018-08-17] MEDS: HEPARIN 5,000 UNIT/0.5 ML INJ SC SCH (05:45)
[2018-08-17] MEDS: LEVOTHYROXINE 100 MCG TAB PO SCH (05:45)
[2018-08-17 05:54] LABS: PLATELET COUNT 247 10^3/uL (150-400)
[2018-08-17] MEDS ORDERED: LISINOPRIL 40 MG TAB PO SCH (09:00)
[2018-08-17] MEDS: Mometasone/Formoterol [Dulera] 200 Mcg/5 Mcg Inhaler IH SCH (09:20)
[2018-08-17 09:50] VITALS: BP 141/99
[2018-08-17] MEDS: DOXYCYCLINE HYCLATE 100 MG CAP/TAB PO SCH (09:52)
[2018-08-17] MEDS: PARoxetine HCL 20 MG TAB PO SCH (09:52)
[2018-08-17] MEDS: TAMSULOSIN HCL 0.4 MG CAP PO SCH (09:52)
[2018-08-17] MEDS: buPROPion XL 150 MG TAB PO SCH (09:52)
[2018-08-17] MEDS: FUROSEMIDE 20 MG TAB PO SCH (09:52)
[2018-08-17] MEDS: PANTOPRAZOLE SODIUM 40 MG TAB PO SCH (09:57)
--- NOTE | 2018-08-17 10:00 | GDS ---
[f rep st] DISCHARGE SUMMARY SERVICE: [facility] Hospitalist CONSULT: Infectious Disease PROCEDURES: 1. Lower extremity Doppler done on the day of admission, which showed no evidence of deep vein thrombosis. 2. Echocardiogram done 08/14/2018, which showed ejection fraction 55%, concentric left ventricular hypertrophy, diastolic dysfunction, mild tricuspid regurgitation, normal right ventricular pressures, basal inferior wall hypokinesis. Normal atrium sizes, normal mitral valve, normal aortic valve, no pericardial effusion. HISTORY AND PHYSICAL: Please see previously entered note by Dr. Contreras. ADMISSION DIAGNOSES: 1. Recurrent right greater than left cellulitis, in the setting of chronic venous stasis and significant lower extremity edema. 2. Acute kidney injury. 3. Chronic pain with chronic opioid therapy. 4. Hypertension. 5. Obesity. 6. Low testosterone. DISCHARGE DIAGNOSES: 1. Recurrent right greater than left cellulitis, in the setting of chronic venous stasis and significant lower extremity edema, improved. 2. Acute kidney injury, resolved 3. Chronic pain with chronic opioid therapy. 4. Hypertension. 5. Obesity. 6. Low testosterone, testosterone level and PSA labs ordered on the day of admission and results need to be followed up by primary care provider. HOSPITAL COURSE: The patient is well known to the hospitalist service and infectious disease service because of recurrent bilateral lower extremity cellulitis flares/chronic venous stasis and edema. He came to the emergency department because of reported worsening of swelling and redness. He was empirically started on IV Ancef, had negative DVT evaluation and was admitted to the hospital for ongoing treatment. Infectious Disease was asked to see him and recommended continued ancef with close observation. He had 3 days of IV ancef, along with oral doxycycline. He was strongly encouraged to do elevation and take diuretics along with compression socks to decrease the chronic edema. He initially refused these measures but did agree to take oral furosemide for a few days. On the day of discharge, he does agree to continue to take this and also try doing Trav wraps at home which have in the past been helpful for him. Blood cultures were ordered at admission and were negative. He had a creatinine of 1.7 at admission which is elevated from his baseline. Unclear etiology of acute kidney insufficiency, but it resolved during the course of his stay. On the day of discharge, his creatinine is 1.1 (even after taking Lasix for a few days). This should be monitored closely by his primary care provider at home especially if he is agreeing to be compliant with oral diuretics. His potassium was also initially elevated at 5.3, but on the day of discharge was 4.4. If he takes furosemide twice a day, he should also take a potassium supplement once a day, which was sent to his pharmacy. Again, this should be closely monitored by his primary care provider to ensure that his creatinine and electrolytes remained stable. On the day of discharge, he felt OK and he denied any chest pain or shortness of breath. He O2 was in the low 90s on room air, which is his baseline. He had been afebrile throughout his stay. He felt comfortable with discharge to home and a quick followup with Dr. Albert Amanda, his primary care provider. DISCHARGE MEDICATIONS: He is to continue all of his routine home medications. He was not put on any other antibiotics at discharge as he had received 3 days of IV Ancef and Infectious disease specialist did not recommend any further treatment other than his chronic suppression antibiotic (cephalexin or doxycycline- he will chck his prescription when he returns home and bring all medication with him to PCP appointment). Prescription was sent for Lasix 20 mg to take up to twice a day along with potassium to take once a day if taking Lasix regularly. DISCHARGE INSTRUCTIONS: He was asked to keep a compression wrap/Trav bandage on his legs as much as able. I suggested that he place Vaseline or some other sort of thick emollient cream on his legs prior to putting on the wraps. He was reminded to keep his legs elevated as much as able. He was advised that testosterone and PSA labs were pending at discharge and that he should follow up with his primary care provider within a few days for routine hospital followup. If at any time he has shortness of breath, significantly increased swelling, significantly increased redness or other concerns, he can return to the hospital for reevaluation. Otherwise, he should follow up with Dr. Albert Amanda within the next few days. /[id number]/MODL MTDD
[2018-08-18] MEDS ORDERED: TESTOSTERONE IM 100 MG/ML SYRINGE IM SCH (09:00)
== END 2018-08-17 13:53 | disposition home or self-care (01) | DRG 603 ==
LOC: F3E 18:45
PROVIDERS: ADMIT Internal Medicine; ATTEND Internal Medicine
DX: L03.115 Cellulitis of right lower limb (principal); N17.9 Acute kidney failure, unspecified; L03.116 Cellulitis of left lower limb; G89.29 Other chronic pain; I10 Essential (primary) hypertension; E66.9 Obesity, unspecified; E29.1 Testicular hypofunction; R21 Rash and other nonspecific skin eruption; N40.0 Benign prostatic hyperplasia without lower urinary tract symptoms; G47.00 Insomnia, unspecified; J44.9 Chronic obstructive pulmonary disease, unspecified
CPT/HCPCS: 84402-90; 96365; J0690; J1071; J1644; J1940